=== PATIENT | female | born 1960 | race Caucasian/White ===

== ENCOUNTER → 2019-04-13 | Day surgery (SDC) | payer MEDICARE ==
[~2019-04-13] MED LIST: CLOPIDOGREL75 MG PO; EPHEDRINE SULFATE INJ 50 MG/10 ML SYR ONE; FENOFIBRATE145 MG PO; FENTANYL CITRATE/PF 100MCG/2 ML INJ ONE; GLIPIZIDE5 MG PO; GLUCAGON FOR INJ 1 MG VIAL ONE; LEVETIRACETAM500 MG PO; LEVOTHYROXINE50 MCG PO; LEXAPRO10 MG PO; MELOXICAM7.5 MG PO; METFORMIN HCL500 MG PO; MIDAZOLAM HCL 2 MG/2 ML VIAL ONE; NOVOLOG MI100 UNIT/1 SQ; PROPOFOL IV EMULSION 10 MG/ML 50 ML VIAL ONE; PROPRANOLOL HCL40 MG PO; ULTRAM50 MG PO; ZOLOFT50 MG PO
--- OUTSIDE RECORDS SUMMARY | 2019-04-13 06:48 | XMS REPORT | Clinical Summary ---
Author Author [facility] Address Unknown Phone Unavailable Care Team Providers Care Accreditation Manager Name Role Phone Louisa Restrepo DO PCP Allergies Comments Active Allergy Reactions Severity Noted Date Codeine Itching 06/08/2018 Penicillin G Hives 06/08/2018 Medications End Date Status Medication Sig Dispensed Refills Start Date Active traMADol (ULTRAM) 50 mg Take 50 mg by 0 tablet mouth every 6 (six) hours as needed for moderate pain. 06/13/2018 Discontinued celecoxib (CeleBREX) 100 Take 100 mg 0 MG capsule by mouth 2 (two) times a day. 06/13/2018 Discontinued losartan (COZAAR) 25 MG Take 25 mg by 0 tablet mouth every evening. 06/13/2018 Discontinued propranolol LA (INDERAL Take 60 mg by 0 LA) 60 MG 24 hr capsule mouth every evening. 06/13/2018 Discontinued clopidogrel (PLAVIX) 75 Take 75 mg by 0 mg tablet mouth every morning. 06/13/2018 Discontinued levothyroxine (SYNTHROID, Take 75 mcg 0 LEVOXYL) 75 mcg tablet by mouth every morning. 06/13/2018 Discontinued levETIRAcetam (KEPPRA) Take 750 mg 0 750 MG tablet by mouth 2 (two) times a day. 06/13/2018 Discontinued escitalopram (LEXAPRO) 20 Take 20 mg by 0 MG tablet mouth every morning. 07/13/2018 levETIRAcetam (KEPPRA) Take 1 tablet 60 tablet 0 750 MG tablet (750 mg 8 total) by mouth 2 (two) times a day for 30 days. 07/13/2018 atorvastatin (LIPITOR) 40 Take 1 tablet 30 tablet 0 MG tablet (40 mg total) 8 by mouth nightly for 30 days. 07/13/2018 losartan (COZAAR) 25 MG Take 1 tablet 30 tablet 0 tablet (25 mg total) 8 by mouth every evening for 30 days. 07/13/2018 propranolol LA (INDERAL Take 1 30 capsule 0 LA) 60 MG 24 hr capsule capsule (60 8 mg total) by mouth every evening for 30 days. 07/13/2018 insulin 70/30 NPH and Inject 40 10 mL 12 regular human (HumuLIN Units under 8 70/30) 100 unit/mL the skin 2 (70-30) injection (two) times a day before meals for 30 days. 07/13/2018 insulin NPH (HumuLIN-N) Inject 10 10 mL 12 100 unit/mL injection Units under 8 the skin 2 (two) times a day before meals for 30 days. 07/14/2018 fenofibrate (LOFIBRA) 160 Take 1 tablet 30 tablet 0 MG tablet (160 mg 8 total) by mouth daily for 30 days. 07/13/2018 celecoxib (CeleBREX) 100 Take 1 60 capsule 0 MG capsule capsule (100 8 mg total) by mouth 2 (two) times a day for 30 days. 07/14/2018 aspirin (ECOTRIN) 81 MG Take 1 tablet 30 tablet 0 enteric coated tablet (81 mg total) 8 by mouth daily for 30 days. 06/13/2018 Discontinued clopidogrel (PLAVIX) 75 Take 1 tablet 30 tablet 0 mg tablet (75 mg total) 8 by mouth every morning for 30 days. 07/13/2018 escitalopram (LEXAPRO) 20 Take 1 tablet 30 tablet 0 MG tablet (20 mg total) 8 by mouth every morning for 30 days. 07/13/2018 levothyroxine (SYNTHROID, Take 1 tablet 30 tablet 0 LEVOXYL) 75 mcg tablet (75 mcg 8 total) by mouth every morning for 30 days. Active Problems No known active problems Resolved Problems Problem Noted Date Resolved Date Chest pain 06/08/2018 06/13/2018 Encounters Care Team Description Date Type Specialty Geovani Berry MD Special screening for cancer; Personal history of tobacco use, presenting hazards to health 03/18/2019 Hospital Radiology Encounter Geovani Berry MD Special screening for cancer (Primary Dx); Personal history of tobacco use, presenting hazards to health 03/10/2019 Transcribe Access Orders Patrick Marie MD Abouelseoud, Tanseem Hamad Mohamed A, MD Morris, David, DO Chest pain, unspecified type (Primary Dx); Chest pain, rule out acute myocardial infarction; Hyperglycemia 06/08/2018 Hospital Intensive Care - Encounter 06/13/2018 after 04/12/2018 Social History Date Tobacco Use Types Packs/Day Years Used Quit: 09/2012 Former Smoker Smokeless Tobacco: Never Used Alcohol Use Drinks/Week oz/Week Comments Yes occasionally Sex Assigned at Date Recorded Not on file Industry Job Start Date Occupation Not on file Not on file Not on file Travel End Travel History Travel Start No recent travel history available. Last Filed Vital Signs Time Taken Vital Sign Reading 06/13/2018 3:00 PM CDT Blood Pressure 103/51 06/13/2018 4:45 PM CDT Pulse 65 06/13/2018 12:00 PM CDT Temperature 36.7 C (98.1 F) 06/13/2018 4:45 PM CDT Respiratory Rate 33 06/13/2018 4:45 PM CDT Oxygen Saturation 97% - Inhaled Oxygen - Concentration 06/10/2018 6:00 AM CDT Weight 90.4 kg (199 lb 4.7 oz) 06/09/2018 1:23 PM CDT Height 162.6 cm (5' 4") 06/09/2018 1:23 PM CDT Body Mass Index 34.21 Plan of Treatment Health Maintenance Due Date Last Done Comments DIABETIC RETINAL EYE EXAM 1959 DIABETIC FOOT EXAM 1969 URINE MICROALBUMIN 1969 BREAST CANCER SCREENING 2009 COLONOSCOPY SCREENING 2009 SHINGLES VACCINES (#1) 2009 INFLUENZA VACCINE 05/13/2019 07/27/2018, 07/15/2017 Implants Device Identifier Shelf Expiration Date Model / Serial / Lot Implanted Type Area Manufactur er Bone Plate Bone Plate Procedures Comments Procedure Name Priority Date/Time Associated Diagnosis CT CHEST LUNG CANCER Routine 03/18/2019 Special screening for SCREENING 9:48 AM CDT cancer Personal history of tobacco use, presenting hazards to health POC GLUCOSE Routine 06/13/2018 4:37 PM CDT POC GLUCOSE Routine 06/13/2018 11:22 AM CDT POC GLUCOSE Routine 06/13/2018 7:26 AM CDT ZZESTIMATED GFR Routine 06/13/2018 4:35 AM CDT TRIGLYCERIDES Routine 06/13/2018 4:35 AM CDT IONIZED CALCIUM Routine 06/13/2018 4:35 AM CDT PHOSPHORUS LEVEL Routine 06/13/2018 4:35 AM CDT MAGNESIUM LEVEL Routine 06/13/2018 4:35 AM CDT BASIC METABOLIC PANEL Routine 06/13/2018 4:35 AM CDT CBC WITH PLATELET AND Routine 06/13/2018 DIFFERENTIAL 4:35 AM CDT POC GLUCOSE Routine 06/13/2018 12:10 AM CDT POC GLUCOSE Routine 06/12/2018 10:21 PM CDT POC GLUCOSE Routine 06/12/2018 7:44 PM CDT POC GLUCOSE Routine 06/12/2018 6:08 PM CDT POC GLUCOSE Routine 06/12/2018 5:09 PM CDT ZZESTIMATED GFR Timed 06/12/2018 4:40 PM CDT IONIZED CALCIUM Timed 06/12/2018 4:40 PM CDT PHOSPHORUS LEVEL Timed 06/12/2018 4:40 PM CDT MAGNESIUM LEVEL Timed 06/12/2018 4:40 PM CDT BASIC METABOLIC PANEL Timed 06/12/2018 4:40 PM CDT POC GLUCOSE Routine 06/12/2018 4:12 PM CDT POC GLUCOSE Routine 06/12/2018 3:04 PM CDT POC GLUCOSE Routine 06/12/2018 2:03 PM CDT TROPONIN STAT 06/12/2018 12:51 PM CDT POC GLUCOSE Routine 06/12/2018 11:49 AM CDT ECG 12-LEAD STAT 06/12/2018 11:07 AM CDT ZZESTIMATED GFR Routine 06/12/2018 4:20 AM CDT TRIGLYCERIDES Routine 06/12/2018 4:20 AM CDT BASIC METABOLIC PANEL Routine 06/12/2018 4:20 AM CDT HC COMPLETE BLD COUNT Routine 06/12/2018 W/AUTO DIFF 4:20 AM CDT POC GLUCOSE Routine 06/12/2018 2:38 AM CDT POC GLUCOSE Routine 06/12/2018 12:10 AM CDT TRIGLYCERIDES Timed 06/11/2018 8:39 PM CDT POC GLUCOSE Routine 06/11/2018 7:37 PM CDT POC GLUCOSE Routine 06/11/2018 6:22 PM CDT POC GLUCOSE Routine 06/11/2018 5:06 PM CDT POC GLUCOSE Routine 06/11/2018 4:11 PM CDT TRIGLYCERIDES STAT 06/11/2018 3:12 PM CDT POC GLUCOSE Routine 06/11/2018 2:54 PM CDT POC GLUCOSE Routine 06/11/2018 1:54 PM CDT POC GLUCOSE Routine 06/11/2018 12:29 PM CDT POC GLUCOSE Routine 06/11/2018 11:56 AM CDT POC GLUCOSE Routine 06/11/2018 10:22 AM CDT POC GLUCOSE Routine 06/11/2018 9:18 AM CDT POC GLUCOSE Routine 06/11/2018 8:14 AM CDT PHOSPHORUS LEVEL STAT 06/11/2018 6:50 AM CDT MAGNESIUM LEVEL STAT 06/11/2018 6:50 AM CDT TRIGLYCERIDES Routine 06/11/2018 6:50 AM CDT ZZESTIMATED GFR Routine 06/11/2018 6:50 AM CDT BASIC METABOLIC PANEL Routine 06/11/2018 6:50 AM CDT HC COMPLETE BLD COUNT Routine 06/11/2018 W/AUTO DIFF 6:50 AM CDT POC GLUCOSE Routine 06/11/2018 6:26 AM CDT POC GLUCOSE Routine 06/11/2018 5:35 AM CDT POC GLUCOSE Routine 06/11/2018 4:33 AM CDT POC GLUCOSE Routine 06/11/2018 3:29 AM CDT POC GLUCOSE Routine 06/11/2018 2:31 AM CDT POC GLUCOSE Routine 06/11/2018 1:29 AM CDT POC GLUCOSE Routine 06/11/2018 12:41 AM CDT POC GLUCOSE Routine 06/10/2018 11:28 PM CDT POC GLUCOSE Routine 06/10/2018 10:30 PM CDT POC GLUCOSE Routine 06/10/2018 9:22 PM CDT POC GLUCOSE Routine 06/10/2018 8:13 PM CDT ZZESTIMATED GFR Timed 06/10/2018 8:11 PM CDT BASIC METABOLIC PANEL Timed 06/10/2018 8:11 PM CDT TRIGLYCERIDES Timed 06/10/2018 8:11 PM CDT POC GLUCOSE Routine 06/10/2018 7:26 PM CDT POC GLUCOSE Routine 06/10/2018 6:11 PM CDT POC GLUCOSE Routine 06/10/2018 5:25 PM CDT POC GLUCOSE Routine 06/10/2018 4:28 PM CDT POC GLUCOSE Routine 06/10/2018 3:04 PM CDT POC GLUCOSE Routine 06/10/2018 1:36 PM CDT POC GLUCOSE Routine 06/10/2018 12:32 PM CDT POC GLUCOSE Routine 06/10/2018 11:36 AM CDT POC GLUCOSE Routine 06/10/2018 10:23 AM CDT POC GLUCOSE Routine 06/10/2018 9:00 AM CDT POC GLUCOSE Routine 06/10/2018 8:24 AM CDT POC GLUCOSE Routine 06/10/2018 7:08 AM CDT XR CHEST 1 VW PORTABLE Routine 06/10/2018 6:38 AM CDT POC GLUCOSE Routine 06/10/2018 6:07 AM CDT POC GLUCOSE Routine 06/10/2018 5:07 AM CDT ZZESTIMATED GFR Routine 06/10/2018 4:05 AM CDT TRIGLYCERIDES Routine 06/10/2018 4:05 AM CDT PHOSPHORUS LEVEL Routine 06/10/2018 4:05 AM CDT MAGNESIUM LEVEL Routine 06/10/2018 4:05 AM CDT COMPREHENSIVE METABOLIC Routine 06/10/2018 PANEL 4:05 AM CDT CBC WITH PLATELET AND Routine 06/10/2018 DIFFERENTIAL 4:05 AM CDT POC GLUCOSE Routine 06/10/2018 4:01 AM CDT POC GLUCOSE Routine 06/10/2018 3:08 AM CDT POC GLUCOSE Routine 06/10/2018 2:03 AM CDT POC GLUCOSE Routine 06/10/2018 1:09 AM CDT ZZESTIMATED GFR Timed 06/10/2018 12:26 AM CDT TRIGLYCERIDES Timed 06/10/2018 12:26 AM CDT BASIC METABOLIC PANEL Timed 06/10/2018 12:26 AM CDT POC GLUCOSE Routine 06/10/2018 12:13 AM CDT POC GLUCOSE Routine 06/09/2018 11:01 PM CDT POC GLUCOSE Routine 06/09/2018 10:02 PM CDT POC GLUCOSE Routine 06/09/2018 9:04 PM CDT ZZESTIMATED GFR Timed 06/09/2018 8:45 PM CDT BASIC METABOLIC PANEL Timed 06/09/2018 8:45 PM CDT POC GLUCOSE Routine 06/09/2018 8:02 PM CDT POC GLUCOSE Routine 06/09/2018 7:03 PM CDT TRIGLYCERIDES Timed 06/09/2018 6:20 PM CDT POC GLUCOSE Routine 06/09/2018 6:07 PM CDT POC GLUCOSE Routine 06/09/2018 5:09 PM CDT POC GLUCOSE Routine 06/09/2018 4:06 PM CDT POC GLUCOSE Routine 06/09/2018 3:04 PM CDT POC GLUCOSE Routine 06/09/2018 2:03 PM CDT ECG 12-LEAD STAT 06/09/2018 1:38 PM CDT BETA HYDROXYBUTYRATE STAT 06/09/2018 11:59 AM CDT LACTIC ACID LEVEL STAT 06/09/2018 11:59 AM CDT KEPPRA (LEVETIRACETAM) Routine 06/09/2018 LEVEL 11:59 AM CDT MAGNESIUM LEVEL STAT 06/09/2018 10:48 AM CDT ZZESTIMATED GFR STAT 06/09/2018 10:48 AM CDT COMPREHENSIVE METABOLIC STAT 06/09/2018 PANEL 10:48 AM CDT LIPASE LEVEL STAT 06/09/2018 10:48 AM CDT TRIGLYCERIDES STAT 06/09/2018 10:48 AM CDT TROPONIN STAT 06/09/2018 10:48 AM CDT POC GLUCOSE Routine 06/09/2018 10:22 AM CDT ECHOCARDIOGRAM 2D Routine 06/09/2018 COMPLETE W MMODE SPECTRAL 9:26 AM CDT COLOR DOPPLER (41218) POC GLUCOSE Routine 06/09/2018 6:14 AM CDT TROPONIN Routine 06/09/2018 5:05 AM CDT THYROID STIMULATING Routine 06/09/2018 HORMONE 5:05 AM CDT LIPID PANEL Routine 06/09/2018 5:05 AM CDT ZZESTIMATED GFR Routine 06/09/2018 5:05 AM CDT BASIC METABOLIC PANEL Routine 06/09/2018 5:05 AM CDT HC COMPLETE BLD COUNT Routine 06/09/2018 W/AUTO DIFF 5:05 AM CDT URINALYSIS SCREEN AND Routine 06/09/2018 MICROSCOPY, WITH REFLEX 1:05 AM CDT TO CULTURE ECG 12-LEAD STAT 06/08/2018 9:20 PM CDT LIPID PANEL Timed 06/08/2018 8:42 PM CDT TROPONIN Timed 06/08/2018 8:42 PM CDT POC GLUCOSE Routine 06/08/2018 8:36 PM CDT POC GLUCOSE Routine 06/08/2018 7:[address] ABDOMEN PELVIS W STAT 06/08/2018 CONTRAST 6:34 PM CDT XR CHEST 2 VW STAT 06/08/2018 4:44 PM CDT ECG ED PRELIMINARY Routine 06/08/2018 INTERPRETATION 4:14 PM CDT KEPPRA (LEVETIRACETAM) Routine 06/08/2018 LEVEL 3:54 PM CDT HEMOGLOBIN A1C Routine 06/08/2018 3:54 PM CDT MANUAL DIFFERENTIAL STAT 06/08/2018 3:54 PM CDT LIPASE LEVEL STAT 06/08/2018 3:54 PM CDT ZZESTIMATED GFR STAT 06/08/2018 3:54 PM CDT B NATRIURETIC PEPTIDE STAT 06/08/2018 3:54 PM CDT TROPONIN STAT 06/08/2018 3:54 PM CDT COMPREHENSIVE METABOLIC STAT 06/08/2018 PANEL 3:54 PM CDT CBC WITH PLATELET AND STAT 06/08/2018 DIFFERENTIAL 3:54 PM CDT ECG 12-LEAD STAT 06/08/2018 3:17 PM CDT after 04/12/2018 Results * CT Chest Lung Cancer Screening (03/18/2019 9:48 AM CDT) Specimen Narrative Performed At EXAMINATION:CT CHEST LUNG CANCER SCREENING [facility] CLINICAL HISTORY:Z12.9 Encounter for screening for malignant neoplasmsite unspecified, Z87.891 Personal history of nicotine dependence, Z12.9SCREENING FOR CANCER COMPARISON:CTA chest October 05, 2013 TECHNIQUE:CT of the chest without intravenous contrast, using a low dose lung cancer screening protocol. Absence of contrast decreases sensitivity for detection of focal lesions and vascular pathology. CT imaging was performed with iterative reconstruction techniques and/or automated exposure control to reduce radiation dose. FINDINGS: LUNGS: There is no focal consolidation, pleural effusion, or pneumothorax. There are no suspicious pulmonary nodules or pulmonary mass. Increased lucency of the lungs suggest some degree of emphysema or other cause of chronic obstructive physiology. AIRWAYS: No central endobronchial or endotracheal lesions are seen. MEDIASTINUM: The thoracic aorta is without aneurysm. The pulmonary arteries are unremarkable. Heart is normal in size. No significant pericardial effusion is present. No enlarged mediastinal or hilar lymph nodes present. The esophagus is unremarkable. BONES AND OVERLYING SOFT TISSUES: The visualized bones are without destructive lesions. No enlarged axillary lymph nodes present. VISUALIZED LOWER NECK AND UPPER ABDOMEN:Unremarkable. IMPRESSION: No suspicious findings. Lung-Rads Category/Recommendation: 1:Negative:--- Continue annual LDCT in 12 months Explanation of the Lung-Rads categories can be found at: [email or web address] [id number] Procedure Note Hm Interface, Radiology Results Incoming - 03/18/2019 10:25 AM CDT EXAMINATION: CT CHEST LUNG CANCER SCREENING CLINICAL HISTORY: Z12.9 Encounter for screening for malignant neoplasm site unspecified, Z87.891 Personal history of nicotine dependence, Z12.9 SCREENING FOR CANCER COMPARISON: CTA chest October 05, 2013 TECHNIQUE: CT of the chest without intravenous contrast, using a low dose lung cancer screening protocol. Absence of contrast decreases sensitivity for detection of focal lesions and vascular pathology. CT imaging was performed with iterative reconstruction techniques and/or automated exposure control to reduce radiation dose. FINDINGS: LUNGS: There is no focal consolidation, pleural effusion, or pneumothorax. There are no suspicious pulmonary nodules or pulmonary mass. Increased lucency of the lungs suggest some degree of emphysema or other cause of chronic obstructive physiology. AIRWAYS: No central endobronchial or endotracheal lesions are seen. MEDIASTINUM: The thoracic aorta is without aneurysm. The pulmonary arteries are unremarkable. Heart is normal in size. No significant pericardial effusion is present. No enlarged mediastinal or hilar lymph nodes present. The esophagus is unremarkable. BONES AND OVERLYING SOFT TISSUES: The visualized bones are without destructive lesions. No enlarged axillary lymph nodes present. VISUALIZED LOWER NECK AND UPPER ABDOMEN:Unremarkable. IMPRESSION: No suspicious findings. Lung-Rads Category/Recommendation: 1: Negative: --- Continue annual LDCT in 12 months Explanation of the Lung-Rads categories can be found at: [id number] Performing Organization Address City/State/Zipcode Phone Number [facility] [address] [place] [address] * POC glucose (06/13/2018 4:37 PM CDT) Only the most recent of 69 results within the time period is included. [facility] POC glucose 124 (H) 65 - 100 mg/dL [facility] Comment: OF PATHOLOGY Meter ID: [id number] AND GENOMIC Assistant News Director: Tiff Jalloh [facility] Specimen Performing Organization Address City/State/Zipcode Phone Number [facility] [address] [place] [phone] PATHOLOGY AND GENOMIC MEDICINE * Estimated GFR (06/13/2018 4:35 AM CDT) Only the most recent of 11 results within the time period is included. Pathologist [facility] GFR Non Af Amer >90 mL/min/1.73 m2 [facility] OF PATHOLOGY AND GENOMIC MEDICINE GFR Af Amer >90 mL/min/1.73 m2 [facility] Comment: OF PATHOLOGY Chronic kidney disease: <60 AND GENOMIC mL/min/1.73m2 MEDICINE Kidney failure: <15 mL/min/1.73m2 The estimated GFR is calculated from the IDMS-traceable Modification of Diet in Renal Disease Equation. The accuracy of the calculation is poor when the creatinine is normal. Calculated values >90 mL/min/1.73m2 are not reported. This equation has not been validated in children (<18 years), women, the elderly (>70 years), or ethnic groups other than Caucasians and Americans. Specimen Plasma specimen Performing Organization Address City/State/Zipcode Phone Number [facility] [address] [place] [address] PATHOLOGY AND GENOMIC MEDICINE * CBC with platelet and differential (06/13/2018 4:35 AM CDT) Only the most recent of 6 results within the time period is included. WBC 3.9 (L) 4.2 - 11.0 k/uL [facility] OF PATHOLOGY AND GENOMIC MEDICINE RBC 3.82 (L) 4.04 - 5.86 m/uL [facility] PATHOLOGY AND GENOMIC MEDICINE HGB 11.6 11.5 - 15.3 g/dL [facility] PATHOLOGY AND GENOMIC MEDICINE HCT 36.1 34.0 - 45.0 % [facility] OF PATHOLOGY AND GENOMIC MEDICINE MCV 94.5 80.0 - 98.0 fL [facility] OF PATHOLOGY AND GENOMIC MEDICINE MCH 30.4 27.0 - 34.0 pg [facility] OF PATHOLOGY AND GENOMIC MEDICINE MCHC 32.1 31.5 - 36.5 g/dL [facility] OF PATHOLOGY AND GENOMIC MEDICINE RDW - SD 43.9 37.0 - 51.0 fL [facility] OF PATHOLOGY AND GENOMIC MEDICINE MPV 9.9 7.4 - 10.4 fL [facility] OF PATHOLOGY AND GENOMIC MEDICINE Platelet count 213 150 - 400 k/uL [facility] PATHOLOGY AND GENOMIC MEDICINE Nucleated RBC 0.00 /100 WBC [facility] OF PATHOLOGY AND GENOMIC MEDICINE Neutrophils 30.4 (L) 36.0 - 66.0 % [facility] OF PATHOLOGY AND GENOMIC MEDICINE Lymphocytes 50.5 (H) 24.0 - 44.0 % [facility] OF PATHOLOGY AND GENOMIC MEDICINE Monocytes 10.7 (H) 0.0 - 6.0 % [facility] DEPARTMENT OF PATHOLOGY AND GENOMIC MEDICINE Eosinophils 5.6 0.0 - 6.0 % [facility] OF PATHOLOGY AND GENOMIC MEDICINE Basophils 1.5 (H) 0.0 - 1.2 % [facility] OF PATHOLOGY AND GENOMIC MEDICINE Immature 1.3 (H) 0.0 - 1.0 % [facility] granulocytes OF PATHOLOGY AND GENOMIC MEDICINE Specimen Blood Performing Organization Address City/[facility] Cent[facility] [place] [address] PATHOLOGY AND GENOMIC MEDICINE * Triglycerides (06/13/2018 4:35 AM CDT) Only the most recent of 10 results within the time period is included. Triglycerides 461 (H) 0 - 149 mg/dL [facility] OF PATHOLOGY AND GENOMIC MEDICINE Specimen Plasma specimen Performing Organization Address [facility] Cent[facility]ode [place] [address] PATHOLOGY AND GENOMIC MEDICINE * Phosphorus level (06/13/2018 4:35 AM CDT) Only the most recent of 4 results within the time period is included. Phosphorus 3.8 2.4 - 4.5 mg/dL [facility] OF PATHOLOGY AND GENOMIC MEDICINE Specimen Plasma specimen Performing Organization Address City/[facility] Cent[facility]ode [place] [address] PATHOLOGY AND [facility] MEDICINE * Magnesium level (06/13/2018 4:35 AM CDT) Only the most recent of 5 results within the time period is included. Magnesium 1.60 1.60 - 2.60 mg/dL [facility] OF PATHOLOGY AND GENOMIC MEDICINE Specimen Plasma specimen Performing Organization Address City/[facility] Centercode [place] [address] PATHOLOGY AND [facility] MEDICINE * Ionized calcium (06/13/2018 4:35 AM CDT) Only the most recent of 2 results within the time period is included. pH 7.36 [facility] OF PATHOLOGY AND GENOMIC MEDICINE Ionized calcium 1.28 1.11 - 1.32 mmol/L [facility] OF PATHOLOGY AND GENOMIC MEDICINE Specimen Plasma specimen Performing Organization Address City/[facility] Centercode Phone Number [place] [phone] PATHOLOGY AND [facility] * Basic metabolic panel (06/13/2018 4:35 AM CDT) Only the most recent of 8 results within the time period is included. [facility] Sodium 137 135 - 150 mEq/L [facility] OF PATHOLOGY AND [facility]IC[facility] Potassium 4.2 3.5 - 5.0 mEq/L [facility] OF PATHOLOGY AND [facility]IC[facility] Chloride 98 98 - 112 mEq/L [facility] OF PATHOLOGY AND [facility] MEDICINE CO2 33 (H) 24 - 31 mmol/L [facility] PATHOLOGY AND [facility] MEDICINE Anion gap 6@ANIO (L) 7 - 15 mEq/L [facility] OF PATHOLOGY AND [facility] MEDICINE BUN 6 (L) 7 - 18 mg/dL [facility] OF PATHOLOGY AND [facility]IC[facility] Creatinine 0.50 0.50 - 0.90 mg/dL [facility] OF PATHOLOGY AND [facility] MEDICINE Glucose 211 (H) 65 - 100 mg/dL [facility] OF PATHOLOGY AND [facility]ICINE Calcium 9.7 8.3 - 10.2 mg/dL [facility] OF PATHOLOGY AND [facility]ICINE Specimen Plasma specimen Performing Organization Address City/[facility]/Zipcode Phone Number [facility] [address] [place] [address] PATHOLOGY AND [facility] * Troponin (06/12/2018 12:51 PM CDT) Only the most recent of 5 results within the time period is included. [facility] Troponin <0.30 0.00 - 0.30 ng/mL [facility] Comment: OF PATHOLOGY 0.11 - 1.49 AND GENOMIC [place] MEDICINE indicate increased risk of acute coronary syndrome. >=1.5 ng/ml Consistent with acute myocardial infarction. The diagnostic value of a single normal or non-diagnostic result is questionable.Serial samples at 2-6 hour intervals are required to rule out acute myocardial injury. Specimen Plasma specimen Performing Organization Address City/[facility]/Zipcode Phone Number [facility] OF [address] [place] [address] PATHOLOGY AND [facility] * ECG 12 lead (06/12/2018 11:07 AM CDT) Only the most recent of 4 results within the time period is included. [facility] Ventricular 65 [facility] rate Atrial rate 65 [facility] CA interval 164 [facility] QRSD interval 78 [facility] QT interval 420 [facility] QTC interval 436 [facility] P axis 1 65 [facility]USE QRS axis 1 40 [facility] T wave axis 64 [facility] EKG impression Normal sinus rhythm-Low [facility] voltage QRS-Borderline ECG-In automated comparison with ECG of 09-JUN-2018 13:38,-No significant change was found- Specimen Performing Organization Address [facility] Phone Number [facility] [address] [place] [address] * XR Chest 1 Vw Portable (06/10/2018 6:38 AM CDT) Specimen Narrative Performed At EXAMINATION:XR CHEST 1 VW PORTABLE [facility] CLINICAL HISTORY:ICU ptstable with no clinical status changes COMPARISON:June 08, 2018 chest IMPRESSION: The lungs are hypoexpanded but clear. The heart is not enlarged. Degenerative changes right acromioclavicular articulation as before Single view chest [id number] Procedure Note Hm Interface, Radiology Results Incoming - 06/10/2018 6:57 AM CDT EXAMINATION: XR CHEST 1 VW PORTABLE CLINICAL HISTORY: ICU pt stable with no clinical status changes COMPARISON: June 08, 2018 chest IMPRESSION: The lungs are hypoexpanded but clear. The heart is not enlarged. Degenerative changes right acromioclavicular articulation as before Single view chest [id number] Performing Organization Address [facility] Phone Number [facility] [address] [place] [address] * Comprehensive metabolic panel (06/10/2018 4:05 AM CDT) Only the most recent of 3 results within the time period is included. Sodium 135 135 - 150 mEq/L [facility] AND GENOMIC MEDICINE Potassium 3.5 3.5 - 5.0 mEq/L [facility]OLOGY AND GENOMIC MEDICINE Chloride 96 (L) 98 - 112 mEq/L [facility]OLOGY AND GENOMIC MEDICINE CO2 29 24 - 31 mmol/L [facility]OLOGY AND GENOMIC MEDICINE Anion gap 10@ANIO 7 - 15 mEq/L [facility]OLOGY AND GENOMIC MEDICINE BUN 8 7 - 18 mg/dL [facility]Y AND GENOMIC MEDICINE Creatinine 0.40 (L) 0.50 - 0.90 mg/dL [facility] AND [facility]OMIC MEDICINE Glucose 191 (H) 65 - 100 mg/dL [facility] AND [facility]OMIC MEDICINE Calcium 9.4 8.3 - 10.2 mg/dL [facility]Y AND GENOMIC MEDICINE Protein 5.7 (L) 6.3 - 8.3 g/dL [facility]OLOGY AND GENOMIC MEDICINE Albumin 2.8 (L) 3.5 - 5.0 g/dL [facility]OLOGY AND GENOMIC MEDICINE A/G ratio 1.0 0.7 - 3.8 [facility]OLOGY AND GENOMIC MEDICINE Alkaline 111 (H) 0 - 104 U/L [facility] phosphatase OF PATHOLOGY AND GENOMIC MEDICINE AST 69 (H) 10 - 35 U/L [facility]OLOGY AND GENOMIC MEDICINE ALT <2 (L) 5 - 50 U/L [facility]OLOGY AND GENOMIC MEDICINE Total bilirubin <0.3 0.2 - 1.2 mg/dL [facility]OLOGY AND GENOMIC MEDICINE Specimen Plasma specimen Performing Organization Address City/[facility] Cent[facility] [address] PATHOLOGY AND GENOMIC MEDICINE * Beta hydroxybutyrate (06/09/2018 11:59 AM CDT) Beta 0.96 (H) 0.02 - 0.27 mmol/L [facility] hydroxybutyrate OF PATHOLOGY AND [facility] Specimen Blood Performing Organization Address City/[facility] Centerc[place] [address] PATHOLOGY AND GENOMIC MEDICINE * Keppra (Levetiracetam) level (06/09/2018 11:59 AM CDT) Only the most recent of 2 results within the time period is included. Levetiracetam 23 12 - 46 ug/mL [facility] Comment: INTERPRETIVE INFORMATION: Keppra (Levetiracetam) Therapeutic Range:12-46 ug/mL Toxic: Not well Established Pharmacokinetics of levetiracetam are affected by renal function. Adverse effects may include somnolence, weakness, headache and vomiting. Performed by [facility], [address] [place] [id number] [email or web address] Jamal Westbrook MD - Lab. Director Specimen Serum Performing Organization Address City/[facility]/Zipcode Phone Number [facility] [address] [place] [address] * Lactic acid level (06/09/2018 11:59 AM CDT) Pathologist [facility] Lactic acid 1.1 0.5 - 2.2 mmol/L [facility] AND GENOMIC MEDICINE Specimen Blood Performing Organization Address City/[facility] Cent[facility]ode Phone Number [facility] [address] [facility] [place] [address] PATHOLOGY AND GENOMIC MEDICINE * Lipase level (06/09/2018 10:48 AM CDT) Only the most recent of 2 results within the time period is included. Pathologist [facility] Lipase 24 13 - 60 U/L [facility] OF [facility]OLOGY AND GENOMIC MEDICINE Specimen Plasma specimen Performing Organization Address [facility] Cent[facility] [place] [address] PATHOLOGY AND GENOMIC MEDICINE * Echocardiogram complete w contrast and 3D if needed (06/09/2018 9:26 AM CDT) Pathologist [facility] Velocity Ratio 0.63 m/s [facility] (V1/V2) IVS,d 0.95 cm [facility] EF 56.14 % [facility] Ascending aorta 3.20 cm [facility] LVPWD,d 0.88 cm [facility] AoV Mean PG 8.60 mmHg [facility] AV LVOT peak 6.88 mmHg [facility] gradient MV valve area p 2.93 cm2 [facility] 1/2 method PV Pk Grad 2.98 mmHg [facility] E/A ratio 0.81 [facility] E wave 259.17 msec [facility] decelartion time LVOT Diam,S 2.13 cm [facility] LVOT area 3.56 cm2 [facility] LVOT Vmax 1.32 m/s [facility] LVOT VTI 0.30 m [facility] AoV Peak PG 15.43 mmHg [facility] MV Peak E Tank 0.80 m/s [facility] MV stenosis 75.16 ms [facility] pressure 1/2 time MV Peak A Tank 0.99 m/s [facility] Ao Root 3.25 cm [facility] Diameter AoV Area, Vmax 2.38 cm2 [facility] AoV Area, VTI 2.56 cm2 [facility] AoV Vmax 2.09 m/s [facility] IVS/LVPW,2D 1.07 [facility] Left Atrium 3.31 cm [facility] Dimension Anterior LV,d 4.58 cm [facility] LV,s 3.24 cm [facility] PV VMAX 0.86 m/s [facility] RVSP (TR) 38.78 mmHg [facility] TR Vpeak 2.68 mm/s [facility] MV E A ratio 0.81 mmHg [facility] TR pk grad 28.78 mmHg [facility] RVSP 38.78 mmHg [facility] Ao Root 3.25 cm [facility] Diameter LV SYS VOL 42.23 ml [facility] LV CEASR VOL 96.29 ml [facility] LA area s A4C 19.47 cm2 [facility] LA Vol MOD A4C 54.73 ml [facility] LV SV Teich 2D 54.07 ml [facility] LV Vol s Teich 42.23 ml [facility] PSAX LVOT CO 18.57 l/min [facility] LVOT HR for 179.66 bpm [facility] LVOT CO AoV Vmn 1.40 [facility] IVS s 2D 1.30 [facility] LV FS Cube 2D 29.23 [facility] LV FS Teich 2D 29.23 [facility] AoV VTI 0.45 m [facility] LV EF,2D 64.56 % [facility] MV AE ratio 1.23 [facility] LVOT Vmn 0.89 [facility] Aov area Vmn 2.31 cm2 [facility] LVOT mean grad 3.63 mmHg [facility] MAX Pred HR 160.59 [facility] 85 of MPHR 136.50 [facility] Calc MPHR 160.59 bpm [facility] IVS pct thck 37.81 % [facility] PLAX LV SV Cube 2D 61.98 ml [facility] LV vol d cube 96.00 ml [facility] 2D LV vol s cube 34.03 ml [facility] 2D LVPW pct thck 49.97 % [facility] PLAX LVPW s PLAX 1.32 cm [facility] MV Decel slope 3.08 m/s2 [facility] Pred Exer Dur 7.97 [facility] R1 Pred METS R1 6.98 [facility] Specimen Narrative Performed At [facility] The left ventricle chamber size is normal. Left Ventricular ejection fraction is 55 - 60%. Spectral Doppler shows impaired relaxation pattern of left ventricular diastolic filling. Mildly elevated pulmonary artery systolic pressure Performing Organization Address City/State/Zipcode Phone Number [facility] [address] [place] [address] * Thyroid stimulating hormone (06/09/2018 5:05 AM CDT) TSH 4.64 (H) 0.27 - 4.20 uIU/mL [facility] OF [facility]OLOGY AND GENOMIC MEDICINE Specimen Plasma specimen Performing Organization Address City/[facility]/Zipcode Phone Number [address] [place] [address] PATHOLOGY AND GENOMIC MEDICINE * Lipid panel (06/09/2018 5:05 AM CDT) Only the most recent of 2 results within the time period is included. Cholesterol 528 (H) 0 - 199 mg/dL [facility] OF PATHOLOGY AND GENOMIC MEDICINE Triglycerides 3,465 (H) 0 - 149 mg/dL [facility] Comment: OF PATHOLOGY RESULT AFTER DILUTION, AND GENOMIC ORIGINALLY REPORTED ERROR MEDICINE Corrected result; previously reported as ERROR on 06/09/2018 at 06:52 by [facility] HDL cholesterol 9 (L) 40 - 9,999 mg/dL [facility] OF PATHOLOGY AND GENOMIC MEDICINE LDL cholesterol 64Comment: Result obtained by 0 - 99 mg/dL [facility] direct LDL measurement OF PATHOLOGY AND GENOMIC MEDICINE Lipid panel See below [facility] interpretation Comment: OF PATHOLOGY Total Cholesterol AND GENOMIC (mg/dL) MEDICINE LDL Cholesterol (mg/dL) <200 Desirable <100 Optimal 200-239Borderline -[id number] or above optimal >=240High 130-159Borderline- high 160-189High >=190Very high HDL Cholesterol (mg/dL) Triglycerides (mg/dL) <40Low <150 Normal >=60 High 150-199Borderline- high 200-499High >=500Very high Risk Catergories that modify LDL goals. Risk Catergories LDL goal (mg/dL) CHD and CHD risk equivalent <100 (10-year risk >20%) Multiple (2+) risk factors <130 (10-year risk=<20%) 0-1 risk factors <160 (<10-year risk) Defining levels of lipids in metabolic syndrome Triglycerides >=150 mg/dL HDL Cholesterol Men <40 mg/dL Women <50 mg/dL Non-HDL cholesterol is a second target for therapy in persons with high triglycerides (>=200 mg/dL) Specimen Plasma specimen Performing Organization Address City/[facility]/Zipcode Phone Number [place] [address] [place] [address] PATHOLOGY AND GENOMIC MEDICINE * Urinalysis screen and microscopy, with reflex to culture (06/09/2018 1:05 AM CDT) Specimen site Clean catch [facility] AND GENOMIC MEDICINE Color, UA Straw [facility] PATHOLOGY AND GENOMIC MEDICINE Appearance, UA Clear [facility] OF PATHOLOGY AND GENOMIC MEDICINE Specific 1.030 1.001 - 1.035 [facility] gravity, OF PATHOLOGY AND GENOMIC MEDICINE pH, UA 5.0 5.0 - 8.5 [facility] OF PATHOLOGY AND GENOMIC MEDICINE Protein, UA Negative Negative [facility] OF PATHOLOGY AND GENOMIC MEDICINE Glucose, UA 3+ (A) Negative [facility] OF PATHOLOGY AND GENOMIC MEDICINE Ketones, UA 1+ (A) Negative [facility] OF PATHOLOGY AND GENOMIC MEDICINE Bilirubin, UA Negative Negative [facility] OF PATHOLOGY AND GENOMIC MEDICINE Blood, UA Negative Negative [facility] OF PATHOLOGY AND GENOMIC MEDICINE Nitrite, UA Negative Negative [facility] OF PATHOLOGY AND GENOMIC MEDICINE Urobilinogen, Negative <2.0 [facility] UA OF PATHOLOGY AND GENOMIC MEDICINE Leukocyte Negative Negative [facility] esterase, UA OF PATHOLOGY AND GENOMIC MEDICINE Epithelial Few /HPF [facility] cells, UA OF PATHOLOGY AND GENOMIC MEDICINE WBC, UA 1 0 - 5 /HPF [facility] OF PATHOLOGY AND GENOMIC MEDICINE RBC, UA 1 0 - 5 /HPF [facility] OF PATHOLOGY AND GENOMIC MEDICINE Bacteria, UA Trace None seen [facility] OF PATHOLOGY AND GENOMIC MEDICINE Yeast, UA None seen [facility] OF PATHOLOGY AND GENOMIC MEDICINE Yeast with None seen [facility] pseudohyphae, OF PATHOLOGY UA AND GENOMIC MEDICINE Specimen Urine Performing Organization Address City/[facility]/Zipcode Phone Number [place] [address] [place] [address] PATHOLOGY AND GENOMIC MEDICINE * CT Abdomen Pelvis W Contrast (06/08/2018 6:34 PM CDT) Specimen Narrative Performed At EXAMINATION:CT ABDOMEN PELVIS W CONTRAST [facility] CLINICAL HISTORY:Abd painunspecified, Nauseavomiting TECHNIQUE: Multiple axial images of the abdomen and pelvis were obtained following intravenous administration of iodinated contrast. CT imaging was performed with iterative reconstruction technique and/or automated exposure control to reduce radiation dose. COMPARISON: CT of the abdomen and pelvis dated 01/05/2014 FINDINGS: ABDOMEN: No free air is seen in the abdomen. 1. Liver: Fatty infiltration of the liver. No discrete liver lesion is visualized. Hepatic veins patent. Portal vein, splenic vein, and superior mesenteric vein patent. 2. Gallbladder: Prior cholecystectomy. No abnormal dilatation of the biliary tree. 3. Spleen: The spleen is not enlarged. 4. Pancreas: No focal abnormality can be seen in the pancreas. No acute peripancreatic inflammatory change. 5. Adrenal Glands: There is a nodule in the lateral limb of the left adrenal gland which measures up to 1.8 cm, which is unchanged compared to previous examination. The right adrenal gland is unremarkable. 6. Kidneys: Nonspecific stranding surrounding the kidneys bilaterally may be secondary to scarring and underlying medical renal disease. Correlate with urinalysis to exclude infection. There is no solid mass seen within either kidney. No renal stone. No evidence of hydronephrosis, hydroureter, or discrete ureteral calculus. 7. Abdominal Aorta: Atherosclerosis abdominal aorta. 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 There is reconstitution of flow through the inferior vena cava reconstruction which reconstitutes flow and iliac vasculature. 8. Nodes: No significant adenopathy is noted in the upper abdomen, retroperitoneum, or mesenteric root. 9. Bowel: Colonic diverticulosis. Moderate amount of stool in the colon. No findings to suggest acute diverticulitis. There is a small portion of the transverse colon which herniates into a ventral abdominal hernia without evidence of thickening or inflammatory change. This contains fat and is above the level of the umbilicus. The cecum is unremarkable. The appendix is not definitively visualized. Delayed small bowel transit with evidence of a small bowel feces sign. Stomach appears grossly unremarkable. 10. Ascites: No ascites or fluid collections. PELVIS: 1.Pelvis: No free fluid in the pelvis. Inguinal, iliac chains demonstrate no significant adenopathy. Uterus is absent. Bladder unremarkable. 2. Bones: Degenerative changes of the osseous structures. No suspicious lesions. 3. Lung Bases: Unremarkable IMPRESSION: No definite acute findings in the abdomen or pelvis. Additional findings and details as above. [facility]-[id number] Procedure Note Interface, Radiology Results Incoming - 06/08/2018 6:56 PM CDT EXAMINATION: CT ABDOMEN PELVIS W CONTRAST CLINICAL HISTORY: Abd pain unspecified, Nausea vomiting TECHNIQUE: Multiple axial images of the abdomen and pelvis were obtained following intravenous administration of iodinated contrast. CT imaging was performed with iterative reconstruction technique and/or automated exposure control to reduce radiation dose. COMPARISON: CT of the abdomen and pelvis dated 01/05/2014 FINDINGS: ABDOMEN: No free air is seen in the abdomen. 1. Liver: Fatty infiltration of the liver. No discrete liver lesion is visualized. Hepatic veins patent. Portal vein, splenic vein, and superior mesenteric vein patent. 2. Gallbladder: Prior cholecystectomy. No abnormal dilatation of the biliary tree. 3. Spleen: The spleen is not enlarged. 4. Pancreas: No focal abnormality can be seen in the pancreas. No acute peripancreatic inflammatory change. 5. Adrenal Glands: There is a nodule in the lateral limb of the left adrenal gland which measures up to 1.8 cm, which is unchanged compared to previous examination. The right adrenal gland is unremarkable. 6. Kidneys: Nonspecific stranding surrounding the kidneys bilaterally may be secondary to scarring and underlying medical renal disease. Correlate with urinalysis to exclude infection. There is no solid mass seen within either kidney. No renal stone. No evidence of hydronephrosis, hydroureter, or discrete ureteral calculus. 7. Abdominal Aorta: Atherosclerosis abdominal aorta. 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 There is reconstitution of flow through the inferior vena cava reconstruction which reconstitutes flow and iliac vasculature. 8. Nodes: No significant adenopathy is noted in the upper abdomen, retroperitoneum, or mesenteric root. 9. Bowel: Colonic diverticulosis. Moderate amount of stool in the colon. No findings to suggest acute diverticulitis. There is a small portion of the transverse colon which herniates into a ventral abdominal hernia without evidence of thickening or inflammatory change. This contains fat and is above the level of the umbilicus. The cecum is unremarkable. The appendix is not definitively visualized. Delayed small bowel transit with evidence of a small bowel feces sign. Stomach appears grossly unremarkable. 10. Ascites: No ascites or fluid collections. PELVIS: 1. Pelvis: No free fluid in the pelvis. Inguinal, iliac chains demonstrate no significant adenopathy. Uterus is absent. Bladder unremarkable. 2. Bones: Degenerative changes of the osseous structures. No suspicious lesions. 3. Lung Bases: Unremarkable IMPRESSION: No definite acute findings in the abdomen or pelvis. Additional findings and details as above. [facility]-[id number] Performing Organization Address [facility] Phone Number [facility] [address] [place] [address] * XR Chest 2 Vw (06/08/2018 4:44 PM CDT) Specimen Narrative Performed At EXAMINATION:[facility] 2 [facility] CLIN[facility]:sob COMPARISON:02/10/2014 IMPRESSION: PA and lateral radiographs of the chest are reviewed. The heart size is normal. Lungs are clear. There is no pleural effusion or pneumothorax. There is no acute osseous abnormality. Resorption of the distal right clavicle is stable to previous examination and may be posttraumatic. There are surgical clips in the upper abdomen. [facility]-[id number] Procedure Note Hm Interface, Radiology Results Incoming - 06/08/2018 4:50 PM CDT EXAMINATION: XR CHEST 2 VW CLINICAL HISTORY: sob COMPARISON: 02/10/2014 IMPRESSION: PA and lateral radiographs of the chest are reviewed. The heart size is normal. Lungs are clear. There is no pleural effusion or pneumothorax. There is no acute osseous abnormality. Resorption of the distal right clavicle is stable to previous examination and may be posttraumatic. There are surgical clips in the upper abdomen. [facility]-[id number] Performing Organization Address [facility] Phone Number [facility] [address] [place] [address] * ECG ED Preliminary Interpretation - NOT AN ORDER (06/08/2018 4:14 PM CDT) Narrative Performed At Patrick Marie MD 06/08/20186:37 PM ECG ED Preliminary Interpretation - Not an Order Performed by: PATRICK MARIE Authorized by: PATRICK MARIE ECG reviewed by ED Physician in the absence of a bobbin dumper: yes Interpretation: Interpretation: abnormal Rate: ECG rate:79 ECG rate assessment: normal Rhythm: Rhythm: sinus rhythm Ectopy: Ectopy: none QRS: QRS axis:Normal Conduction: Conduction: normal ST segments: ST segments:Normal T waves: T waves: inverted Inverted:AVL * Manual differential (06/08/2018 3:54 PM CDT) Manual PERFORMED [facility] differential OF PATHOLOGY AND GENOMIC MEDICINE Neutrophils 57.0 36.0 - 66.0 % [facility] OF PATHOLOGY AND GENOMIC MEDICINE Lymphocytes 34.0 24.0 - 44.0 % [facility] OF PATHOLOGY AND GENOMIC MEDICINE Monocytes 5.0 0.0 - 6.0 % [facility] OF PATHOLOGY AND GENOMIC MEDICINE Eosinophils 3.0 0.0 - 6.0 % [facility] OF PATHOLOGY AND GENOMIC MEDICINE Basophils 1.0 0.0 - 1.2 % [facility] OF PATHOLOGY AND GENOMIC MEDICINE Metamyelocytes 0 0 - 1 % [facility] OF PATHOLOGY AND GENOMIC MEDICINE Promyelocytes 0 0 - 1 % [facility] PATHOLOGY AND GENOMIC MEDICINE Platelet slide Spencer adequate [facility] review OF PATHOLOGY AND GENOMIC MEDICINE Specimen Performing Organization Address City/State/Zipcode Phone Number [facility] [address] [place] [address]. [place] [address] PATHOLOGY AND GENOMIC MEDICINE * B natriuretic peptide (06/08/2018 3:54 PM CDT) Pathologist [facility] BNP 41 0 - 100 pg/mL [facility] OF PATHOLOGY AND GENOMIC MEDICINE Specimen Blood Performing Organization Address City/[facility] Centercode Phone Number [address] [place] [address] PATHOLOGY AND GENOMIC MEDICINE * Hemoglobin A1c (06/08/2018 3:54 PM CDT) Hemoglobin A1C 14.1 (H) 4.0 - 6.0 % [facility] Comment: OF PATHOLOGY AND GENOMIC MEDICINE Less than 6% - Goal of therapy for Type II Diabetes Less than 7%-Goal of therapy for Type I Diabetes Less than 8%-Accepta ble control for Type I or Type II Diabetes Greater than 8%-Unacceptabl e control; action indicated. ([id number]) Specimen Blood Performing Organization Address City/State/[facility] Centercode Phone Number [address] [place] [phone] PATHOLOGY AND GENOMIC MEDICINE after 04/12/2018 Insurance Type Payer Benefit Subscriber ID Effective Phone Address Plan / Dates Group Medicare MEDICARE MEDICARE xxxxxxxxxxx 2018- [place], PART A AND Present [place] Advance Directives Patient has advance care planning documents on file. For more information, farhat nash contact: Jason Small [address] [place] [address]
--- OUTSIDE RECORDS SUMMARY | 2019-04-13 06:51 | XMS REPORT | Continuity of Care Document ---
Author Author Chipolo Address Unknown Phone Unavailable Care Team Providers Care [facility] [employer] Member Name Role Phone [employer] Unavailable Unavailable Problems Problem Status Onset Date Classification Date Reported Comments Source Hypoglycemia Active 08/13/2018 Diagnosis 12/05/2018 [facility] Hypertension Active 07/27/2018 Diagnosis 12/05/2018 [facility] Flu vaccine Active 07/27/2018 Diagnosis 12/05/2018 [facility] Obesity Active 07/27/2018 Diagnosis 12/05/2018 [facility] BMI 34.0-34.9 Active 06/29/2018 Diagnosis 12/05/2018 [facility] Hypertriglyceridemia Active 06/26/2018 Diagnosis 12/05/2018 [facility] Hyperlipidemia Active 06/26/2018 Diagnosis 12/05/2018 [facility] Blurred vision Active 06/26/2018 Diagnosis 12/05/2018 [facility] Diabetes mellitus type II Active 06/13/2018 Diagnosis 12/05/2018 [facility] Seizure disorder Active 03/04/2018 Diagnosis 12/05/2018 [facility] Gait disturbance Active 03/04/2018 Diagnosis 12/05/2018 [facility] Abdominal wall hernia Active 07/15/2017 Diagnosis 12/05/2018 [facility] Chest pain Active 07/15/2017 Diagnosis 12/05/2018 [facility] Upper respiratory infection Inactive 07/15/2017 Problem 12/05/2018 [facility] Cough Inactive 07/15/2017 Problem 12/05/2018 [facility] Hypothyroidism Active 03/21/2017 Diagnosis 12/05/2018 [facility] Fibromyalgia Active 03/21/2017 Diagnosis 12/05/2018 [facility] Frequency, urinary Active 03/13/2017 Diagnosis 12/05/2018 [facility] CVA Active 11/04/2013 [facility] LAGUNAS, SZ, AMS, CVA Active 11/04/2013 [facility] LUMBAR STENOSIS Active 03/17/2012 [facility] CAD - Coronary artery disease Resolved Problem 01/31/2017 [facility] OPID [place] COPD Resolved Problem 01/31/2017 [facility] JACKIE Tan HTN - Hypertension Resolved Problem 01/31/2017 [facility] JACKIE Tan OA Active Problem 03/26/2019 [facility] Hypertension Active Problem 03/26/2019 [facility] Inflammatory arthritis Active Diagnosis 03/26/2019 [facility] Diabetes mellitus without mention of complication, type II or unspecified type, uncontrolled Active Problem 03/26/2019 [facility] Fibromyalgia Active Problem 03/26/2019 Kandy Najam Osteoarthritis of multiple joints Active Diagnosis 03/26/2019 Kandy Najam Medication monitoring encounter Active Diagnosis 03/26/2019 [facility] Left knee pain Active Diagnosis 03/26/2019 Kandy Najam Primary insomnia Active Problem 03/26/2019 Kandy Najam Left hand pain Active Diagnosis 03/26/2019 Kandy Najam Trigger finger, left middle finger Active Diagnosis 03/26/2019 Kandy Najam Asymptomatic postmenopausal status (natural) Active Diagnosis 06/13/2015 Kandy Najam Pain in joint, hand Active Diagnosis 06/13/2015 Kandy Najam Generalized osteoarthrosis, involving multiple sites Active Diagnosis 06/13/2015 Kandy Najam Counseling NOS Active Diagnosis 07/10/2016 Kandy Najam Pain in joint, lower leg Active Diagnosis 06/13/2015 Kandy Najam Pain in joint, multiple sites Active Diagnosis 06/13/2015 Kandy Najam Screening for osteoporosis Active Diagnosis 08/17/2015 Kandy Najam Pain, joint, hand, left Active Diagnosis 08/17/2015 Kandy Najam Pain, joint, hand, right Active Diagnosis 08/17/2015 Kandy Najam Pain in left foot Active Diagnosis 08/17/2015 Kandy Najam Osteoporosis Active Diagnosis 10/22/2015 Kandy Najam Pain in joint of right knee Active Diagnosis 10/22/2015 Kandy Najam Counseling NOS Active Diagnosis 10/22/2015 Kandy Najam Pain of left hand Active Diagnosis 07/10/2016 Kandy Najam Pain in right hand Active Diagnosis 07/10/2016 Kandy Najam OTHER GENERAL SYMPTOMS Active [facility] SPIN STEN,LUMBR WO ROYA Active [facility] Medications Medication Details Route Status Patient Instructions Ordering Provider Order Date Source Tizanidine HCl 1 tablet as needed Orally Active 4 MG Orally bedtime Najam 05/17/2019 [facility] Laverne Celecoxib 1 tab(s) with food as needed Orally Active 100 MG Orally Twice a day [facility] 05/17/2019 Kandy Dixon Celecoxib 1 tab(s) with food as needed Orally Active 100 MG Orally Twice a day [facility] 03/25/2019 Kandy Galloway Meloxicam 1 tab(s) with food as needed Orally Active 7.5 MG Orally Once a day [facility] 02/15/2019 Kandy Galloway Nalfon 1 capsule Orally Active 400 MG Orally Three times a day [facility] 11/18/2018 Kandy Galloway FENOFIBRATE TAKE 1 TABLET BY MOUTH ONCE DAILY Active TAKE 1 TABLET BY MOUTH ONCE DAILY 10/09/2018 [facility] ATORVASTATIN CALCIUM TAKE 1 TABLET BY MOUTH ONCE DAILY IN THE EVENING Active TAKE 1 TABLET BY MOUTH ONCE DAILY IN THE EVENING 10/09/2018 [facility] Celecoxib 1 tab(s) with food as needed Orally Active 100 MG Orally Twice a day [facility] 07/15/2018 Kandy Dixon Tizanidine HCl 1 tablet as needed Orally Active 4 MG Orally bedtime [facility] 07/15/2018 [facility] HUMULIN 70/30 (70-30) 100 UNIT/ML SUBCUTANEOUS SUSPENSION Inject 10 units under skin Every Day Active Inject 10 units under skin Every Day 06/26/2018 [facility] HUMULIN N 100 UNIT/ML SUBCUTANEOUS SUSPENSION Inject 10 units under skin Three Times a Day Active Inject 10 units under skin Three Times a Day 06/26/2018 [facility] ASPIRIN 1 by mouth every day Active 1 by mouth every day 06/26/2018 [facility] HUMULIN N 100 UNIT/ML SUBCUTANEOUS SUSPENSION Inject 10 units under skin Three Times a Day No Longer Active Inject 10 units under skin Three Times a Day 06/26/2018 [facility] LIPITOR 40 MG ORAL TABLET 1 by mouth every pm Active 1 by mouth every pm 06/26/2018 [facility] FENOFIBRATE Take one tablet By Mouth Every Day Active Take one tablet By Mouth Every Day 06/26/2018 [facility] CELEBREX 100 MG ORAL CAPSULE One capsule twice a day Active One capsule twice a day 02/09/2018 [facility] PROPRANOLOL HCL ER 60 MG ORAL CAPSULE EXTENDED RELEASE 24 HOUR take one cap By Mouth Every Day Active take one cap By Mouth Every Day 11/20/2017 [facility] Celecoxib 1 tab(s) with food as needed Orally Active 100 MG Orally Twice a day [facility] 11/18/2017 [facility] Meloxicam 1 tablet Orally Active 15 MG Orally Once a day prn with food [facility] 11/18/2017 [facility] Meloxicam 1 tablet Orally Active 15 MG Orally Once a day prn with food [facility] 09/16/2017 Kandy Dixon Tramadol HCl 2 tabs Orally Active 50 MG Orally tid prn [facility] 09/16/2017 Kandy Galloway Medrol as directed Orally Active 4 MG Orally daily [facility] 05/19/2017 Kandy [facility] CLOPIDOGREL BISULFATE 1 By Mouth once a day Active 1 By Mouth once a day 03/21/2017 [facility] MELOXICAM take one tab by mouth daily with food Active take one tab by mouth daily with food 03/21/2017 [facility] TRAMADOL HCL take two tabs by mouth three times a day for pain Active take two tabs by mouth three times a day for pain 03/21/2017 [facility] GABAPENTIN 1 by mouth three times a day Active 1 by mouth three times a day 03/21/2017 [facility] LEVETIRACETAM take one tab by mouth twice a day Active take one tab by mouth twice a day 03/21/2017 [facility] ESCITALOPRAM OXALATE take one tablet by mouth daily Active take one tablet by mouth daily 03/21/2017 [facility] LEVOTHYROXINE SODIUM One tab by mouth daily Active One tab by mouth daily 03/21/2017 [facility] LOSARTAN POTASSIUM 1 By Mouth once a day Active 1 By Mouth once a day 03/12/2017 [facility] LOSARTAN POTASSIUM One tablet once a day Active One tablet once a day 03/12/2017 [facility] Tramadol HCl 2 tabs Orally Active 50 MG Orally tid prn [facility] 03/07/2017 [facility] Plaquenil 2 tabs Orally Active 200 MG Orally Once a day [facility] 11/05/2016 [facility] Tramadol HCl 2 tabs Orally Active 50 MG Orally tid prn [facility] 11/05/2016 [facility] Meloxicam 1 tablet Orally Active 15 MG Orally Once a day prn with food [facility] 09/23/2016 Kandy [facility] Plaquenil 2 tabs Orally No Longer Active 200 MG Orally Once a day [facility] 09/23/2016 Kandy Najam Plaquenil 2 tabs Orally Active 200 MG Orally Once a day [facility] 08/16/2015 Kandy Najam Zorvolex 1 capsule Orally Active 35 MG Orally bid as needed [facility] 06/12/2015 Kandy Najam Zorvolex 1 capsule Orally Active 18 MG Orally bid as needed [facility] 06/12/2015 Kandy Destinym Zocor 20 mg, 1 tab, Route: PO, Drug form: TAB, Bedtime, Dosing Weight 83.636, kg, Start date: 11/06/13 21:00:00, Duration: 30 day, Stop date: 12/05/13 21:00:00(Same as: Zocor) Inactive [employer] 11/07/2013 [facility] multivitamin 1 tab, Route: PO, Drug Form: TAB, Dosing Weight 83.636, kg, Daily, Start date: 11/06/13 9:00:00, Duration: 30 day, Stop date: 12/05/13 9:00:00(Same as:Thera) Take with food. Inactive [facility] 11/06/2013 [facility] aspirin 81 mg, 1 tab, Route: PO, Drug form: ECTAB, Daily, Dosing Weight 83.636, kg, Start date: 11/06/13 9:00:00, Duration: 30 day, Stop date: 12/05/13 9:00:00Do not crush or chew. (Same As: Ecotrin) Inactive [facility] 11/06/2013 [facility] Coreg 3.125 mg, 1 tab, Route: PO, Drug form: TAB, Q12H, Dosing Weight 83.636, kg, Start date: 11/06/13 9:00:00, Duration: 30 day, Stop date: 12/05/13 21:00:00Give with food. (Same As: Coreg) Inactive [facility] 11/06/2013 [facility] lisinopril 20 mg, 1 tab, Route: PO, Drug form: TAB, Daily, Dosing Weight 83.636, kg, Start date: 11/06/13 9:00:00, Duration: 30 day, Stop date: 12/05/13 9:00:00(Same as: Prinivil, Zestril) Inactive [employer] 11/06/2013 [facility] tramadol 50 mg oral tablet 50 mg=1 tab, PO, Q6H, as needed for pain, # 40 tab, 0 Refill(s) Active Chip 11/06/2013 [facility] Tylenol 650 mg, 2 tab, Route: PO, Drug form: TAB, Q4H, Dosing Weight 83.636, kg, PRN Pain, Start date: 11/06/13 6:01:00, Duration: 30 day, Stop date: 12/06/13 6:00:00Do not exceed 4 gm/day. (Same as: Tylenol) Inactive Lina 11/06/2013 [facility] DuoNeb inhalation solution 3 ml, Route: INHALATION, Drug Form: SOLN, Dosing Weight 83.636, kg, PRN, PRN Dyspnea, Start date: 11/05/13 18:32:00, Duration: 30 day, Stop date: 12/05/13 18:31:00(Same as: Duoneb) No Longer Active Michi 11/06/2013 [facility] Combivent inhalation aerosol with adapter 0 Refill(s) No Longer Active 11/06/2013 [facility] Spiriva 0 Refill(s) No Longer Active 11/06/2013 [facility] Lyrica 0 Refill(s) No Longer Active 11/06/2013 [facility] diazepam 0 Refill(s) No Longer Active 11/06/2013 [facility] Zocor 20 mg oral tablet 20 mg=1 tab, PO, Bedtime, # 30 tab, 0 Refill(s) Active 11/06/2013 [facility] hydrochlorothiazide-lisinopril 12.5 mg-20 mg oral tablet 1 tab, PO, Daily, # 30 tab, 0 Refill(s) Active 11/06/2013 [facility] famotidine 20 mg, 1 tab, Route: PO, Drug form: TAB, BID, Dosing Weight 83.636, kg, Start date: 11/05/13 17:00:00, Duration: 30 day, Stop date: 12/05/13 9:00:00(Same as: Pepcid) Inactive Kimberly 11/05/2013 [facility] benzocaine-menthol topical 1 lozenge, Route: MUCOUS MEM, Drug Form: JL, Q2H, PRN Sore Throat, Start date: 11/05/13 16:00:00, Duration: 30 day, Stop date: 12/05/13 15:59:00Cepacol lozenges (Same As: Cepacol Lozenges) Inactive [facility] 11/05/2013 [facility] aspirin 325 mg, 1 tab, Route: PO, Drug form: TAB, Daily, Dosing Weight 83.636, kg, Start date: 11/05/13 16:00:00, Duration: 30 day, Stop date: 12/05/13 9:00:00 Inactive [facility] 11/05/2013 [facility] Cepacol Lozenge 1 lozenge, Route: MUCOUS MEM, Q2H, Drug form: JL, PRN Sore Throat, Start date: 11/05/13 15:36:00, Duration: 30 day, Stop date: 12/05/13 15:35:00 Inactive Elsa 11/05/2013 [facility] clarithromycin 250 mg, 1 tab, Route: PO, Drug form: TAB, Q12H, Dosing Weight 83.636, kg, Start date: 11/05/13 12:00:00, Duration: 30 day, Stop date: 12/05/13 9:00:00(Same As: Biaxin) Inactive [facility] 11/05/2013 [facility] predniSONE 20 mg, 1 tab, Route: PO, Drug form: TAB, Daily, Dosing Weight 83.636, kg, Start date: 11/05/13 10:38:00, Duration: 30 day, Stop date: 12/05/13 9:00:00Take with food. Inactive [facility] 11/05/2013 [facility] digoxin 125 mcg (0.125 mg) oral tablet 0.125 mg, 1 tab, Route: PO, Drug form: TAB, Daily, Dosing Weight 83.636, kg, Start date: 11/05/13 9:00:00, Duration: 30 day, Stop date: 12/04/13 9:00:00 Inactive Uma 11/05/2013 [facility] Procardia XL 30 mg, 1 tab, Route: PO, Drug form: ERTAB, Daily, Start date: 11/05/13 9:00:00, Duration: 30 day, Stop date: 12/04/13 9:00:00(Same as: Adalat CC, Procardia XL) Give on empty stomach. Take 1 hour before or 2 hours after meal; "Avoid grapefruit and grapefruit juice". Do not crush Inactive Kimberly 11/05/2013 [facility] Xopenex 0.31 mg, Route: NEB, Q8H, Dosing Weight 83.636, kg, Start date: 11/05/13 8:00:00, Duration: 30 day, Stop date: 12/05/13 0:00:00 Inactive [facility] 11/05/2013 [facility] heparin 5000 units/mL injectable solution 5,000 unit, 1 mL, Route: SUB-Q, Drug form: INJ, Q8H, Dosing Weight 83.636, kg, Start date: 11/05/13 0:00:00, Duration: 30 day, Stop date: 12/04/13 16:00:00porcine heparin No Longer Active [facility] 11/05/2013 [facility] heparin 5,000 unit, 1 mL, Route: SUB-Q, Drug form: INJ, Q8H, kg, Start date: 11/05/13 0:00:00, Duration: 30 day, Stop date: 12/04/13 16:00:00porcine heparin No Longer Active Robert 11/05/2013 [facility] NIFEdipine 10 mg, Route: PO, Drug form: CAP, Q8H, Dosing Weight 83.636, kg, Start date: 11/05/13 0:00:00, Duration: 30 day, Stop date: 12/04/13 16:00:00 No Longer Active Uma 11/05/2013 [facility] Saline Flush 0.9% 5 ml, Route: IVP, Drug Form: INJ, kg, Q12H, Start date: 11/04/13 21:00:00, Duration: 30 day, Stop date: 12/04/13 9:00:00(Same as: BD Posiflush) No Longer Active Robert 11/05/2013 [facility] nystatin topical 100,000 units/g powder 1 appl, Route: TOP, Q24H, Drug form: PWDR, Start date: 11/04/13 17:00:00, Duration: 30 day, Stop date: 12/03/13 17:00:00(Same as:Mycostatin, Nilstat) For external use only. No Longer Active [facility] 11/04/2013 [facility] potassium chloride 20 mEq, 1 tab, Route: PO, Drug form: ERTAB, PRN, Dosing Weight 83.636, kg, PRN Abnormal Lab Result, Start date: 11/04/13 16:42:00, Duration: 30 day, Stop date: 12/04/13 16:41:00, FOR ICU USE ONLYFOR ICU USE ONLY(Same as: K-Dur 20) "Do Not Crush" With food and full glass of water No Longer Active Harris 11/04/2013 [facility] sodium glycerophosphate + Sodium Chloride 0.9% IV 250 mL 15 mmol, 15 mL, Route: IVPB, PRN, Dosing Weight 83.636, kg, PRN Abnormal Lab Result, Start date: 11/04/13 16:42:00, Duration: 30 day, Stop date: 12/04/13 16:41:00, FOR ICU USE ONLYFOR ICU USE ONLY No Longer Active 11/04/2013 [facility] potassium phosphate + Sodium Chloride 0.9% IV 250 mL 45 mmol, 15 mL, Route: IVPB, PRN, Dosing Weight 83.636, kg, PRN Abnormal Lab Result, Start date: 11/04/13 16:42:00, Duration: 30 day, Stop date: 12/04/13 16:41:00, FOR ICU USE ONLYFOR ICU USE ONLY(Same as: K Phosphate.) 1 mMol phoshate has 1.47 mEq potassium Infuse over 4 hours No Longer Active Harris 11/04/2013 [facility] calcium gluconate + Sodium Chloride 0.9% IV 50 mL 1 gm, 10 mL, Route: IVPB, PRN, Dosing Weight 83.636, kg, PRN Abnormal Lab Result, Start date: 11/04/13 16:42:00, Duration: 30 day, Stop date: 12/04/13 16:41:00, FOR ICU USE ONLYFOR ICU USE ONLY No Longer Active 11/04/2013 [facility] magnesium sulfate 2 gm, 50 mL, Route: IVPB, Drug form: INJ, PRN, Dosing Weight 83.636, kg, PRN Abnormal Lab Result, Start date: 11/04/13 16:42:00, Duration: 30 day, Stop date: 12/04/13 16:41:00, FOR ICU USE ONLYFOR ICU USE ONLY No Longer Active [facility] 11/04/2013 [facility] Lasix 20 mg, 2 mL, Route: IV, Drug form: INJ, ONCE, kg, Start date: 11/04/13 16:17:00, Stop date: 11/04/13 16:17:00(Same as: Lasix) Inactive Aduba 11/04/2013 [facility] Saline Flush 0.9% 5 ml, Route: IVP, Drug Form: INJ, kg, PRN, PRN Line Flush, Start date: 11/04/13 16:12:00, Duration: 30 day, Stop date: 12/04/13 16:11:00(Same as: BD Posiflush) No Longer Active Robert 11/04/2013 [facility] nystatin topical 100,000 units/g powder 1 appl, Route: TOP, PRN, Drug form: PWDR, PRN For Fungal Prophylaxis, Start date: 11/04/13 16:12:00, Duration: 30 day, Stop date: 12/04/13 16:11:00(Same as:Mycostatin, Nilstat) For external use only. No Longer Active [facility] 11/04/2013 [facility] vancomycin + Sodium Chloride 0.9% IV 250 mL 1 gm, Route: IVPB, Drug form: INJ, ONCE, Start date: 11/04/13 14:30:00, Stop date: 11/04/13 14:30:00(Same As: Vancocin) Vancomycin FOR IV SET ONLY Inactive Ayla 11/04/2013 [facility] NS (Bolus) IV 1,000 mL 1,000 mL, Rate: 1,000 ml/hr, Infuse over: 1 hr, Route: IV, Total Volume: 1,000, Priority: STAT, Start date: 11/04/13 13:15:00, Duration: 1 doses or times, Stop date: 11/04/13 14:14:00, Bolus DoseBolus Dose Inactive Isaias 11/04/2013 [facility] cefepime + Sodium Chloride 0.9% IV 100 mL 2 gm, Route: IVPB, Drug form: INJ, ONCE, Start date: 11/04/13 12:30:00, Stop date: 11/04/13 12:30:00(Same As: Maxipime) Cefepime FOR IV SET ONLY Inactive Aguila 11/04/2013 [facility] fentanyl Route: IVP, ONCE, kg, Priority: STAT, Start date: 11/04/13 11:19:00, Stop date: 11/04/13 11:19:00 Inactive Galena 11/04/2013 [facility] Versed 4 mg, Route: IVP, ONCE, kg, Priority: STAT, Start date: 11/04/13 11:19:00, Stop date: 11/04/13 11:19:00 Inactive [place] 11/04/2013 [facility] vancomycin 1 gm, Route: IVPB, Drug form: INJ, ONCE, kg, Priority: STAT, Start date: 11/04/13 11:08:00, Stop date: 11/04/13 11:08:00(Same As: Vancocin) Inactive Jair 11/04/2013 [facility] cefepime 2 gm, Route: IVPB, Drug form: INJ, ONCE, kg, Priority: STAT, Start date: 11/04/13 11:08:00, Stop date: 11/04/13 11:08:00(Same as: Maxipime) Inactive [place] 11/04/2013 [facility] acyclovir + Sodium Chloride 0.9% IV 150 mL 910 mg, Route: IVPB, ONCE, Dosing Weight 75, kg, Priority: STAT, Start date: 11/04/13 11:07:00, Stop date: 11/04/13 11:07:00(Same as: Zovirax) Inactive Jair 11/04/2013 [facility] norepinephrine 8 mg + Sodium Chloride 0.9% (titrate) 242 mL 242 mL, Rate: Use as direced, Route: IV, Total Volume: 250 mL, Start Date: 11/04/13 11:06:00, Duration: 30 day, Stop date: 12/04/13 11:05:00, Replace Every: 24 hr No Longer Active Kimberly 11/04/2013 [facility] Visipaque 320mg/ml 125 mL, Route: IVP, Drug Form: SOLN, kg, ONCALL, STAT, Start date: 11/04/13 10:44:00, Duration: 1 doses or times, Dose=2.2ml/kg, Max [id number] -- "To be infused by Radiology Staff ONLY"Dose= 2.2ml/kg, Max [id number] -- "To be infused by Radiology Staff ONLY" Inactive Blake 11/04/2013 [facility] Versed 1 mg, Route: IVP, ONCE, kg, Priority: STAT, Start date: 11/04/13 10:10:00, Stop date: 11/04/13 10:10:00 Inactive Blake 11/04/2013 [facility] Versed 4 mg, Route: IVP, ONCE, kg, Priority: STAT, Start date: 11/04/13 9:48:00, Stop date: 11/04/13 9:48:00 Inactive Jair 11/04/2013 [facility] Saline Flush 0.9% 5 mL, Route: MISC, Drug Form: INJ, kg, PRN, PRN Line Flush, Start date: 11/04/13 9:08:00, Duration: 30 day, Stop date: 12/04/13 9:07:00(Same as: BD Posiflush) No Longer Active Hedin 11/04/2013 [facility] Prinivil 20 mg, 1 tab, Route: PO, Drug form: TAB, Daily, Start date: 04/04/12 9:00:00, Duration: 30 day, Stop date: 05/03/12 9:00:00 PO No Longer Active Mickie 04/04/2012 [facility] hydrochlorothiazide 12.5 mg, 1 cap, Route: PO, Drug form: CAP, Daily, Start date: 04/04/12 9:00:00, Duration: 30 day, Stop date: 05/03/12 9:00:00 PO No Longer Active Mickie 04/04/2012 [facility] Estrace 0.5 mg, 0.5 tab, Route: PO, Drug form: TAB, Daily, Start date: 04/04/12 9:00:00, Duration: 30 day, Stop date: 05/03/12 9:00:00 PO No Longer Active Mickie 04/04/2012 [facility] hydrochlorothiazide-lisinopril 12.5 mg-20 mg oral tablet 1 tab, Route: PO, Drug Form: TAB, Daily, Start date: 04/04/12 9:00:00, Duration: 30 day, Stop date: 05/03/12 9:00:00 PO No Longer Active Mickie 04/04/2012 [facility] dexamethasone 4 mg, 1 mL, Route: IV, Drug form: INJ, Q12H, Start date: 04/03/12 21:00:00, Duration: 1 day, Stop date: 04/04/12 9:00:00 IV No Longer Active Mickie 04/04/2012 [facility] simvastatin 20 mg, 1 tab, Route: PO, Drug form: TAB, Bedtime, Start date: 04/03/12 21:00:00, Duration: 30 day, Stop date: 05/02/12 21:00:00 PO No Longer Active Mickie 04/04/2012 [facility] Colace 100 mg oral capsule 100 mg, 1 cap, Route: PO, Drug form: CAP, BID, Start date: 04/03/12 17:00:00, Duration: 30 day, Stop date: 05/03/12 9:00:00 PO No Longer Active Mickie 04/03/2012 [facility] Lyrica 50 mg, 1 cap, Route: PO, Drug form: CAP, TID, Start date: 04/03/12 13:00:00, Duration: 30 day, Stop date: 05/03/12 9:00:00 PO No Longer Active Mickie 04/03/2012 [facility] Toradol 30 mg/mL injectable solution 30 mg, 1 mL, Route: IV, Drug form: INJ, Q6H, Start date: 04/03/12 12:00:00, Duration: 24 hr, Stop date: 04/04/12 6:00:00 IV No Longer Active Mickie 04/03/2012 [facility] labetalol 5 mg, 1 mL, Route: IVP, Drug form: INJ, Q5Min, PRN Elevated BP, Start date: 04/03/12 11:01:00, Duration: 5 doses or times, Stop date: 04/04/12 6:00:00 IVP No Longer Active [facility] 04/03/2012 [facility] ondansetron 4 mg, 2 mL, Route: IVP, Drug form: INJ, ONCE, PRN Nausea & Vomiting, Start date: 04/03/12 11:01:00 IVP No Longer Active [facility] 04/03/2012 [facility] hydromorphone 0.5 mg, 0.25 mL, Route: IVP, Drug form: INJ, Q5Min, PRN Pain Score 4-6, Start date: 04/03/12 11:01:00, Duration: 5 doses or times, Stop date: 04/04/12 6:00:00 IVP No Longer Active [facility] 04/03/2012 [facility] flumazenil 0.2 mg, 2 mL, Route: IVP, Drug form: INJ, PRN, PRN Benzodiazepine Reversal, Initial dose, Start date: 04/03/12 11:01:00, Stop date: 04/04/12 6:00:00 IVP No Longer Active [facility] 04/03/2012 [facility] meperidine 12.5 mg, 0.5 mL, Route: IVP, Drug form: INJ, Q30Min, PRN Other -See Comment, For shivering, Start date: 04/03/12 11:01:00, Duration: 2 doses or times, Stop date: 04/04/12 6:00:00 IVP No Longer Active [facility] 04/03/2012 [facility] naloxone 0.04 mg, 0.1 mL, Route: IVP, Drug form: INJ, Q2MIN, PRN Narcotic Reversal, Start date: 04/03/12 11:01:00, Duration: 8 doses or times, Stop date: 04/04/12 6:00:00 IVP No Longer Active [facility] 04/03/2012 [facility] Zofran 4 mg, 2 mL, Route: IV, Drug form: INJ, Q6H, PRN as needed for nausea/vomiting, Start date: 04/03/12 9:39:00, Duration: 30 day, Stop date: 05/03/12 9:38:00 IV No Longer Active [facility] 04/03/2012 [facility] Flexeril 5 mg, 0.5 tab, Route: PO, Drug form: TAB, TID, PRN Spasm, Start date: 04/03/12 9:38:00, Duration: 30 day, Stop date: 05/03/12 9:37:00 PO No Longer Active [facility] 04/03/2012 [facility] Ofirmev 1,000 mg, 100 mL, Route: IV, Drug form: INJ, Q6H, PRN Pain, for > or=50 kg, Start date: 04/03/12 9:37:00, Duration: 1 day, Stop date: 04/04/12 9:36:00 IV No Longer Active [facility] 04/03/2012 [facility] Ambien 5 mg, 1 tab, Route: PO, Drug form: TAB, Bedtime, PRN Insomnia, Start date: 04/03/12 9:37:00, Duration: 30 day, Stop date: 05/03/12 9:36:00 PO No Longer Active [facility] 04/03/2012 [facility] Cepacol Lozenge 1 lozenge, Route: MUCOUS MEM, Q2H, Drug form: JL PRN Sore Throat, Start date: 04/03/12 9:37:00, Duration: 30 day, Stop date: 05/03/12 9:36:00 MUCOUS MEM No Longer Active [facility] 04/03/2012 [facility] Spring 10/325 oral tablet 1 tab, Route: PO, Drug Form: TAB, Q4H, PRN Pain Score 1-5, Start date: 04/03/12 9:37:00, Duration: 30 day, Stop date: 05/03/12 9:36:00 PO No Longer Active [facility]ie 04/03/2012 [facility] morphine Sulfate 2 mg, 1 mL, Route: IVP, Drug form: INJ, Q4H, PRN Pain Score 4-6, Start date: 04/03/12 9:37:00, Duration: 30 day, Stop date: 05/03/12 9:36:00 IVP No Longer Active [facility] 04/03/2012 [facility] normal saline 0.9% IV 1,000 mL 1,000 mL, Rate: 75 ml/hr, Infuse over: 13.3 hr, Route: IV, Dosing Weight 84.545 kg, Total Volume: 1,000, Start date: 04/03/12 9:36:00, Duration: 30 day, Stop date: 05/03/12 9:35:00 IV No Longer Active [facility] 04/03/2012 [facility] vancomycin 1 gm, Route: IVPB, Drug form: INJ, PRE OP, Start date: 04/02/12 22:00:00, Duration: 1 day, Stop date: 04/03/12 21:59:00 IVPB No Longer Active [facility] 04/03/2012 [facility] simvastatin 20 mg, 1 tab, PO, Bedtime, 30 tab, Substitution Allowed PO On Hold [facility] 03/31/2012 [facility] meloxicam 15 mg oral tablet 15 mg, 1 tab, PO, Daily, 30 tab, Substitution Allowed, TAB PO Active 03/31/2012 [facility] orphenadrine 100 mg oral tablet, extended release Substitution Allowed Active 03/31/2012 [facility] Lyrica 50 mg oral capsule 50 mg, 1 cap, PO, TID, Substitution Allowed, CAP PO On Hold [facility] 03/31/2012 [facility] hydrochlorothiazide-lisinopril 12.5 mg-20 mg oral tablet 1 tab, PO, Daily, 30 tab, Substitution Allowed, Maintenance, TAB PO On Hold [facility] 03/31/2012 [facility] Estrace 0.5 mg oral tablet 0.5 mg, 1 tab, PO, Daily, 30 tab, Substitution Allowed, TAB PO On Hold [facility] 03/31/2012 [facility] Meloxicam 1 tablet Once a day prn with food Orally 30 day(s) NA Active 15 MG Najam Kandy Najam Levetiracetam 2 tablets on the tongue and allow to dissolve Orally Active 750 MG Orally twice a day Najam Kandy Najam Levothyroxine Sodium 1 tablet Orally Active 75 MCG Orally Once a day Najam Kandy Najam Calcium 600+D Plus Minerals 1 tablet with food Orally Active 600-400 MG-UNIT Orally Once a day at noon Najam Kandy Najam Escitalopram Oxalate 1 tablet Orally Active 20 MG Orally Once a day Najam Kandy Najam Tramadol HCl 2 tabs Orally Active 50 MG Orally tid prn Najam Kandy Najam Vitamin D (Ergocalciferol) 1 capsule Orally Active 81935 UNIT Orally Once weekly Najam Kandy Najam Clopidogrel Bisulfate 1 tablet Orally Active 75 MG Orally Once a day Najam Kandy Najam 1 tab(s) Orally Active 27-1 MG Orally Once a day Najam Kandy Najam Multivitamin 1 Tablet Orally Active Over the Counter Orally Once Daily Najam Kandy Najam Vitamin E 1 capsule Orally Active 1000 UNIT Orally Once a day Najam Kandy Najam Flaxseed Oil not defined Orally Active 1000 MG Orally Najam Kandy Najam Aspirin not defined Orally Active 81 MG Orally Once a day Najam Kandy Najam Accu-Chek Active Care Kit not defined NA Active Najam Kandy Najam Vitamin B-1 1 tablet Orally Active 100 MG Orally Once a day Najam Kandy Najam Vitamin B12 1 tab(s) Orally Active 1200 Orally Once a day Najam Kandy Najam Gabapentin 1 capsule Orally Active 600 MG Orally Three times a day Najam Kandy Najam Gabapentin 1 capsule Orally Active 300 MG Orally Three times a day Najam Kandy Najam Fish Oil 1 capsule Orally Active 1000 MG Orally Once a day Najam Kandy Najam Escitalopram Oxalate 1 tablet Orally Active 20 MG Orally Once a day Najam Kandy Najam Levothyroxine Sodium 1 tablet Orally Active 75 MCG Orally Once a day Najam Kandy Najam Aspirin not defined Orally Active 81 MG Orally Once a day Najam Kandy Najam Vitamin D (Ergocalciferol) 1 capsule Orally Active 53423 UNIT Orally Once weekly Najam Kandy Najam Metoprolol Tartrate 1 tablet Orally Active 25 MG Orally every 12 hrs Najam Kandy Najam Losartan Potassium 1 tablet Orally Active 50 MG Orally Once a day Najam Kandy Najam Vitamin E 1 capsule Orally Active 1000 UNIT Orally Once a day Najam Kandy Najam Meloxicam 1 tablet Orally Active 15 MG Orally Once a day prn with food Najam Kandy Najam Vitamin B-1 1 tablet Orally Active 100 MG Orally Once a day Najam Kandy Najam Diazepam 1 tablet as needed Orally Active 5 mg Orally Twice a day Najam Kandy Najam Benzonatate 1 capsule as needed Orally Active 100 MG Orally Three times a day Najam Kandy Najam Simvastatin not defined Orally Active 40 MG Orally Once a day Najam Kandy Najam Estradiol 1 tablet Orally Active 1 MG Orally Once a day Najam Kandy Najam Gabapentin 1 capsule Orally Active 300 MG Orally Three times a day Najam Kandy Najam Levetiracetam 2 tablets on the tongue and allow to dissolve Orally Active 750 MG Orally twice a day Najam Kandy Najam Pantoprazole Sodium 1 packet Orally Active 40 MG Orally Once a day Najam Kandy Najam Clopidogrel Bisulfate 1 tablet Orally Active 75 MG Orally Once a day Najam Kandy Najam 1 tab(s) Orally Active 27-1 MG Orally Once a day Najam Kandy Najam Vitamin B12 1 tab(s) Orally Active 1200 Orally Once a day Najam Kandy Najam Calcium 600+D Plus Minerals 1 tablet with food Orally Active 600-400 MG-UNIT Orally Once a day at noon Najam Kandy Najam Fish Oil 1 capsule Orally Active 1000 MG Orally Once a day Najam Kandy Najam Flaxseed Oil not defined Orally Active 1000 MG Orally Najam Kandy Najam Tramadol HCl 2 tabs Orally Active 50 MG Orally tid prn Najam Kandy Najam Gabapentin 1 capsule Orally Active 600 MG Orally Three times a day Najam Kandy Najam Meloxicam 1 tablet Orally Active 15 MG Orally Once a day prn with food Najam Kandy Najam Meloxicam 1 tablet Once a day prn with food Orally 30 day(s) NA Active 15 MG Najam Kandy Najam Tramadol HCl TAKE 2 TABLETS BY MOUTH THREE TIMES DAILY NEEDED FOR PAIN NA Active 50 MG Najam Kandy Najam Aspirin Adult Low Dose 1 tablet Orally Active 81 MG Orally Once a day Najam Kandy Najam Lipitor 1 tablet Orally Active 40 MG Orally Once a day Najam Kandy Najam Humulin 70/30 not defined Subcutaneous Active (70-30) 100 UNIT/ML Subcutaneous Najam Kandy Najam Propranolol HCl CR 1 capsule Orally Active 60 MG Orally Once a day Laverne Galloway Fenofibrate 1 tablet with food Orally Active 160 MG Orally Once a day Laverne Galloway Losartan Potassium 1 tablet Orally Active 25 MG Orally Once a day Laverne Galloway Celecoxib 1 tab(s) with food as needed Orally Active 100 MG Orally Twice a day Laverne Galloway Tizanidine HCl 1 tablet as needed Orally Active 4 MG Orally bedtime Laverne Galloway Metformin HCl 1 tablet with a meal Orally Active 500 MG Orally Once a day Laverne Galloway GlipiZIDE as directed Orally Active 5 MG Orally Laverne Galloway Levetiracetam 1 tablet Orally Active 750 MG Orally twice a day Laverne Galloway Estradiol 1 tablet Orally Active 0.5 MG Orally Once a day Laverne Galloway Levothyroxine Sodium 1 tablet Orally Active 50 MCG Orally Once a day Laverne Galloway Simvastatin Unknown Orally Active 20 MG Orally Once a day Laverne Galloway Accu-Chek Active Care Kit Unknown NA Active Laverne Galloway Losartan Potassium-HCTZ 0.5 tablet Orally Active 100-25 MG Orally Once a day Laverne Galloway Multivitamin 1 Tablet Orally Active Over the Counter Orally Once Daily Laverne Galloway Allergies, Adverse Reactions, Alerts Substance Category Reaction Severity Reaction type Status Date Reported Comments Source Penicillin Adverse Reaction Info Not Available Adverse Reaction Active 03/25/2019 [facility] codiene Adverse Reaction Info Not Available Adverse Reaction Active 03/25/2019 [facility] codeine<sup>1</sup> Assertion Drug allergy Active tolerated dilaudid on this admit [facility] penicillins Assertion Drug allergy Active [facility] Immunizations Immunization Date Given Site Status Last Updated Comments Source influenza immunization (Flu Vax) has been administered 07/27/2018 completed [facility] pneumococcal immunization administered 07/13/2018 completed [facility] influenza immunization (Flu Vax) has been administered 07/15/2017 completed [facility] Results Order Name Results Value Reference Range Date Interpretation Comments Source blood glucose, random 139 08/13/2018 [facility] blood glucose, fasting 127 07/27/2018 [facility] sodium, serum 142 134 - 144 07/13/2018 [facility] thyroid stimulating hormone, serum 1.390 0.450 - 4.500 07/13/2018 [facility] very low density lipoproteins 16 5 - 40 07/13/2018 [facility] carbon dioxide, venous blood 25 20 - 29 07/13/2018 [facility] chloride, serum 101 96 - 106 07/13/2018 [facility] triglyceride, serum, fasting 81 0 - 149 07/13/2018 [facility] calcium, serum 10.0 8.7 - 10.2 07/13/2018 [facility] urea nitrogen, blood 12 6 - 24 07/13/2018 [facility] alanine aminotransferase (SGPT), serum 12 0 - 32 07/13/2018 [facility] protein, total, serum 6.7 6.0 - 8.5 07/13/2018 [facility] alkaline phosphatase, serum 67 39 - 117 07/13/2018 [facility] LDL cholesterol, serum 54 0 - 99 07/13/2018 [facility] urea nitrogen/creatinine ratio, serum 17 9 - 23 07/13/2018 [facility] hemoglobin A1C, blood, as % of total hemoglobin 9.9 4.8 - 5.6 07/13/2018 [facility] HDL cholesterol, serum 48 >39 07/13/2018 [facility] eGFR if 110 >59 07/13/2018 [facility] thyroxine, serum, free 1.21 0.82 - 1.77 07/13/2018 [facility] globulin, serum 2.1 1.5 - 4.5 07/13/2018 [facility] albumin/globulin ratio, serum 2.2 1.2 - 2.2 07/13/2018 [facility] Estimated Glomerular Filtration Rate (calc) 96 >59 07/13/2018 [facility] creatinine, serum 0.69 0.57 - 1.00 07/13/2018 [facility] cholesterol, serum 118 100 - 199 07/13/2018 [facility] bilirubin, serum, total 0.4 0.0 - 1.2 07/13/2018 [facility] aspartate aminotransferase (SGOT), serum 25 0 - 40 07/13/2018 [facility] potassium, serum 4.5 3.5 - 5.2 07/13/2018 [facility] albumin, serum 4.6 3.5 - 5.5 07/13/2018 [facility] protein, urine, semiquantitative (dipstick) 3+ 03/04/2018 [facility] leukocyte esterase, urine, by dipstick negative 03/04/2018 [facility] specific gravity, urine 1.025 03/04/2018 [facility] nitrite, urine, semiquantitative negative 03/04/2018 [facility] urine color yellow 03/04/2018 [facility] bilirubin, urine negative 03/04/2018 [facility] glucose, urine, semiquantitative negative 03/04/2018 [facility] appearance, urine clear 03/04/2018 [facility] blood in urine (hemoglobin) by dipstick negative 03/04/2018 [facility] urobilinogen, urine, semiquantitative (dipstick) negative 03/04/2018 [facility] pH, urine, semiquantitative 6.0 03/04/2018 [facility] ketones, urine, by test strip trace (5) 03/04/2018 [facility] BEDSIDE GLUCOSE TESTING Gluc POC Comment 1 Notified WERNER 11/05/2013 [facility] BEDSIDE GLUCOSE TESTING Glucose POC 129 70 - 99 11/05/2013 [facility] <sup>2</sup>Interpretive Data: Upper Reportable Limit: 200 mg/dL. [facility] BEDSIDE GLUCOSE TESTING Gluc POC Comment 1 Notified WERNER 11/05/2013 [facility] BEDSIDE GLUCOSE TESTING Glucose POC 93 70 - 99 11/05/2013 Normal <sup>3</sup>Interpretive Data: Upper Reportable Limit: 200 mg/dL. [facility] CHEMISTRY Magnesium Lvl 2.6 1.8 - 2.4 11/05/2013 [facility] BEDSIDE GLUCOSE TESTING Glucose POC 121 70 - 99 11/05/2013 HI <sup>4</sup>Interpretive Data: Upper Reportable Limit: 200 mg/dL. [facility] BEDSIDE GLUCOSE TESTING Gluc POC Comment 1 Notified WERNER 11/05/2013 [facility] CHEMISTRY eGFR 104 11/05/2013 <sup>6</sup>Result Comment: The eGFR is calculated using the CKD-EPI formula. In most young, healthy individuals the eGFR will be >90 mL/min/1.73m2. The eGFR declines with age. An eGFR of 60-89 may be normal in some populations, particularly the elderly, for whom the CKD-EPI formula has not been extensively validated. Use of the eGFR is not recommended in the following populations:& lt;br/>
Individuals with unstable creatinine concentrations, including patients and those with serious co-morbid conditions.

Patients with extremes in muscle mass or diet.

The data above are obtained from the National Kidney Disease Education Program (NKDEP) which additionally recommends that when the eGFR is used in patients with extremes of body mass index for purposes of drug dosing, the eGFR should be multiplied by the estimated BMI. [facility] CHEMISTRY Albumin Lvl 2.9 3.5 - 5.0 11/05/2013 LOW [facility] CHEMISTRY ALANINE AMINOTRANSFERASE 33 0 - 65 11/05/2013 Normal [facility] CHEMISTRY Creatinine Lvl 0.6 0.5 - 1.4 11/05/2013 Normal [facility] CHEMISTRY Potassium Lvl 3.5 3.5 - 5.1 11/05/2013 Normal [facility] CHEMISTRY Sodium Lvl 141 135 - 145 11/05/2013 Normal [facility] CHEMISTRY Alk Phos 79 39 - 136 11/05/2013 Normal [facility] CHEMISTRY BUN 6 7 - 22 11/05/2013 LOW [facility] CHEMISTRY Glucose Lvl 104 70 - 99 11/05/2013 [facility] <sup>9</sup>Interpretive Data: Adult reference range values reflect the clinical guidelines
of the [place] [employer]. [facility] CHEMISTRY Calcium Lvl 8.4 8.5 - 10.5 11/05/2013 LOW [facility] CHEMISTRY Total Protein 5.8 6.4 - 8.4 11/05/2013 LOW [facility] CHEMISTRY ASPARTATE TRANSAMINASE 45 0 - 37 11/05/2013 [facility] CHEMISTRY Bili Total 0.7 0.2 - 1.3 11/05/2013 Normal [facility] CHEMISTRY Chloride Lvl 104 95 - 109 11/05/2013 Normal [facility] CHEMISTRY CO2 26 24 - 32 11/05/2013 Normal [facility] CHEMISTRY AGAP 14.5 10.0 - 20.0 11/05/2013 Normal [facility] CHEMISTRY B/C Ratio 10 6 - 25 11/05/2013 Normal [facility] CHEMISTRY Globulin 2.9 2.0 - 4.0 11/05/2013 Normal [facility] CHEMISTRY A/G Ratio 1.0 0.7 - 1.6 11/05/2013 Normal [facility] CHEMISTRY Magnesium Lvl 1.1 1.8 - 2.4 11/05/2013 LOW [facility] CHEMISTRY Phosphorus 4.8 2.5 - 4.5 11/05/2013 [facility] CHEMISTRY Troponin-I 0.03 0.00 - 0.40 11/05/2013 Normal [facility] CHEMISTRY Troponin-T <0.010 0.000 - 0.100 11/05/2013 Normal [facility] CHEMISTRY Total CK 32 12 - 191 11/05/2013 Normal [facility] HEMATOLOGY INR 1.05 0.85 - 1.17 11/05/2013 Normal <sup>18</sup>Interpretive Data: RECOMMENDED RANGES FOR PROTIME INR:
2.0-3.0 for most medical and surgical thromboembolic states.
2.5-3.5 for artificial heart valves and recurrent embolism.

INR SHOULD BE USED ONLY FOR PATIENTS ON STABLE ANTICOAGULANT THERAPY. [facility] HEMATOLOGY aPTT 35.2 22.9 - 35.8 11/05/2013 Normal <sup>21</sup>Interpretive Data: Heparin Therapeutic Range: 57 - 92 Seconds [facility] HEMATOLOGY PROTIME 13.6 12.0 - 14.7 11/05/2013 Normal [facility] IMMUNOLOGY HIV 1/2 Ab Negative *NA* (11/05/2013 04:06:33) Negative 11/05/2013 [facility] IMMUNOLOGY Hep B Core IgM Negative *NA* (11/05/2013 04:06:33) Negative 11/05/2013 [facility] IMMUNOLOGY Hep C Ab Negative *NA* (11/05/2013 04:06:33) Negative 11/05/2013 [facility] IMMUNOLOGY Hep A IgM Negative *NA* (11/05/2013 04:06:33) Negative 11/05/2013 [facility] IMMUNOLOGY Hep Bs Ag Negative *NA* (11/05/2013 04:06:33) Negative 11/05/2013 [facility] IMMUNOLOGY C4 Complement 37 16 - 47 11/05/2013 Normal [facility] IMMUNOLOGY C3 Complement 147 88 - 201 11/05/2013 Normal [facility] IMMUNOLOGY RF Qnt <10 0 - 20 11/05/2013 Normal [facility] CHEMISTRY Ca Norm WB 1.08 1.05 - 1.25 11/05/2013 Normal [facility] CHEMISTRY Ca Ion WB 1.05 1.05 - 1.25 11/05/2013 Normal [facility] CHEMISTRY Aldolase 7.5 1.2 - 7.6 11/05/2013 [facility] HEMATOLOGY Segs 72.8 45.0 - 75.0 11/05/2013 [facility] HEMATOLOGY Monocytes # 0.7 0.0 - 0.8 11/05/2013 [facility] HEMATOLOGY Eosinophils # 0.2 0.0 - 0.5 11/05/2013 [facility] HEMATOLOGY Basophils 0.6 0.0 - 1.0 11/05/2013 [facility] HEMATOLOGY Segs-Bands # 5.3 1.5 - 8.1 11/05/2013 [facility] HEMATOLOGY Lymphocytes # 1.1 1.0 - 5.5 11/05/2013 [facility] HEMATOLOGY Lymphocytes 14.8 20.0 - 40.0 11/05/2013 [facility] HEMATOLOGY Monocytes 9.2 2.0 - 12.0 11/05/2013 [facility] HEMATOLOGY Eosinophils 2.6 0.0 - 4.0 11/05/2013 [facility] HEMATOLOGY MCH 33.0 27.0 - 31.0 11/05/2013 [facility] HEMATOLOGY MCHC 34.9 32.0 - 36.0 11/05/2013 [facility] HEMATOLOGY RDW 13.3 11.5 - 14.5 11/05/2013 [facility] HEMATOLOGY Platelet 298 133 - 450 11/05/2013 [facility] HEMATOLOGY MPV 7.5 7.4 - 10.4 11/05/2013 [facility] HEMATOLOGY WBC X 10x3 7.3 3.7 - 10.4 11/05/2013 [facility] HEMATOLOGY RBC X 10x6 3.55 4.20 - 5.40 11/05/2013 [facility] HEMATOLOGY Hct 33.5 36.0 - 48.0 11/05/2013 [facility] HEMATOLOGY MCV 94.4 81.0 - 99.0 11/05/2013 [facility] HEMATOLOGY Hgb 11.7 12.0 - 16.0 11/05/2013 [facility] IMMUNOLOGY C - ANCA Negative (11/05/2013 04:06:00) Negative 11/05/2013 [facility] IMMUNOLOGY P-ANCA Negative (11/05/2013 04:06:00) Negative 11/05/2013 [facility] IMMUNOLOGY Centromere B Ab Negative (11/05/2013 04:06:00) Negative 11/05/2013 Normal [facility] IMMUNOLOGY DNA Ab (DS) Negative (11/05/2013 04:06:00) Negative 11/05/2013 Normal [facility] IMMUNOLOGY KIRK Negative (11/05/2013 04:06:00) Negative 11/05/2013 Normal [facility] CHEMISTRY POC A Mode 3L NC 11/05/2013 [facility] CHEMISTRY POC A O2 Sat 94.0 95.0 - 100.0 11/05/2013 LOW [facility] CHEMISTRY POC A BE 5 -2-2 - 2 11/05/2013 HI [facility] CHEMISTRY POC A HCO3 29 22 - 26 11/05/2013 HI [facility] CHEMISTRY POC A PCO2 41 35 - 45 11/05/2013 Normal [facility] CHEMISTRY POC A PO2 65 80 - 100 11/05/2013 LOW [facility] CHEMISTRY POC A pH 7.46 7.35 - 7.45 11/05/2013 HI [facility] CHEMISTRY POC A Source ART 11/05/2013 [facility] CHEMISTRY POC A Temp 37.0 11/05/2013 [facility] CHEMISTRY Troponin-T 0.010 0.000 - 0.100 11/05/2013 Normal [facility] CHEMISTRY Troponin-I 0.05 0.00 - 0.40 11/05/2013 Normal [facility] CHEMISTRY Total CK 66 12 - 191 11/05/2013 Normal [facility] BACTERIAL - SEROLOGY U S pneumo Ag Negative (11/04/2013 17:00:00) Negative 11/04/2013 Normal [facility] MICRO MISC - SEROLOGY U Legion Ag Negative 1 (11/04/2013 17:00:00) Negative 11/04/2013 Normal <sup>1</sup>Interpretive Data: This kit tests for Legionella pneumophila Serogroup 1 Antigen. [facility] CHEMISTRY Magnesium Lvl 1.5 1.8 - 2.4 11/04/2013 LOW [facility] CHEMISTRY Phosphorus 4.0 2.5 - 4.5 11/04/2013 Normal [facility] CHEMISTRY U Benzodia Scr Positive *ABN* (11/04/2013 16:17:00) Negative 11/04/2013 ABN [facility] CHEMISTRY U Cannab Scr Negative *NA* (11/04/2013 16:17:00) Negative 11/04/2013 [facility] CHEMISTRY U Cocaine Scr Negative *NA* (11/04/2013 16:17:00) Negative 11/04/2013 [facility] CHEMISTRY U Opiate Scr Positive *ABN* (11/04/2013 16:17:00) Negative 11/04/2013 ABN [facility] CHEMISTRY U Amph Scr Negative *NA* (11/04/2013 16:17:00) Negative 11/04/2013 [facility] CHEMISTRY U Tamie Scr Negative *NA* (11/04/2013 16:17:00) Negative 11/04/2013 [facility] CHEMISTRY UDS Note See Note 14 (11/04/2013 16:17:00) 11/04/2013 Normal <sup>14</sup>Interpretive Data: Drugs reported as positive have not been confirmed by a second
method and should be used for medical purposes only. To order
confirmation, contact laboratory.

note: Below are cut-off concentrations for all urine drugs of
abuse performed in the laboratory. Some drugs listed in the table
may not be included in this panel.

Description Cut-off concentration

Amphetamine 1000 ng/mL
Barbiturates 200 ng/mL
Benzodiazepines 300 ng/mL
Cocaine metabolites 300 ng/mL
Opiates 300 ng/mL
Phencyclidine 25 ng/mL
Propoxyphene 300 ng/mL
Marijuana metabolites 50 ng/mL
Methadone 300 ng/ mL
Urine alcohol 20 mg/dL [facility] CHEMISTRY U Phencyc Scr Negative *NA* (11/04/2013 16:17:00) Negative 11/04/2013 [facility] CHEMISTRY Ammonia 35.0 <=45.0 11/04/2013 Normal [facility] CHEMISTRY Amylase Lvl 45 25 - 115 11/04/2013 Normal [facility] CHEMISTRY Ca Norm WB 1.04 1.05 - 1.25 11/04/2013 LOW [facility] CHEMISTRY Ca Ion WB 1.05 1.05 - 1.25 11/04/2013 Normal [facility] CHEMISTRY BNP 375 <=100 11/04/2013 [facility] <sup>13</sup>Interpretive Data: Elevated results are in line with increasing severity of
congestive heart failure. Minor elevations between 100 and 300
may be seen with Myocardial Ischemia, Sodium retaining drugs,
and compensated/treated heart failure. [facility] CHEMISTRY LDL (Calculated) 120 <=99 11/04/2013 [facility] CHEMISTRY HDL 55 >=61 11/04/2013 LOW [facility] CHEMISTRY Trig 267 <=149 11/04/2013 [facility] CHEMISTRY Chol 228 <=199 11/04/2013 [facility] CHEMISTRY CHD Risk 4.15 3.90 - 5.80 11/04/2013 Normal [facility] CHEMISTRY Hgb A1C 5.8 <=5.6 11/04/2013 [facility] CHEMISTRY eGFR 110 11/04/2013 <sup>7</sup>Result Comment: The eGFR is calculated using the CKD-EPI formula. In most young, healthy individuals the eGFR will be >90 mL/min/1.73m2. The eGFR declines with age. An eGFR of 60-89 may be normal in some populations, particularly the elderly, for whom the CKD-EPI formula has not been extensively validated. Use of the eGFR is not recommended in the following populations:& lt;br/>
Individuals with unstable creatinine concentrations, including patients and those with serious co-morbid conditions.

Patients with extremes in muscle mass or diet.

The data above are obtained from the National Kidney Disease Education Program (NKDEP) which additionally recommends that when the eGFR is used in patients with extremes of body mass index for purposes of drug dosing, the eGFR should be multiplied by the estimated BMI. [facility] CHEMISTRY Alk Phos 89 39 - 136 11/04/2013 Normal [facility] CHEMISTRY Albumin Lvl 3.0 3.5 - 5.0 11/04/2013 LOW [facility] CHEMISTRY ALANINE AMINOTRANSFERASE 49 0 - 65 11/04/2013 Normal [facility] CHEMISTRY Glucose Lvl 88 70 - 99 11/04/2013 Normal <sup>10</sup>Interpretive Data: Adult reference range values reflect the clinical guidelines
of the [place] [employer]. [facility] CHEMISTRY BUN 8 7 - 22 11/04/2013 Normal [facility] CHEMISTRY Potassium Lvl 3.5 3.5 - 5.1 11/04/2013 Normal [facility] CHEMISTRY Sodium Lvl 141 135 - 145 11/04/2013 Normal [facility] CHEMISTRY Creatinine Lvl 0.5 0.5 - 1.4 11/04/2013 Normal [facility] CHEMISTRY Chloride Lvl 106 95 - 109 11/04/2013 Normal [facility] CHEMISTRY Total Protein 5.9 6.4 - 8.4 11/04/2013 LOW [facility] CHEMISTRY CO2 24 24 - 32 11/04/2013 Normal [facility] CHEMISTRY Bili Total 0.6 0.2 - 1.3 11/04/2013 Normal [facility] CHEMISTRY Calcium Lvl 8.0 8.5 - 10.5 11/04/2013 LOW [facility] CHEMISTRY AGAP 14.5 10.0 - 20.0 11/04/2013 Normal [facility] CHEMISTRY ASPARTATE TRANSAMINASE 136 0 - 37 11/04/2013 HI [facility] CHEMISTRY A/G Ratio 1.0 0.7 - 1.6 11/04/2013 Normal [facility] CHEMISTRY Globulin 2.9 2.0 - 4.0 11/04/2013 Normal [facility] CHEMISTRY B/C Ratio 16 6 - 25 11/04/2013 Normal [facility] CHEMISTRY Lactic Acid Lvl 1.4 0.5 - 2.2 11/04/2013 Normal [facility] CHEMISTRY Lipase Lvl 77 73 - 393 11/04/2013 Normal [facility] CHEMISTRY Troponin-T 0.014 0.000 - 0.100 11/04/2013 Normal [facility] CHEMISTRY Troponin-I 0.09 0.00 - 0.40 11/04/2013 Normal [facility] CHEMISTRY Total CK 39 12 - 191 11/04/2013 Normal [facility] CHEMISTRY Salicylate Lvl <1.7 0.0 - 30.0 11/04/2013 Normal [facility] CHEMISTRY Ethanol Lvl <3 11/04/2013 <sup>16</sup>Interpretive Data: Negative Range: <3 mg/dL
Toxic Range: >250 mg/dL [facility] CHEMISTRY Etoh (%) <0.003 11/04/2013 <sup>15</sup>Interpretive Data: Negative Range: <0.003%
Toxic Range: >0.25% [facility] CHEMISTRY Acetaminoph Lvl 2 10 - 20 11/04/2013 LOW [facility] HEMATOLOGY Eosinophils 1.2 0.0 - 4.0 11/04/2013 Normal [facility] HEMATOLOGY Basophils 0.6 0.0 - 1.0 11/04/2013 Normal [facility] HEMATOLOGY Segs-Bands # 4.0 1.5 - 8.1 11/04/2013 [facility] HEMATOLOGY Lymphocytes # 2.3 1.0 - 5.5 11/04/2013 Normal [facility] HEMATOLOGY Monocytes # 0.7 0.0 - 0.8 11/04/2013 Normal [facility] HEMATOLOGY Eosinophils # 0.1 0.0 - 0.5 11/04/2013 Normal [facility] HEMATOLOGY Segs 56.4 45.0 - 75.0 11/04/2013 Normal [facility] HEMATOLOGY Lymphocytes 31.8 20.0 - 40.0 11/04/2013 Normal [facility] HEMATOLOGY Monocytes 10.0 2.0 - 12.0 11/04/2013 Normal [facility] HEMATOLOGY MCV 94.8 81.0 - 99.0 11/04/2013 Normal [facility] HEMATOLOGY Hct 36.1 36.0 - 48.0 11/04/2013 Normal [facility] HEMATOLOGY Hgb 12.1 12.0 - 16.0 11/04/2013 Normal [facility] HEMATOLOGY MCHC 33.4 32.0 - 36.0 11/04/2013 Normal [facility] HEMATOLOGY Platelet 325 133 - 450 11/04/2013 Normal [facility] HEMATOLOGY RDW 13.2 11.5 - 14.5 11/04/2013 Normal [facility] HEMATOLOGY MCH 31.7 27.0 - 31.0 11/04/2013 HI [facility] HEMATOLOGY MPV 7.6 7.4 - 10.4 11/04/2013 Normal [facility] HEMATOLOGY RBC X 10x6 3.81 4.20 - 5.40 11/04/2013 LOW [facility] HEMATOLOGY WBC X 10x3 7.1 3.7 - 10.4 11/04/2013 Normal [facility] HEMATOLOGY PROTIME 13.1 12.0 - 14.7 11/04/2013 Normal [facility] HEMATOLOGY aPTT 31.4 22.9 - 35.8 11/04/2013 Normal <sup>22</sup>Interpretive Data: Heparin Therapeutic Range: 57 - 92 Seconds [facility] HEMATOLOGY INR 1.00 0.85 - 1.17 11/04/2013 Normal <sup>19</sup>Interpretive Data: RECOMMENDED RANGES FOR PROTIME INR:
2.0-3.0 for most medical and surgical thromboembolic states.
2.5-3.5 for artificial heart valves and recurrent embolism.

INR SHOULD BE USED ONLY FOR PATIENTS ON STABLE ANTICOAGULANT THERAPY. [facility] IMMUNOLOGY HIV 1/2 Ab Negative *NA* (11/04/2013 16:17:00) Negative 11/04/2013 [facility] URINALYSIS UA Sq Epi Occasional /LPF Few 11/04/2013 Normal [facility] URINALYSIS UA Bacteria Occasional /HPF None Seen 11/04/2013 [facility] URINALYSIS UA Mucus Few /LPF None Seen 11/04/2013 [facility] URINALYSIS UA WBC 1 0 - 5 11/04/2013 Normal [facility] URINALYSIS UA Nitrite Negative (11/04/2013 16:17:00) Negative 11/04/2013 Normal [facility] URINALYSIS UA Urobilinogen 0.2 0.1 - 1.0 11/04/2013 Normal [facility] URINALYSIS UA Leuk Est Negative (11/04/2013 16:17:00) Negative 11/04/2013 Normal [facility] URINALYSIS UA Spec Grav 1.010 <=1.030 11/04/2013 Normal [facility] URINALYSIS UA Glucose Negative (11/04/2013 16:17:00) Negative 11/04/2013 Normal [facility] URINALYSIS UA pH 6.0 5.0 - 8.0 11/04/2013 Normal [facility] URINALYSIS UA Blood Negative (11/04/2013 16:17:00) Negative 11/04/2013 Normal [facility] URINALYSIS UA Ketones Negative *NA* (11/04/2013 16:17:00) Negative 11/04/2013 [facility] URINALYSIS UA Protein Negative (11/04/2013 16:17:00) Negative 11/04/2013 Normal [facility] URINALYSIS UA Bili Negative *NA* (11/04/2013 16:17:00) Negative 11/04/2013 [facility] URINALYSIS UA Color Yellow *NA* (11/04/2013 16:17:00) Yellow 11/04/2013 [facility] URINALYSIS UA Turbidity Clear (11/04/2013 16:17:00) Clear 11/04/2013 Normal [facility] CHEMISTRY POC A Hct 35.0 36.0 - 48.0 11/04/2013 LOW [facility] CHEMISTRY POC A K 3.1 3.5 - 5.1 11/04/2013 LOW [facility] CHEMISTRY POC A Na 137 135 - 145 11/04/2013 Normal [facility] CHEMISTRY POC A Source ART 11/04/2013 [facility] CHEMISTRY POC A Temp 37.0 11/04/2013 [facility] CHEMISTRY POC A LA 1.2 0.5 - 2.2 11/04/2013 Normal [facility] CHEMISTRY POC A Ca Ion 1.09 1.05 - 1.25 11/04/2013 Normal [facility] CHEMISTRY POC A PCO2 41 35 - 45 11/04/2013 Normal [facility] CHEMISTRY POC A pH 7.42 7.35 - 7.45 11/04/2013 Normal [facility] CHEMISTRY POC A PO2 76 80 - 100 11/04/2013 LOW [facility] CHEMISTRY POC A O2 Sat 95.0 95.0 - 100.0 11/04/2013 Normal [facility] CHEMISTRY POC A BE 2 -2-2 - 2 11/04/2013 Normal [facility] CHEMISTRY POC A HCO3 27 22 - 26 11/04/2013 HI [facility] CHEMISTRY POC A Glu 92 70 - 99 11/04/2013 Normal [facility] CHEMISTRY POC A Mode SBT 11/04/2013 [facility] CHEMISTRY Lactic Acid Lvl 0.9 0.5 - 2.2 11/04/2013 Normal [facility] STOOL TESTS Occult Bld Stl Negative (11/04/2013 12:26:00) Negative 11/04/2013 Normal [facility] URINALYSIS UA Ketones Negative *NA* (11/04/2013 11:30:30) Negative 11/04/2013 [facility] URINALYSIS UA Bili Negative *NA* (11/04/2013 11:30:30) Negative 11/04/2013 [facility] URINALYSIS UA Leuk Est Negative (11/04/2013 11:30:30) Negative 11/04/2013 Normal [facility] URINALYSIS UA pH 6.0 5.0 - 8.0 11/04/2013 Normal [facility] URINALYSIS UA Protein >=300 mg/dL Negative 11/04/2013 ABN [facility] URINALYSIS UA Glucose Negative (11/04/2013 11:30:30) Negative 11/04/2013 Normal [facility] URINALYSIS UA Urobilinogen 0.2 0.1 - 1.0 11/04/2013 Normal [facility] URINALYSIS UA Blood Trace *ABN* (11/04/2013 11:30:30) Negative 11/04/2013 ABN [facility] URINALYSIS UA Nitrite Negative (11/04/2013 11:30:30) Negative 11/04/2013 Normal [facility] URINALYSIS UA Turbidity Clear (11/04/2013 11:30:30) Clear 11/04/2013 Normal [facility] URINALYSIS UA Color Yellow *NA* (11/04/2013 11:30:30) Yellow 11/04/2013 [facility] URINALYSIS UA Spec Grav 1.020 <=1.030 11/04/2013 Normal [facility] URINALYSIS UA WBC 0-2 /HPF None Seen 11/04/2013 Normal [facility] URINALYSIS UA Bacteria Occasional /HPF None Seen 11/04/2013 Normal [facility] URINALYSIS UA RBC 0-2 /HPF 0 - 2 11/04/2013 Normal [facility] URINALYSIS UA Mucus Few /LPF None Seen 11/04/2013 Normal [facility] URINALYSIS UA Hyal Cast 0-2 (11/04/2013 11:30:30) 0 - 2 11/04/2013 Normal [facility] URINALYSIS Micro? Performed (11/04/2013 11:30:30) 11/04/2013 Normal [facility] URINALYSIS UA Sq Epi Rare /LPF Few 11/04/2013 Normal [facility] CHEMISTRY O2 Sat Art 97.6 95.0 - 100.0 11/04/2013 Normal [facility] CHEMISTRY Temp Art 37.0 11/04/2013 [facility] CHEMISTRY pCO2 Art 50 35 - 45 11/04/2013 [facility] CHEMISTRY pO2 Art 105 80 - 100 11/04/2013 [facility] CHEMISTRY BE Art 0 -2-2 - 2 11/04/2013 Normal [facility] CHEMISTRY HCO3 Art 26 22 - 26 11/04/2013 Normal [facility] CHEMISTRY pH Art 7.33 7.35 - 7.45 11/04/2013 LOW [facility] CHEMISTRY Temp Lazaro 37.0 11/04/2013 [facility] CHEMISTRY BE Lazaro -1 -2-2 - 2 11/04/2013 Normal [facility] CHEMISTRY O2 Sat Lazaro 60.0 40.0 - 70.0 11/04/2013 Normal [facility] CHEMISTRY HCO3 Lazaro 30 22 - 26 11/04/2013 [facility] CHEMISTRY pO2 Lazaro 40 20 - 49 11/04/2013 Normal [facility] CHEMISTRY pH Lazaro 7.18 7.28 - 7.42 11/04/2013 CRIT <sup>17</sup>Result Comment: Critical Result(s) called to Elisa Skaggs at 11/04/2013 10:42 by. Read back OK. [facility] CHEMISTRY pCO2 Lazaro 79 38 - 52 11/04/2013 [facility] IMMUNOLOGY CDC HIV 4th GEN Negative (11/04/2013 09:49:00) Negative 11/04/2013 Normal [facility] CHEMISTRY POC Creatinine 0.7 0.5 - 1.4 11/04/2013 Normal [facility] CHEMISTRY eGFR 99 11/04/2013 <sup>8</sup>Result Comment: The eGFR is calculated using the CKD-EPI formula. In most young, healthy individuals the eGFR will be >90 mL/min/1.73m2. The eGFR declines with age. An eGFR of 60-89 may be normal in some populations, particularly the elderly, for whom the CKD-EPI formula has not been extensively validated. Use of the eGFR is not recommended in the following populations:& lt;br/>
Individuals with unstable creatinine concentrations, including patients and those with serious co-morbid conditions.

Patients with extremes in muscle mass or diet.

The data above are obtained from the National Kidney Disease Education Program (NKDEP) which additionally recommends that when the eGFR is used in patients with extremes of body mass index for purposes of drug dosing, the eGFR should be multiplied by the estimated BMI. [facility] CHEMISTRY CK-MB INDEX 2.2 0.0 - 2.5 11/04/2013 Normal [facility] CHEMISTRY CK MB 0.9 0.5 - 3.6 11/04/2013 Normal [facility] CHEMISTRY Calcium Lvl 8.6 8.5 - 10.5 11/04/2013 Normal [facility] CHEMISTRY AGAP 14.6 10.0 - 20.0 11/04/2013 Normal [facility] CHEMISTRY CO2 27 24 - 32 11/04/2013 Normal [facility] CHEMISTRY Chloride Lvl 101 95 - 109 11/04/2013 Normal [facility] CHEMISTRY Sodium Lvl 139 135 - 145 11/04/2013 Normal [facility] CHEMISTRY Creatinine Lvl 0.9 0.5 - 1.4 11/04/2013 Normal [facility] CHEMISTRY Glucose Lvl 148 70 - 99 11/04/2013 HI <sup>11</sup>Interpretive Data: Adult reference range values reflect the clinical guidelines
of the [place] [employer]. [facility] CHEMISTRY BUN 13 7 - 22 11/04/2013 Normal [facility] HEMATOLOGY Monocytes 8.3 2.0 - 12.0 11/04/2013 Normal [facility] HEMATOLOGY Segs 61.9 45.0 - 75.0 11/04/2013 Normal [facility] HEMATOLOGY Lymphocytes 26.6 20.0 - 40.0 11/04/2013 Normal [facility] HEMATOLOGY Eosinophils # 0.2 0.0 - 0.5 11/04/2013 Normal [facility] HEMATOLOGY Basophils # 0.1 0.0 - 0.2 11/04/2013 Normal [facility] HEMATOLOGY Segs-Bands # 4.9 1.5 - 8.1 11/04/2013 Normal [facility] HEMATOLOGY Monocytes # 0.7 0.0 - 0.8 11/04/2013 Normal [facility] HEMATOLOGY Lymphocytes # 2.2 1.0 - 5.5 11/04/2013 Normal [facility] HEMATOLOGY Eosinophils 2.5 0.0 - 4.0 11/04/2013 Normal [facility] HEMATOLOGY Basophils 0.7 0.0 - 1.0 11/04/2013 Normal [facility] HEMATOLOGY aPTT 31.6 22.9 - 35.8 11/04/2013 Normal <sup>23</sup>Interpretive Data: Heparin Therapeutic Range: 57 - 92 Seconds [facility] HEMATOLOGY INR 0.92 0.85 - 1.17 11/04/2013 Normal <sup>20</sup>Interpretive Data: RECOMMENDED RANGES FOR PROTIME INR:
2.0-3.0 for most medical and surgical thromboembolic states.
2.5-3.5 for artificial heart valves and recurrent embolism.

INR SHOULD BE USED ONLY FOR PATIENTS ON STABLE ANTICOAGULANT THERAPY. [facility] HEMATOLOGY PROTIME 12.3 12.0 - 14.7 11/04/2013 Normal [facility] HEMATOLOGY MPV 7.3 7.4 - 10.4 11/04/2013 LOW [facility] HEMATOLOGY Platelet 375 133 - 450 11/04/2013 Normal [facility] HEMATOLOGY RDW 12.7 11.5 - 14.5 11/04/2013 Normal [facility] HEMATOLOGY MCH 30.8 27.0 - 31.0 11/04/2013 Normal [facility] HEMATOLOGY MCHC 32.6 32.0 - 36.0 11/04/2013 Normal [facility] HEMATOLOGY MCV 94.3 81.0 - 99.0 11/04/2013 Normal [facility] HEMATOLOGY Hgb 13.0 12.0 - 16.0 11/04/2013 Normal [facility] HEMATOLOGY Hct 39.7 36.0 - 48.0 11/04/2013 Normal [facility] HEMATOLOGY WBC X 10x3 8.1 3.7 - 10.4 11/04/2013 Normal [facility] HEMATOLOGY RBC X 10x6 4.21 4.20 - 5.40 11/04/2013 Normal [facility] CHEMISTRY Lactic Acid Lvl 4.8 0.5 - 2.2 11/04/2013 HI <sup>12</sup>Result Comment: Specimen Moderately Hemolyzed. [facility] CHEMISTRY Potassium Lvl 3.6 3.5 - 5.1 11/04/2013 Normal <sup>5</sup>Result Comment: Specimen Slightly Hemolyzed. [facility] BLOOD BANK RESULTS ABO/Rh O POS 04/03/2012 Unknown [facility] BLOOD BANK RESULTS Antibody Scrn Negative (04/03/2012 06:25:00) 04/03/2012 Normal [facility] CHEMISTRY AGAP 13.7 10.0 - 20.0 03/31/2012 Normal [facility] CHEMISTRY Glucose Lvl 111 70 - 99 03/31/2012 HI <sup>1</sup>Interpretive Data: Adult reference range values reflect the clinical guidelines of the [place] [employer]. [facility] CHEMISTRY Sodium Lvl 138 135 - 145 03/31/2012 Normal [facility] CHEMISTRY BUN 9 7 - 22 03/31/2012 Normal [facility] CHEMISTRY Potassium Lvl 3.7 3.5 - 5.1 03/31/2012 Normal [facility] CHEMISTRY Creatinine Lvl 0.8 0.5 - 1.4 03/31/2012 Normal [facility] CHEMISTRY Calcium Lvl 8.9 8.5 - 10.5 03/31/2012 Normal [facility] CHEMISTRY CO2 29 24 - 32 03/31/2012 Normal [facility] CHEMISTRY Chloride Lvl 99 95 - 109 03/31/2012 Normal [facility] HEMATOLOGY Basophils 0.7 0.0 - 1.0 03/31/2012 Normal [facility] HEMATOLOGY Lymphocytes # 2.1 1.0 - 5.5 03/31/2012 Normal [facility] HEMATOLOGY Basophils # 0.0 0.0 - 0.2 03/31/2012 Normal [facility] HEMATOLOGY Eosinophils # 0.1 0.0 - 0.5 03/31/2012 Normal [facility] HEMATOLOGY Monocytes # 0.5 0.0 - 0.8 03/31/2012 Normal [facility] HEMATOLOGY Segs-Bands # 3.4 1.5 - 8.1 03/31/2012 Normal [facility] HEMATOLOGY Eosinophils 0.9 0.0 - 4.0 03/31/2012 Normal [facility] HEMATOLOGY Segs 55.4 45.0 - 75.0 03/31/2012 Normal [facility] HEMATOLOGY Lymphocytes 34.9 20.0 - 40.0 03/31/2012 Normal [facility] HEMATOLOGY Monocytes 8.1 2.0 - 12.0 03/31/2012 Normal [facility] HEMATOLOGY RDW 13.1 11.5 - 14.5 03/31/2012 Normal [facility] HEMATOLOGY MCV 98.5 81.0 - 99.0 03/31/2012 Normal [facility] HEMATOLOGY MCH 33.8 27.0 - 31.0 03/31/2012 HI [facility] HEMATOLOGY MCHC 34.3 32.0 - 36.0 03/31/2012 Normal [facility] HEMATOLOGY Hct 43.5 36.0 - 48.0 03/31/2012 Normal [facility] HEMATOLOGY Platelet 255 133 - 450 03/31/2012 Normal [facility] HEMATOLOGY MPV 8.4 7.4 - 10.4 03/31/2012 Normal [facility] HEMATOLOGY Hgb 14.9 12.0 - 16.0 03/31/2012 Normal [facility] HEMATOLOGY RBC 4.42 4.20 - 5.40 03/31/2012 Normal [facility] HEMATOLOGY WBC 6.1 3.7 - 10.4 03/31/2012 Normal [facility] HEMATOLOGY PTT 35.6 22.9 - 35.8 03/31/2012 Normal <sup>3</sup>Interpretive Data: Heparin Therapeutic Range: 57 - 92 Seconds [facility] HEMATOLOGY PT 12.7 12.0 - 14.7 03/31/2012 Normal [facility] HEMATOLOGY INR 0.95 0.85 - 1.17 03/31/2012 Normal <sup>2</sup>Interpretive Data: RECOMMENDED RANGES FOR PROTIME INR: 2.0-3.0 for most medical and surgical thromboembolic states. 2.5-3.5 for artificial heart valves and recurrent embolism. INR SHOULD BE USED ONLY FOR PATIENTS ON STABLE ANTICOAGULANT THERAPY. [facility] Pathology Reports No Data Provided for This Section Diagnostic Reports Report Value Date Source Abdomen/Pelvis w/wo IV contrast CT EXAM: CT ABDOMEN AND PELVIS WITH AND WITHOUT CONTRAST DATE: 12/16/2018 8:47 [employer] INDICATION: - R10.84 Generalized abdominal pain. Bilateral abdominal pain. ADDITIONAL INFORMATION: History of aortobifemoral bypass graft. COMPARISON: None. TECHNIQUE: Volumetric CT acquisition of the abdomen and pelvis before and after intravenous contrast. Axial, coronal and sagittal reconstructions. Postcontrast phases: Venous and delayed. IV contrast: 100 cc Omnipaque 300 Oral contrast: Oral Omnipaque 300 and water mixture. DLP: 3542 mGy-cm FINDINGS: Lines, devices, and tubes: Aortic bifemoral bypass graft is in place. Lower thorax: Mild dependent subsegmental atelectasis is seen in the lung bases. No pleural or pericardial effusions are seen. Atherosclerotic calcifications are seen in the left anterior descending, left main, and right main coronary arteries. Liver: Liver displays diffuse decreased density with geographic areas of normal liver density along the right hepatic lobe margin anteriorly, for example on image 55 series 2, findings compatible with diffuse steatosis and areas of focal fatty sparing. No other liver pathology is seen. Biliary tree: No intra- or extrahepatic biliary ductal dilation. Gallbladder: The gallbladder is absent surgically. Pancreas: Normal. Spleen: Normal. Adrenals: Within the lateral limb of the left adrenal gland, there is a 1.5 x 1.3 x 1.8 cm enhancing adrenal nodule measuring 22 Hounsfield units in density on precontrast imaging, 79 Hounsfield units in density on portal venous phase imaging, and measuring 41 Hounsfield units in density on delayed phase imaging (absolute washout: 67%). No right adrenal abnormalities are seen. Kidneys and ureters: The kidneys enhance symmetrically and normally with prompt excretion of contrast material. No hydronephrosis, masses, or calculi are seen. The ureters are of normal course and caliber with no constricting or obstructing lesions. Bladder: Normal. Reproductive organs: The uterus is absent, presumed surgically. No abnormalities of bilateral ovaries are seen. Gastrointestinal tract: The stomach is normal in appearance. Colonic diverticulosis is present with no CT evidence of acute diverticulitis. The small intestine and colon are of normal course and caliber with no constricting or obstructing lesions, masses, or surrounding inflammatory changes. No rectal or anal abnormalities are seen. Appendix: Not visualized and possibly surgically absent Peritoneum and retroperitoneum: No lymphadenopathy, ascites or free air. Lymph nodes: No abdominal or pelvic lymphadenopathy is seen. Vasculature: Atherosclerotic calcifications are seen in the aortoiliac system with occlusion of the distal abdominal aorta and of the common iliac arteries. An aortobifemoral bypass graft is present which is patent. Atherosclerotic calcifications are also seen in the left main renal artery, left renal arterial branches, within the celiac axis, and at the origin of the superior mesenteric artery. The inferior mesenteric artery is not opacified and may be occluded. No abnormalities of the inferior vena cava portal venous system, or other major visualized branches are detected. Bones: Multilevel spondylosis is seen in the thoracic and lumbar spine. No osseous destructive lesions are seen. Facet joint osteoarthritic changes are present at L4-L5 and at L5-S1. Soft tissues/abdominal wall: Two separate adjacent fat-containing supraumbilical hernias are present. The superiormost hernia located 4.3 cm superior to the umbilicus measures 4.8 x 2.2 x 2.8 cm with the mouth of the hernia sac measuring 1.9 x 0.9 cm in transverse and CC dimensions. Some mild surrounding inflammatory changes present. A second hernia is located 1.8 cm superior to the umbilicus with the hernia sac measuring 4.3 x 2.0 x 2.1 cm and with the mouth of the hernia sac measuring 1.5 x 0.8 cm in transverse and CC dimensions. No surrounding or internal inflammatory changes are seen. Another fat-containing midline ventral hernia is present measuring 1.9 x 0.7 x 1.0 cm located 13 cm superior to the umbilicus. No surrounding or internal inflammatory changes are seen. The mouth of the hernia sac measures 1.3 x 1.0 cm in transverse and CC dimensions. Another fat-containing right paramedian ventral abdominal wall hernia is seen measuring 4.1 x 1.6 x 2.3 cm located 16 cm superior to the umbilicus. No surrounding or internal inflammatory changes are seen. The mouth of the hernia sac measures 1.2 x 1.6 cm in transverse and CC dimensions. Another fat-containing midline ventral abdominal wall hernia is seen in the epigastric region measuring 2.9 x 1.2 x 1.6 cm. The mouth of the hernia sac measures 1.1 x 2.2 cm in transverse and CC dimensions. No surrounding or internal inflammatory changes are seen. Another tiny epigastric region left paramedian ventral abdominal wall hernia seen measuring 1.1 x 0.3 x 0.8 cm. No surrounding or internal inflammatory changes are seen (image 44 series 4) Another epigastric region midline ventral abdominal wall hernia is seen with the hernia sac measuring 1.7 x 0.5 x 1.6 cm with the mouth of the hernia sac measuring 1.1 x 1.6 cm in transverse and CC dimensions. No surrounding or internal inflammatory changes are seen. IMPRESSION: 1. Seven separate ventral midline and paramedian ventral abdominal wall hernias are present as described above. There is some minimal stranding surrounding second supraumbilical hernia described above. These hernias contain fat with no bowel contents demonstrated. 2. Colonic diverticulosis with no CT evidence of acute diverticulitis. 3. Severe atherosclerotic vascular disease. The distal abdominal aorta and iliac vessels are occluded with a patent aortobifemoral bypass graft present. Coronary artery atherosclerotic vascular disease is also present as described above. 4. Status post hysterectomy and of cholecystectomy. 5. Diffuse hepatic steatosis with areas of focal fatty infiltration. Hepatomegaly is present. 6. Enhancing left adrenal 1.8 cm nodule having enhancement characteristics compatible with a benign adrenal adenoma (absolute washout greater than 60%). 12/16/2018 [facility] Liver Protocol w/wo IV contrast CT EXAM: [facility] Liver Protocol w/wo IV contrast CT HISTORY: R74.8 Abnormal levels of other serum enzymes COMPARISON: None CT imaging of the abdomen was obtained before and after 100 cc intravenous contrast with arterial and delayed imaging as well. Sagittal and coronal reformats were reviewed. DLP 2637 mGy cm. AEC, mA/kV adjustment by patient size, and/or iterative reconstruction technique were used, per departmental dose optimization program. FINDINGS: The lung bases are clear. The liver appears normal without focal lesion. There is no biliary ductal dilation. The gallbladder is unremarkable. The spleen, pancreas, and right adrenal gland are unremarkable. There is a 1.5 cm left adrenal nodule which appears to represent an adenoma. The kidneys enhance symmetrically. Small calcifications in the left renal hilum appear to be vascular. No focal parenchymal abnormalities identified. No hydronephrosis is present. The visualized bowel is nondilated without evidence of inflammation. There is no evidence of appendicitis. There is no free air or free fluid. No significant abdominal lymphadenopathy is noted. Aortobiiliac graft is noted. Multifocal small abdominal wall defects above the umbilicus contain fat measuring up to 2 cm. There is moderate facet arthropathy at the lower lumbar spine. The pelvis was not imaged. IMPRESSION: No focal liver lesion. Ventral abdominal wall fat-containing hernias. There is a 1.5 cm left adrenal nodule which appears to represent an adenoma. 01/28/2017 [facility] Chest 1view CHEST ONE VIEW, NOVEMBER 06, 2013 AT 9:17 A.M. HISTORY: 53-year-old female with respiratory failure. FINDINGS: Comparison is made to November 04. The cardiomediastinal silhouette is stable. The lungs are clear. The costophrenic sulci are sharp, without effusions. IMPRESSION: The lungs are clear. 11/06/2013 [facility] Brain Pituitary w/wo contrast MRI EXAM: MRI BRAIN WITHOUT CONTRAST DATE: 11/06/2013 CLINICAL INDICATION: Syncope TECHNIQUE: Multisequence multiplanar brain postGadolinium MRI of the brain performed, including acquisition of fine slices along the sella. DISCUSSION: There is no diffusion restriction. The overall size of the pituitary gland is normal. There is a 2.8 mm x 2.3 mm (AP x craniocaudal) T1 hypointense hypoenhancing lesion within the posterior half of the adenohypophysis. FLAIR imaging demonstrates focal areas of nonspecific gliosis in the bilateral parietal white matter, more conspicuously on the left. No hemorrhage, focal mass lesion, or extra-axial collection is shown. The ventricles and basal cisterns are within normal limits. 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 11/06/2013 [facility] Carotid artery bilateral Duplex US INDICATION: Syncope and collapse PROCEDURE: The extracranial carotid arteries were evaluated in the neck using real time imaging, color Doppler imaging and spectral Doppler. FINDINGS: The right carotid system had mild atherosclerotic change is with plaque, some of which was calcified. There was no hemodynamically significant stenosis. Flow in the external carotid artery and the right vertebral artery was antegrade. The ICA to CCA ratio was 0.93. The left carotid system had slightly more plaque, especially in the distal bulb and proximal left internal carotid artery. Flow in the external carotid artery and the left vertebral artery was antegrade The ICA to CCA ratio was 0.90. PEAK SYSTOLIC VELOCITY: RIGHT LEFT CCA 112 CM/SEC 119 CM/SEC CAROTID BULB 97 CM/SEC 173 CM/SEC ICA 104 CM/SEC 117 CM/SEC IMPRESSION: There is atherosclerotic change in the carotid system bilaterally, left greater than right. The degree of stenosis in the proximal left internal carotid artery is between 50 and 69%. Plaque elsewhere forms less than 50% stenosis. 11/05/2013 [facility] Chest 1view EXAM: Portable AP Chest 1view DATE: Nov 04, 2013 05:52 PM INDICATION: Shortness of Breath COMPARISON: Portable AP Chest of 11/04/2013 at 0922 hours FINDINGS: A single portable AP semierect view of the chest is presented. The endotracheal tube and gastric suction tube are in similar positions as before. There has been slight improvement in aeration of the lungs with improvement bibasilar subsegmental atelectasis. There is no confluent consolidation. There is no pleural effusion or pneumothorax identified on this portable AP examination. The heart size and pulmonary vasculature are normal. The regional skeleton is unchanged. IMPRESSION: 1. Improvement in bibasilar subsegmental atelectasis. 11/04/2013 [facility] Brain/Neck Stroke perfusion CTA EXAM: CT BRAIN WITHOUT CONTRAST EXAM: CT PERFUSION EXAM: CTA OF THE NECK EXAM: CTA OF THE BRAIN DATE: Nov 04, 2013 09:40:00 AM INDICATION: Altered consciousness TECHNIQUE: Precontrast CT images of the brain were obtained from the skullbase to the vertex. After administration of contrast as part of the patient's CTA, the patient had an additional CT examination of the brain. Prior to performance of the CT arteriogram, a CT perfusion examination of the brain was obtained. Rapid sequence imaging was performed at 3 levels centered at the basal ganglia during the bolus injection of contrast. Flow , blood volume, and time to peak perfusion maps are obtained from the raw data. Contiguous thin section images of the neck and brain were obtained utilizing a multidetector scanner after uneventful administration of nonionic iodinated contrast medium. Computer reformatted maximal intensity projection (MIP) sagittal and coronal images are provided. FINDINGS: PRECONTRAST AND POSTCONTRAST BRAIN CT: There is no evidence of intraparenchymal or extra-axial hemorrhage, mass, mass- effect, hydrocephalus, or acute cortical infarction. Incidental imaging of the orbits, paranasal sinuses, skull, and skull base is unremarkable. Artifact overlying the mid brain and duran precludes adequate evaluation of these structures. However, no large area of attenuation abnormality is identified. NECK CTA: Aortic arch: The great vessels originate from the aortic arch in the standard configuration. No origin stenosis is identified. The vertebral artery origins are patent bilaterally. Carotid arteries: The cervical common carotid arteries and cervical internal carotid arteries have a normal course, caliber, and contour. Calcifications of the bilateral common carotids and bifurcations are present. No hemodynamically significant stenosis of the carotid bifurcations or internal carotid arteries is present by NASCET criteria. There is no evidence of vascular injury. Vertebral arteries: The left vertebral artery is dominant. They have a normal course, caliber and contour. BRAIN CTA: Narrowing of the pericallosal portion of the right anterior cerebral artery is present. There is also narrowing of the posterior cerebral artery at the P2 segment with a small focal defect noted within the P3 segment. A questionable defect is noted in the pericallosal region of the left anterior cerebral artery which is more proximal than seen on the right but cannot be confirmed in multiple projections. No evidence of branch occlusion, vascular injury, or aneurysm is identified. Alignment of the cervical spine is normal. The appearance of the craniocervical junction and cervicothoracic junction is unremarkable. No definite fracture or subluxation is evident. ADDITIONAL STRUCTURES: Bilateral pleural effusions are present, right greater than left. Airspace opacities noted in the anterior, medial and posterior aspects of the left upper lobe, which may represent multifocal edema with or without underlying infection. BRAIN PERFUSION: Flow and cerebral blood volume are symmetric as is time to peak. IMPRESSION: 1. Narrowing of the right anterior cerebral artery and the P2 segment of the right posterior cerebral artery with an associated small defect of the P3 segment of the FISHER OYSTER. These findings are most consistent with vasospasm, and less typical for vasculitis although the latter remains possible. 2. Atherosclerosis of the common carotids and their bifurcations without hemodynamically significant stenosis. 3. Bilateral pleural effusions right greater than left. 4. Airspace opacities of the anterior, medial and posterior aspects of the left upper lobe. This could represent multifocal edema with or without underlying infection. Followup with a dedicated chest CT can be performed if clinically indicated depending on the patient's underlying process. These findings discussed with Dr. Mckeon at 1110 on 11/04/2013. (All qualitative and quantitative assessments of carotid bifurcation and proximal internal carotid artery stenosis are made referencing the distal internal carotid artery.) 11/04/2013 [facility] Chest 1view EXAM: XR CHEST 1 VIEW DATE: 11/04/2013, 0922 hours. INDICATION: Altered mental status. COMPARISON: None available. TECHNIQUE: Single AP view of the chest DISCUSSION: The endotracheal tube tip is at the level the clavicles approximately 6.2 cm above the david. There is bilateral central vascular congestion noted. There is a linear opacities seen within the right lower lung. The heart is normal in size. Chronic left rib deformities noted. IMPRESSION: 1. Endotracheal tube at the level of the clavicle proximal 6.2 cm above the david. 2. Bilateral central vascular congestion. 3. Right lower lung linear opacity which may represent subsegmental atelectasis versus early infectious process. 11/04/2013 [facility] Consultation Notes No Data Provided for This Section Discharge Summaries No Data Provided for This Section History and Physicals No Data Provided for This Section Vital Signs Vital Sign Value Date Comments Source Height 66 03/25/2019 [facility] Diastolic (mm Hg) 62 03/25/2019 [facility] Systolic (mm Hg) 105 03/25/2019 [facility] Weight 233.0 03/25/2019 [facility] Height 66 11/18/2018 [facility] Diastolic (mm Hg) 56 11/18/2018 [facility] Systolic (mm Hg) 102 11/18/2018 [facility] Weight 235.0 11/18/2018 [facility] Diastolic (mm Hg) 82 09/15/2018 [facility] Systolic (mm Hg) 128 09/15/2018 [facility] Height 64 09/15/2018 [facility] Heart Rate 67 09/15/2018 [facility] Respitory Rate 20 09/15/2018 [facility] Temperature Oral (F) 98.1 F 09/15/2018 [facility] Weight 218 09/15/2018 [facility] Diastolic (mm Hg) 63 08/13/2018 [facility] Systolic (mm Hg) 108 08/13/2018 [facility] Height 64 08/13/2018 [facility] Heart Rate 64 08/13/2018 [facility] Respitory Rate 17 08/13/2018 [facility] Temperature Oral (F) 98.4 F 08/13/2018 [facility] Weight 213.60 08/13/2018 [facility] Diastolic (mm Hg) 78 07/27/2018 [facility] Systolic (mm Hg) 137 07/27/2018 [facility] Height 64 07/27/2018 [facility] Heart Rate 59 07/27/2018 [facility] Respitory Rate 18 07/27/2018 [facility] Temperature Oral (F) 98.5 F 07/27/2018 [facility] Weight 209.80 07/27/2018 [facility] Height 66 07/15/2018 [facility] Diastolic (mm Hg) 117 07/15/2018 [facility] Systolic (mm Hg) 147 07/15/2018 [facility] Weight 208.2 07/15/2018 [facility] Diastolic (mm Hg) 79 07/13/2018 [facility] Systolic (mm Hg) 138 07/13/2018 [facility] Height 64 07/13/2018 [facility] Heart Rate 62 07/13/2018 [facility] Respitory Rate 17 07/13/2018 [facility] Temperature Oral (F) 98.4 F 07/13/2018 [facility] Weight 211.60 07/13/2018 [facility] Diastolic (mm Hg) 66 06/26/2018 [facility] Systolic (mm Hg) 101 06/26/2018 [facility] Height 64 06/26/2018 [facility] Heart Rate 58 06/26/2018 [facility] Respitory Rate 17 06/26/2018 [facility] Temperature Oral (F) 98.1 F 06/26/2018 [facility] Weight 202.80 06/26/2018 [facility] Diastolic (mm Hg) 78 06/08/2018 [facility] Systolic (mm Hg) 136 06/08/2018 [facility] Height 64 06/08/2018 [facility] Heart Rate 16 06/08/2018 [facility] Respitory Rate 83 06/08/2018 [facility] Temperature Oral (F) 98.7 F 06/08/2018 [facility] Weight 196 06/08/2018 [facility] Height 66 03/17/2018 [facility] Najam Diastolic (mm Hg) 54 03/17/2018 [facility] N[facility] Systolic (mm Hg) 111 03/17/2018 [facility] Weight 202.6 03/17/2018 [facility] N[facility]am Diastolic (mm Hg) 75 03/04/2018 [facility] Systolic (mm Hg) 111 03/04/2018 [facility] Height 64 03/04/2018 [facility] Heart Rate 82 03/04/2018 [facility] Temperature Oral (F) 98.4 F 03/04/2018 [facility] Weight 210.38 03/04/2018 [facility] Height 66 11/18/2017 [facility] N[facility] Diastolic (mm Hg) 83 11/18/2017 [facility] N[facility]am Systolic (mm Hg) 139 11/18/2017 [facility] Weight 244 11/18/2017 [facility] N[facility]am Height 66 08/19/2017 [facility] Diastolic (mm Hg) 81 08/19/2017 [facility] N[facility] Systolic (mm Hg) 147 08/19/2017 [facility] Weight 244.6 08/19/2017 [facility] Najam Height 66 06/17/2017 [facility] Najam Diastolic (mm Hg) 73 06/17/2017 [facility] Najam Systolic (mm Hg) 131 06/17/2017 [facility] N[facility] Weight 238 06/17/2017 [facility] N[facility]am Height 66 05/19/2017 [facility] Najam Diastolic (mm Hg) 70 05/19/2017 [facility] N[facility]am Systolic (mm Hg) 126 05/19/2017 [facility] Weight 235 05/19/2017 [facility] N[facility] Height 66 01/14/2017 [facility] Najam Diastolic (mm Hg) 74 01/14/2017 [facility] Najam Systolic (mm Hg) 140 01/14/2017 [facility] Weight 236.4 01/14/2017 [facility] N[facility]am Height 66 09/23/2016 [facility] Najam Diastolic (mm Hg) 78 09/23/2016 [facility] Najam Systolic (mm Hg) 140 09/23/2016 [facility] N[facility] Weight 228.2 09/23/2016 [facility] N[facility]am Height 66 07/08/2016 [facility] Najam Diastolic (mm Hg) 84 07/08/2016 [facility] Najam Systolic (mm Hg) 128 07/08/2016 [facility] N[facility] Weight 227 07/08/2016 [facility] Najam Height 66 10/19/2015 K[facility] Najam Diastolic (mm Hg) 69 10/19/2015 [facility] Najam Systolic (mm Hg) 128 10/19/2015 [facility] N[facility] Weight 224.8 10/19/2015 [facility] Najam Height 66 08/16/2015 [facility] Najam Diastolic (mm Hg) 67 08/16/2015 [facility] N[facility] Systolic (mm Hg) 117 08/16/2015 [facility] Weight 214.2 08/16/2015 K[facility] Najam Height 66 06/12/2015 [facility] Najam Diastolic (mm Hg) 75 06/12/2015 K[facility] Najam Systolic (mm Hg) 131 06/12/2015 [facility] Najam Weight 207 06/12/2015 Kandy Najam Heart Rate 77 11/06/2013 [facility] Respitory Rate 20 11/06/2013 [facility] Systolic (mm Hg) 147 11/06/2013 [facility] Temperature Oral (F) 98.2 F 11/06/2013 [facility] Diastolic (mm Hg) 81 11/06/2013 [facility] Temperature Oral (F) 98.1 F 11/06/2013 [facility] Respitory Rate 20 11/06/2013 [facility] Heart Rate 80 11/06/2013 [facility] Diastolic (mm Hg) 86 11/06/2013 [facility] Systolic (mm Hg) 156 11/06/2013 [facility] Diastolic (mm Hg) 92 11/06/2013 [facility] Temperature Oral (F) 98.3 F 11/06/2013 [facility] Systolic (mm Hg) 168 11/06/2013 [facility] Heart Rate 90 11/06/2013 [facility] Respitory Rate 20 11/06/2013 [facility] Height 162.56 cm 11/04/2013 [facility] Weight 83.636 11/04/2013 [facility] Temperature Oral (F) 98.5 F 04/04/2012 [facility] Systolic (mm Hg) 154 04/04/2012 [facility] Respitory Rate 20 04/04/2012 [facility] Heart Rate 77 04/04/2012 [facility] Diastolic (mm Hg) 95 04/04/2012 [facility] Temperature Oral (F) 98.8 F 04/04/2012 [facility] Respitory Rate 20 04/04/2012 [facility] Heart Rate 75 04/04/2012 [facility] Systolic (mm Hg) 137 04/04/2012 [facility] Diastolic (mm Hg) 82 04/04/2012 [facility] Heart Rate 76 04/04/2012 [facility] Systolic (mm Hg) 132 04/04/2012 [facility] Respitory Rate 16 04/04/2012 [facility] Diastolic (mm Hg) 90 04/04/2012 [facility] Height 162.56 cm 04/03/2012 [facility] Weight 84.500 04/03/2012 [facility] Temperature Oral (F) 97.6 F 04/03/2012 [facility] Weight 84.545 03/31/2012 [facility] Height 162.56 cm 03/31/2012 [facility] Encounters Location Location Details Encounter Type Encounter Number Reason For Visit Attending Provider ADM Date DC Date Status Source [facility] Inpatient [id number] ALOK TRINIDAD 04/03/2012 04/04/2012 Discharged [facility] Inpatient [id number] L[place]S, SZ, AMS, CVA CHASE CARMONA 11/04/2013 11/06/2013 Active [facility] Rheumatology [facility] knee pain [id number] 06/12/2015 06/12/2015 [facility] knee pain [id number] 06/12/2015 06/12/2015 [facility] knee pain [id number] 06/12/2015 06/12/2015 [facility] knee pain [id number] 06/12/2015 06/12/2015 [facility] knee pain [id number] 06/12/2015 06/12/2015 [facility] knee pain [id number] 06/12/2015 06/12/2015 [facility] knee pain [id number] 06/12/2015 06/12/2015 [facility] knee pain [id number] 06/12/2015 06/12/2015 [facility] knee pain [id number] 06/12/2015 06/12/2015 [facility] knee pain [id number] 06/12/2015 06/12/2015 [facility] knee pain [id number] 06/12/2015 06/12/2015 [facility] knee pain [id number] 06/12/2015 06/12/2015 [facility] MRI orders [id number] 06/21/2015 06/21/2015 [facility] MRI orders [id number] 06/21/2015 06/21/2015 [facility] MRI orders [id number] 06/21/2015 06/21/2015 [facility] MRI orders [id number] 06/21/2015 06/21/2015 [facility] [employer]or[employer] samples [id number] 06/21/2015 06/21/2015 [facility] [employer] samples [id number] 06/21/2015 06/21/2015 [facility] [employer] samples [id number] 06/21/2015 06/21/2015 [facility] [employer] samples [id number] 06/21/2015 06/21/2015 [facility] MRI orders [id number] 06/21/2015 06/21/2015 [facility] MRI orders [id number] 06/21/2015 06/21/2015 [facility] MRI orders [id number] 06/21/2015 06/21/2015 [facility] MRI orders [id number] 06/21/2015 06/21/2015 [facility] MRI orders [id number] 06/21/2015 06/21/2015 [facility] MRI orders [id number] 06/21/2015 06/21/2015 [facility] MRI orders [id number] 06/21/2015 06/21/2015 [facility] [employer] samples [id number] 06/21/2015 06/21/2015 [facility] [employer]orv[employer] samples [id number] 06/21/2015 06/21/2015 [facility] [employer] samples [id number] 06/21/2015 06/21/2015 [facility] [employer] samples [id number] 06/21/2015 06/21/2015 [facility] [employer]orv[employer] samples [id number] 06/21/2015 06/21/2015 [facility] Zorvolex samples [id number] 06/21/2015 06/21/2015 [facility] Zorvolex samples [id number] 06/21/2015 06/21/2015 [facility] Needs X-ray orders [id number] 08/01/2015 08/01/2015 [facility] Needs X-ray orders [id number] 08/01/2015 08/01/2015 [facility] Needs X-ray orders [id number] 08/01/2015 08/01/2015 [facility] Needs X-ray orders [id number] 08/01/2015 08/01/2015 [facility] Needs X-ray orders [id number] 08/01/2015 08/01/2015 [facility] Needs X-ray orders [id number] 08/01/2015 08/01/2015 [facility] Needs X-ray orders [id number] 08/01/2015 08/01/2015 [facility] Needs X-ray orders [id number] 08/01/2015 08/01/2015 [facility] Needs X-ray orders [id number] 08/01/2015 08/01/2015 [facility] mri resilts [id number] 08/16/2015 08/16/2015 [facility] mri resilts [id number] 08/16/2015 08/16/2015 [facility] mri resilts [id number] 08/16/2015 08/16/2015 [facility] mri resilts [id number] 08/16/2015 08/16/2015 [facility] mri resilts [id number] 08/16/2015 08/16/2015 [facility] mri resilts [id number] 08/16/2015 08/16/2015 [facility] mri resilts [id number] 08/16/2015 08/16/2015 [facility] mri resilts [id number] 08/16/2015 08/16/2015 [facility] mri resilts [id number] 08/16/2015 08/16/2015 [facility] Social [facility] [id number] 10/02/2015 10/02/2015 [facility] Social [facility] [id number] 10/02/2015 10/02/2015 [facility] Social [facility] [id number] 10/02/2015 10/02/2015 [facility] Social security [id number] 10/02/2015 10/02/2015 [facility] Social security [id number] 10/02/2015 10/02/2015 [facility] [id number] 10/02/2015 10/02/2015 [facility] [id number] 10/02/2015 10/02/2015 [facility] med f/u [id number] 10/19/2015 10/19/2015 [facility] med f/u [id number] 10/19/2015 10/19/2015 [facility] med f/u [id number] 10/19/2015 10/19/2015 [facility] med f/u [id number] 10/19/2015 10/19/2015 [facility] med f/u [id number] 10/19/2015 10/19/2015 [facility] med f/u [id number] 10/19/2015 10/19/2015 [facility] med f/u [id number] 10/19/2015 10/19/2015 [facility] med f/u [id number] 10/19/2015 10/19/2015 [facility] MRI results [id number] 10/21/2015 10/21/2015 [facility] MRI results [id number] 10/21/2015 10/21/2015 [facility] MRI results [id number] 10/22/2015 10/22/2015 [facility] MRI results [id number] 10/22/2015 10/22/2015 [facility] MRI results [id number] 10/22/2015 10/22/2015 [facility] MRI results [id number] 10/22/2015 10/22/2015 [facility] MRI results [id number] 10/22/2015 10/22/2015 [facility] Disability paperwork/eval - FYI [id number] 03/27/2016 03/27/2016 [facility] Disability paperwork/eval - FYI [id number] 03/27/2016 03/27/2016 [facility] Disability paperwork/eval - FYI [id number] 03/27/2016 03/27/2016 [facility] Disability paperwork/eval - FYI [id number] 03/27/2016 03/27/2016 [facility] Disability paperwork/eval - FYI [id number] 03/27/2016 03/27/2016 [facility] L Knee pain [id number] 07/08/2016 07/08/2016 [facility] L Knee pain [id number] 07/08/2016 07/08/2016 [facility] L Knee pain [id number] 07/08/2016 07/08/2016 [facility] L Knee pain [id number] 07/08/2016 07/08/2016 [facility] Knee Pain [id number] 09/23/2016 09/23/2016 [facility] Knee Pain [id number] 09/23/2016 09/23/2016 [facility] Knee Pain [id number] 09/23/2016 09/23/2016 [facility] tramadol rx [id number] 11/06/2016 11/06/2016 [facility] plaquard [id number] 11/06/2016 11/06/2016 [facility] plaquard [id number] 11/06/2016 [facility]/06/[facility] [id number] Anny Daccak 01/28/2017 01/29/2017 [facility] New Patient Detailed - 65577 [id number] Davey Day MD 03/13/2017 [facility] Est Patient Exp Problem - 87631 [id number] Davey Day MD 03/21/2017 [facility] Est Patient Exp Problem - 52054 [id number] Davey Day MD 07/15/2017 [facility] Est Patient Exp Problem - 74031 [id number] Davey Day MD 03/04/2018 [facility] Est Patient Exp Problem - 58746 [id number] Louisa Mcdonald.O. 06/08/2018 [facility] Est Patient Exp Problem - 03119 [id number] Yvonne Fuller MD 06/29/2018 [facility] Est Patient Exp Problem - 75286 [id number] Geovani Berry MD 07/13/2018 [facility] Est Patient Exp Problem - 42590 [id number] Geovani Berry MD 07/27/2018 [facility] Est Patient Exp Problem - 60443 [id number] Geovani Berry MD 08/13/2018 [facility] Est Patient Exp Problem - 61315 [id number] Louisa Mcdonald.O. 09/16/2018 [facility] Procedure Code Date Perfomer Comments Source INFLUENZA VACCINE QUADRIVALENT 3 YRS PLUS IM [id number] 07/27/2018 [facility] Pneumovax Vaccine PPSV23 [id number] 07/13/2018 [facility] INFLUENZA VACCINE QUADRIVALENT 3 YRS PLUS IM 28242 07/15/2017 Shay [facility] Admin of Vaccine - Injection - 1 77332 07/15/2017 Shay [facility] Urinalysis - Dip only - In House 50938 03/13/2017 Shya [facility] Appendectomy [id number] [facility] Fracture - traction [phone] [facility] Fracture care [id number] [facility] Hysterectomy [id number] [facility] Tonsillectomy [id number] [facility] Appendectomy [id number] [facility] Fracture - traction [id number] [facility] Fracture care [id number] [facility] Hysterectomy [id number] [facility] Tonsillectomy [id number] [facility] Assessment and Plan No Data Provided for This Section Plan of Care No Data Provided for This Section Social History Social History Date Source Social History ElementQualifiersDate Reported Smoking status: . Are you a: Former Smoker 40+ Years Ago, Are you a: Former Smoker 40+ Years Ago Sep 23, 2016 alcohol yes, yes. occasional drinker, occasional drinker Sep 23, 2016 09/23/2016 Kandy Galloway Social History TypeResponse Alcohol Current, Type Liquor. Frequency: Daily. 11/06/2013 LEONIDAS Tan Family History No Data Provided for This Section Advance Directives No Data Provided for This Section Functional Status No Data Provided for This Section
--- OUTSIDE RECORDS SUMMARY | 2019-04-13 06:52 | XMS REPORT | CCD ---
Author Author Auto Generated Organization [facility] Address Unknown Phone Unavailable Care Team Providers [facility] Name Role Phone LesliHanh banksesh CP Gopi Mayorga Fco CP Allergies, Adverse Reactions, Alerts Substance Reaction Status [id number] Active penicillins Active 1tolerated dilaudid on this admit Problem List Condition Effective Dates Status CAD - Coronary artery disease Resolved COPD Resolved HTN - Hypertension Resolved Medications Medication Instructions Start Date End Date Status Versed 1 mg, Route: IVP, ONCE, kg, 11/04/2013 11/04/2013 Completed Priority: STAT, Start date: 11/04/13 10:10:00, Stop date: 11/04/13 10:10:00 potassium chloride 20 mEq, 1 tab, Route: PO, Drug 11/04/2013 11/05/2013 Discontinued form: ERTAB, PRN, Dosing Weight 83.636, kg, PRN Abnormal Lab Result, Start date: 11/04/13 16:42:00, Duration: 30 day, Stop date: 12/04/13 16:41:00, FOR ICU USE ONLY FOR ICU USE ONLY(Same as: K-Dur 20)"Do Not Crush" With food and full glass of water potassium chloride 10 mEq, 50 mL, Route: IVPB, Drug 11/04/2013 11/05/2013 Discontinued form: INJ, PRN, Dosing Weight 83.636, kg, PRN Abnormal Lab Result, Via peripheral line, Start date: 11/04/13 16:42:00, Duration: 30 day, Stop date: 12/04/13 16:41:00, FOR ICU USE ONLY FOR ICU USE ONLY(Same as: KCL) Infuse over 2 hours. sodium 15 mmol, 15 mL, Route: IVPB, PRN, 11/04/2013 11/05/2013 Discontinued glycerophosphate + Dosing Weight 83.636, kg, PRN Sodium Chloride 0.9% Abnormal Lab Result, Start date: IV 250 mL 11/04/13 16:42:00, Duration: 30 day, Stop date: 12/04/13 16:41:00, FOR ICU USE ONLY FOR ICU USE ONLY sodium 30 mmol, 30 mL, Route: IVPB, PRN, 11/04/2013 11/05/2013 Discontinued glycerophosphate + Dosing Weight 83.636, kg, PRN Sodium Chloride 0.9% Abnormal Lab Result, Start date: IV 250 mL 11/04/13 16:42:00, Duration: 30 day, Stop date: 12/04/13 16:41:00, FOR ICU USE ONLY FOR ICU USE ONLY potassium chloride 20 mEq, 15 mL, Route: NJ, Drug 11/04/2013 11/05/2013 Discontinued form: LIQ, PRN, Dosing Weight 83.636, kg, PRN Abnormal Lab Result, Start date: 11/04/13 16:42:00, Duration: 30 day, Stop date: 12/04/13 16:41:00, FOR ICU USE ONLY FOR ICU USE ONLY(Same as: Potassium Chloride) potassium chloride 20 mEq, 100 mL, Route: IVPB, PRN, 11/04/2013 11/05/2013 Discontinued Dosing Weight 83.636, kg, PRN Abnormal Lab Result, Via central line, Start date: 11/04/13 16:42:00, Duration: 30 day, Stop date: 12/04/13 16:41:00, FOR ICU USE ONLY FOR ICU USE ONLY(Same as: KCL) Infuse no faster than 10 mEq/hr if given peripherally. potassium phosphate 45 mmol, 15 mL, Route: IVPB, PRN, 11/04/2013 11/05/2013 Discontinued + Sodium Chloride Dosing Weight 83.636, kg, PRN 0.9% IV 250 mL Abnormal Lab Result, Start date: 11/04/13 16:42:00, Duration: 30 day, Stop date: 12/04/13 16:41:00, FOR ICU USE ONLY FOR ICU USE ONLY(Same as: K Phosphate.) 1 mMol phoshate has 1.47 mEq potassium Infuse over 4 hours potassium phosphate 15 mmol, 5 mL, Route: IVPB, PRN, 11/04/2013 11/05/2013 Discontinued + Sodium Chloride Dosing Weight 83.636, kg, PRN 0.9% IV 250 mL Abnormal Lab Result, Start date: 11/04/13 16:42:00, Duration: 30 day, Stop date: 12/04/13 16:41:00, FOR ICU USE ONLY FOR ICU USE ONLY(Same as: K Phosphate.) 1 mMol phoshate has 1.47 mEq potassium Infuse over 4 hours sodium 45 mmol, 45 mL, Route: IVPB, PRN, 11/04/2013 11/06/2013 Discontinued glycerophosphate + Dosing Weight 83.636, kg, PRN Sodium Chloride 0.9% Abnormal Lab Result, Start date: IV 250 mL 11/04/13 16:42:00, Duration: 30 day, Stop date: 12/04/13 16:41:00, FOR ICU USE ONLY FOR ICU USE ONLY potassium phosphate 30 mmol, 10 mL, Route: IVPB, PRN, 11/04/2013 11/05/2013 Discontinued + Sodium Chloride Dosing Weight 83.636, kg, PRN 0.9% IV 250 mL Abnormal Lab Result, Start date: 11/04/13 16:42:00, Duration: 30 day, Stop date: 12/04/13 16:41:00, FOR ICU USE ONLY FOR ICU USE ONLY(Same as: K Phosphate.) 1 mMol phoshate has 1.47 mEq potassium Infuse over 4 hours calcium gluconate + 1 gm, 10 mL, Route: IVPB, PRN, 11/04/2013 11/05/2013 Discontinued Sodium Chloride 0.9% Dosing Weight 83.636, kg, PRN IV 50 mL Abnormal Lab Result, Start date: 11/04/13 16:42:00, Duration: 30 day, Stop date: 12/04/13 16:41:00, FOR ICU USE ONLY FOR ICU USE ONLY magnesium sulfate 2 gm, 50 mL, Route: IVPB, Drug 11/04/2013 11/05/2013 Discontinued form: INJ, PRN, Dosing Weight 83.636, kg, PRN Abnormal Lab Result, Start date: 11/04/13 16:42:00, Duration: 30 day, Stop date: 12/04/13 16:41:00, FOR ICU USE ONLY FOR ICU USE ONLY Cepacol Lozenge 1 lozenge, Route: MUCOUS MEM, Q2H, 11/05/2013 11/05/2013 Discontinued Drug form: JL, PRN Sore Throat, Start date: 11/05/13 15:36:00, Duration: 30 day, Stop date: 12/05/13 15:35:00 multivitamin 1 tab, Route: PO, Drug Form: TAB, 11/06/2013 11/06/2013 Discontinued Dosing Weight 83.636, kg, Daily, Start date: 11/06/13 9:00:00, Duration: 30 day, Stop date: 12/05/13 9:00:00(Same as:Thera) Take with food. benzocaine-menthol 1 lozenge, Route: MUCOUS MEM, Drug 11/05/2013 11/05/2013 Discontinued topical Form: JL, Q2H, PRN Sore Throat, Start date: 11/05/13 16:00:00, Duration: 30 day, Stop date: 12/05/13 15:59:00Cepacol lozenges (Same As: Cepacol Lozenges) aspirin 81 mg, 1 tab, Route: PO, Drug form: 11/06/2013 11/06/2013 Discontinued ECTAB, Daily, Dosing Weight 83.636, kg, Start date: 11/06/13 9:00:00, Duration: 30 day, Stop date: 12/05/13 9:00:00Do not crush or chew.(Same As: Ecotrin) vancomycin + Sodium 1 gm, Route: IVPB, Drug form: INJ, 11/04/2013 11/04/2013 Completed Chloride 0.9% IV 250 ONCE, Start date: 11/04/13 mL 14:30:00, Stop date: 11/04/13 14:30:00(Same As: Vancocin) Vancomycin FOR IV SET ONLY aspirin 325 mg, 1 tab, Route: PO, Drug 11/05/2013 11/05/2013 Discontinued form: TAB, Daily, Dosing Weight 83.636, kg, Start date: 11/05/13 16:00:00, Duration: 30 day, Stop date: 12/05/13 9:00:00 acyclovir + Sodium 910 mg, Route: IVPB, ONCE, Dosing 11/04/2013 11/04/2013 Completed Chloride 0.9% IV 150 Weight 75, kg, Priority: STAT, mL Start date: 11/04/13 11:07:00, Stop date: 11/04/13 11:07:00(Same as: Zovirax) Combivent inhalation 0 Refill(s) 11/05/2013 11/06/2013 Discontinued aerosol with adapter Spiriva 0 Refill(s) 11/05/2013 11/06/2013 Discontinued Lyrica 0 Refill(s) 11/05/2013 11/06/2013 Discontinued diazepam 0 Refill(s) 11/05/2013 11/06/2013 Discontinued norepinephrine 8 mg 242 mL, Rate: Use as direced, 11/04/2013 11/05/2013 Discontinued + Sodium Chloride Route: IV, Total Volume: 250 mL, 0.9% (titrate) 242 Start Date: 11/04/13 11:06:00, mL Duration: 30 day, Stop date: 12/04/13 11:05:00, Replace Every: 24 hr Zocor 20 mg oral 20 mg=1 tab, PO, Bedtime, # 30 tab, 11/05/2013 12/05/2013 Ordered tablet 0 Refill(s) predniSONE 20 mg, 1 tab, Route: PO, Drug form: 11/05/2013 11/05/2013 Discontinued TAB, Daily, Dosing Weight 83.636, kg, Start date: 11/05/13 10:38:00, Duration: 30 day, Stop date: 12/05/13 9:00:00Take with food. Saline Flush 0.9% 5 ml, Route: IVP, Drug Form: INJ, 11/04/2013 11/06/2013 Discontinued kg, PRN, PRN Line Flush, Start date: 11/04/13 16:12:00, Duration: 30 day, Stop date: 12/04/13 16:11:00(Same as: BD Posiflush) Saline Flush 0.9% 5 ml, Route: IVP, Drug Form: INJ, 11/04/2013 11/06/2013 Discontinued kg, Q12H, Start date: 11/04/13 21:00:00, Duration: 30 day, Stop date: 12/04/13 9:00:00(Same as: BD Posiflush) nystatin topical 1 appl, Route: TOP, PRN, Drug form: 11/04/2013 11/05/2013 Discontinued 100,000 units/g PWDR, PRN For Fungal Prophylaxis, powder Start date: 11/04/13 16:12:00, Duration: 30 day, Stop date: 12/04/13 16:11:00(Same as:Mycostatin, Nilstat) For external use only. nystatin topical 1 appl, Route: TOP, Q24H, Drug 11/04/2013 11/05/2013 Discontinued 100,000 units/g form: PWDR, Start date: 11/04/13 powder 17:00:00, Duration: 30 day, Stop date: 12/03/13 17:00:00(Same as:Mycostatin, Nilstat) For external use only. hydrochlorothiazide- 1 tab, PO, Daily, # 30 tab, 0 11/05/2013 Ordered lisinopril 12.5 Refill(s) mg-20 mg oral tablet Coreg 3.125 mg, 1 tab, Route: PO, Drug 11/06/2013 11/06/2013 Canceled form: TAB, Q12H, Dosing Weight 83.636, kg, Start date: 11/06/13 9:00:00, Duration: 30 day, Stop date: 12/05/13 21:00:00Give with food. (Same As: Coreg) Xopenex 0.31 mg, Route: NEB, Q8H, Dosing 11/05/2013 11/05/2013 Canceled Weight 83.636, kg, Start date: 11/05/13 8:00:00, Duration: 30 day, Stop date: 12/05/13 0:00:00 digoxin 125 mcg 0.125 mg, 1 tab, Route: PO, Drug 11/05/2013 11/05/2013 Canceled (0.125 mg) oral form: TAB, Daily, Dosing Weight tablet 83.636, kg, Start date: 11/05/13 9:00:00, Duration: 30 day, Stop date: 12/04/13 9:00:00 Lasix 20 mg, 2 mL, Route: IV, Drug form: 11/04/2013 11/04/2013 Completed INJ, ONCE, kg, Start date: 11/04/13 16:17:00, Stop date: 11/04/13 16:17:00(Same as: Lasix) Zocor 20 mg, 1 tab, Route: PO, Drug form: 11/06/2013 11/06/2013 Canceled TAB, Bedtime, Dosing Weight 83.636, kg, Start date: 11/06/13 21:00:00, Duration: 30 day, Stop date: 12/05/13 21:00:00(Same as: Zocor) lisinopril 20 mg, 1 tab, Route: PO, Drug form: 11/06/2013 11/06/2013 Discontinued TAB, Daily, Dosing Weight 83.636, kg, Start date: 11/06/13 9:00:00, Duration: 30 day, Stop date: 12/05/13 9:00:00(Same as: Prinivil, Zestril) fentanyl Route: IVP, ONCE, kg, Priority: 11/04/2013 11/04/2013 Completed STAT, Start date: 11/04/13 11:19:00, Stop date: 11/04/13 11:19:00 heparin 5000 5,000 unit, 1 mL, Route: SUB-Q, 11/05/2013 11/06/2013 Discontinued units/mL injectable Drug form: INJ, Q8H, Dosing Weight solution 83.636, kg, Start date: 11/05/13 0:00:00, Duration: 30 day, Stop date: 12/04/13 16:00:00porcine heparin Versed 4 mg, Route: IVP, ONCE, kg, 11/04/2013 11/04/2013 Completed Priority: STAT, Start date: 11/04/13 11:19:00, Stop date: 11/04/13 11:19:00 famotidine 20 mg, 1 tab, Route: PO, Drug form: 11/05/2013 11/05/2013 Discontinued TAB, BID, Dosing Weight 83.636, kg, Start date: 11/05/13 17:00:00, Duration: 30 day, Stop date: 12/05/13 9:00:00(Same as: Pepcid) tramadol 50 mg oral 50 mg=1 tab, PO, Q6H, as needed for 11/06/2013 11/16/2013 Ordered tablet pain, # 40 tab, 0 Refill(s) NS (Bolus) IV 1,000 1,000 mL, Rate: 1,000 ml/hr, Infuse 11/04/2013 11/04/2013 Completed mL over: 1 hr, Route: IV, Total Volume: 1,000, Priority: STAT, Start date: 11/04/13 13:15:00, Duration: 1 doses or times, Stop date: 11/04/13 14:14:00, Bolus Dose Bolus Dose DuoNeb inhalation 3 ml, Route: INHALATION, Drug Form: 11/05/2013 11/06/2013 Discontinued solution SOLN, Dosing Weight 83.636, kg, PRN, PRN Dyspnea, Start date: 11/05/13 18:32:00, Duration: 30 day, Stop date: 12/05/13 18:31:00(Same as: Duoneb) Procardia XL 30 mg, 1 tab, Route: PO, Drug form: 11/05/2013 11/05/2013 Discontinued ERTAB, Daily, Start date: 11/05/13 9:00:00, Duration: 30 day, Stop date: 12/04/13 9:00:00(Same as: Adalat CC, Procardia XL) Give on empty stomach. Take 1 hour before or 2 hours after meal; "Avoid grapefruit and grapefruit juice". Do not crush Tylenol 650 mg, 2 tab, Route: PO, Drug 11/06/2013 11/06/2013 Discontinued form: TAB, Q4H, Dosing Weight 83.636, kg, PRN Pain, Start date: 11/06/13 6:01:00, Duration: 30 day, Stop date: 12/06/13 6:00:00Do not exceed 4 gm/day. (Same as: Tylenol) heparin 5,000 unit, 1 mL, Route: SUB-Q, 11/05/2013 11/04/2013 Discontinued Drug form: INJ, Q8H, kg, Start date: 11/05/13 0:00:00, Duration: 30 day, Stop date: 12/04/13 16:00:00porcine heparin clarithromycin 250 mg, 1 tab, Route: PO, Drug 11/05/2013 11/05/2013 Discontinued form: TAB, Q12H, Dosing Weight 83.636, kg, Start date: 11/05/13 12:00:00, Duration: 30 day, Stop date: 12/05/13 9:00:00(Same As: Biaxin) vancomycin 1 gm, Route: IVPB, Drug form: INJ, 11/04/2013 11/04/2013 Deleted ONCE, kg, Priority: STAT, Start date: 11/04/13 11:08:00, Stop date: 11/04/13 11:08:00(Same As: Vancocin) cefepime 2 gm, Route: IVPB, Drug form: INJ, 11/04/2013 11/04/2013 Deleted ONCE, kg, Priority: STAT, Start date: 11/04/13 11:08:00, Stop date: 11/04/13 11:08:00(Same as: Maxipime) Saline Flush 0.9% 5 mL, Route: MISC, Drug Form: INJ, 11/04/2013 11/05/2013 Discontinued kg, PRN, PRN Line Flush, Start date: 11/04/13 9:08:00, Duration: 30 day, Stop date: 12/04/13 9:07:00(Same as: BD Posiflush) cefepime + Sodium 2 gm, Route: IVPB, Drug form: INJ, 11/04/2013 11/04/2013 Completed Chloride 0.9% IV 100 ONCE, Start date: 11/04/13 mL 12:30:00, Stop date: 11/04/13 12:30:00(Same As: Maxipime) Cefepime FOR IV SET ONLY NIFEdipine 10 mg, Route: PO, Drug form: CAP, 11/05/2013 11/04/2013 Canceled Q8H, Dosing Weight 83.636, kg, Start date: 11/05/13 0:00:00, Duration: 30 day, Stop date: 12/04/13 16:00:00 Coreg 6.25 mg, 1 tab, Route: PO, Drug 11/06/2013 11/06/2013 Discontinued form: TAB, Q12H, Dosing Weight 83.636, kg, Start date: 11/06/13 9:00:00, Duration: 30 day, Stop date: 12/05/13 21:00:00Give with food. (Same As: Coreg) Versed 4 mg, Route: IVP, ONCE, kg, 11/04/2013 11/04/2013 Completed Priority: STAT, Start date: 11/04/13 9:48:00, Stop date: 11/04/13 9:48:00 Visipaque 320mg/ml 125 mL, Route: IVP, Drug Form: 11/04/2013 11/04/2013 Completed SOLN, kg, ONCALL, STAT, Start date: 11/04/13 10:44:00, Duration: 1 doses or times, Dose=2.2ml/kg, Max [id number] -- "To be infused by Radiology Staff ONLY" Dose=2.2ml/kg, Max [id number] -- "To be infused by Radiology Staff ONLY" Vital Signs Most recent to oldest [Reference Range]: 1 2 3 Height 162.56 cm (11/04/2013 16:29:00) Current Weight 85 kg (11/05/2013 06:10:00) Temperature Oral [96.4-99.1 DegF] 98.2 DegF (11/06/2013 11:00:00) 98.1 DegF (11/06/2013 08:00:00) 98.3 DegF (11/06/2013 05:10:00) Systolic Blood Pressure [90-140 mmHg] 147 mmHg *HI* (11/06/2013 11:00:00) 156 mmHg *HI* (11/06/2013 08:00:00) 168 mmHg *HI* (11/06/2013 05:10:00) Diastolic Blood Pressure [60-90 mmHg] 81 mmHg (11/06/2013 11:00:00) 86 mmHg (11/06/2013 08:00:00) 92 mmHg *HI* (11/06/2013 05:10:00) Respiratory Rate [14-20 BRMIN] 20 BRMIN (11/06/2013 11:00:00) 20 BRMIN (11/06/2013 08:00:00) 20 BRMIN (11/06/2013 05:10:00) Peripheral Pulse Rate [60-100 bpm] 77 bpm (11/06/2013 11:00:00) 80 bpm (11/06/2013 08:00:00) 90 bpm (11/06/2013 05:10:00) Weight 83.636 kg (11/04/2013 16:29:00) Results BACTERIAL - SEROLOGY Most recent to oldest [Reference Range]: 1 2 3 U S pneumo Ag [Negative] Negative (11/04/2013 17:00:00) MICRO MISC - SEROLOGY Most recent to oldest [Reference Range]: 1 2 3 U Legion Ag [Negative] Negative 1 (11/04/2013 17:00:00) 1Interpretive Data: This kit tests for Legionella pneumophila Serogroup 1 Antigen. BEDSIDE GLUCOSE TESTING Most recent to oldest [Reference Range]: 1 2 3 Glucose POC [70-99 mg/dL] 129 mg/dL 2 *HI* (11/05/2013 16:44:00) 93 mg/dL 3 (11/05/2013 12:16:00) 121 mg/dL 4 *HI* (11/05/2013 09:09:00) Gluc POC Comment 1 Notified RN/MD *NA* (11/05/2013 16:44:00) Notified RN/MD *NA* (11/05/2013 12:16:00) Notified RN/MD *NA* (11/05/2013 09:09:00) 2Interpretive Data: Upper Reportable Limit: 200 mg/dL. 3Interpretive Data: Upper Reportable Limit: 200 mg/dL. 4Interpretive Data: Upper Reportable Limit: 200 mg/dL. URINALYSIS Most recent to oldest [Reference Range]: 1 2 3 UA Turbidity [Clear] Clear (11/04/2013 16:17:00) Clear (11/04/2013 11:30:30) UA Color [Yellow] Yellow *NA* (11/04/2013 16:17:00) Yellow *NA* (11/04/2013 11:30:30) UA pH [5.0-8.0] 6.0 (11/04/2013 16:17:00) 6.0 (11/04/2013 11:30:30) UA Spec Grav [<=1.030] 1.010 (11/04/2013 16:17:00) 1.020 (11/04/2013 11:30:30) UA Glucose [Negative] Negative (11/04/2013 16:17:00) Negative (11/04/2013 11:30:30) UA Blood [Negative] Negative (11/04/2013 16:17:00) Trace *ABN* (11/04/2013 11:30:30) UA Ketones [Negative] Negative *NA* (11/04/2013 16:17:00) Negative *NA* (11/04/2013 11:30:30) UA Protein [Negative] Negative (11/04/2013 16:17:00) UA Protein [Negative mg/dL] >=300 mg/dL *ABN* (11/04/2013 11:30:30) UA Urobilinogen [0.1-1.0 EU/dL] 0.2 EU/dL (11/04/2013 16:17:00) 0.2 EU/dL (11/04/2013 11:30:30) UA Bili [Negative] Negative *NA* (11/04/2013 16:17:00) Negative *NA* (11/04/2013 11:30:30) UA Leuk Est [Negative] Negative (11/04/2013 16:17:00) Negative (11/04/2013 11:30:30) UA Nitrite [Negative] Negative (11/04/2013 16:17:00) Negative (11/04/2013 11:30:30) UA WBC [0-5 /HPF] 1 /HPF (11/04/2013 16:17:00) UA WBC [None Seen /HPF] 0-2 /HPF (11/04/2013 11:30:30) UA RBC [0-2 /HPF] 0-2 /HPF (11/04/2013 11:30:30) UA Bacteria [None Seen /HPF] Occasional /HPF *NA* (11/04/2013 16:17:00) Occasional /HPF (11/04/2013 11:30:30) UA Sq Epi [Few /LPF] Occasional /LPF (11/04/2013 16:17:00) Rare /LPF (11/04/2013 11:30:30) UA Hyal Cast [0-2] 0-2 (11/04/2013 11:30:30) UA Mucus [None Seen /LPF] Few /LPF *NA* (11/04/2013 16:17:00) Few /LPF (11/04/2013 11:30:30) Micro? Performed (11/04/2013 11:30:30) STOOL TESTS Most recent to oldest [Reference Range]: 1 2 3 Occult Bld Stl [Negative] Negative (11/04/2013 12:26:00) CHEMISTRY Most recent to oldest [Reference Range]: 1 2 3 Sodium Lvl [135-145 mEq/L] 141 mEq/L (11/05/2013 04:06:33) 141 mEq/L (11/04/2013 16:17:00) 139 mEq/L (11/04/2013 09:13:56) Potassium Lvl [3.5-5.1 mEq/L] 3.5 mEq/L (11/05/2013 04:06:33) 3.5 mEq/L (11/04/2013 16:17:00) 3.6 mEq/L 5 (11/04/2013 09:13:09) Chloride Lvl [95-109 mEq/L] 104 mEq/L (11/05/2013 04:06:33) 106 mEq/L (11/04/2013 16:17:00) 101 mEq/L (11/04/2013 09:13:56) CO2 [24-32 mEq/L] 26 mEq/L (11/05/2013 04:06:33) 24 mEq/L (11/04/2013 16:17:00) 27 mEq/L (11/04/2013 09:13:56) AGAP [10.0-20.0 mEq/L] 14.5 mEq/L (11/05/2013 04:06:33) 14.5 mEq/L (11/04/2013 16:17:00) 14.6 mEq/L (11/04/2013 09:13:56) Creatinine Lvl [0.5-1.4 mg/dL] 0.6 mg/dL (11/05/2013 04:06:33) 0.5 mg/dL (11/04/2013 16:17:00) 0.9 mg/dL (11/04/2013 09:13:56) eGFR 104 mL/min/1.73m2 6 *NA* (11/05/2013 04:06:33) 110 mL/min/1.73m2 7 *NA* (11/04/2013 16:17:00) 99 mL/min/1.73m2 8 *NA* (11/04/2013 09:25:00) BUN [7-22 mg/dL] 6 mg/dL *LOW* (11/05/2013 04:06:33) 8 mg/dL (11/04/2013 16:17:00) 13 mg/dL (11/04/2013 09:13:56) B/C Ratio [6-25] 10 (11/05/2013 04:06:33) 16 (11/04/2013 16:17:00) Glucose Lvl [70-99 mg/dL] 104 mg/dL 9 *HI* (11/05/2013 04:06:33) 88 mg/dL 10 (11/04/2013 16:17:00) 148 mg/dL 11 *HI* (11/04/2013 09:13:56) POC Creatinine [0.5-1.4 mg/dL] 0.7 mg/dL (11/04/2013 09:25:00) Total Protein [6.4-8.4 g/dL] 5.8 g/dL *LOW* (11/05/2013 04:06:33) 5.9 g/dL *LOW* (11/04/2013 16:17:00) Albumin Lvl [3.5-5.0 g/dL] 2.9 g/dL *LOW* (11/05/2013 04:06:33) 3.0 g/dL *LOW* (11/04/2013 16:17:00) Globulin [2.0-4.0 g/dL] 2.9 g/dL (11/05/2013 04:06:33) 2.9 g/dL (11/04/2013 16:17:00) A/G Ratio [0.7-1.6] 1.0 (11/05/2013 04:06:33) 1.0 (11/04/2013 16:17:00) Calcium Lvl [8.5-10.5 mg/dL] 8.4 mg/dL *LOW* (11/05/2013 04:06:33) 8.0 mg/dL *LOW* (11/04/2013 16:17:00) 8.6 mg/dL (11/04/2013 09:13:56) Phosphorus [2.5-4.5 mg/dL] 4.8 mg/dL *HI* (11/05/2013 04:06:33) 4.0 mg/dL (11/04/2013 16:17:00) Magnesium Lvl [1.8-2.4 mg/dL] 2.6 mg/dL *HI* (11/05/2013 11:28:10) 1.1 mg/dL *LOW* (11/05/2013 04:06:33) 1.5 mg/dL *LOW* (11/04/2013 16:17:00) ALT [0-65 unit/L] 33 unit/L (11/05/2013 04:06:33) 49 unit/L (11/04/2013 16:17:00) AST [0-37 unit/L] 45 unit/L *HI* (11/05/2013 04:06:33) 136 unit/L *HI* (11/04/2013 16:17:00) Alk Phos [39-136 unit/L] 79 unit/L (11/05/2013 04:06:33) 89 unit/L (11/04/2013 16:17:00) Bili Total [0.2-1.3 mg/dL] 0.7 mg/dL (11/05/2013 04:06:33) 0.6 mg/dL (11/04/2013 16:17:00) Amylase Lvl [25-115 unit/L] 45 unit/L (11/04/2013 16:17:00) Lipase Lvl [73-393 unit/L] 77 unit/L (11/04/2013 16:17:00) Ammonia [<=45.0 uMol/L] 35.0 uMol/L (11/04/2013 16:17:00) Lactic Acid Lvl [0.5-2.2 mMol/L] 1.4 mMol/L (11/04/2013 16:17:00) 0.9 mMol/L (11/04/2013 14:15:20) 4.8 mMol/L 12 *HI* (11/04/2013 09:13:12) Aldolase [1.2-7.6 unit/L] 7.5 unit/L (11/05/2013 04:06:00) Total CK [12-191 unit/L] 32 unit/L (11/05/2013 04:06:33) 66 unit/L (11/04/2013 22:16:00) 39 unit/L (11/04/2013 16:17:00) CK MB [0.5-3.6 ng/mL] 0.9 ng/mL (11/04/2013 09:13:56) CK MB Index [0.0-2.5] 2.2 (11/04/2013 09:13:56) Troponin-T [0.000-0.100 ng/mL] <0.010 ng/mL (11/05/2013 04:06:33) 0.010 ng/mL (11/04/2013 22:16:00) 0.014 ng/mL (11/04/2013 16:17:00) Troponin-I [0.00-0.40 ng/mL] 0.03 ng/mL (11/05/2013 04:06:33) 0.05 ng/mL (11/04/2013 22:16:00) 0.09 ng/mL (11/04/2013 16:17:00) BNP [<=100 pg/mL] 375 pg/mL 13 *HI* (11/04/2013 16:17:00) CHD Risk [3.90-5.80] 4.15 (11/04/2013 16:17:00) Chol [<=199 mg/dL] 228 mg/dL *HI* (11/04/2013 16:17:00) Trig [<=149 mg/dL] 267 mg/dL *HI* (11/04/2013 16:17:00) HDL [>=61 mg/dL] 55 mg/dL *LOW* (11/04/2013 16:17:00) LDL (Calculated) [<=99 mg/dL] 120 mg/dL *HI* (11/04/2013 16:17:00) Hgb A1C [<=5.6 %] 5.8 % *HI* (11/04/2013 16:17:00) Ca Ion WB [1.05-1.25 mMol/L] 1.05 mMol/L (11/05/2013 04:06:00) 1.05 mMol/L (11/04/2013 16:17:00) Ca Norm WB [1.05-1.25 mMol/L] 1.08 mMol/L (11/05/2013 04:06:00) 1.04 mMol/L *LOW* (11/04/2013 16:17:00) U Amph Scr [Negative] Negative *NA* (11/04/2013 16:17:00) U Tamie Scr [Negative] Negative *NA* (11/04/2013 16:17:00) U Benzodia Scr [Negative] Positive *ABN* (11/04/2013 16:17:00) U Cocaine Scr [Negative] Negative *NA* (11/04/2013 16:17:00) U Opiate Scr [Negative] Positive *ABN* (11/04/2013 16:17:00) U Phencyc Scr [Negative] Negative *NA* (11/04/2013 16:17:00) U Cannab Scr [Negative] Negative *NA* (11/04/2013 16:17:00) UDS Note See Note 14 (11/04/2013 16:17:00) Acetaminoph Lvl [10-20 ug/ml] 2 ug/ml *LOW* (11/04/2013 16:17:00) Salicylate Lvl [0.0-30.0 mg/dL] <1.7 mg/dL (11/04/2013 16:17:00) Etoh (%) <.003 % 15 *NA* (11/04/2013 16:17:00) Ethanol Lvl <3 mg/dL 16 *NA* (11/04/2013 16:17:00) Temp Art 37.0 DegC *NA* (11/04/2013 11:20:40) pH Art [7.35-7.45] 7.33 *LOW* (11/04/2013 11:20:40) pCO2 Art [35-45 mmHg] 50 mmHg *HI* (11/04/2013 11:20:40) pO2 Art [80-100 mmHg] 105 mmHg *HI* (11/04/2013 11:20:40) HCO3 Art [22-26 mMol/L] 26 mMol/L (11/04/2013 11:20:40) BE Art [-2-2 mMol/L] 0 mMol/L (11/04/2013 11:20:40) O2 Sat Art [95.0-100.0 %] 97.6 % (11/04/2013 11:20:40) Temp Lazaro 37.0 DegC *NA* (11/04/2013 10:30:45) pH Lazaro [7.28-7.42] 7.18 17 *CRIT* (11/04/2013 10:30:45) pCO2 Lazaro [38-52 mmHg] 79 mmHg *HI* (11/04/2013 10:30:45) pO2 Lazaro [20-49 mmHg] 40 mmHg (11/04/2013 10:30:45) HCO3 Lazaro [22-26 mMol/L] 30 mMol/L *HI* (11/04/2013 10:30:45) BE Lazaro [-2-2 mMol/L] -1 mMol/L (11/04/2013 10:30:45) O2 Sat Lazaro [40.0-70.0 %] 60.0 % (11/04/2013 10:30:45) POC A Hct [36.0-48.0 %] 35.0 % *LOW* (11/04/2013 16:05:00) POC A Ca Ion [1.05-1.25 mMol/L] 1.09 mMol/L (11/04/2013 16:05:00) POC A K [3.5-5.1 mEq/L] 3.1 mEq/L *LOW* (11/04/2013 16:05:00) POC A Source ART *NA* (11/05/2013 03:48:00) ART *NA* (11/04/2013 16:05:00) POC A Temp 37.0 DegC *NA* (11/05/2013 03:48:00) 37.0 DegC *NA* (11/04/2013 16:05:00) POC A pH [7.35-7.45] 7.46 *HI* (11/05/2013 03:48:00) 7.42 (11/04/2013 16:05:00) POC A PCO2 [35-45 mmHg] 41 mmHg (11/05/2013 03:48:00) 41 mmHg (11/04/2013 16:05:00) POC A PO2 [80-100 mmHg] 65 mmHg *LOW* (11/05/2013 03:48:00) 76 mmHg *LOW* (11/04/2013 16:05:00) POC A HCO3 [22-26 mMol/L] 29 mMol/L *HI* (11/05/2013 03:48:00) 27 mMol/L *HI* (11/04/2013 16:05:00) POC A BE [-2-2 mMol/L] 5 mMol/L *HI* (11/05/2013 03:48:00) 2 mMol/L (11/04/2013 16:05:00) POC A O2 Sat [95.0-100.0 %] 94.0 % *LOW* (11/05/2013 03:48:00) 95.0 % (11/04/2013:05:00) POC A Glu [70-99 mg/dL] 92 mg/dL (11/04/2013:05:00) POC A LA [0.5-2.2 mMol/L] 1.2 mMol/L (11/04/2013:05:00) POC A Na [135-145 mEq/L] 137 mEq/L (11/04/2013 16:05:00) POC A Mode 3L NC *NA* (11/05/2013 03:48:00) SBT *NA* (11/04/2013 16:05:00) 5Result Comment: Specimen Slightly Hemolyzed. 6Result Comment: The eGFR is calculated using the CKD-EPI formula. In most young, healthy individuals the eGFR will be >90 mL/min/1.73m2. The eGFR declines with age. An eGFR of 60-89 may be normal in some populations, particularly the elderly, for whom the CKD-EPI formula has not been extensively validated. Use of the eGFR is not recommended in the following populations: Individuals with unstable creatinine concentrations, including patients and those with serious co-morbid conditions. Patients with extremes in muscle mass or diet. The data above are obtained from the [employer] ( NK[employer]) which additionally recommends that when the eGFR is used in patients with extremes of body mass index for purposes of drug dosing, the eGFR should be mul tiplied by the estimated BMI. 7Result Comment: The eGFR is calculated using the CKD-EPI formula. In most young, healthy individuals the eGFR will be >90 mL/min/1.73m2. The eGFR declines with age. An eGFR of 60-89 may be normal in some populations, particularly the elderly, for whom the CKD-EPI formula has not been extensively validated. Use of the eGFR is not recommended in the following populations: Individuals with unstable creatinine concentrations, including patients and those with serious co-morbid conditions. Patients with extremes in muscle mass or diet. The data above are obtained from the National Kid[employer] Disease Education Program ( [employer]) which additionally recommends that when the eGFR is used in patients with extremes of body mass index for purposes of drug dosing, the eGFR should be mul tiplied by the estimated BMI. 8Result Comment: The eGFR is calculated using the CKD-EPI formula. In most young, healthy individuals the eGFR will be >90 mL/min/1.73m2. The eGFR declines with age. An eGFR of 60-89 may be normal in some populations, particularly the elderly, for whom the CKD-EPI formula has not been extensively validated. Use of the eGFR is not recommended in the following populations: Individuals with unstable creatinine concentrations, including patients and those with serious co-morbid conditions. Patients with extremes in muscle mass or diet. The data above are obtained from the National Kid[employer] Disease Education Program ( NKDEP) which additionally recommends that when the eGFR is used in patients with extremes of body mass index for purposes of drug dosing, the eGFR should be mul tiplied by the estimated BMI. 9Interpretive Data: Adult reference range values reflect the clinical guidelines of the [place] [employer]. 10Interpretive Data: Adult reference range values reflect the clinical guidelines of the [place] [employer]. 11Interpretive Data: Adult reference range values reflect the clinical guidelines of the [place] [employer]. 12Result Comment: Specimen Moderately Hemolyzed. 13Interpretive Data: Elevated results are in line with increasing severity of congestive heart failure. Minor elevations between 100 and 300 may be seen with Myocardial Ischemia, Sodium retaining drugs, and compensated/treated heart failure. 14Interpretive Data: Drugs reported as positive have not [...] ng/mL Marijuana metabolites 50 ng/mL Methadone 300 ng/mL Urine alcohol 20 mg/dL 15Interpretive Data: Negative Range: <0.003% Toxic Range: >0.25% 16Interpretive Data: Negative Range: <3 mg/dL Toxic Range: >250 mg/dL 17Result Comment: Critical Result(s) called to Elisa Skaggs at 11/04/2013 10:42 by. Read back OK. HEMATOLOGY Most recent to oldest [Reference Range]: 1 2 3 WBC [3.7-10.4 K/CMM] 7.3 K/CMM (11/05/2013 04:06:00) 7.1 K/CMM (11/04/2013 16:17:00) 8.1 K/CMM (11/04/2013 09:13:56) RBC [4.20-5.40 M/CMM] 3.55 M/CMM *LOW* (11/05/2013 04:06:00) 3.81 M/CMM *LOW* (11/04/2013 16:17:00) 4.21 M/CMM (11/04/2013 09:13:56) Hgb [12.0-16.0 g/dL] 11.7 g/dL *LOW* (11/05/2013 04:06:00) 12.1 g/dL (11/04/2013 16:17:00) 13.0 g/dL (11/04/2013 09:13:56) Hct [36.0-48.0 %] 33.5 % *LOW* (11/05/2013 04:06:00) 36.1 % (11/04/2013 16:17:00) 39.7 % (11/04/2013 09:13:56) MCV [81.0-99.0 fL] 94.4 fL (11/05/2013 04:06:00) 94.8 fL (11/04/2013 16:17:00) 94.3 fL (11/04/2013 09:13:56) MCH [27.0-31.0 pg] 33.0 pg *HI* (11/05/2013 04:06:00) 31.7 pg *HI* (11/04/2013 16:17:00) 30.8 pg (11/04/2013 09:13:56) MCHC [32.0-36.0 g/dL] 34.9 g/dL (11/05/2013 04:06:00) 33.4 g/dL (11/04/2013 16:17:00) 32.6 g/dL (11/04/2013 09:13:56) RDW [11.5-14.5 %] 13.3 % (11/05/2013 04:06:00) 13.2 % (11/04/2013 16:17:00) 12.7 % (11/04/2013 09:13:56) Platelet [133-450 K/CMM] 298 K/CMM (11/05/2013 04:06:00) 325 K/CMM (11/04/2013 16:17:00) 375 K/CMM (11/04/2013 09:13:56) MPV [7.4-10.4 fL] 7.5 fL (11/05/2013 04:06:00) 7.6 fL (11/04/2013 16:17:00) 7.3 fL *LOW* (11/04/2013 09:13:56) Segs [45.0-75.0 %] 72.8 % (11/05/2013 04:06:00) 56.4 % (11/04/2013 16:17:00) 61.9 % (11/04/2013 09:13:56) Lymphocytes [20.0-40.0 %] 14.8 % *LOW* (11/05/2013 04:06:00) 31.8 % (11/04/2013 16:17:00) 26.6 % (11/04/2013 09:13:56) Monocytes [2.0-12.0 %] 9.2 % (11/05/2013 04:06:00) 10.0 % (11/04/2013 16:17:00) 8.3 % (11/04/2013 09:13:56) Eosinophils [0.0-4.0 %] 2.6 % (11/05/2013 04:06:00) 1.2 % (11/04/2013 16:17:00) 2.5 % (11/04/2013 09:13:56) Basophils [0.0-1.0 %] 0.6 % (11/05/2013 04:06:00) 0.6 % (11/04/2013 16:17:00) 0.7 % (11/04/2013 09:13:56) Segs-Bands # [1.5-8.1 K/CMM] 5.3 K/CMM (11/05/2013 04:06:00) 4.0 K/CMM (11/04/2013 16:17:00) 4.9 K/CMM (11/04/2013 09:13:56) Lymphocytes # [1.0-5.5 K/CMM] 1.1 K/CMM (11/05/2013 04:06:00) 2.3 K/CMM (11/04/2013 16:17:00) 2.2 K/CMM (11/04/2013 09:13:56) Monocytes # [0.0-0.8 K/CMM] 0.7 K/CMM (11/05/2013 04:06:00) 0.7 K/CMM (11/04/2013 16:17:00) 0.7 K/CMM (11/04/2013 09:13:56) Eosinophils # [0.0-0.5 K/CMM] 0.2 K/CMM (11/05/2013 04:06:00) 0.1 K/CMM (11/04/2013 16:17:00) 0.2 K/CMM (11/04/2013 09:13:56) Basophils # [0.0-0.2 K/CMM] 0.1 K/CMM (11/04/2013 09:13:56) PT [12.0-14.7 seconds] 13.6 seconds (11/05/2013 04:06:33) 13.1 seconds (11/04/2013 16:17:00) 12.3 seconds (11/04/2013 09:13:56) INR [0.85-1.17] 1.05 18 (11/05/2013 04:06:33) 1.00 19 (11/04/2013 16:17:00) 0.92 20 (11/04/2013 09:13:56) PTT [22.9-35.8 seconds] 35.2 seconds 21 (11/05/2013 04:06:33) 31.4 seconds 22 (11/04/2013 16:17:00) 31.6 seconds 23 (11/04/2013 09:13:56) 18Interpretive Data: RECOMMENDED RANGES FOR PROTIME INR: 2.0-3.0 for most medical and surgical thromboembolic states. 2.5-3.5 for artificial heart valves and recurrent embolism. INR SHOULD BE USED ONLY FOR PATIENTS ON STABLE ANTICOAGULANT THERAPY. 19Interpretive Data: RECOMMENDED RANGES FOR PROTIME INR: 2.0-3.0 for most medical and surgical thromboembolic states. 2.5-3.5 for artificial heart valves and recurrent embolism. INR SHOULD BE USED ONLY FOR PATIENTS ON STABLE ANTICOAGULANT THERAPY. 20Interpretive Data: RECOMMENDED RANGES FOR PROTIME INR: 2.0-3.0 for most medical and surgical thromboembolic states. 2.5-3.5 for artificial heart valves and recurrent embolism. INR SHOULD BE USED ONLY FOR PATIENTS ON STABLE ANTICOAGULANT THERAPY. 21Interpretive Data: Heparin Therapeutic Range: 57 - 92 Seconds 22Interpretive Data: Heparin Therapeutic Range: 57 - 92 Seconds 23Interpretive Data: Heparin Therapeutic Range: 57 - 92 Seconds IMMUNOLOGY Most recent to oldest [Reference Range]: 1 2 3 KIRK [Negative] Negative (11/05/2013 04:06:00) C3 Complement [88-201 mg/dL] 147 mg/dL (11/05/2013 04:06:33) C4 Complement [16-47 mg/dL] 37 mg/dL (11/05/2013 04:06:33) RF Qnt [0-20 IU/mL] <10 IU/mL (11/05/2013 04:06:33) DNA Ab (DS) [Negative] Negative (11/05/2013 04:06:00) C-ANCA [Negative] Negative (11/05/2013 04:06:00) P-ANCA [Negative] Negative (11/05/2013 04:06:00) CDC HIV 4th GEN [Negative] Negative (11/04/2013 09:49:00) HIV 1/2 Ab [Negative] Negative *NA* (11/05/2013 04:06:33) Negative *NA* (11/04/2013 16:17:00) Centromere B Ab [Negative] Negative (11/05/2013 04:06:00) Hep Bs Ag [Negative] Negative *NA* (11/05/2013 04:06:33) Hep B Core IgM [Negative] Negative *NA* (11/05/2013 04:06:33) Hep A IgM [Negative] Negative *NA* (11/05/2013 04:06:33) Hep C Ab [Negative] Negative *NA* (11/05/2013 04:06:33) Microbiology Reports PROCEDURE:Culture: Resistant Acinetobacter Screen STATUS: Auth (Verified) BODY SITE: COLLECTED DATE/TIME: 11/04/2013 21:10:57 SOURCE: Nasal Swab FREE TEXT SOURCE: FINAL REPORTS Final Report No Acinetobacter Isolated PRELIMINARY REPORTS Preliminary Report Culture In Progress Preliminary Report Culture In Progress PROCEDURE:Gram Stain STATUS: Auth (Verified) BODY SITE: COLLECTED DATE/TIME: 11/04/2013 21:00:00 SOURCE: Sputum FREE TEXT SOURCE: cup STAIN REPORTS Stain Report Few Wbc'S; Greater Than 25 Squamous Epithelial Cells/Lpf Poor Quality Specimen. The Number Of Squamous Epithelial Cells Suggest That The Specimen Is Primarily Mouth Yue And Not Lower Respiratory Secretions. Please Recollect (Consider Using Induced Sputum Collection) Or Consult Microbiology If Clinical Considerations Warrant Further Processing Of This Specimen. Phone Report Made To: Denis Yee R.N. (ext. [id number]) 11/05/2013 01:02:08 Read Back Ok PROCEDURE:Culture: Urine STATUS: Auth (Verified) BODY SITE: COLLECTED DATE/TIME: 11/04/2013 17:00:00 SOURCE: Urine, Clean Catch FREE TEXT SOURCE: FINAL REPORTS Final Report No Growth PRELIMINARY REPORTS Preliminary Report No Growth; Holding PROCEDURE:Culture: Blood STATUS: Order in Progress BODY SITE: Left Hand COLLECTED DATE/TIME: 11/04/2013 12:15:55 SOURCE: Blood FREE TEXT SOURCE: set PRELIMINARY REPORTS Preliminary Report No Growth At 3 Days Preliminary Report No Growth At 2 Days Preliminary Report No Growth At 1 Day Preliminary Report No Growth At 4 Days PROCEDURE:Culture: Blood STATUS: Order in Progress BODY SITE: Right Hand COLLECTED DATE/TIME: 11/04/2013 12:00:34 SOURCE: Blood FREE TEXT SOURCE: set PRELIMINARY REPORTS Preliminary Report No Growth At 2 Days Preliminary Report No Growth At 1 Day Preliminary Report No Growth At 4 Days Preliminary Report No Growth At 3 Days PROCEDURE:Culture: Urine STATUS: Auth (Verified) BODY SITE: COLLECTED DATE/TIME: 11/04/2013 11:19:00 SOURCE: Urine, [place] FREE TEXT SOURCE: FINAL REPORTS Final Report No Growth PRELIMINARY REPORTS Preliminary Report No Growth; Holding Procedures Procedures Date Related Diagnosis Appendectomy Fracture - traction Fracture care Hysterectomy Tonsillectomy
--- OUTSIDE RECORDS SUMMARY | 2019-04-13 06:53 | XMS REPORT ---
Author Author Kandy Galloway [facility] eClinicalWorks Address Unknown Phone Unavailable Care Team Providers Care Venetian Blind Mechanic Name Role Phone DestinygabrielKandy CP Unavailable Allergies, Adverse Reactions, Alerts Substance Reaction Event Type Penicillin Info Not Available Drug Allergy codiene Info Not Available Non Drug Allergy Problems Problem Type Condition Code Onset Dates Condition Status Assessment Fibromyalgia M79.7 Active Assessment Osteoarthritis of multiple joints M15.9 Active Assessment Medication monitoring encounter Z51.81 Active Problem OA (osteoarthritis) M19.90 Active Problem Inflammatory arthritis M19.90 Active Problem Fibromyalgia M79.7 Active Assessment Left knee pain M25.562 Active Assessment Inflammatory arthritis M19.90 Active Problem Diabetes mellitus without mention of complication, type II or unspecified type, uncontrolled 250.02 Active Problem Hypertension 997.91 Active Medications Medication Code System Code Instructions Start Date End Date Status Dosage Meloxicam ND 13216418547 15 MG Orally Once a day prn with food Active 1 tablet Levetiracetam ND 99864599029 750 MG Orally twice a day Active 2 tablets on the tongue and allow to dissolve Levothyroxine Sodium ND 93397480836 75 MCG Orally Once a day Active 1 tablet Calcium 600+D Plus Minerals ND 36301062496 600-400 MG-UNIT Orally Once a day at noon Active 1 tablet with food Escitalopram Oxalate ND 23435406953 20 MG Orally Once a day Active 1 tablet Tramadol HCl ND 10652080121 50 MG Orally tid prn Active 2 tabs Vitamin D (Ergocalciferol) ND 22397446159 03803 UNIT Orally Once weekly Active 1 capsule Clopidogrel Bisulfate ND 66015757596 75 MG Orally Once a day Active 1 tablet ND 42324573692 27-1 MG Orally Once a day Active 1 tab(s) Multivitamin NDC 0 Over the Counter Orally Once Daily Active 1 Tablet Vitamin E ND 03382431927 1000 UNIT Orally Once a day Active 1 capsule Flaxseed Oil ND 90268138441 1000 MG Orally Active not defined Aspirin [facility] 11017808758 81 MG Orally Once a day Active not defined Accu-Chek Active Care Kit ND 0 Active not defined Vitamin B-1 [facility] 43881293255 100 MG Orally Once a day Active 1 tablet Vitamin B12 [facility] 96668702525 1200 Orally Once a day Active 1 tab(s) Gabapentin [facility] 64531643800 600 MG Orally Three times a day Active 1 capsule Gabapentin [facility] 93524146323 300 MG Orally Three times a day Active 1 capsule Fish Oil [facility] 50089742428 1000 MG Orally Once a day Active 1 capsule Vital Signs Date/Time: Aug 19, 2017 Height 66 in Blood Pressure Diastolic 81 mm Hg Blood Pressure Systolic 147 mm Hg Weight 244.6 lbs Results No Known Results Summary Purpose eClinicalWorks Submission
--- OUTSIDE RECORDS SUMMARY | 2019-04-13 06:53 | XMS REPORT ---
Author Author Kandy Galloway [facility] eClinicalWorks Address Unknown Phone Unavailable Care Team Providers Care Director Of Distance Learning Name Role Phone DestinygabrielKandy CP Unavailable Allergies, Adverse Reactions, Alerts Substance Reaction Event Type Penicillin Info Not Available Drug Allergy codiene Info Not Available Non Drug Allergy Problems Problem Type Condition Code Onset Dates Condition Status Assessment Medication monitoring encounter Z51.81 Active Problem OA (osteoarthritis) M19.90 Active Problem Hypertension 997.91 Active Problem Inflammatory arthritis M19.90 Active Assessment Inflammatory arthritis M19.90 Active Assessment Osteoarthritis of multiple joints M15.9 Active Problem Diabetes mellitus without mention of complication, type II or unspecified type, uncontrolled 250.02 Active Assessment Left knee pain M25.562 Active Medications Medication Code System Code Instructions Start Date End Date Status Dosage Escitalopram Oxalate [facility] [address]-26 20 MG Orally Once a day Active 1 tablet Levothyroxine Sodium [facility] [address]-31 75 MCG Orally Once a day Active 1 tablet Accu-Chek Active Care Kit ND 0 Active not defined Aspirin [facility] [address]-27 81 MG Orally Once a day Active not defined Vitamin D (Ergocalciferol) [facility] [address]-35 50133 UNIT Orally Once weekly Active 1 capsule Metoprolol Tartrate [facility] [address]-75 25 MG Orally every 12 hrs Active 1 tablet Losartan Potassium [facility] [address]-57 50 MG Orally Once a day Active 1 tablet Vitamin E [facility] [address]-83 1000 UNIT Orally Once a day Active 1 capsule Meloxicam [facility] 61317865659 15 MG Orally Once a day prn with food Active 1 tablet Vitamin B-1 [facility] [address]-72 100 MG Orally Once a day Active 1 tablet Diazepam [facility] [address]-35 5 mg Orally Twice a day Active 1 tablet as needed Benzonatate [facility] [address]-92 100 MG Orally Three times a day Active 1 capsule as needed Simvastatin [facility] [address]-29 40 MG Orally Once a day Active not defined Estradiol [facility] [address]-12 1 MG Orally Once a day Active 1 tablet Gabapentin [facility] [address]-70 300 MG Orally Three times a day Active 1 capsule Levetiracetam [facility] [address]-64 750 MG Orally twice a day Active 2 tablets on the tongue and allow to dissolve Meloxicam [facility] [address]-33 15 MG Orally Once a day prn with food Sep 16, 2017 Active 1 tablet Pantoprazole Sodium [facility] [address]-25 40 MG Orally Once a day Active 1 packet Clopidogrel Bisulfate [facility] [address]-70 75 MG Orally Once a day Active 1 tablet Medrol [facility] [address]-06 4 MG Orally daily May 19, 2017 May 25, 2017 Active as directed [facility] [address]-09 27-1 MG Orally Once a day Active 1 tab(s) Vitamin B12 [facility] [address] 1200 Orally Once a day Active 1 tab(s) Tramadol HCl [facility] [address]-44 50 MG Orally tid prn Sep 16, 2017 Active 2 tabs Calcium 600+D Plus Minerals [facility] [address]13 600-400 MG-UNIT Orally Once a day at noon Active 1 tablet with food Fish Oil [facility] [address]-56 1000 MG Orally Once a day Active 1 capsule Flaxseed Oil [facility] [address]-85 1000 MG Orally Active not defined Multivitamin NDC 0 Over the Counter Orally Once Daily Active 1 Tablet Vital Signs Date/Time: May 19, 2017 Height 66 in Blood Pressure Diastolic 70 mm Hg Blood Pressure Systolic 126 mm Hg Weight 235 lbs Results No Known Results Summary Purpose eClinicalWorks Submission
--- OUTSIDE RECORDS SUMMARY | 2019-04-13 06:53 | XMS REPORT | CCD ---
Author Author Auto Generated Organization [facility] Address Unknown Phone Unavailable Care Team Providers Care Cad Engineer Name Role Phone Jass Corado RP Allergies, Adverse Reactions, Alerts Substance Reaction Status [email or web address] Active penicillins Active 1tolerated dilaudid on this admit Medications Medication Instructions Start Date End Date Status Ofirmev 1,000 mg, 100 mL, Route: IV, Drug 04/03/2012 04/04/2012 Completed form: INJ, Q6H, PRN Pain, for > or=50 kg, Start date: 04/03/12 9:37:00, Duration: 1 day, Stop date: 04/04/12 9:36:00 Ambien 5 mg, 1 tab, Route: PO, Drug form: 04/03/2012 04/04/2012 Discontinued TAB, Bedtime, PRN Insomnia, Start date: 04/03/12 9:37:00, Duration: 30 day, Stop date: 05/03/12 9:36:00 dexamethasone 4 mg, 1 mL, Route: IV, Drug form: 04/03/2012 04/04/2012 Completed INJ, Q12H, Start date: 04/03/12 21:00:00, Duration: 1 day, Stop date: 04/04/12 9:00:00 Colace 100 mg oral 100 mg, 1 cap, Route: PO, Drug 04/03/2012 04/04/2012 Discontinued capsule form: CAP, BID, Start date: 04/03/12 17:00:00, Duration: 30 day, Stop date: 05/03/12 9:00:00 Cepacol Lozenge 1 lozenge, Route: MUCOUS MEM, Q2H, 04/03/2012 04/04/2012 Discontinued Drug form: JL PRN Sore Throat, Start date: 04/03/12 9:37:00, Duration: 30 day, Stop date: 05/03/12 9:36:00 Flexeril 5 mg, 0.5 tab, Route: PO, Drug 04/03/2012 04/04/2012 Discontinued form: TAB, TID, PRN Spasm, Start date: 04/03/12 9:38:00, Duration: 30 day, Stop date: 05/03/12 9:37:00 [place] 10/325 oral 1 tab, Route: PO, Drug Form: TAB, 04/03/2012 04/04/2012 Discontinued tablet Q4H, PRN Pain Score 1-5, Start date: 04/03/12 9:37:00, Duration: 30 day, Stop date: 05/03/12 9:36:00 morphine Sulfate 2 mg, 1 mL, Route: IVP, Drug form: 04/03/2012 04/04/2012 Discontinued INJ, Q4H, PRN Pain Score 4-6, Start date: 04/03/12 9:37:00, Duration: 30 day, Stop date: 05/03/12 9:36:00 morphine Sulfate 4 mg, 1 mL, Route: IVP, Drug form: 04/03/2012 04/04/2012 Discontinued INJ, Q4H, PRN Pain Score 7-10, Start date: 04/03/12 9:37:00, Duration: 30 day, Stop date: 05/03/12 9:36:00 Toradol 30 mg/mL 30 mg, 1 mL, Route: IV, Drug form: 04/03/2012 04/04/2012 Completed injectable solution INJ, Q6H, Start date: 04/03/12 12:00:00, Duration: 24 hr, Stop date: 04/04/12 6:00:00 Zofran 4 mg, 2 mL, Route: IV, Drug form: 04/03/2012 04/04/2012 Discontinued INJ, Q6H, PRN as needed for nausea/vomiting, Start date: 04/03/12 9:39:00, Duration: 30 day, Stop date: 05/03/12 9:38:00 simvastatin 20 mg, 1 tab, PO, Bedtime, 30 tab, 03/31/2012 04/29/2012 Suspended Substitution Allowed meloxicam 15 mg oral 15 mg, 1 tab, PO, Daily, 30 tab, 03/31/2012 Ordered tablet Substitution Allowed, TAB orphenadrine 100 mg Substitution Allowed 03/31/2012 Ordered oral tablet, extended release Lyrica 50 mg oral 50 mg, 1 cap, PO, TID, Substitution 03/31/2012 Suspended capsule Allowed, CAP labetalol 5 mg, 1 mL, Route: IVP, Drug form: 04/03/2012 04/04/2012 Completed INJ, Q5Min, PRN Elevated BP, Start date: 04/03/12 11:01:00, Duration: 5 doses or times, Stop date: 04/04/12 6:00:00 ondansetron 4 mg, 2 mL, Route: IVP, Drug form: 04/03/2012 04/04/2012 Discontinued INJ, ONCE, PRN Nausea & Vomiting, Start date: 04/03/12 11:01:00 hydromorphone 0.5 mg, 0.25 mL, Route: IVP, Drug 04/03/2012 04/04/2012 Completed form: INJ, Q5Min, PRN Pain Score 4-6, Start date: 04/03/12 11:01:00, Duration: 5 doses or times, Stop date: 04/04/12 6:00:00 flumazenil 0.2 mg, 2 mL, Route: IVP, Drug 04/03/2012 04/04/2012 Completed form: INJ, PRN, PRN Benzodiazepine Reversal, Initial dose, Start date: 04/03/12 11:01:00, Stop date: 04/04/12 6:00:00 meperidine 12.5 mg, 0.5 mL, Route: IVP, Drug 04/03/2012 04/04/2012 Completed form: INJ, Q30Min, PRN Other -See Comment, For shivering, Start date: 04/03/12 11:01:00, Duration: 2 doses or times, Stop date: 04/04/12 6:00:00 naloxone 0.04 mg, 0.1 mL, Route: IVP, Drug 04/03/2012 04/04/2012 Completed form: INJ, Q2MIN, PRN Narcotic Reversal, Start date: 04/03/12 11:01:00, Duration: 8 doses or times, Stop date: 04/04/12 6:00:00 Prinivil 20 mg, 1 tab, Route: PO, Drug form: 04/04/2012 04/04/2012 Discontinued TAB, Daily, Start date: 04/04/12 9:00:00, Duration: 30 day, Stop date: 05/03/12 9:00:00 hydrochlorothiazide- 1 tab, PO, Daily, 30 tab, 03/31/2012 Suspended lisinopril 12.5 Substitution Allowed, Maintenance, mg-20 mg oral tablet TAB normal saline 0.9% 1,000 mL, Rate: 75 ml/hr, Infuse 04/03/2012 04/04/2012 Discontinued IV 1,000 mL over: 13.3 hr, Route: IV, Dosing Weight 84.545 kg, Total Volume: 1,000, Start date: 04/03/12 9:36:00, Duration: 30 day, Stop date: 05/03/12 9:35:00 Estrace 0.5 mg oral 0.5 mg, 1 tab, PO, Daily, 30 tab, 03/31/2012 Suspended tablet Substitution Allowed, TAB hydrochlorothiazide 12.5 mg, 1 cap, Route: PO, Drug 04/04/2012 04/04/2012 Discontinued form: CAP, Daily, Start date: 04/04/12 9:00:00, Duration: 30 day, Stop date: 05/03/12 9:00:00 Estrace 0.5 mg, 0.5 tab, Route: PO, Drug 04/04/2012 04/04/2012 Discontinued form: TAB, Daily, Start date: 04/04/12 9:00:00, Duration: 30 day, Stop date: 05/03/12 9:00:00 hydrochlorothiazide- 1 tab, Route: PO, Drug Form: TAB, 04/04/2012 04/03/2012 Deleted lisinopril 12.5 Daily, Start date: 04/04/12 mg-20 mg oral tablet 9:00:00, Duration: 30 day, Stop date: 05/03/12 9:00:00 Lyrica 50 mg, 1 cap, Route: PO, Drug form: 04/03/2012 04/04/2012 Discontinued CAP, TID, Start date: 04/03/12 13:00:00, Duration: 30 day, Stop date: 05/03/12 9:00:00 vancomycin 1 gm, Route: IVPB, Drug form: INJ, 04/02/2012 04/03/2012 Completed PRE OP, Start date: 04/02/12 22:00:00, Duration: 1 day, Stop date: 04/03/12 21:59:00 simvastatin 20 mg, 1 tab, Route: PO, Drug form: 04/03/2012 04/04/2012 Discontinued TAB, Bedtime, Start date: 04/03/12 21:00:00, Duration: 30 day, Stop date: 05/02/12 21:00:00 Vital Signs Most recent to oldest [Reference Range]: 1 2 3 Height 162.56 cm (04/03/2012 16:50:00) 162.56 cm (03/31/2012 14:51:00) Temperature Oral [96.4-99.1 DegF] 98.5 DegF (04/04/2012 12:43:00) 98.8 DegF (04/04/2012 09:10:00) 97.6 DegF (04/03/2012 15:45:00) Systolic Blood Pressure [90-140 mmHg] 154 mmHg *HI* (04/04/2012 12:43:00) 137 mmHg (04/04/2012 09:10:00) 132 mmHg (04/04/2012 04:04:00) Diastolic Blood Pressure [60-90 mmHg] 95 mmHg *HI* (04/04/2012 12:43:00) 82 mmHg (04/04/2012 09:10:00) 90 mmHg (04/04/2012 04:04:00) Respiratory Rate [14-20 BRMIN] 20 BRMIN (04/04/2012 12:43:00) 20 BRMIN (04/04/2012 09:10:00) 16 BRMIN (04/04/2012 04:04:00) Peripheral Pulse Rate [60-100 bpm] 77 bpm (04/04/2012 12:43:00) 75 bpm (04/04/2012 09:10:00) 76 bpm (04/04/2012 04:04:00) Weight 84.500 kg (04/03/2012 16:50:00) 84.545 kg (03/31/2012 14:51:00) Results BLOOD BANK RESULTS Most recent to oldest [Reference Range]: 1 ABO/Rh O POS *Unknown* (04/03/2012 06:25:00) Antibody Scrn Negative (04/03/2012 06:25:00) CHEMISTRY Most recent to oldest [Reference Range]: 1 Sodium Lvl [135-145 mEq/L] 138 mEq/L (03/31/2012 14:30:00) Potassium Lvl [3.5-5.1 mEq/L] 3.7 mEq/L (03/31/2012 14:30:00) Chloride Lvl [95-109 mEq/L] 99 mEq/L (03/31/2012 14:30:00) CO2 [24-32 mEq/L] 29 mEq/L (03/31/2012 14:30:00) AGAP [10.0-20.0 mEq/L] 13.7 mEq/L (03/31/2012:30:00) Creatinine Lvl [0.5-1.4 mg/dL] 0.8 mg/dL (03/31/2012 14:30:00) BUN [7-22 mg/dL] 9 mg/dL (03/31/2012 14:30:00) Glucose Lvl [70-99 mg/dL] 111 mg/dL 1 *HI* (03/31/2012 14:30:00) Calcium Lvl [8.5-10.5 mg/dL] 8.9 mg/dL (03/31/2012 14:30:00) 1Interpretive Data: Adult reference range values reflect the clinical guidelinesof the [place] [employer]. HEMATOLOGY Most recent to oldest [Reference Range]: 1 WBC [3.7-10.4 K/CMM] 6.1 K/CMM (03/31/2012 14:30:00) RBC [4.20-5.40 M/CMM] 4.42 M/CMM (03/31/2012 14:30:00) Hgb [12.0-16.0 g/dL] 14.9 g/dL (03/31/2012:30:00) Hct [36.0-48.0 %] 43.5 % (03/31/2012 14:30:00) MCV [81.0-99.0 fL] 98.5 fL (03/31/2012 14:30:00) MCH [27.0-31.0 pg] 33.8 pg *HI* (03/31/2012 14:30:00) MCHC [32.0-36.0 g/dL] 34.3 g/dL (03/31/2012 14:30:00) RDW [11.5-14.5 %] 13.1 % (03/31/2012 14:30:00) Platelet [133-450 K/CMM] 255 K/CMM (03/31/2012 14:30:00) MPV [7.4-10.4 fL] 8.4 fL (03/31/2012 14:30:00) Segs [45.0-75.0 %] 55.4 % (03/31/2012 14:30:00) Lymphocytes [20.0-40.0 %] 34.9 % (03/31/2012 14:30:00) Monocytes [2.0-12.0 %] 8.1 % (03/31/2012 14:30:00) Eosinophils [0.0-4.0 %] 0.9 % (03/31/2012 14:30:00) Basophils [0.0-1.0 %] 0.7 % (03/31/2012 14:30:00) Segs-Bands # [1.5-8.1 K/CMM] 3.4 K/CMM (03/31/2012 14:30:00) Lymphocytes # [1.0-5.5 K/CMM] 2.1 K/CMM (03/31/2012 14:30:00) Monocytes # [0.0-0.8 K/CMM] 0.5 K/CMM (03/31/2012 14:30:00) Eosinophils # [0.0-0.5 K/CMM] 0.1 K/CMM (03/31/2012 14:30:00) Basophils # [0.0-0.2 K/CMM] 0.0 K/CMM (03/31/2012 14:30:00) PT [12.0-14.7 seconds] 12.7 seconds (03/31/2012 14:30:00) INR [0.85-1.17] 0.95 2 (03/31/2012 14:30:00) PTT [22.9-35.8 seconds] 35.6 seconds 3 (03/31/2012 14:30:00) 2Interpretive Data: RECOMMENDED RANGES FOR PROTIME INR: 2.0-3.0 for most medical and surgical thromboembolic states. 2.5-3.5 for artificial heart valves and recurrent embolism.INR SHOULD BE USED ONLY FOR PATIENTS ON STABLE ANTICOAGULANT THERAPY. 3Interpretive Data: Heparin Therapeutic Range: 57 - 92 Seconds
--- OUTSIDE RECORDS SUMMARY | 2019-04-13 06:53 | XMS REPORT ---
Author Author Kandy Galloway Organization [employer] Address Unknown Phone Unavailable Care Team Providers Care Varnish Dipper Name Role Phone Kandy Galloway CP Unavailable Allergies No Known Allergies Problems Problem Type Condition Code Onset Dates Condition Status Problem OA (osteoarthritis) M19.90 Active Problem Hypertension 997.91 Active Problem Inflammatory arthritis M19.90 Active Problem Diabetes mellitus without mention of complication, type II or unspecified type, uncontrolled 250.02 Active Medications No Known Medications Results No Known Results Summary Purpose [employer] Submission
--- OUTSIDE RECORDS SUMMARY | 2019-04-13 06:53 | XMS REPORT ---
Author Author Kandy Galloway [facility] [employer] Address Unknown Phone Unavailable Care Team Providers Care Fish Agent Name Role Phone Destinygabriel Kandy CP Unavailable Allergies, Adverse Reactions, Alerts Substance Reaction Event Type Penicillin Info Not Available Drug Allergy codiene Info Not Available Non Drug Allergy Problems Problem Type Condition Code Onset Dates Condition Status Assessment Fibromyalgia M79.7 Active Assessment Osteoarthritis of multiple joints M15.9 Active Assessment Medication monitoring encounter Z51.81 Active Problem Inflammatory arthritis M19.90 Active Problem OA (osteoarthritis) M19.90 Active Problem Fibromyalgia M79.7 Active Assessment Left knee pain M25.562 Active Assessment Inflammatory arthritis M19.90 Active Problem Hypertension 997.91 Active Problem Diabetes mellitus without mention of complication, type II or unspecified type, uncontrolled 250.02 Active Medications Medication Code System Code Instructions Start Date End Date Status Dosage Flaxseed Oil [facility] [address]-79 1000 MG Orally Active not defined Vitamin E [facility] [address]-65 1000 UNIT Orally Once a day Active 1 capsule Fish Oil [facility] [address]-77 1000 MG Orally Once a day Active 1 capsule Vitamin B12 [facility] [address] 1200 Orally Once a day Active 1 tab(s) Meloxicam [facility] 29806418157 15 MG Orally Once a day prn with food Active 1 tablet Tramadol HCl [facility] [address]-02 50 MG Orally tid prn Active 2 tabs Levetiracetam [facility] [address]-20 750 MG Orally twice a day Active 2 tablets on the tongue and allow to dissolve Accu-Chek Active Care Kit ND 0 Active not defined Vitamin B-1 [facility] [address]-58 100 MG Orally Once a day Active 1 tablet Aspirin [facility] [address]-83 81 MG Orally Once a day Active not defined Clopidogrel Bisulfate [facility] [address]-65 75 MG Orally Once a day Active 1 tablet Gabapentin [facility] [address]-78 600 MG Orally Three times a day Active 1 capsule Meloxicam [facility] [address]-98 15 MG Orally Once a day prn with food Active 1 tablet Escitalopram Oxalate [facility] [address]-81 20 MG Orally Once a day Active 1 tablet Levothyroxine Sodium [facility] [address]-00 75 MCG Orally Once a day Active 1 tablet Calcium 600+D Plus Minerals [facility] [address]95-48799 600-400 MG-UNIT Orally Once a day at noon Active 1 tablet with food Gabapentin [facility] [address]-02 300 MG Orally Three times a day Active 1 capsule Vitamin D (Ergocalciferol) [facility] [address]-64 10697 UNIT Orally Once weekly Active 1 capsule [facility] [address]-53 27-1 MG Orally Once a day Active 1 tab(s) Multivitamin ND 0 Over the Counter Orally Once Daily Active 1 Tablet Vital Signs Date/Time: Jun 17, 2017 Height 66 in Blood Pressure Diastolic 73 mm Hg Blood Pressure Systolic 131 mm Hg Weight 238 lbs Results No Known Results Summary Purpose [employer] Submission
--- OUTSIDE RECORDS SUMMARY | 2019-04-13 06:53 | XMS REPORT ---
Author Author Kandy Galloway Organization [employer] Address Unknown Phone Unavailable Care Team Providers Care Corporate Tutor Name Role Phone Kandy Galloway CP Unavailable [...]
--- OUTSIDE RECORDS SUMMARY | 2019-04-13 06:53 | XMS REPORT | Summary of Care ---
Author Author [facility] Organization [facility] Address Unknown Phone Unavailable Encounter HQ Werner_moe(FIN) [id number] Date(s): 01/28/17 - 01/28/17 [facility] [address] [place] [address] [phone] Discharge Disposition: Home or Self Care Attending Physician: Anny Olsen MD Vital Signs No data available for this section Problem List Condition Effective Dates Status Health Status Informant CAD - Coronary Resolved artery disease(Confirmed) COPD(Confirmed) Resolved HTN - Resolved Hypertension(Confirm ed) Allergies, Adverse Reactions, Alerts Substance Reaction Severity Status codeine1 Active penicillins Active 1tolerated dilaudid on this admit Medications No data available for this section Results No data available for this section Immunizations No data available for this section Procedures Procedure Date Related Diagnosis Body Site Appendectomy Fracture - traction Fracture care Hysterectomy Tonsillectomy Social History Social History Type Response Alcohol Current, Type Liquor. Frequency: Daily. Assessment and Plan No data available for this section
--- OUTSIDE RECORDS SUMMARY | 2019-04-13 06:53 | XMS REPORT ---
Author Author Kandy Galloway [facility] [employer] Address Unknown Phone Unavailable Care Team Providers Care Retort Operator Name Role Phone Kandy Galloway CP Unavailable Allergies, Adverse Reactions, Alerts Substance [...] Instructions Start Date End Date Status Dosage Fish Oil [facility] 96253671866 1000 MG Orally Once a day Active 1 capsule Vitamin B-1 ND 07129307281 100 MG Orally Once a day Active 1 tablet Vitamin B12 [facility] 09496608282 1200 Orally Once a day Active 1 tab(s) Calcium 600+D Plus Minerals [facility] 27217416553 600-400 MG-UNIT Orally Once a day at noon Active 1 tablet with food Gabapentin ND 29665340043 600 MG Active 1 capsule Three times a day Orally 30 days Levothyroxine Sodium [facility] 59204849981 75 MCG Orally Once a day Active 1 tablet Celecoxib ND 54334659370 100 MG Orally Twice a day Nov 18, 2017 Active 1 tab(s) with food as needed Flaxseed Oil [facility] 18546132358 1000 MG Orally Active not defined Multivitamin NDC 0 Over the Counter Orally Once Daily Active 1 Tablet Escitalopram Oxalate ND 56265240136 20 MG Orally Once a day Active 1 tablet Tramadol HCl [facility] 45548374460 50 MG Active TAKE 2 TABLETS BY MOUTH THREE TIMES DAILY NEEDED FOR PAIN Levetiracetam ND 40111522615 750 MG Orally twice a day Active 2 tablets on the tongue and allow to dissolve Vitamin E [facility] 84192428827 1000 UNIT Orally Once a day Active 1 capsule Aspirin [facility] 20956167287 81 MG Orally Once a day Active not defined Meloxicam [facility] 76203986233 15 MG Orally Once a day prn with food Nov 18, 2017 Inactive 1 tablet [facility] 79845434425 27-1 MG Orally Once a day Active 1 tab(s) Vitamin D (Ergocalciferol) [facility] 14494734412 06545 UNIT Orally Once weekly Active 1 capsule Accu-Chek Active Care Kit ND 0 Active not defined Clopidogrel Bisulfate [facility] 25217807532 75 MG Orally Once a day Active 1 tablet Tramadol HCl [facility] 89587910224 50 MG Orally tid prn Active 2 tabs Meloxicam [facility] 22748199286 15 MG Active 1 tablet Once a day prn with food Orally 30 day(s) Gabapentin ND 36455871530 600 MG Orally Three times a day Active 1 capsule Vital Signs Date/Time: Nov 18, 2017 Height 66 in Blood Pressure Diastolic 83 mm Hg Blood Pressure Systolic 139 mm Hg Weight 244 lbs Results No Known Results Summary Purpose [employer] Submission
--- OUTSIDE RECORDS SUMMARY | 2019-04-13 06:54 | XMS REPORT ---
Author Author Kandy Galloway Organization [employer] Address Unknown Phone Unavailable Care Team Providers Care Sales Marketing Name Role Phone Kandy Galloway CP Unavailable Allergies No Known Allergies Problems Problem Type Condition Code Onset Dates Condition Status Problem Fibromyalgia M79.7 Active Problem OA (osteoarthritis) M19.90 Active Problem Primary insomnia F51.01 Active Problem Hypertension 997.91 Active Problem Inflammatory arthritis M19.90 Active Problem Diabetes mellitus without mention of complication, type II or unspecified type, uncontrolled 250.02 Active Medications Medication Code System Code Instructions Start Date End Date Status Dosage Meloxicam [facility] 29862833049 7.5 MG Orally Once a day February 15, 2019 Jun 15, 2019 Active 1 tab(s) with food as needed Results No Known Results Summary Purpose [employer] Submission
--- OUTSIDE RECORDS SUMMARY | 2019-04-13 06:54 | XMS REPORT ---
Author Author Kandy Galloway [facility] [employer] Address Unknown Phone Unavailable Care Team Providers Care Patient Observer Name Role Phone DestinygabrielKandy CP Unavailable Allergies, [...] Instructions Start Date End Date Status Dosage Clopidogrel Bisulfate [facility] 69551509030 75 MG Orally Once a day Active 1 tablet Levothyroxine Sodium ND 64943376323 75 MCG Orally Once a day Active 1 tablet Flaxseed Oil ND 00401469294 1000 MG Orally Active not defined Calcium 600+D Plus Minerals [facility] 72524166146 600-400 MG-UNIT Orally Once a day at noon Active 1 tablet with food Vitamin B-1 ND 67654739739 100 MG Orally Once a day Active 1 tablet Levetiracetam ND 02850543832 750 MG Orally twice a day Active 2 tablets on the tongue and allow to dissolve Meloxicam [facility] 84191704958 15 MG Inactive 1 tablet Once a day prn with food Orally 30 day(s) Fish Oil ND 33325200619 1000 MG Orally Once a day Active 1 capsule Celecoxib ND 00230198007 100 MG Orally Twice a day Jul 15, 2018 Active 1 tab(s) with food as needed Tramadol HCl ND 89588464828 50 MG Orally tid prn Active 2 tabs Multivitamin ND 0 Over the Counter Orally Once Daily Active 1 Tablet Vitamin D (Ergocalciferol) [facility] 10379133372 04301 UNIT Orally Once weekly Active 1 capsule Accu-Chek Active Care Kit [facility] 0 Active not defined Aspirin [facility] 50526469215 81 MG Orally Once a day Active not defined Vitamin B12 [facility] 92740889372 1200 Orally Once a day Active 1 tab(s) Gabapentin [facility] 50324015673 600 MG Orally Three times a day Inactive 1 capsule Escitalopram Oxalate [facility] 08622507805 20 MG Orally Once a day Active 1 tablet Vitamin E [facility] 44239486173 1000 UNIT Orally Once a day Active 1 capsule [facility] 47782837919 27-1 MG Orally Once a day Active 1 tab(s) Vital Signs Date/Time: March 17, 2018 Height 66 in Blood Pressure Diastolic 54 mm Hg Blood Pressure Systolic 111 mm Hg Weight 202.6 lbs Results No Known Results Summary Purpose [employer] Submission
--- OUTSIDE RECORDS SUMMARY | 2019-04-13 06:54 | XMS REPORT ---
Author Author Kandy Galloway Organization [employer] Address Unknown Phone Unavailable Care Team Providers Care Employment Legal Assistant Name Role Phone Kandy Galloway CP Unavailable Allergies, Adverse Reactions, Alerts Substance Reaction Event Type Penicillin Info Not Available Drug Allergy codiene Info Not Available Non Drug Allergy Encounters Encounter Location Date Needs X-ray orders [facility] Aug [facility], 2015 mri resilts [facility] Aug 16, 2015 knee pain [facility] Jun 12, 2015 MRI orders [facility] Jun 21, 2015 Zorvolex samples [facility] Jun 21, 2015 Problems Problem Type Condition ICD-9 Code Onset Dates Condition Status Assessment Screening for osteoporosis Z13.820 Active Assessment Pain, joint, hand, left M79.642 Active Assessment Pain, joint, hand, right M79.641 Active Problem OA (osteoarthritis) M19.90 Active Problem Hypertension 997.91 Active Problem Inflammatory arthritis M19.90 Active Assessment Pain in left foot M79.672 Active Assessment OA (osteoarthritis) M19.90 Active Problem Diabetes mellitus without mention of complication, type II or unspecified type, uncontrolled 250.02 Active Assessment Inflammatory arthritis M19.90 Active Medications Medication Code System Code Instructions Start Date End Date Status Dosage Clopidogrel Bisulfate [facility] [address]-37 75 MG Orally Once a day Active 1 tablet Gabapentin [facility] [address]-16 300 MG Orally Three times a day Active 1 capsule Levetiracetam [facility] [address]-46 750 MG Orally twice a day Active 1 tablet Pantoprazole Sodium [facility] [address]-68 40 MG Orally Once a day Active 1 packet Levothyroxine Sodium [facility] [address]-01 50 MCG Orally Once a day Active 1 tablet Benzonatate [facility] [address]-47 100 MG Orally Three times a day Active 1 capsule as needed Zorvolex [facility] [address]-27 35 MG Orally bid as needed Jun 12, 2015 Nov 14, 2015 Active 1 capsule Plaquenil [facility] [address]-11 200 MG Orally Once a day Aug 16, 2015 December 14, 2015 Active 2 tabs Metoprolol Tartrate [facility] [address]-55 25 MG Orally every 12 hrs Active 1 tablet Losartan Potassium-HCTZ [facility] [address]-62 100-25 MG Orally Once a day Active 1 tablet Aspirin [facility] [address]-54 81 MG Orally Once a day Active Unknown Accu-Chek Active Care Kit Unknown 0 Active Unknown Tramadol HCl [facility] [address]-77 50 MG Orally every 6 hrs Active 1 tablet as needed Escitalopram Oxalate [facility] [address]-60 20 MG Orally Once a day Active 1 tablet Diazepam [facility] [address]-35 5 MG Orally Once a day Active 1 tablet as needed Estradiol [facility] [address]-40 0.5 MG Orally Once a day Active 1 tablet Simvastatin [facility] [address]-45 20 MG Orally Once a day Active Unknown Social History Social History Element Qualifiers Date Reported Smoking status: . Are you a: Former Smoker 40+ Years Ago Aug 16, 2015 alcohol yes. occasional drinker Aug 16, 2015 Vital Signs Date/Time: Aug 16, 2015 Height 66 in Blood Pressure Diastolic 67 mm Hg Blood Pressure Systolic 117 mm Hg Weight 214.2 lbs Summary Purpose [employer] Submission
--- OUTSIDE RECORDS SUMMARY | 2019-04-13 06:54 | XMS REPORT ---
Author Author Kandy Galloway Organization [employer] Address Unknown Phone Unavailable Care Team Providers Care Protective Officer Name Role Phone Kandy Galloway CP Unavailable Encounters Encounter Location Date knee pain [facility] Jun 12, 2015 MRI orders [facility] Jun 21, 2015 Zorvolex samples [facility] Jun 21, 2015 Problems Problem Type Condition ICD-9 Code Onset Dates Condition Status Problem Diabetes mellitus without mention of complication, type II or unspecified type, uncontrolled 250.02 Active Problem Hypertension 997.91 Active Social History Social History Element Qualifiers Date Reported Smoking status: . Are you a: Never Smoker Jun 12, 2015 alcohol yes. occasional drinker Jun 12, 2015 Summary Purpose [employer] Submission
--- OUTSIDE RECORDS SUMMARY | 2019-04-13 06:54 | XMS REPORT ---
Author Author Kandy Galloway Organization [employer] Address Unknown Phone Unavailable Care Team Providers Care Cable Cutter And Swager Name Role Phone Kandy Galloway CP Unavailable Allergies, Adverse Reactions, Alerts Substance Reaction Event Type Penicillin Info Not Available Drug Allergy codiene Info Not Available Non Drug Allergy Encounters Encounter Location Date knee pain [facility] Jun 12, 2015 Problems Problem Type Condition ICD-9 Code Onset Dates Condition Status Assessment Asymptomatic postmenopausal status (age-related) (natural) V49.81 Active Problem Diabetes mellitus without mention of complication, type II or unspecified type, uncontrolled 250.02 Active Assessment Pain in joint, hand 719.44 Active Problem Hypertension 997.91 Active Assessment Generalized osteoarthrosis, involving multiple sites 715.09 Active Assessment Counseling NOS V65.40 Active Assessment Pain in joint, lower leg 719.46 Active Assessment Pain in joint, multiple sites 719.49 Active Medications Medication Code System Code Instructions Start Date End Date Status Dosage Benzonatate [facility] [address]-76 100 MG Orally Three times a day Active 1 capsule as needed Meloxicam [facility] [address]-04 15 MG Orally Once a day Inactive 1 tablet Tramadol HCl [facility] [address]-62 50 MG Orally every 6 hrs Active 1 tablet as needed Pantoprazole Sodium [facility] [address]-98 40 MG Orally Once a day Active 1 packet Levetiracetam [facility] [address]-73 750 MG Orally twice a day Active 1 tablet Estradiol [facility] [address]-32 0.5 MG Orally Once a day Active 1 tablet Escitalopram Oxalate [facility] [address]-92 20 MG Orally Once a day Active 1 tablet Levothyroxine Sodium [facility] [address]-01 50 MCG Orally Once a day Active 1 tablet Simvastatin [facility] [address]-98 20 MG Orally Once a day Active Unknown Metoprolol Tartrate [facility] [address]-53 25 MG Orally every 12 hrs Active 1 tablet Aspirin [facility] [address]-92 81 MG Orally Once a day Active Unknown Accu-Chek Active Care Kit Unknown 0 Active Unknown Losartan Potassium-HCTZ [facility] [address]-37 100-25 MG Orally Once a day Active 1 tablet Zorvolex [facility] [address]-52 35 MG Orally bid as needed Jun 12, 2015 Active 1 capsule Clopidogrel Bisulfate [facility] [address]-71 75 MG Orally Once a day Active 1 tablet Diazepam [facility] [address]-50 5 MG Orally Once a day Active 1 tablet as needed Gabapentin [facility] [address]-04 300 MG Orally Three times a day Active 1 capsule Social History Social History Element Qualifiers Date Reported Smoking status: . Are you a: Never Smoker Jun 12, 2015 alcohol yes. occasional drinker Jun 12, 2015 Vital Signs Date/Time: Jun 12, 2015 Height 66 in Blood Pressure Diastolic 75 mm Hg Blood Pressure Systolic 131 mm Hg Weight 207 lbs Results CBC w/DIFF, PLATELET CT. MONOS(-0.0-13.0 %) 9.0 LYMPHS(-12.0-48.0 %) 46.7 HGB(-11.5-15.6 gm/dL) 11.4 HCT(-34.5-46.5 %) 33.6 MCV(-80.0-100.0 fL) 91.3 MPV(-8.2-11.9 fL) 8.9 MCH(-25.0-34.1 pg) 31.0 PLATELET COUNT(-144-400 x10(3)/uL) 222 MCHC(-29.0-35.0 gm/dL) 33.9 IMMATURE GRANULOCYTES(-0.0-1.6 %) 0.2 RDW(-10.9-16.9 %) 13.6 WBC(-3.40-11.80 x10(3)/uL) 5.33 POLYS(-36.0-78.0 %) 40.5 BASOS(-0.0-2.0 %) 0.6 RBC(-3.60-5.50 x10(6)/uL) 3.68 EOS(-0.0-8.0 %) 3.0 COMPREHENSIVE METABOLIC Bilirubin, Total(-<1.2 mg/dL) 0.2 Sodium(-133-145 mmol/L) 136 A/G Ratio(-1.1-2.9 ) 2.1 Calcium(-8.6-10.4 mg/dL) 8.6 Chloride(-96-108 mmol/L) 99 e-GFR, (->60 mL/min) 102 Potassium(-3.3-5.3 mmol/L) 4.3 e-GFR(->60 mL/min) 84 Glucose(-70-99 mg/dL) 86 Total Protein(-5.9-8.4 g/dL) 6.5 ALT(-<33 U/L) 14 AST(-<32 U/L) 22 Globulin(-1.7-3.7 g/dL) 2.1 Alk Phos(-40-156 U/L) 75 Albumin(-3.5-5.2 g/dL) 4.4 Creatinine(-0.60-1.10 mg/dL) 0.72 CO2(-22-29 mmol/L) 31 BUN(-6-20 mg/dL) 13 RF (RHEUMATOID ARTHRITIS) TITER RHEUMATOID (RF) TITER(-<14 IU/mL) <10 SJOGREN'S Abs (SS-A, SS-B) ANTI-SSB(-Neg=<1.0 AI) Negative ANTI-SSA(-Neg=<1.0 AI) Negative ESR (SED-RATE) ESR (SED-RATE)(-<26 mm/hr) 13 Summary Purpose [employer]Works Submission
--- OUTSIDE RECORDS SUMMARY | 2019-04-13 06:54 | XMS REPORT ---
Author Author Kandy Galloway Organization [employer] Address Unknown Phone Unavailable Care Team Providers Care Atomizer Assembler Name Role Phone Destinygabriel Kandy CP Unavailable Allergies, Adverse Reactions, Alerts Substance Reaction Event Type Penicillin Info Not Available Drug Allergy codiene Info Not Available Non Drug Allergy Problems Problem Type Condition Code Onset Dates Condition Status Assessment Osteoarthritis of multiple joints M15.9 Active Assessment Left knee pain M25.562 Active Assessment Inflammatory arthritis M19.90 Active Problem Fibromyalgia M79.7 Active Problem OA (osteoarthritis) M19.90 Active Problem Primary insomnia F51.01 Active Problem Hypertension 997.91 Active Problem Inflammatory arthritis M19.90 Active Problem Diabetes mellitus without mention of complication, type II or unspecified type, uncontrolled 250.02 Active Assessment Left hand pain M79.642 Active Assessment Primary insomnia F51.01 Active Assessment Fibromyalgia M79.7 Active Assessment Trigger finger, left middle finger M65.332 Active Assessment Medication monitoring encounter Z51.81 Active Medications Medication Code System Code Instructions Start Date End Date Status Dosage Fenofibrate ND 99303329138 160 MG Orally Once a day Active 1 tablet with food Lipitor ND 36054312498 40 MG Orally Once a day Active 1 tablet Humulin 70/30 [facility] 01935792498 (70-30) 100 UNIT/ML Subcutaneous Active not defined Multivitamin NDC 0 Over the Counter Orally Once Daily Active 1 Tablet Levetiracetam ND 74398041687 750 MG Orally twice a day Active 2 tablets on the tongue and allow to dissolve Levothyroxine Sodium ND 80813201313 75 MCG Orally Once a day Active 1 tablet Escitalopram Oxalate ND 73835564174 20 MG Orally Once a day Active 1 tablet Aspirin Adult Low Dose ND 92898104243 81 MG Orally Once a day Active 1 tablet Calcium 600+D Plus Minerals [facility] 35663677312 600-400 MG-UNIT Orally Once a day at noon Active 1 tablet with food Tizanidine HCl [facility] 07976946345 4 MG Orally bedtime May 17, 2019 Active 1 tablet as needed Aspirin [facility] 86945643229 81 MG Orally Once a day Active not defined Accu-Chek Active Care Kit ND 0 Active not defined Flaxseed Oil [facility] 58197529006 1000 MG Orally Active not defined Vitamin E ND 82614352829 1000 UNIT Orally Once a day Active 1 capsule Propranolol HCl CR ND 08365949680 60 MG Orally Once a day Active 1 capsule Losartan Potassium [facility] 28121510686 25 MG Orally Once a day Active 1 tablet Vitamin B12 [facility] 92436490156 1200 Orally Once a day Active 1 tab(s) Fish Oil [facility] 70626595717 1000 MG Orally Once a day Active 1 capsule Vitamin D (Ergocalciferol) [facility] 08233825269 03016 UNIT Orally Once weekly Active 1 capsule [facility] 91454156398 27-1 MG Orally Once a day Active 1 tab(s) Celecoxib ND 35131994660 100 MG Orally Twice a day Active 1 tab(s) with food as needed Nalfon [facility] 68501583159 400 MG Orally Three times a day Nov 18, 2018 December 18, 2018 Active 1 capsule Vitamin B-1 ND 87912442336 100 MG Orally Once a day Active 1 tablet Celecoxib ND 28463462158 100 MG Orally Twice a day May 17, 2019 Active 1 tab(s) with food as needed Tizanidine HCl [facility] 58548047389 4 MG Orally bedtime Active 1 tablet as needed Clopidogrel Bisulfate ND 79671048368 75 MG Orally Once a day Active 1 tablet Tramadol HCl [facility] 24511475649 50 MG Orally tid prn Active 2 tabs Vital Signs Date/Time: Nov 18, 2018 Height 66 in Blood Pressure Diastolic 56 mm Hg Blood Pressure Systolic 102 mm Hg Weight 235.0 lbs Results No Known Results Summary Purpose [employer] Submission
--- OUTSIDE RECORDS SUMMARY | 2019-04-13 06:54 | XMS REPORT ---
Author Author Kandy Galloway Organization [employer] Address Unknown Phone Unavailable Care Team Providers Care Truer Pinion And Wheel Name Role Phone Destinygabriel Kandy CP Unavailable Allergies, Adverse Reactions, Alerts Substance Reaction Event Type Penicillin Info Not Available Drug Allergy codiene Info Not Available Non Drug Allergy Encounters Encounter Location Date Needs X-ray orders [facility] Aug 01, 2015 mri resilts [facility] Aug 16, 2015 med f/u [facility] Oct 19, 2015 knee pain [facility] Jun 12, 2015 MRI orders [facility] Jun 21, 2015 Zorvolex samples [facility] Jun 21, 2015 Problems Problem Type Condition ICD-9 Code Onset Dates Condition Status Assessment Osteoporosis M81.0 Active Assessment Pain in joint of right knee M25.561 Active Problem OA (osteoarthritis) M19.90 Active Problem Hypertension 997.91 Active Problem Inflammatory arthritis M19.90 Active Assessment OA (osteoarthritis) M19.90 Active Assessment Counseling NOS Z71.9 Active Problem Diabetes mellitus without mention of complication, type II or unspecified type, uncontrolled 250.02 Active Assessment Inflammatory arthritis M19.90 Active Medications Medication Code System Code Instructions Start Date End Date Status Dosage Estradiol [facility] [address]-23 0.5 MG Orally Once a day Active 1 tablet Clopidogrel Bisulfate [facility] [address]-79 75 MG Orally Once a day Active 1 tablet Plaquenil [facility] [address]-33 200 MG Orally Once a day Aug 16, 2015 December 14, 2015 Active 2 tabs Simvastatin [facility] [address]-35 20 MG Orally Once a day Active Unknown Zorvolex [facility] [address]-64 18 MG Orally bid as needed Jun 12, 2015 December 18, 2015 Active 1 capsule Benzonatate [facility] [address]-71 100 MG Orally Three times a day Active 1 capsule as needed Levothyroxine Sodium [facility] [address]-33 50 MCG Orally Once a day Active 1 tablet Escitalopram Oxalate [facility] [address]-71 20 MG Orally Once a day Active 1 tablet Metoprolol Tartrate [facility] [address]-62 25 MG Orally every 12 hrs Active 1 tablet Pantoprazole Sodium [facility] [address]-07 40 MG Orally Once a day Active 1 packet Aspirin [facility] [address]-97 81 MG Orally Once a day Active Unknown Accu-Chek Active Care Kit Unknown 0 Active Unknown Losartan Potassium-HCTZ [facility] [address]-12 100-25 MG Orally Once a day Active 1 tablet Levetiracetam [facility] [address]-91 750 MG Orally twice a day Active 1 tablet Diazepam [facility] [address]-14 5 MG Orally Once a day Active 1 tablet as needed Gabapentin [facility] [address]-83 300 MG Orally Three times a day Active 1 capsule Tramadol HCl [facility] [address]-74 50 MG Orally every 6 hrs Active 1 tablet as needed Social History Social History Element Qualifiers Date Reported Smoking status: . Are you a: Former Smoker 40+ Years Ago Oct 19, 2015 alcohol yes. occasional drinker Oct 19, 2015 Vital Signs Date/Time: Oct 19, 2015 Height 66 in Blood Pressure Diastolic 69 mm Hg Blood Pressure Systolic 128 mm Hg Weight 224.8 lbs Summary Purpose eClinicalWorks Submission
--- OUTSIDE RECORDS SUMMARY | 2019-04-13 06:54 | XMS REPORT ---
Author Author Kandy Galloway Organization [employer] Address Unknown Phone Unavailable Care Team Providers Care Certified Public Accountant Name Role Phone Kandy Galloway CP Unavailable [...]
--- OUTSIDE RECORDS SUMMARY | 2019-04-13 06:54 | XMS REPORT ---
Author Author Kandy Galloway Organization [employer] Address Unknown Phone Unavailable Care Team Providers Care Regulatory Lead Name Role Phone Carmelmadi Kandy CP Unavailable Allergies, Adverse Reactions, Alerts [...] Date End Date Status Dosage Escitalopram Oxalate ND 57222843077 20 MG Orally Once a day Active 1 tablet Levothyroxine Sodium ND 78863172748 75 MCG Orally Once a day Active 1 tablet Aspirin ND 50610527914 81 MG Orally Once a day Active not defined Celecoxib ND 00608571388 100 MG Orally Twice a day March 25, 2019 Inactive 1 tab(s) with food as needed Lipitor ND 33613181808 40 MG Orally Once a day Active 1 tablet Losartan Potassium ND 55295430988 25 MG Orally Once a day Active 1 tablet Tizanidine HCl ND 81525164425 4 MG Orally bedtime Active 1 tablet as needed Vitamin E ND 00780995307 1000 UNIT Orally Once a day Active 1 capsule Accu-Chek Active Care Kit NDC 0 Active not defined Multivitamin NDC 0 Over the Counter Orally Once Daily Active 1 Tablet Calcium 600+D Plus Minerals [facility] 02824904604 600-400 MG-UNIT Orally Once a day at noon Active 1 tablet with food Humulin 70/30 [facility] 80314883007 (70-30) 100 UNIT/ML Subcutaneous Active not defined Propranolol HCl CR ND 80913477625 60 MG Orally Once a day Active 1 capsule Tizanidine HCl ND 48931864061 4 MG Orally bedtime Active 1 tablet as needed Flaxseed Oil ND 25649260719 1000 MG Orally Active not defined Fish Oil ND 21990739691 1000 MG Orally Once a day Active 1 capsule Metformin HCl ND 24903401112 500 MG Orally Once a day Active 1 tablet with a meal Celecoxib [facility] 61060382802 100 MG Orally Twice a day Active 1 tab(s) with food as needed Meloxicam ND 71172279775 7.5 MG Orally Once a day February 15, 2019 Sep 21, 2019 Active 1 tab(s) with food as needed Levetiracetam [facility] 62924036192 750 MG Orally twice a day Active 2 tablets on the tongue and allow to dissolve GlipiZIDE ND 04525048467 5 MG Orally Active as directed Vitamin B-1 ND 34726446012 100 MG Orally Once a day Active 1 tablet Vitamin D (Ergocalciferol) [facility] 31240612785 70715 UNIT Orally Once weekly Active 1 capsule Tramadol HCl [facility] 09568516924 50 MG Orally tid prn Active 2 tabs Aspirin Adult Low Dose [facility] 07631567775 81 MG Orally Once a day Active 1 tablet Vitamin B12 [facility] 72989131470 1200 Orally Once a day Active 1 tab(s) [facility] 06150826733 27-1 MG Orally Once a day Active 1 tab(s) Fenofibrate [facility] 50655172233 160 MG Orally Once a day Active 1 tablet with food Vital Signs Date/Time: March 25, 2019 Height 66 in Blood Pressure Diastolic 62 mm Hg Blood Pressure Systolic 105 mm Hg Weight 233.0 lbs Results No Known Results Summary Purpose eClinicalWorks Submission
--- OUTSIDE RECORDS SUMMARY | 2019-04-13 06:54 | XMS REPORT ---
Author Author Kandy Galloway Organization [employer] Address Unknown Phone Unavailable Care Team Providers Care Matcher Operator Name Role Phone DestinygabrielKandy CP Unavailable Allergies, Adverse Reactions, Alerts Substance Reaction Event Type Penicillin Info Not Available Drug Allergy codiene Info Not Available Non Drug Allergy Problems Problem Type Condition Code Onset Dates Condition Status Assessment Medication monitoring encounter Z51.81 Active Assessment Inflammatory arthritis M19.90 Active Assessment Osteoarthritis of multiple joints M15.9 Active Assessment Primary insomnia F51.01 Active Assessment Fibromyalgia M79.7 Active Problem Fibromyalgia M79.7 Active Problem OA (osteoarthritis) M19.90 Active Problem Primary insomnia F51.01 Active Problem Hypertension 997.91 Active Assessment Left knee pain M25.562 Active Problem Inflammatory arthritis M19.90 Active Problem Diabetes mellitus without mention of complication, type II or unspecified type, uncontrolled 250.02 Active Medications Medication Code System Code Instructions Start Date End Date Status Dosage Aspirin Adult Low Dose [facility] 10085971801 81 MG Orally Once a day Active 1 tablet Lipitor [facility] 61690791126 40 MG Orally Once a day Active 1 tablet Calcium 600+D Plus Minerals [facility] 95430570227 600-400 MG-UNIT Orally Once a day at noon Active 1 tablet with food Humulin 70/30 [facility] 13533255253 (70-30) 100 UNIT/ML Subcutaneous Active not defined Levothyroxine Sodium ND 41622279121 75 MCG Orally Once a day Active 1 tablet Fish Oil ND 24388797329 1000 MG Orally Once a day Active 1 capsule Flaxseed Oil ND 69115655868 1000 MG Orally Active not defined Propranolol HCl CR [facility] 90960537698 60 MG Orally Once a day Active 1 capsule Multivitamin ND 0 Over the Counter Orally Once Daily Active 1 Tablet Tramadol HCl ND 56820913728 50 MG Orally tid prn Active 2 tabs Meloxicam [facility] 74108521132 15 MG Inactive 1 tablet Once a day prn with food Orally 30 day(s) Accu-Chek Active Care Kit ND 0 Active not defined Escitalopram Oxalate ND 03201965816 20 MG Orally Once a day Active 1 tablet Vitamin E ND 35016805546 1000 UNIT Orally Once a day Active 1 capsule Fenofibrate ND 10152057519 160 MG Orally Once a day Active 1 tablet with food Losartan Potassium ND 63678420426 25 MG Orally Once a day Active 1 tablet ND 23371542534 27-1 MG Orally Once a day Active 1 tab(s) Vitamin B-1 ND 15420399908 100 MG Orally Once a day Active 1 tablet Vitamin D (Ergocalciferol) ND 02712608265 29150 UNIT Orally Once weekly Active 1 capsule Celecoxib ND 20010224503 100 MG Orally Twice a day Active 1 tab(s) with food as needed Tizanidine HCl [facility] 76909874659 4 MG Orally bedtime Jul 15, 2018 Active 1 tablet as needed Gabapentin ND 63926890816 600 MG Orally Three times a day Inactive 1 capsule Vitamin B12 [facility] 79234582086 1200 Orally Once a day Active 1 tab(s) Aspirin [facility] 03185090947 81 MG Orally Once a day Active not defined Clopidogrel Bisulfate ND 11922033986 75 MG Orally Once a day Active 1 tablet Celecoxib ND 27319141396 100 MG Orally Twice a day Active 1 tab(s) with food as needed Levetiracetam ND 03513775223 750 MG Orally twice a day Active 2 tablets on the tongue and allow to dissolve Vital Signs Date/Time: Jul 15, 2018 Height 66 in Blood Pressure Diastolic 117 mm Hg Blood Pressure Systolic 147 mm Hg Weight 208.2 lbs Results No Known Results Summary Purpose eClinicalWorks Submission
--- OUTSIDE RECORDS SUMMARY | 2019-04-13 06:54 | XMS REPORT ---
Author Author Kandy Galloway Organization [employer] Address Unknown Phone Unavailable Care Team Providers Care Autocad Operator Name Role Phone Kandy Galloway CP Unavailable Encounters Encounter Location Date Needs X-ray orders [facility] Aug [facility], 2015 mri resilts [facility] Aug 16, 2015 med f/u [facility] Oct 19, 2015 Social security [facility] Oct 02, 2015 knee pain [facility] Jun 12, 2015 MRI orders [facility] Jun 21, 2015 Zorvolex samples [facility] Jun 21, 2015 MRI results [facility] Oct 21, 2015 Problems Problem Type Condition ICD-9 Code Onset Dates Condition Status Problem OA (osteoarthritis) M19.90 Active Problem Hypertension 997.91 Active Problem Inflammatory arthritis M19.90 Active Problem Diabetes mellitus without mention of complication, type II or unspecified type, uncontrolled 250.02 Active Social History Social History Element Qualifiers Date Reported Smoking status: . Are you a: Former Smoker 40+ Years Ago Nov 08, 2015 alcohol yes. occasional drinker Nov 08, 2015 Summary Purpose eClinicalWorks Submission
--- OUTSIDE RECORDS SUMMARY | 2019-04-13 06:55 | XMS REPORT ---
Author Author Admin, [place] Organization [facility] Address [address] [address] Phone Allergies, Adverse Reactions, Alerts Allergy Name Reaction Description Start Date Severity Status Provider No Known Allergies Magaly Sahu BIOINFORMATICS ASSOCIATE Conditions or Problems Problem Name Problem Code Onset Date Status Entry Date Provider Comment Standard Description Annotate Hypoglycemia 251.2 Active Geovani Berry MD Hypoglycemia, unspecified Flu vaccine V04.81 Active Geovani Berry MD Need for prophylactic vaccination and inoculation against influenza Hypertension 401.9 Active Geovani Berry MD Unspecified essential hypertension Obesity Active Geovani Berry MD Obesity, unspecified BMI 34.0-34.9 Active Yvonne Fuller MD Body Mass Index 34.0-34.9, adult Blurred vision 368.8 Active Yvonne Fuller MD Other specified visual disturbances Hyperlipidemia 272.4 Active Yvonne Fuller MD Other and unspecified hyperlipidemia Hypertriglyceridemia 272.1 Active Yvonne Fuller MD Pure hyperglyceridemia Diabetes mellitus type II 250.00 Active Yvonne Fuller MD Diabetes mellitus without mention of complication, type II or unspecified type, not stated as uncontrolled Gait disturbance 781.2 Active Davey Day MD Abnormality of gait Seizure disorder 780.39 Active Davey Day MD Other convulsions Abdominal wall hernia 553.20 Active Davey Day MD Unspecified ventral hernia without mention of obstruction or gangrene Chest pain 786.50 Active Davey Day MD Unspecified chest pain Fibromyalgia 729.1 Active Davey Day MD Myalgia and myositis, unspecified Hypothyroidism 244.9 Active Davey Day MD Unspecified hypothyroidism Frequency, urinary 788.41 Active Davey Day MD Urinary frequency Cough ICD-786.2 Inactive Jasper Caruso MD (res) Upper respiratory infection ICD-465.9 Inactive Jasper Caruso MD (res) Cough 786.2 Resolved Geovani Berry MD Cough Upper respiratory infection 465.9 Resolved Geovani Berry MD Acute upper respiratory infections of unspecified site Medication List Medication Instructions Start Date Stop Date Generic Name NDC Status Provider Patient Instruction ATORVASTATIN CALCIUM 40 MG TABLET TAKE 1 TABLET BY MOUTH ONCE DAILY IN THE EVENING ATORVASTATIN CALCIUM 39820985565 Active [employer] Nation[employer] DISPENSING AUDIOLOGIST Active FENOFIBRATE 160 MG TABLET TAKE 1 TABLET BY MOUTH ONCE DAILY FENOFIBRATE 19574816681 Active SignalAdherence DISPENSING AUDIOLOGIST Active ASPIRIN 81 MG ORAL TABLET DELAYED RELEASE 1 by mouth every day ASPIRIN 30956824240 Active Jasper Caruso MD (res) Active HUMULIN 70/30 (70-30) 100 UNIT/ML SUBCUTANEOUS SUSPENSION Inject 10 units under skin Every Day INSULIN NPH ISOPHANE & REGULAR 23435848523 Active Jasper Caruso MD (res) Active CELEBREX 100 MG ORAL CAPSULE One capsule twice a day CELECOXIB 75228312703 Active Davey Day MD Active PROPRANOLOL HCL ER 60 MG ORAL CAPSULE EXTENDED RELEASE 24 HOUR take one cap By Mouth Every Day PROPRANOLOL HCL 64609854398 Active Davey Day MD Active CLOPIDOGREL BISULFATE 75 MG ORAL TABLET 1 By Mouth once a day CLOPIDOGREL BISULFATE 69723148963 Active Davey Day MD Active ESCITALOPRAM OXALATE 20 MG ORAL TABLET take one tablet by mouth daily ESCITALOPRAM OXALATE 83498917186 Active Davey Day MD Active GABAPENTIN 300 MG ORAL CAPSULE 1 by mouth three times a day GABAPENTIN 67319390824 Active Davey Day MD Active LEVETIRACETAM 750 MG ORAL TABLET take one tab by mouth twice a day LEVETIRACETAM 27460629815 Active Davey Day MD Active LEVOTHYROXINE SODIUM 75 MCG ORAL TABLET One tab by mouth daily LEVOTHYROXINE SODIUM 65089179145 Active Davey Day MD Active MELOXICAM 15 MG ORAL TABLET take one tab by mouth daily with food MELOXICAM 04569837868 Active Davey Day MD Active TRAMADOL HCL 50 MG ORAL TABLET take two tabs by mouth three times a day for pain TRAMADOL HCL 28716709866 Active Davey Day MD Active LOSARTAN POTASSIUM 50 MG ORAL TABLET 1 By Mouth once a day LOSARTAN POTASSIUM 48198909288 Active Jasper Caruso MD (res) Active HUMULIN N 100 UNIT/ML SUBCUTANEOUS SUSPENSION Inject 10 units under skin Three Times a Day HUMULIN N 100 UNIT/ML SUBCUTANEOUS SUSPENSION INSULIN NPH HUMAN (ISOPHANE) Inactive HUMULIN N 100 UNIT/ML SUBCUTANEOUS SUSPENSION Inject 10 units under skin Three Times a Day INSULIN NPH HUMAN (ISOPHANE) 31258087478 No Longer Active Geovani Berry MD Active Immunizations Vaccine Administration Date Value Standard Description influenza immunization (Flu Vax) has been administered given influenza virus vaccine, unspecified formulation pneumococcal immunization administered given pneumococcal polysaccharide vaccine, 23 valent influenza immunization (Flu Vax) has been administered given influenza virus vaccine, unspecified formulation Vital Signs Date Name Value Unit Range Description blood pressure, diastolic 82 mm[Hg] BP howell blood pressure, systolic 128 mm[Hg] BP sys height E&M 64 [in_us] Bdy height pulse rate E&M 67 /min Heart rate respiratory rate E&M 20 /min Resp rate temperature E&M 98.1 [degF] Body temperature weight E&M 218 [lb_av] Weight Measured blood pressure, diastolic 63 mm[Hg] BP howell blood pressure, systolic 108 mm[Hg] BP sys height E&M 64 [in_us] Bdy height pulse rate E&M 64 /min Heart rate respiratory rate E&M 17 /min Resp rate temperature E&M 98.4 [degF] Body temperature weight E&M 213.60 [lb_av] Weight Measured blood pressure, diastolic, second observation 78 mm[Hg] BP howell blood pressure, diastolic 78 mm[Hg] BP howell blood pressure, systolic, second observation 137 mm[Hg] BP sys blood pressure, systolic 137 mm[Hg] BP sys height E&M 64 [in_us] Bdy height pulse rate E&M 59 /min Heart rate respiratory rate E&M 18 /min Resp rate temperature E&M 98.5 [degF] Body temperature weight E&M 209.80 [lb_av] Weight Measured blood pressure, diastolic 79 mm[Hg] BP howell blood pressure, systolic 138 mm[Hg] BP sys height E&M 64 [in_us] Bdy height pulse rate E&M 62 /min Heart rate respiratory rate E&M 17 /min Resp rate temperature E&M 98.4 [degF] Body temperature weight E&M 211.60 [lb_av] Weight Measured blood pressure, diastolic 66 mm[Hg] BP howell blood pressure, systolic 101 mm[Hg] BP sys height E&M 64 [in_us] Bdy height pulse rate E&M 58 /min Heart rate respiratory rate E&M 17 /min Resp rate temperature E&M 98.1 [degF] Body temperature weight E&M 202.80 [lb_av] Weight Measured blood pressure, diastolic 78 mm[Hg] BP howell blood pressure, systolic 136 mm[Hg] BP sys height E&M 64 [in_us] Bdy height pulse rate E&M 16 /min Heart rate respiratory rate E&M 83 /min Resp rate temperature E&M 98.7 [degF] Body temperature weight E&M 196 [lb_av] Weight Measured blood pressure, diastolic 75 mm[Hg] BP howell blood pressure, systolic 111 mm[Hg] BP sys height E&M 64 [in_us] Bdy height pulse rate E&M 82 /min Heart rate temperature E&M 98.4 [degF] Body temperature weight E&M 210.38 [lb_av] Weight Measured Diagnostic Results Date Name Value Unit Range Description Lab Report: TSH+Free T4, Comp. Metabolic Panel (14), Lipid Panel, Hemogl ... - Chemistry sodium, serum 142 mmol/L 674-137 3315/10/01 thyroid stimulating hormone, serum 1.390 u[iU]/mL 0.450-4.500 Office Visit: Acute Visit- 5 - Urinalysis protein, urine, semiquantitative (dipstick) 3+ Lab Report: TSH+Free T4, Comp. Metabolic Panel (14), Lipid Panel, Hemogl ... - Chemistry very low density lipoproteins 16 mg/dL 5-40 carbon dioxide, venous blood 25 mmol/L 20-29 chloride, serum 101 mmol/L 96-106 triglyceride, serum, fasting 81 mg/dL 0-149 calcium, serum 10.0 mg/dL 8.7-10.2 urea nitrogen, blood 12 mg/dL 6-24 alanine aminotransferase (SGPT), serum 12 U/L 0-32 [facility] blood glucose, fasting 127 mg/dL Office Visit: Acute Visit- 5 - Urinalysis leukocyte esterase, urine, by dipstick negative specific gravity, urine 1.025 Lab Report: TSH+Free T4, Comp. Metabolic Panel (14), Lipid Panel, Hemogl ... - Chemistry protein, total, serum 6.7 g/dL 6.0-8.5 alkaline phosphatase, serum 67 U/L 39-117 Office Visit: Acute Visit- 5 - Urinalysis nitrite, urine, semiquantitative negative urine color yellow bilirubin, urine negative Lab Report: TSH+Free T4, Comp. Metabolic Panel (14), Lipid Panel, Hemogl ... - Chemistry LDL cholesterol, serum 54 mg/dL 0-99 urea nitrogen/creatinine ratio, serum 17 9-23 hemoglobin A1C, blood, as % of total hemoglobin 9.9 % 4.8-5.6 Office Visit: Acute Visit- 5 - Urinalysis glucose, urine, semiquantitative negative Lab Report: TSH+Free T4, Comp. Metabolic Panel (14), Lipid Panel, Hemogl ... - Chemistry HDL cholesterol, serum 48 mg/dL >39 Lab Report: TSH+Free T4, Comp. Metabolic Panel (14), Lipid Panel, Hemogl ... - Genetics/fertility eGFR if 110 mL/min/1.73m2 >59 Lab Report: TSH+Free T4, Comp. Metabolic Panel (14), Lipid Panel, Hemogl ... - Chemistry thyroxine, serum, free 1.21 ng/dL 0.82-1.77 globulin, serum 2.1 1.5-4.5 albumin/globulin ratio, serum 2.2 1.2-2.2 Estimated Glomerular Filtration Rate (calc) 96 mL/min/1.73m2 >59 creatinine, serum 0.69 mg/dL 0.57-1.00 cholesterol, serum 118 mg/dL 194-858 8047/10/01 bilirubin, serum, total 0.4 mg/dL 0.0-1.2 Office Visit: Adult Followup_Dr. Caruso 5 - Chemistry blood glucose, random 139 mg/dL Office Visit: Acute Visit- 5 - Urinalysis appearance, urine clear blood in urine (hemoglobin) by dipstick negative Lab Report: TSH+Free T4, Comp. Metabolic Panel (14), Lipid Panel, Hemogl ... - Chemistry aspartate aminotransferase (SGOT), serum 25 U/L 0-40 Office Visit: Acute Visit- 5 - Urinalysis urobilinogen, urine, semiquantitative (dipstick) negative pH, urine, semiquantitative 6.0 Lab Report: TSH+Free T4, Comp. Metabolic Panel (14), Lipid Panel, Hemogl ... 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 CPT-65420 [facility] 14:55:32 CDT Est Patient Exp Problem - 53346 Geovani Berry MD CPT-94204 [facility] 11:55:10 CDT Est Patient Exp Problem - 94693 Geovani Berry MD CPT-37177 [facility] 10:03:03 CDT Est Patient Exp Problem - 26963 Geovani Berry MD CPT-73559 [facility] 09:37:54 CDT Est Patient Exp Problem - 73202 Yvonne Fuller MD CPT-17805 [facility] 15:06:53 CDT Est Patient Exp Problem - 82814 Louisa Restrepo D.O. CPT-83999 [facility] 13:42:22 CDT Est Patient Exp Problem - 83008 Davey Day MD CPT-[address] [facility] 12:21:57 CDT Est Patient Exp Problem - 00797 Davey Day MD CPT-[address] [facility] 12:00:35 CDT Est Patient Exp Problem - 43952 Davey Day MD CPT-34[address] [facility] 16:51:20 CDT New Patient Detailed - 77087 Davey Day MD CPT-315[address] [facility] Procedures Code Procedure Name Date Entry Date Standard Description CPT-12789 INFLUENZA VACCINE QUADRIVALENT 3 YRS PLUS IM 10:00:13 CDT CPT-86967 Pneumovax Vaccine PPSV23 09:32:50 CDT CPT-34197 INFLUENZA VACCINE QUADRIVALENT 3 YRS PLUS IM 12:23:51 CDT CPT-95485 Admin of Vaccine - Injection - 1 12:23:51 CDT CPT-06547 Urinalysis - Dip only - In House 16:51:21 CDT
--- OUTSIDE RECORDS SUMMARY | 2019-04-13 06:55 | XMS REPORT ---
Author Author Kandy Galloway Organization [employer] Address Unknown Phone Unavailable Care Team Providers Care Rail Car Repairer Name Role Phone Kandy Galloway CP Unavailable Encounters Encounter Location Date Needs X-ray orders [facility] Aug [facility], 2015 mri resilts [facility] Aug 16, 2015 med f/u [facility] Oct 19, 2015 Social security [facility] Oct 02, 2015 knee pain [facility] Jun 12, 2015 Knee Pain [facility] Sep 23, 2016 MRI orders [facility] Jun 21, 2015 [place] [facility] Nov 06, 2016 Zorvolex samples [facility] Jun 21, 2015 L Knee pain [facility] Jul 08, 2016 MRI results [facility] Oct 21, 2015 Disability paperwork/eval - FYI [facility] March 27, 2016 Problems Problem Type Condition ICD-9 Code Onset [...] occasional drinker, occasional drinker Sep 23, 2016 Summary Purpose eClinicalWorks Submission
--- OUTSIDE RECORDS SUMMARY | 2019-04-13 06:55 | XMS REPORT ---
Author Author Kandy Galloway Organization [employer] Address Unknown Phone Unavailable Care Team Providers Care Glueline Worker Name Role Phone Kandy Galloway CP Unavailable [...] you a: Former Smoker 40+ Years Ago January 15, 2016 alcohol yes. occasional drinker January 15, 2016 Summary Purpose eClinicalWorks Submission
--- OUTSIDE RECORDS SUMMARY | 2019-04-13 06:55 | XMS REPORT ---
Author Author Kandy Galloway Organization [employer] Address Unknown Phone Unavailable Care Team Providers Care Campus Monitor Name Role Phone Kandy Galloway CP Unavailable [...] - FYI [facility] March 27, 2016 tramadol rx [facility] Nov 06, 2016 Knee Pain [facility] Sep 23, 2016 [place] [facility] Nov 06, 2016 Problems Problem Type Condition ICD-9 Code Onset Dates Condition Status Problem OA (osteoarthritis) M19.90 Active Problem Hypertension 997.91 Active Problem Inflammatory arthritis M19.90 Active Problem Diabetes mellitus without mention of complication, type II or unspecified type, uncontrolled 250.02 Active Assessment Inflammatory arthritis M19.90 Active Medications Medication Code System Code Instructions Start Date End Date Status Dosage [facility] [address]-67 50 MG Orally tid prn March 07, 2017 Active 2 tabs Social History Social History Element Qualifiers Date Reported Smoking status: . Are you a: Former Smoker 40+ Years Ago, Are you a: Former Smoker 40+ Years Ago Sep 23, 2016 alcohol yes, yes. occasional drinker, occasional drinker Sep 23, 2016 Summary Purpose eClinicalWorks Submission
--- OUTSIDE RECORDS SUMMARY | 2019-04-13 06:55 | XMS REPORT ---
Author Author Kandy Galloway Organization [employer] Address Unknown Phone Unavailable Care Team Providers Care Ditch Digger Name Role Phone Laverne Kandy CP Unavailable Allergies, Adverse Reactions, Alerts [...] ICD-9 Code Onset Dates Condition Status Assessment Pain of left hand M79.642 Active Assessment Osteoarthritis of multiple joints M15.9 Active Assessment Pain in right hand M79.641 Active Problem OA (osteoarthritis) M19.90 Active Problem Hypertension 997.91 Active Problem Inflammatory arthritis M19.90 Active Assessment Inflammatory arthritis M19.90 Active Assessment Counseling NOS V65.40 Active Problem Diabetes mellitus without mention of complication, type II or unspecified type, uncontrolled 250.02 Active Assessment Left knee pain M25.562 Active Medications Medication Code System Code Instructions Start Date End Date Status Dosage Vitamin B-1 [facility] [address]-36 100 MG Orally Once a day Active 1 tablet Vitamin E [facility] [address]-61 1000 UNIT Orally Once a day Active 1 capsule Escitalopram Oxalate [facility] [address]-11 20 MG Orally Once a day Active 1 tablet Simvastatin [facility] [address]-73 40 MG Orally Once a day Active Unknown Accu-Chek Active Care Kit Unknown 0 Active [facility] [address]-78 200 MG Orally Once a day Nov 05, 2016 Active 2 tabs Losartan Potassium-HCTZ [facility] [address]-45 100-25 MG Orally Once a day Active 0.5 tablet Vitamin B12 [facility] 33594-[address] 1200 Orally Once a day Active 1 tab(s) Levothyroxine Sodium [facility] [address]-46 75 MCG Orally Once a day Active 1 tablet Metoprolol Tartrate [facility] [address]-64 25 MG Orally every 12 hrs Active 1 tablet Benzonatate [facility] [address]-32 100 MG Orally Three times a day Active 1 capsule as needed Clopidogrel Bisulfate [facility] [address]-16 75 MG Orally Once a day Active 1 tablet Diazepam [facility] [address]-03 5 mg Orally Twice a day Active 1 tablet as needed Estradiol [facility] [address]-09 1 MG Orally Once a day Active 1 tablet Flaxseed Oil [facility] [address]-76 1000 MG Orally Active Unknown Fish Oil [facility] [address]-28 1000 MG Orally Once a day Active 1 capsule Gabapentin [facility] [address]-89 300 MG Orally Three times a day Active 1 capsule Levetiracetam [facility] [address]-62 750 MG Orally twice a day Active 2 tablets on the tongue and allow to dissolve Pantoprazole Sodium [facility] [address]-22 40 MG Orally Once a day Active 1 packet Multivitamin Unknown 0 Over the Counter Orally Once Daily Active 1 Tablet Vitamin D (Ergocalciferol) [facility] [address]-23 34522 UNIT Orally Once weekly Active 1 capsule Aspirin [facility] [address]-71 81 MG Orally Once a day Active Unknown Calcium 600+D Plus Minerals [facility] 70449-28148 600-400 MG-UNIT Orally Once a day at noon Active 1 tablet with food [facility] [address]-44 27-1 MG Orally Once a day Active 1 tab(s) Tramadol HCl [facility] [address]-81 50 MG Orally tid prn Nov 05, 2016 Active 2 tabs Social History Social History Element Qualifiers Date Reported Smoking status: . Are you a: Former Smoker 40+ Years Ago Jul 08, 2016 alcohol yes. occasional drinker Jul 08, 2016 Vital Signs Date/Time: Jul 08, 2016 Height 66 in Blood Pressure Diastolic 84 mm Hg Blood Pressure Systolic 128 mm Hg Weight 227 lbs Summary Purpose eClinicalWorks Submission
--- OUTSIDE RECORDS SUMMARY | 2019-04-13 06:55 | XMS REPORT ---
Author Author Kandy Galloway [facility] eClinicalWorks Address Unknown Phone Unavailable Care Team Providers Care Wind Turbine Sheet Metal Worker Name Role Phone Kandy Galloway CP [...] ICD-9 Code Onset Dates Condition Status Assessment Medication [...] Date End Date Status Dosage Tramadol HCl [facility] [address]-65 50 MG Orally tid prn Active 2 tabs Simvastatin [facility] [address]-59 40 MG Orally Once a day Active Unknown Estradiol [facility] [address]-60 1 MG Orally Once a day Active 1 tablet Pantoprazole Sodium [facility] [address]-02 40 MG Orally Once a day Active 1 packet Vitamin B-[address] [facility] [address]-03 100 MG Orally Once a day Active 1 tablet Losartan Potassium [facility] [address]-29 50 MG Orally Once a day Active 1 tablet Metoprolol Tartrate [facility] [address]-27 25 MG Orally every 12 hrs Active 1 tablet Levetiracetam [facility] [address]-63 750 MG Orally twice a day Active 2 tablets on the tongue and allow to dissolve Gabapentin [facility] [address]-05 300 MG Orally Three times a day Active 1 capsule Fish Oil [facility] [address]-53 1000 MG Orally Once a day Active 1 capsule Multivitamin Unknown 0 Over the Counter Orally Once Daily Active 1 Tablet Vitamin B12 [facility] 76134-03544 1200 Orally Once a day Active 1 tab(s) Calcium 600+D Plus Minerals [facility] 60537-28877 600-400 MG-UNIT Orally Once a day at noon Active 1 tablet with food Accu-Chek Active Care Kit Unknown 0 Active Unknown Levothyroxine Sodium [facility] [address]-37 75 MCG Orally Once a day Active 1 tablet Escitalopram Oxalate [facility] [address]-20 20 MG Orally Once a day Active 1 tablet Benzonatate [facility] [address]-55 100 MG Orally Three times a day Active 1 capsule as needed Aspirin [facility] [address]-01 81 MG Orally Once a day Active Unknown Losartan Potassium-HCTZ [facility] [address]-25 100-25 MG Orally Once a day Active 0.5 tablet Diazepam [facility] [address]-15 5 mg Orally Twice a day Active 1 tablet as needed Vitamin E [facility] [address]-54 1000 UNIT Orally Once a day Active 1 capsule Meloxicam [facility] [address]-47 15 MG Orally Once a day prn with food Sep 23, 2016 January 21, 2017 Active 1 tablet Clopidogrel Bisulfate [facility] [address]-12 75 MG Orally Once a day Active 1 tablet Vitamin D (Ergocalciferol) [facility] [address]-55 68511 UNIT Orally Once weekly Active 1 capsule Flaxseed Oil [facility] [address]-54 1000 MG Orally Active Unknown Plaquenil [facility] [address]-31 200 MG Orally Once a day Sep 23, 2016 Inactive [address] [facility] [address]-29 27-1 MG Orally Once a day Active 1 tab(s) Social History Social History Element Qualifiers Date Reported Smoking status: . Are you a: Former Smoker 40+ Years Ago, Are you a: Former Smoker 40+ Years Ago Sep 23, 2016 alcohol yes, yes. occasional drinker, occasional drinker Sep 23, 2016 Vital Signs Date/Time: Sep 23, 2016 Height 66 in Blood Pressure Diastolic 78 mm Hg Blood Pressure Systolic 140 mm Hg Weight 228.2 lbs Summary Purpose eClinicalWorks Submission
--- OUTSIDE RECORDS SUMMARY | 2019-04-13 06:55 | XMS REPORT ---
Author Author Kandy Galloway Organization [employer] Address Unknown Phone Unavailable Care Team Providers Care Power Builder Developer Name Role Phone Kandy Galloway CP Unavailable [...]
--- OUTSIDE RECORDS SUMMARY | 2019-04-13 06:55 | XMS REPORT ---
Author Author Kandy Galloway Organization [employer] Address Unknown Phone Unavailable Care Team Providers Care Transfer And Pumphouse Operator Name Role Phone DestinygabrielKandy CP Unavailable [...] Instructions Start Date End Date Status Dosage Pantoprazole Sodium [facility] [address]-84 40 MG Orally Once a day Active 1 packet Simvastatin [facility] [address]-97 40 MG Orally Once a day Active not defined Clopidogrel Bisulfate [facility] [address]-73 75 MG Orally Once a day Active 1 tablet Accu-Chek Active Care Kit ND 0 Active not defined Vitamin B12 [facility] [address] 1200 Orally Once a day Active 1 tab(s) Meloxicam [facility] [address]-77 15 MG Orally Once a day prn with food Active 1 tablet Tramadol HCl [facility] [address]-39 50 MG Orally tid prn Active 2 tabs Gabapentin [facility] [address]-94 300 MG Orally Three times a day Active 1 capsule Benzonatate [facility] [address]-19 100 MG Orally Three times a day Active 1 capsule as needed Flaxseed Oil [facility] [address]-63 1000 MG Orally Active not defined Vitamin B-1 [facility] [address]-93 100 MG Orally Once a day Active 1 tablet [facility] [address]-04 27-1 MG Orally Once a day Active 1 tab(s) Losartan Potassium [facility] [address]-65 50 MG Orally Once a day Active 1 tablet Calcium 600+D Plus Minerals [facility] [address]097-43196 600-400 MG-UNIT Orally Once a day at noon Active 1 tablet with food Estradiol [facility] [address]-32 1 MG Orally Once a day Active 1 tablet Levetiracetam [facility] [address]-57 750 MG Orally twice a day Active 2 tablets on the tongue and allow to dissolve Metoprolol Tartrate [facility] [address]-88 25 MG Orally every 12 hrs Active 1 tablet Aspirin [facility] [address]-29 81 MG Orally Once a day Active not defined Diazepam [facility] [address]-74 5 mg Orally Twice a day Active 1 tablet as needed Fish Oil [facility] [address]-91 1000 MG Orally Once a day Active 1 capsule Vitamin E [facility] [address]-15 1000 UNIT Orally Once a day Active 1 capsule Multivitamin ND 0 Over the Counter Orally Once Daily Active 1 Tablet Levothyroxine Sodium [facility] [address]-15 75 MCG Orally Once a day Active 1 tablet Escitalopram Oxalate [facility] [address]-10 20 MG Orally Once a day Active 1 tablet Vitamin D (Ergocalciferol) [facility] [address]-49 72727 UNIT Orally Once weekly Active 1 capsule Vital Signs Date/Time: January 14, 2017 Height 66 in Blood Pressure Diastolic 74 mm Hg Blood Pressure Systolic 140 mm Hg Weight 236.4 lbs Results No Known Results Summary Purpose [employer] Submission
--- OUTSIDE RECORDS SUMMARY | 2019-04-13 06:56 | XMS REPORT ---
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 Problem Name Problem Code [...] Generic Name NDC Status Provider Patient Instruction ASPIRIN 81 MG ORAL TABLET DELAYED RELEASE 1 by mouth every day ASPIRIN 29082556358 Active Jasper Caruso MD (res) Active FENOFIBRATE 160 MG ORAL TABLET Take one tablet By Mouth Every Day FENOFIBRATE 08553137961 Active Jasper Caruso MD (res) Active HUMULIN 70/30 (70-30) 100 UNIT/ML SUBCUTANEOUS SUSPENSION Inject 10 units under skin Every Day INSULIN NPH ISOPHANE & REGULAR 30139193601 Active Jasper Caruso MD (res) Active LIPITOR 40 MG ORAL TABLET 1 by mouth every pm ATORVASTATIN CALCIUM 40571709551 Active Jasper Caruso MD (res) Active CELEBREX 100 MG ORAL CAPSULE One capsule twice a day CELECOXIB 79948734534 Active Davey Day MD Active PROPRANOLOL HCL ER 60 MG ORAL CAPSULE EXTENDED RELEASE 24 HOUR take one cap By Mouth Every Day PROPRANOLOL HCL 47529157848 Active Davey Day MD Active CLOPIDOGREL BISULFATE 75 MG ORAL TABLET 1 By Mouth once a day CLOPIDOGREL BISULFATE 73038350624 Active Davey Day MD Active ESCITALOPRAM OXALATE 20 MG ORAL TABLET take one tablet by mouth daily ESCITALOPRAM OXALATE 99507318304 Active Davey Day MD Active GABAPENTIN 300 MG ORAL CAPSULE 1 by mouth three times a day GABAPENTIN 55024403022 Active Davey Day MD Active LEVETIRACETAM 750 MG ORAL TABLET take one tab by mouth twice a day LEVETIRACETAM 88346102169 Active Davey Day MD Active LEVOTHYROXINE SODIUM 75 MCG ORAL TABLET One tab by mouth daily LEVOTHYROXINE SODIUM 44511987411 Active Davey Day MD Active MELOXICAM 15 MG ORAL TABLET take one tab by mouth daily with food MELOXICAM 73168823419 Active Davey Day MD Active TRAMADOL HCL 50 MG ORAL TABLET take two tabs by mouth three times a day for pain TRAMADOL HCL 96400382440 Active Davey Day MD Active LOSARTAN POTASSIUM 50 MG ORAL TABLET 1 By Mouth once a day LOSARTAN POTASSIUM 88303733131 Active Jasper Caruso MD (res) Active HUMULIN N 100 UNIT/ML SUBCUTANEOUS SUSPENSION Inject 10 units under skin Three Times a Day HUMULIN N 100 UNIT/ML SUBCUTANEOUS SUSPENSION INSULIN NPH HUMAN (ISOPHANE) Inactive HUMULIN N 100 UNIT/ML SUBCUTANEOUS SUSPENSION Inject 10 units under skin Three Times a Day INSULIN NPH HUMAN (ISOPHANE) 08311700706 No Longer Active Geovani Berry MD Active [...] ... - Chemistry sodium, serum 142 mmol/L 931-754 9474/10/01 thyroid stimulating hormone, serum 1.390 u[iU]/mL 0.450-4.500 [...] 0-32 Office Visit: Adult Followup 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 CPT-47606 [facility] 14:55:32 CDT Est Patient Exp Problem - 23199 Geovani Berry MD CPT-71158 [facility] 11:55:10 CDT Est Patient Exp Problem - 26757 Geovani Berry MD CPT-52321 [facility] 10:03:03 CDT Est Patient Exp Problem - 98751 Geovani Berry MD CPT-34512 [facility] 09:37:54 CDT Est Patient Exp Problem - 54947 Yvonne Fuller MD CPT-59334 [facility] 15:06:53 CDT Est Patient Exp Problem - 35926 Louisa Restrepo D.O. CPT-46672 [facility] 13:42:22 CDT Est Patient Exp Problem - 68337 Davey Day MD CPT-58462 [facility] 12:21:57 CDT Est Patient Exp Problem - 70930 Davey Day MD CPT-85683 [facility] 12:00:35 CDT Est Patient Exp Problem - 62445 Davey Day MD CPT-62451 [facility] 16:51:20 CDT New Patient Detailed - 46532 Davey Day MD CPT-95373 [facility] Procedures Code Procedure Name Date Entry Date Standard Description CPT-43968 INFLUENZA VACCINE QUADRIVALENT 3 YRS PLUS IM 10:00:13 CDT CPT-11697 Pneumovax Vaccine PPSV23 09:32:50 CDT CPT-58471 INFLUENZA VACCINE QUADRIVALENT 3 YRS PLUS IM 12:23:51 CDT CPT-33931 Admin of Vaccine - Injection - 1 12:23:51 CDT CPT-60524 Urinalysis - Dip only - In House 16:51:21 CDT
--- OUTSIDE RECORDS SUMMARY | 2019-04-13 06:56 | XMS REPORT ---
Author Author Admin, Sparkman Organization [facility] Address [address] [facility] [address] [place] [phone] Phone Allergies, Adverse Reactions, Alerts Allergy Name Reaction Description Start Date Severity Status Provider No Known Allergies Magaly Sahu CMA Conditions or Problems Problem Name Problem Code Onset Date Status Entry Date Provider Comment Standard Description Annotate Anxiety 300.00 Active Geovani Berry MD Anxiety state, unspecified Depressed mood 311 Active Geovani Berry MD Depressive disorder, not elsewhere classified Hx of smoking more than 15 pack years V15.82 Active Geovani Berry MD Personal history of tobacco use Irritability 799.22 Active Geovani Berry MD Irritability Lung cancer, family hx V16.1 Active Geovani Berry MD Family history of malignant neoplasm of trachea, bronchus, and lung multiple family members Screening for cancer V76.9 Active Geovani Berry MD Screening for unspecified malignant neoplasms Stress 308.9 Active Geovani Berry MD Unspecified acute reaction to stress Hypoglycemia 251.2 Active Geovani Berry MD Hypoglycemia, [...] Generic Name NDC Status Provider Patient Instruction GLIPIZIDE ER 5 MG ORAL TABLET EXTENDED RELEASE 24 HOUR Take one tablet By Mouth Every Day GLIPIZIDE 14309700503 Active Jasper Caruso MD (res) Active METFORMIN HCL ER 500 MG ORAL TABLET EXTENDED RELEASE 24 HOUR 2 tabs by mouth Twice a Day METFORMIN HCL 50191108138 Active Jasper Caruso MD (res) Active ZOLOFT 50 MG ORAL TABLET 1 by mouth nightly at bedtime SERTRALINE HCL 68758692994 Active Jasper Caruso MD (res) Active LOSARTAN 50MG TAB TAKE 1 TABLET BY MOUTH ONCE DAILY LOSARTAN POTASSIUM 16379328540 Active Jasper Caruso MD (res) Active ATORVASTATIN CALCIUM 40 MG TABLET TAKE 1 TABLET BY MOUTH ONCE DAILY IN THE EVENING ATORVASTATIN CALCIUM 58274805500 Active Jasper Caruso MD (res) Active FENOFIBRATE 160 MG TABLET TAKE 1 TABLET BY MOUTH ONCE DAILY FENOFIBRATE 70931727328 Active Jasper Caruso MD (res) Active ASPIRIN 81 MG ORAL TABLET DELAYED RELEASE 1 by mouth every day ASPIRIN 14415660078 Active Jasper Caruso MD (res) Active HUMULIN 70/30 (70-30) 100 UNIT/ML SUBCUTANEOUS SUSPENSION Inject 50 units under skin Every Day INSULIN NPH ISOPHANE & REGULAR 24621708792 Active Jasper Caruso MD (res) Active PROPRANOLOL HCL ER 60 MG ORAL CAPSULE EXTENDED RELEASE 24 HOUR take one cap By Mouth Every Day PROPRANOLOL HCL 68113899010 Active Davey Day MD Active CLOPIDOGREL BISULFATE 75 MG ORAL TABLET 1 By Mouth once a day CLOPIDOGREL BISULFATE 89499664705 Active Davey Day MD Active GABAPENTIN 300 MG ORAL CAPSULE 1 by mouth three times a day GABAPENTIN 83589994063 Active Davey Day MD Active LEVETIRACETAM 750 MG ORAL TABLET take one tab by mouth twice a day LEVETIRACETAM 57189426360 Active Davey Day MD Active LEVOTHYROXINE SODIUM 75 MCG ORAL TABLET One tab by mouth daily LEVOTHYROXINE SODIUM 84157180245 Active Davey Day MD Active MELOXICAM 15 MG ORAL TABLET take one tab by mouth daily with food MELOXICAM 43635435400 Active Davey Day MD Active HUMULIN N 100 UNIT/ML SUBCUTANEOUS SUSPENSION Inject 10 units under skin Three Times a Day HUMULIN N 100 UNIT/ML SUBCUTANEOUS SUSPENSION INSULIN NPH HUMAN (ISOPHANE) Inactive CELEBREX 100 MG ORAL CAPSULE One capsule twice a day CELEBREX 100 MG ORAL CAPSULE 053029 CELECOXIB Inactive ESCITALOPRAM OXALATE 20 MG ORAL TABLET take one tablet by mouth daily ESCITALOPRAM OXALATE 20 MG ORAL TABLET 125618 ESCITALOPRAM OXALATE Inactive TRAMADOL HCL 50 MG ORAL TABLET take two tabs by mouth three times a day for pain TRAMADOL HCL 50 MG ORAL TABLET 709621 TRAMADOL HCL Inactive HUMULIN N 100 UNIT/ML SUBCUTANEOUS SUSPENSION Inject 10 units under skin Three Times a Day INSULIN NPH HUMAN (ISOPHANE) 28997547392 No Longer Active Geovani Berry MD Active CELEBREX 100 MG ORAL CAPSULE One capsule twice a day CELECOXIB 26091216721 No Longer Active Geovani Berry MD Active ESCITALOPRAM OXALATE 20 MG ORAL TABLET take one tablet by mouth daily ESCITALOPRAM OXALATE 46827922380 No Longer Active Geovani Berry MD Active TRAMADOL HCL 50 MG ORAL TABLET take two tabs by mouth three times a day for pain TRAMADOL HCL 71344426237 No Longer Active Geovani Berry MD Active Immunizations Vaccine Administration Date Value Standard Description influenza immunization (Flu Vax) has been administered given influenza virus vaccine, unspecified formulation pneumococcal immunization administered given pneumococcal polysaccharide vaccine, 23 valent influenza immunization (Flu Vax) has been administered given influenza virus vaccine, unspecified formulation Vital Signs Date Name Value Unit Range Description blood pressure, diastolic 77 mm[Hg] BP howell blood pressure, systolic 120 mm[Hg] BP sys height E&M 64 [in_us] Bdy height pulse rate E&M 74 /min Heart rate respiratory rate E&M 18 /min Resp rate temperature E&M 98.6 [degF] Body temperature weight E&M 230.40 [lb_av] Weight Measured blood pressure, diastolic 82 mm[Hg] BP howell [...] temperature weight E&M 196 [lb_av] Weight Measured Diagnostic Results Date Name Value Unit Range Description Lab Report: Comp. Metabolic Panel (14), Lipid Panel, Hemoglobin A1c, TSH - Chemistry sodium, serum 138 mmol/L 816-280 5775/05/21 thyroid stimulating hormone, serum 2.250 u[iU]/mL 0.450-4.500 Office Visit: Acute Visit- 5 - Urinalysis protein, urine, semiquantitative (dipstick) 3+ Lab Report: Comp. Metabolic Panel (14), Lipid Panel, Hemoglobin A1c, TSH - Chemistry very low density lipoproteins 50 mg/dL 5-40 carbon dioxide, venous blood 25 mmol/L 20-29 chloride, serum 97 mmol/L 96-106 triglyceride, serum, fasting 252 mg/dL 0-149 calcium, serum 11.0 mg/dL 8.7-10.3 urea nitrogen, blood 19 mg/dL 8-27 alanine aminotransferase (SGPT), serum 14 U/L 0-32 Office Visit: Adult Followup 4 [facility] - Chemistry blood glucose, fasting 127 mg/dL Office Visit: Acute Visit- 5 - Urinalysis leukocyte esterase, urine, by dipstick negative specific gravity, urine 1.025 Lab Report: Comp. Metabolic Panel (14), Lipid Panel, Hemoglobin A1c, TSH - Chemistry protein, total, serum 6.9 g/dL 6.0-8.5 alkaline phosphatase, serum 115 U/L 39-117 Office Visit: Acute Visit- 5 - Urinalysis nitrite, urine, semiquantitative negative urine color yellow bilirubin, urine negative Lab Report: Comp. Metabolic Panel (14), Lipid Panel, Hemoglobin A1c, TSH - Chemistry LDL cholesterol, serum 68 mg/dL 0-99 urea nitrogen/creatinine ratio, serum 19 12-28 hemoglobin A1C, blood, as % of total hemoglobin 12.1 % 4.8-5.6 Office Visit: Acute Visit- 5 - Urinalysis glucose, urine, semiquantitative negative Lab Report: Comp. Metabolic Panel (14), Lipid Panel, Hemoglobin A1c, TSH - Chemistry HDL cholesterol, serum 31 mg/dL >39 Lab Report: Comp. Metabolic Panel (14), Lipid Panel, Hemoglobin A1c, TSH - Genetics/fertility eGFR if 73 mL/min/1.73m2 >59 Lab Report: TSH+Free T4, Comp. Metabolic Panel (14), Lipid Panel, Hemogl ... - Chemistry thyroxine, serum, free 1.21 ng/dL 0.82-1.77 Lab Report: Comp. Metabolic Panel (14), Lipid Panel, Hemoglobin A1c, TSH - Chemistry globulin, serum 2.4 1.5-4.5 albumin/globulin ratio, serum 1.9 1.2-2.2 Estimated Glomerular Filtration Rate (calc) 63 mL/min/1.73m2 >59 creatinine, serum 0.98 mg/dL 0.57-1.00 cholesterol, serum 149 mg/dL 045-592 9729/05/21 bilirubin, serum, total 0.4 mg/dL 0.0-1.2 blood glucose, random 359 mg/dL 65-99 Office Visit: Acute Visit- 5 - Urinalysis blood in urine (hemoglobin) by dipstick negative appearance, urine clear Lab Report: Comp. Metabolic Panel (14), Lipid Panel, Hemoglobin A1c, TSH - Chemistry aspartate aminotransferase (SGOT), serum 33 U/L 0-40 Office Visit: Acute Visit- 5 - Urinalysis urobilinogen, urine, semiquantitative (dipstick) negative pH, urine, semiquantitative 6.0 Lab Report: Comp. 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 CPT-63034 [facility] 14:55:32 CDT Est Patient Exp Problem - 28812 Geovani Berry MD CPT-65964 [facility] 11:55:10 CDT Est Patient Exp Problem - 20047 Geovani Berry MD CPT-74554 [facility] 10:03:03 CDT Est Patient Exp Problem - 28735 Geovani Berry MD CPT-81756 [facility] 09:37:54 CDT Est Patient Exp Problem - 44293 Yvonne Fullre MD CPT-30128 [facility] 15:06:53 CDT Est Patient Exp Problem - 06364 Louisa Restrepo D.O. CPT-46410 [facility] 13:42:22 CDT Est Patient Exp Problem - 98578 Davey Day MD CPT-19221 [facility] 12:21:57 CDT Est Patient Exp Problem - 52737 Davey Day MD CPT-11481 [facility] 12:00:35 CDT Est Patient Exp Problem - 36734 Davey Day MD CPT-03588 [facility] 16:51:20 CDT New Patient Detailed - 72523 Davey Day MD CPT-04464 [facility] Procedures Code Procedure Name Date Entry Date Standard Description CPT-21213 Diagnostic evaluation (no medical) - 46643 15:42:14 CDT CPT-22260 INFLUENZA VACCINE QUADRIVALENT 3 YRS PLUS IM 10:00:13 CDT CPT-36637 Pneumovax Vaccine PPSV23 09:32:50 CDT CPT-80105 INFLUENZA VACCINE QUADRIVALENT 3 YRS PLUS IM 12:23:51 CDT CPT-98385 Admin of Vaccine - Injection - 1 12:23:51 CDT CPT-30372 Urinalysis - Dip only - In House 16:51:21 CDT
--- OUTSIDE RECORDS SUMMARY | 2019-04-13 06:56 | XMS REPORT ---
Author Author Admin, [facility] Address [address] [place] [address] Phone Allergies, Adverse Reactions, Alerts Allergy Name Reaction Description Start Date Severity Status Provider No Known Allergies Alfreda Caballero MA Conditions or Problems Problem Name Problem Code [...] RELEASE 1 by mouth every day ASPIRIN 03635006220 Active Jasper Caruso MD (res) Active FENOFIBRATE 160 MG ORAL TABLET Take one tablet By Mouth Every Day FENOFIBRATE 74597476012 Active Jasper Caruso MD (res) Active HUMULIN 70/30 (70-30) 100 UNIT/ML SUBCUTANEOUS SUSPENSION Inject 10 units under skin Every Day INSULIN NPH ISOPHANE & REGULAR 17731735524 Active Jasper Caruso MD (res) Active LIPITOR 40 MG ORAL TABLET 1 by mouth every pm ATORVASTATIN CALCIUM 99946230768 Active Jasper Caruso MD (res) Active CELEBREX 100 MG ORAL CAPSULE One capsule twice a day CELECOXIB 93822704997 Active Davey Day MD Active PROPRANOLOL HCL ER 60 MG ORAL CAPSULE EXTENDED RELEASE 24 HOUR take one cap By Mouth Every Day PROPRANOLOL HCL 12149735352 Active Davey Day MD Active CLOPIDOGREL BISULFATE 75 MG ORAL TABLET 1 By Mouth once a day CLOPIDOGREL BISULFATE 76869884764 Active Davey Day MD Active ESCITALOPRAM OXALATE 20 MG ORAL TABLET take one tablet by mouth daily ESCITALOPRAM OXALATE 41345359724 Active Davey Day MD Active GABAPENTIN 300 MG ORAL CAPSULE 1 by mouth three times a day GABAPENTIN 49649977923 Active Davey Day MD Active LEVETIRACETAM 750 MG ORAL TABLET take one tab by mouth twice a day LEVETIRACETAM 10426367828 Active Davey Day MD Active LEVOTHYROXINE SODIUM 75 MCG ORAL TABLET One tab by mouth daily LEVOTHYROXINE SODIUM 45076500403 Active Davey Day MD Active MELOXICAM 15 MG ORAL TABLET take one tab by mouth daily with food MELOXICAM 00714422857 Active Davey Day MD Active TRAMADOL HCL 50 MG ORAL TABLET take two tabs by mouth three times a day for pain TRAMADOL HCL 61893209442 Active Davey Day MD Active LOSARTAN POTASSIUM 25 MG ORAL TABLET One tablet once a day LOSARTAN POTASSIUM 66812954959 Active Davey Day MD Active HUMULIN N 100 UNIT/ML SUBCUTANEOUS SUSPENSION Inject 10 units under skin Three Times a Day HUMULIN N 100 UNIT/ML SUBCUTANEOUS SUSPENSION INSULIN NPH HUMAN (ISOPHANE) Inactive HUMULIN N 100 UNIT/ML SUBCUTANEOUS SUSPENSION Inject 10 units under skin Three Times a Day INSULIN NPH HUMAN (ISOPHANE) 63223875069 No Longer Active Geovani Berry MD Active Immunizations Vaccine Administration Date Value Standard Description influenza immunization (Flu Vax) has been administered given influenza virus vaccine, unspecified formulation pneumococcal immunization administered given pneumococcal polysaccharide vaccine, 23 valent influenza immunization (Flu Vax) has been administered given influenza virus vaccine, unspecified formulation Vital Signs Date Name Value Unit Range Description blood pressure, diastolic 63 mm[Hg] BP howell [...] ... - Chemistry sodium, serum 142 mmol/L 325-217 7964/10/01 thyroid stimulating hormone, serum 1.390 u[iU]/mL 0.450-4.500 [...] 12 U/L 0-32 Office Visit: Adult Followup 4 [facility] - Chemistry blood glucose, fasting 127 [...] 96 mL/min/1.73m2 >59 cholesterol, serum 118 mg/dL 384-246 0724/10/01 bilirubin, serum, total 0.4 mg/dL 0.0-1.2 Office [...] (5) Encounters Date Encounter Provider Code Facility 14:55:32 CDT Est Patient Exp Problem - 98651 Geovani Berry MD CPT-88750 [facility] 11:55:10 CDT Est Patient Exp Problem - 50943 Geovani Berry MD CPT-22297 [facility] 10:03:03 CDT Est Patient Exp Problem - 83375 Geovani Berry MD CPT-19635 [facility] 09:37:54 CDT Est Patient Exp Problem - 61017 Yvonne Fuller MD CPT-80938 [facility] 15:06:53 CDT Est Patient Exp Problem - 83016 Louisa Restrepo D.O. CPT-33621 [facility] 13:42:22 CDT Est Patient Exp Problem - 80757 Davey Day MD CPT-28182 [facility] 12:21:57 CDT Est Patient Exp Problem - 46726 Davey Day MD CPT-75814 [facility] 12:00:35 CDT Est Patient Exp Problem - 76059 Davey Day MD CPT-94172 [facility] 16:51:20 CDT New Patient Detailed - 79168 Davey Day MD CPT-13709 [facility] Procedures Code Procedure Name Date Entry Date Standard Description CPT-25894 INFLUENZA VACCINE QUADRIVALENT 3 YRS PLUS IM 10:00:13 CDT CPT-67733 Pneumovax Vaccine PPSV23 09:32:50 CDT CPT-11061 INFLUENZA VACCINE QUADRIVALENT 3 YRS PLUS IM 12:23:51 CDT CPT-18020 Admin of Vaccine - Injection - 1 12:23:51 CDT CPT-75022 Urinalysis - Dip only - In House 16:51:21 CDT
[2019-04-13 08:07] LABS: BASOPHILS # (AUTO) 0.1 (0.0-0.1); EOSINOPHILS # (AUTO) 0.2 (0.0-0.4); EOSINOPHILS % 1.5 % (0.0-6.0); HEMATOCRIT 48.7 % (34.2-44.1); HEMOGLOBIN 15.8 g/dL (12.0-16.0); LYMPHOCYTES # (AUTO) 3.7 (1.0-3.2); LYMPHOCYTES % 34.6 % (18.0-39.1); MEAN CORPUSCULAR HGB CONC 32.4 g/dL (31-35); MEAN CORPUSCULAR VOLUME 86.3 fL (81-99); MONOCYTES % 9.1 % (4.4-11.3); NEUTROPHILS # (AUTO) 5.6 (2.1-6.9); NEUTROPHILS % 52.9 % (38.7-80.0); PLATELET COUNT 403 x10e3/uL (140-360); RED BLOOD COUNT 5.64 x10e6/uL (3.6-5.1)
[2019-04-13 10:30] VITALS: BP 121/66
== END | disposition home or self-care (01) ==
LOC: OR 06:45
PROVIDERS: ATTEND Internal Medicine Gastroenterology
DX: R13.10 Dysphagia, unspecified (principal); D12.0 Benign neoplasm of cecum; D12.2 Benign neoplasm of ascending colon; D12.4 Benign neoplasm of descending colon; D12.8 Benign neoplasm of rectum; K29.60 Other gastritis without bleeding; K29.50 Unspecified chronic gastritis without bleeding; K29.80 Duodenitis without bleeding; K62.89 Other specified diseases of anus and rectum; K57.30 Diverticulosis of large intestine without perforation or abscess without bleeding; K21.9 Gastro-esophageal reflux disease without esophagitis; K64.8 Other hemorrhoids; E11.9 Type 2 diabetes mellitus without complications; I25.810 Atherosclerosis of coronary artery bypass graft(s) without angina pectoris; I10 Essential (primary) hypertension; I25.2 Old myocardial infarction; J44.9 Chronic obstructive pulmonary disease, unspecified; G47.33 Obstructive sleep apnea (adult) (pediatric); E03.9 Hypothyroidism, unspecified; G40.909 Epilepsy, unspecified, not intractable, without status epilepticus; F41.9 Anxiety disorder, unspecified; F32.9 Major depressive disorder, single episode, unspecified; Z88.6 Allergy status to analgesic agent; Z88.0 Allergy status to penicillin; Z79.84 Long term (current) use of oral hypoglycemic drugs; Z79.82 Long term (current) use of aspirin; Z79.4 Long term (current) use of insulin; Z95.1 Presence of aortocoronary bypass graft; Z87.891 Personal history of nicotine dependence
CPT/HCPCS: 36415; 43239; 45380; 45381; 45384; 45385; 82948; 85025; 88305; 88312; 93005; J1610; J2250; J2704; 45378; J3010

== ENCOUNTER → 2019-09-28 | Day surgery (SDC) | payer MEDICARE ==
[~2019-09-28] MED LIST changes: -EPHEDRINE SULFATE INJ 50 MG/10 ML SYR ONE; -FENTANYL CITRATE/PF 100MCG/2 ML INJ ONE; -GLUCAGON FOR INJ 1 MG VIAL ONE; +LIDOCAINE HCL 2% LOCAL INJ 5 ML SDV VIAL INJ ONE; +SIMETHICONE 40 MG/0.6 ML BTL ONE
[2019-09-28 07:46] LABS: BASOPHILS # (AUTO) 0.1 (0.0-0.1); BASOPHILS % 1.1 % (0.0-1.0); EOSINOPHILS # (AUTO) 0.2 (0.0-0.4); EOSINOPHILS % 2.6 % (0.0-6.0); HEMATOCRIT 46.6 % (34.2-44.1); LYMPHOCYTES # (AUTO) 2.6 (1.0-3.2); LYMPHOCYTES % 31.5 % (18.0-39.1); MEAN CORPUSCULAR HEMOGLOBIN 28.1 pg (28-32); MEAN CORPUSCULAR HGB CONC 32.2 g/dL (31-35); MEAN CORPUSCULAR VOLUME 87.4 fL (81-99); MONOCYTES # (AUTO) 0.8 (0.2-0.8); NEUTROPHILS # (AUTO) 4.4 (2.1-6.9); NEUTROPHILS % 54.3 % (38.7-80.0); PLATELET COUNT 369 x10e3/uL (140-360); RED BLOOD COUNT 5.33 x10e6/uL (3.6-5.1); RED CELL DISTRIBUTION WIDTH 12.8 % (11.7-14.4)
[2019-09-28 09:45] VITALS: BP 120/71
--- OUTSIDE RECORDS SUMMARY | 2019-10-01 13:07 | XMS REPORT ---
Author Author Admin, [place] Organization Unknown Address Unknown Phone Unavailable PROBLEMS Condition Status Date Provider Notes Mammographic screening for breast cancer active Jasper Mahfouz Muscle spasm, back active Jasper Mahfouz Back pain active Jasper Mahfouz Screening for breast cancer active Jasper Mahfouz Irritability active Jasper Mahfouz Anxiety active Jasper Mahfouz Stress active Jasper Mahfouz Depressed mood active Jasper Mahfouz Screening for cancer active Jasperyves Peacefoolga Lung cancer, family hx active Jasperyves Peacefouz multiple family members Hx of smoking more than 15 pack years active Jasper Mahfouz Hypoglycemia active Jasper Mahfouz Obesity active Geovani Berry Flu vaccine active Jasper Mahfouz Hypertension active Jasperyves Peacefouz BMI 34.0-34.9 active Madhumita Jonny Blurred vision active Jasper Mahfouz Hyperlipidemia active Jasper Kobifouz Hypertriglyceridemia active Jasper Mahfouz Diabetes mellitus type II active Jasper Mahfouz Gait disturbance active Davey Day Seizure disorder active Davey Day Chest pain active Davey Day Abdominal wall hernia active Davey Day Cough completed - Jasper Caruso Upper respiratory infection completed - Jasper Caruso Fibromyalgia active Davey Day Hypothyroidism active Davey Day Frequency, urinary active Davey Day ENCOUNTERS Date Type Provider Location Encounter Diagnosis - Ambulatory En[facility]uly [facility] - [facility] Encounter [facility]uly [facility] Hattie Dubon E Jerald Garcia [facility] UNK - Ambulatory Encounter Jasper Zuly [facility] - Ambulatory Encounter Lina Bautista [facility] - Ambulatory Encounter Laura Bell [facility] UNK - Ambulatory Encounter [facility]asper[facility]ves [facility] Leticia Dubon E Jerald Garcia [facility] Mammographic screening for breast cancer - Ambulatory Encounter [facility] - [facility] Encounter F[facility] - Ambulatory Encounter [facility] - [facility] - Ambulatory Encounter [facility] - [facility]ulatory Encounter [facility] - Ambulatory Encounter Jasper Zuly [facility] - Ambulatory Encounter Geovani Stafford [facility] Rodriguez [facility] Back painMuscle spasm, back - Ambulatory Encounter Rosana Jack [facility] UNK - Ambulatory Encounter Jasper Zuly Caruso Fela Leonard MedAdherence Rosana Justyn [facility] UNK - Ambulatory Encounter Geovani Leonard [facility]herence [facility] UNK - Ambulatory Encounter Dave[facility] Day [facility] UNK - Ambulatory Encounter Jasper Kobifoolga Hutchinson Mahfouz LinkLogic [facility] UNK - Ambulatory Encounter Jasper Zuly Hutchinson Mahfouz LinkLogic [facility] UNK - Ambulatory Encounter Jasper Kobifoolga Hutchinson Mahfouz LinkLogic [facility] UNK - Ambulatory Encounter Jasper Kobifoolga Hutchinson Mahfouz LinkLogic [facility] UNK - Ambulatory Encounter Jasper Kobifoolga Jasper Mahfouz LinkLogic [facility] UNK - Ambulatory Encounter Jasper Kobifoolga Jasper Mahfouz LinkLogic [facility] UNK - Ambulatory Encounter Jasper Kobifoolga Jasper Mahfouz [facility] UNK - Ambulatory Encounter Jasper Kobifoolga [facility] UNK - Ambulatory Encounter Jasper Kobifoolga Jasper Mahfouz [facility] UNK - Ambulatory Encounter Geovani Bell [facility] Jack [facility] Screening for breast cancer - Ambulatory Encounter Naila Rey [facility] UNK - Ambulatory Encounter Jasper Zuly Rivera Chip [facility] UNK - Ambulatory Encounter Laura Bell [facility] UNK - Ambulatory Encounter Jasper Zuly [facility] - Ambulatory Encounter Geovani Berry LinkLog[facility] UNK - Ambulatory Encounter Jasper Zuly [facility] Laura Bell [facility] UNK - Ambulatory Encounter Jasper Zuly [facility] Arline Brandt [facility] UNK - Ambulatory Encounter Alice Sandoval LinkLogjacob [facility] UNK - Ambulatory Encounter Laura Bell [facility] UNK - Ambulatory Encounter Jasper Zuly [facility] UNK - Ambulatory Encounter Jasper Zuly [place] LinkLogic Laura Bell [facility] UNK - Ambulatory Encounter Fax Status LinkLogic [facility] UNK - Ambulatory Encounter Fax Status LinkLogic [facility] UNK - Ambulatory Encounter Fax Status LinkLogic [facility] UNK - Ambulatory Encounter Patito Ashton [facility] UNK - Ambulatory Encounter Jasper Zuly Hutchinson [facility] UNK - Ambulatory Encounter Jasper Zuly [facility] UNK - Ambulatory Encounter [facility] UNK - Ambulatory Encounter Geovani [facility] Sahu [facility] Hx of smoking more than 15 pack yearsLung cancer, family hxScreening for cancerDepressed moodStressAnxietyIrritability - Ambulatory Encounter Louisa Leonard [facility] UNK - Ambulatory Encounter Jasper Kobivandanaolga Hutchinson Zuly Leonard MedAdherence [facility] UNK - Ambulatory Encounter Jasper Kobivandanaolga [facility] UNK - Ambulatory Encounter Yvonne Leonard Med[facility]herence [facility] UNK - Ambulatory Encounter [facility] - [facility]ulatory Encounter [facility] UNK - Ambulatory Encounter [facility] UNK - Ambulatory Encounter [facility] UNK - Ambulatory Encounter [facility] UNK - Ambulatory Encounter Louisa Sahu [facility] UNK - Ambulatory Encounter [facility] LinkLog[facility] UNK - Ambulatory Encounter Jasper [facility] Jasper Mahfouz LinkLogic [facility] UNK - Ambulatory Encounter Fax Status LinkLogic [facility] UNK - Ambulatory Encounter Jasper Kobifoolga [facility]asper [facility] UNK - Ambulatory Encounter Jasper [facility] Jasper Mahfouz [facility] UNK - Ambulatory Encounter Jasper Kobifoolga [facility] UNK - Ambulatory Encounter Jasper Kobifoolga Jasper Mahfouz [facility] UNK - Ambulatory Encounter Geovani Caballero [facility] Hypoglycemia - Ambulatory Encounter Jasper [facility] Jasper Mahfouz LinkLogic [facility] UNK - Ambulatory Encounter Jasper Kobifoolga Jasper Mahfouz LinkLogic [facility] UNK - Ambulatory Encounter Jasper Kobifoolga [facility]asper [facility] UNK - Ambulatory Encounter Jasper [facility] UNK - Ambulatory Encounter Jasper Kobifoolga [facility]asper [facility] UNK - Ambulatory Encounter Geovani Oden [facility] HypertensionFlu vaccineObesity - Ambulatory Encounter Jasper Mahfoolga [facility] Villarreal [facility] UNK - Ambulatory Encounter Jasper Mahfoolga Hutchinson Mahfouz LinkLogic [facility] UNK - Ambulatory Encounter Jasper Zuly Hutchinson Mahfouz LinkLogic [facility] UNK - Ambulatory Encounter Jasper Zuly Peacefouz LinkLogic [facility] UNK - Ambulatory Encounter Fax Status [facility] - Ambulatory Encounter Fax Status [facility] - Ambulatory Encounter Fax Status [facility] - Ambulatory Encounter Jasper Zuly Hutchinson Mahfouz LinkLogic [facility] UNK - Ambulatory Encounter Geovani Villarreal [facility] UNK - Ambulatory Encounter Jasper Zuly Hutchinson Mahfouz [facility] UNK - Ambulatory Encounter Jasper [facility] Jasper Mahfouz [facility] UNK - Ambulatory Encounter Jasper Kobifoolga Jasper Mahfouz [facility] UNK - Ambulatory Encounter Geovani [facility] Naila Le [facility] Upper respiratory infectionCough - Ambulatory Encounter Jasper Zuly Hutchinson Mahfouz LinkLogic [facility] UNK - Ambulatory Encounter Jasper Kobifoolga Jasper Mahfouz LinkLogic [facility] UNK - Ambulatory Encounter Nayeli Barriga [facility] UNK - Ambulatory Encounter Davey Day LinkLogic [facility] UNK - Ambulatory Encounter Glen Oneal [facility] UNK - Ambulatory Encounter Fax Status [facility] - Ambulatory Encounter Fax Status [facility] - Ambulatory Encounter Fax Status [facility] UNK - Ambulatory Encounter Glen Oneal LinkLogic [facility] UNK - Ambulatory Encounter Jasper [facility] UNK - Ambulatory Encounter Jasper [facility] UNK - Ambulatory Encounter Jasper [facility] UNK - Ambulatory Encounter Jasper [facility] UNK - Ambulatory Encounter Hankmitemilia Gant Caballero [facility] Diabetes mellitus type IIHypertriglyceridemiaHyperlipidemiaBlurred visionBMI 34.0-34.9 - Ambulatory Encounter Cem Denson [facility] UNK - Ambulatory Encounter Louisa SawantLogjacob [facility] UNK - Ambulatory Encounter Louisa Alejandra [facility] UNK - Ambulatory Encounter Davey Day [facility] - Ambulatory Encounter Davey Day [facility] UNK - Ambulatory Encounter Davey Day [facility] UNK - Ambulatory Encounter Davey Day [facility] UNK - Ambulatory Encounter Davey Day LinkLogjacob [facility] UNK - Ambulatory Encounter Davey Day LinkLogic [facility] UNK - Ambulatory Encounter Fax Status Link[facility] UNK - Ambulatory Encounter Fax Status LinkLogic [facility] UNK - Ambulatory Encounter Fax Status LinkLogic [facility] UNK - Ambulatory Encounter Fax Status LinkLogic [facility] UNK - Ambulatory Encounter Fax Status LinkLogic [facility] UNK - Ambulatory Encounter Fax Status LinkLogic [facility] UNK - Ambulatory Encounter Davey Josephel Destiny [facility]K - Ambulatory Encounter Davey Day [facility] UNK - Ambulatory Encounter Davey Sandra [facility] Seizure disorderGait disturbance - Ambulatory Encounter Davey Day [facility] UNK - Ambulatory Encounter Davey Day [facility] UNK - Ambulatory Encounter Davey Day [facility]Logjacob [facility] UNK - Ambulatory Encounter Davey Day [facility] UNK - Ambulatory Encounter Davey SawantLogjacob [facility] UNK - Ambulatory Encounter Davey Day LinkLogic [facility] UNK - Ambulatory Encounter Davey Day LinkLogic [facility] UNK - Ambulatory Encounter Davey Day [facility] UNK - Ambulatory Encounter Davey Day LinkLogic [facility] UNK - Ambulatory Encounter Davey Day LinkLogic [facility] UNK - Ambulatory Encounter Davey Day [facility] UNK - Ambulatory Encounter Davey Day LinkLogic [facility] UNK - Ambulatory Encounter Nya Rodriguez [facility] UNK - Ambulatory Encounter Fax Status LinkLog[facility] UNK - Ambulatory Encounter Fax Status LinkLog[facility] UNK - Ambulatory Encounter Fax Status Link[facility] UNK - Ambulatory Encounter Fax Status Link[facility] UNK - Ambulatory Encounter Fax Status Link[facility] UNK - Ambulatory Encounter Fax Status LinkLog[facility] UNK - Ambulatory Encounter Fax Status LinkLogic [facility] UNK - Ambulatory Encounter Davey Day [facility] UNK - Ambulatory Encounter [facility] Upper respiratory infectionCoughAbdominal wall herniaChest pain - Ambulatory Encounter LDC Care Coordination [place] Shayy Day [facility] K - Ambulatory Encounter Davey Bess [facility] Davey Day LinkLogjacob [facility] Encounter Davey Day [facility] Encounter Davey Rodriguez [facility] HypothyroidismFibromyalgia - Ambulatory Encounter Davey SawantLogjacob [facility] Encounter Davey SawantLogjacob [facility] - Ambulatory Encounter Davey SawantLogjacob Maria Alejandra Freed [facility] - Ambulatory Encounter Davey SawantLogjacob [facility] - Ambulatory Encounter Davey Day [facility] - Ambulatory Encounter Davey Bess Freed [facility] Frequency, urinary VITAL SIGNS No Information Available ALLERGIES Allergy Name Onset Date Reaction Criticality Status CODEINE severe itchiness High Criticality active PCN rash High Criticality active REASON FOR REFERRAL Start Date - End Date Service - Other Referral - External - Mammogram - Screening RESULTS Date Observation Value Provider Reference Range Interpretation Location thyroid stimulating hormone, serum 2.250 u[iU]/mL LinkLogic 0.450-4.500 " hemoglobin A1C, blood, as % of total hemoglobin 12.1 % [facility] 4.8-5.6 High " LDL cholesterol, serum 68 mg/dL [facility] 0-99 " very low density lipoproteins 50 mg/dL [facility] 5-40 High " HDL cholesterol, serum 31 mg/dL [facility] >39 Low " triglyceride, serum, fasting 252 mg/dL [facility] 0-149 High " cholesterol, serum 149 mg/dL [facility] 100-199 " alanine aminotransferase (SGPT), serum 14 1/L [facility] 0-32 " aspartate aminotransferase (SGOT), serum 33 1/L [facility] 0-40 " alkaline phosphatase, serum 115 1/L [facility] 39-117 " bilirubin, serum, total 0.4 mg/dL [facility] 0.0-1.2 " albumin/globulin ratio, serum 1.9 [facility] 1.2-2.2 " globulin, serum 2.4 [facility] 1.5-4.5 " albumin, serum 4.5 g/dL [facility] 3.6-4.8 " protein, total, serum 6.9 g/dL [facility] 6.0-8.5 " calcium, serum 11.0 mg/dL [facility] 8.7-10.3 High " carbon dioxide, venous blood 25 mmol/L [facility] 20-29 " chloride, serum 97 mmol/L [facility] 96-106 " potassium, serum 4.7 mmol/L [facility] 3.5-5.2 " sodium, serum 138 mmol/L [facility] 134-144 " urea nitrogen/creatinine ratio, serum 19 [facility] 12-28 " eGFR if 73 mL/min/((173/100).m2) [facility] >59 " Estimated Glomerular Filtration Rate (calc) 63 mL/min/((173/100).m2) [facility] >59 " creatinine, serum 0.98 mg/dL [facility] 0.57-1.00 " urea nitrogen, blood 19 mg/dL [facility] 8-27 " blood glucose, random 359 mg/dL [facility] 65-99 High hemoglobin A1C, blood, as % of total hemoglobin 12.9 % Rosana Alejandra " blood glucose, random 281 mg/dL Magaly Sahu blood glucose, random 139 mg/dL Alfreda Caballero blood glucose, fasting 127 mg/dL Pamela Oden hemoglobin A1C, blood, as % of total hemoglobin 9.9 % [facility] 4.8-5.6 High " LDL cholesterol, serum 54 mg/dL [facility] 0-99 " very low density lipoproteins 16 mg/dL [facility] 5-40 " HDL cholesterol, serum 48 mg/dL [facility] >39 " triglyceride, serum, fasting 81 mg/dL [facility] 0-149 " cholesterol, serum 118 mg/dL [facility] 100-199 " alanine aminotransferase (SGPT), serum 12 1/L [facility] 0-32 " aspartate aminotransferase (SGOT), serum 25 1/L [facility] 0-40 " alkaline phosphatase, serum 67 1/L [facility] 39-117 " bilirubin, serum, total 0.4 mg/dL [facility] 0.0-1.2 " albumin/globulin ratio, serum 2.2 [facility] 1.2-2.2 " globulin, serum 2.1 [facility] 1.5-4.5 " albumin, serum 4.6 g/dL [facility] 3.5-5.5 " protein, total, serum 6.7 g/dL [facility] 6.0-8.5 " calcium, serum 10.0 mg/dL [facility] 8.7-10.2 " carbon dioxide, venous blood 25 mmol/L [facility] 20-29 " chloride, serum 101 mmol/L [facility] 96-106 " potassium, serum 4.5 mmol/L [facility] 3.5-5.2 " sodium, serum 142 mmol/L [facility] 134-144 " urea nitrogen/creatinine ratio, serum 17 [facility] 9-23 " eGFR if 110 mL/min/((173/100).m2) [facility] >59 " Estimated Glomerular Filtration Rate (calc) 96 mL/min/((173/100).m2) [facility] >59 " creatinine, serum 0.69 mg/dL [facility] 0.57-1.00 " urea nitrogen, blood 12 mg/dL [facility] 6-24 " blood glucose, random 54 mg/dL [facility] 65-99 Low " thyroxine, serum, free 1.21 ng/dL [facility] 0.82-1.77 " thyroid stimulating hormone, serum 1.390 u[iU]/mL LinkLog[facility] 0.450-4.500 blood glucose, random 94 mg/dL Pamela Oden specific gravity, urine 1.025 Edison Destiny " pH, urine, semiquantitative 6.0 Cici Destiny " glucose, urine, semiquantitative negative Edison Destiny " bilirubin, urine negative Cici Destiny " ketones, urine, by test strip trace (5) Edison Destiny " blood in urine (hemoglobin) by dipstick negative Edison Destiny " protein, urine, semiquantitative (dipstick) 3+ Edison Destiny " urobilinogen, urine, semiquantitative (dipstick) negative Edison Destiny " nitrite, urine, semiquantitative negative Cici Destiny " leukocyte esterase, urine, by dipstick negative Cici Destiny " appearance, urine clear Cici Destiny " urine color yellow Cici Destiny HISTORY OF IMMUNIZATIONS No Information Available HISTORY OF MEDICATION USE Medication Instructions Dates Provider Comments BACLOFEN 10 MG ORAL TABLET one tablet by mouth three times a day as needed for muscle spasm Jasper Caruso ZOLOFT 50 MG ORAL TABLET 1 by mouth nightly at bedtime Jasper Caruso GLIPIZIDE ER 5 MG ORAL TABLET EXTENDED RELEASE 24 HOUR Take one tablet By Mouth Every Day Jasper Caruso METFORMIN HCL ER 500 MG ORAL TABLET EXTENDED RELEASE 24 HOUR 2 tabs by mouth Twice a Day Jasper Caruso HUMULIN N 100 UNIT/ML SUBCUTANEOUS SUSPENSION Inject 10 units under skin Three Times a Day - Jasper Caruso HUMULIN 70/30 (70-30) 100 UNIT/ML SUBCUTANEOUS SUSPENSION Inject 25 units under skin Twice a Day Jasper Caruso ATORVASTATIN CALCIUM 40 MG TABLET TAKE 1 TABLET BY MOUTH ONCE DAILY IN THE EVENING VestiageAdherence ASPIRIN 81 MG ORAL TABLET DELAYED RELEASE 1 by mouth every day Jasper Caruso FENOFIBRATE 160 MG TABLET TAKE 1 TABLET BY MOUTH ONCE DAILY Fela Leonard MedAdherence CELEBREX 100 MG ORAL CAPSULE One capsule twice a day - Jasper Peacevandanaolga LOSARTAN 50MG TAB TAKE 1 TABLET BY MOUTH ONCE DAILY Fela Horacio MedAdherence PROPRANOLOL HCL ER 60 MG CAP SA 24H TAKE 1 CAPSULE BY MOUTH ONCE DAILY Jasper oKbivandanaolga CLOPIDOGREL BISULFATE 75 MG ORAL TABLET 1 By Mouth once a day Davey Day MELOXICAM 15 MG ORAL TABLET take one tab by mouth daily with food Davey Day TRAMADOL HCL 50 MG ORAL TABLET take two tabs by mouth three times a day for pain - Jasper Kobivandanaolga GABAPENTIN 300 MG ORAL CAPSULE 1 by mouth three times a day - Jasper Caruso LEVETIRACETAM 750 MG ORAL TABLET take one tab by mouth twice a day Davey Day ESCITALOPRAM OXALATE 20 MG ORAL TABLET take one tablet by mouth daily - Jasper Peacevandanaloga LEVOTHYROXINE SODIUM 75 MCG TABLET TAKE 1 TABLET BY MOUTH ONCE DAILY Jasper Peacevandanaolga SOCIAL HISTORY Date Observation Value Provider time of call 08/03/2019 12:27 PM Jagdish Garcia drug use, illicit Never Rosana Alejandra " alcohol use Never Rosana Alejandra " social history E&M . 22 year old daughter Not homeless. Lives with Not employed. Gender identity: Female. Rosana Alejandra " social history reviewed E&M reviewed today Rosana Alejandra " is there any chance that you could be ? No Rosana Alejandra " passive cigarette smoke exposure No Rosana Alejandra " smoking status former smoker Rosana Alejandra " Exercise Program Referral T Rosana Alejandra " Weight Management Counseling Provided T Rosana Alejandra " Nutrition intervention T Rosana Alejandra Exercise Program Referral T Laura Bell " Weight Management Counseling Provided T Laura Bell " Nutrition intervention T Laura Bell " social history E&M . 22 year old daughter Not homeless. Lives with Not employed. Gender identity: Female. Laura Bell " social history reviewed E&M reviewed today Larua Bell " assessment of health literacy ([place]QA PCMH 2014 Standards, 3C10) Adequate Laura Bell " passive cigarette smoke exposure No Laura Bell " smoking status former smoker Laura Bell family support 22 year old daughter Patito Ashton " home/family situation, assessment Lives with Patito Ashton " social history reviewed E&M reviewed today Patito Ashton " social history E&M . 22 year old daughter Not homeless. Lives with Not employed. Gender identity: Female. Patito Ashton drug use, illicit Never Magaly Sahu " alcohol use Never Magaly Luis Alberto " social history E&M Not homeless. Not employed. Magaly Sahu " social history reviewed E&M reviewed today Magaly Sahu " assessment of health literacy ([facility] 2014 Standards, 3C10) Adequate Maagly Sahu " passive cigarette smoke exposure No Magaly Sahu " smoking status never smoker Magaly Sahu " Exercise Program Referral T Magaly Sahu " Weight Management Counseling Provided T Magaly Sahu " Nutrition intervention Ebony Sahu Exercise Program Referral T Magaly Sahu " Weight Management Counseling Provided T Magaly Sahu " Nutrition intervention T Magaly Sahu " drug use, illicit Never Magaly Sahu " alcohol use Never Magaly Luis Alberto " social history E&M Not homeless. Not employed. Magaly Sahu " social history reviewed E&M reviewed today Magaly Sahu " assessment of health literacy ([facility] 2014 Standards, 3C10) Adequate Magaly Sahu " passive cigarette smoke exposure No Magaly Sahu " smoking status never smoker Magaly Sahu Exercise Program Referral Ebony Berry " Weight Management Counseling Provided Ebony Berry " Nutrition intervention T Geovani Berry " social history E&M Not homeless. Not employed. Alfreda Caballero " social history reviewed E&M reviewed today Alfreda Caballero " drug use, illicit Never Alfreda Caballero " alcohol use Never Alfreda Caballero " assessment of health literacy ([facility] 2014 Standards, 3C10) Adequate Alfreda Caballero " passive cigarette smoke exposure No Alfreda Caballero " smoking status former smoker Alfreda Caballero Exercise Program Referral Ebony Berry " Weight Management Counseling Provided Ebony Berry " Nutrition intervention T Geovaninisha Sandovalberg " drug use, illicit Never Pamela Oden " alcohol use Never Pamela Oden " social history E&M Not homeless. Not employed. Pamela Oden " social history reviewed E&M reviewed today Pamela Oden " assessment of health literacy ([facility] 2014 Standards, 3C10) Adequate Pamela Oden " passive cigarette smoke exposure No Pamela Oden " smoking status former smoker Pamela Oden Exercise Program Referral T Geovani Berry " Weight Management Counseling Provided T Geovani Berry " Nutrition intervention T Geovani Berry " goal regarding exercise goal Exercise Rate Jasper Caruso " social history E&M Not homeless. Not employed. Pamela Oden " social history reviewed E&M reviewed today Pameal Oden " assessment of health literacy ([facility] 2014 Standards, 3C10) Adequate Pamela Oden " passive cigarette smoke exposure No Pamela Oden " smoking status former smoker Pamela Oden time of call 06/30/2018 9:47 AM Nayeli Barriga Exercise Program Referral T Madhumita Jonny " Weight Management Counseling Provided T Madhumita Jonny " Nutrition intervention T Madhumita Jonny " alcohol use Never Alfreda Caballero " drug use, illicit Never Alfreda Caballero " assessment of health literacy ([facility] 2014 Standards, 3C10) Adequate Alfreda Caballero " passive cigarette smoke exposure No Alfreda Caballero " smoking status former smoker Alfreda Caballero " drug use, illicit Never Rosana Justyn " alcohol use Never Rosana Justyn " social history E&M Not homeless. Not employed. Rosana Justyn " social history reviewed E&M reviewed today Rosana Justyn " assessment of health literacy ([facility] 2014 Standards, 3C10) Adequate Rosana Justyn " passive cigarette smoke exposure No Rosana Justyn " smoking status former smoker Rosana Justyn " Exercise Program Referral T Rosana Justyn " Weight Management Counseling Provided T Rosana Justyn " Nutrition intervention T Rosana Justyn drug use, illicit Never Cici Destiny " alcohol use Never Cici Destiny " social history E&M Not homeless. Not employed. Cici Destiny " social history reviewed E&M reviewed today Edison Destiny " is there any chance that you could be ? No Cici Dixon " assessment of health literacy ([facility] 2014 Standards, 3C10) Adequate Cici Dixon " passive cigarette smoke exposure No Cici Dixon " smoking status former smoker Cici Dixon " Exercise Program Referral T Cici Dixon " Weight Management Counseling Provided T Cici Dixon " Nutrition intervention T Cici Dixon assessment of health literacy ([facility] 2014 Standards, 3C10) Adequate Nya Rodriguez " social history E&M Not homeless. Not employed. Nya Rodriguez " social history reviewed E&M reviewed today Nya Rodriguez " is there any chance that you could be ? No Nya Rodriguez " passive cigarette smoke exposure No Nya Rodriguez " smoking status former smoker Nya Rodriguez social history E&M Not homeless. Not employed. Nya Rodriguez " social history reviewed E&M reviewed today Nya Rodriguez " passive cigarette smoke exposure No Nya Rodriguez " smoking status former smoker Nya Rodriguez drug use, illicit Never Nya Rodriguez " smoking, year quit 10/04/2012 Nya Rodriguez " alcohol use Never Nya Rodriguez " smoking status former smoker Nay Rodriguez " social history reviewed E&M reviewed today Nya Rodriguez " social history E&M Not homeless. Not employed. Nya Rodriguez " patient considered to be homeless No Nya Rodriguez " assessment of health literacy ([facility] 2014 Standards, 3C10) Adequate Nya Rodriguez FUNCTIONAL STATUS No Information Available MENTAL STATUS Date Observation Value Provider assessment of judgment and insight E&M intact [facility] " mental status examination: orientation E&M oriented to time, place, and person [facility] " assessment of mood and affect E&M no depression, anxiety, or agitation [facility] assessment of judgment and insight E&M intact [facility] " mental status examination: orientation E&M oriented to time, place, and person [facility] " assessment of mood and affect E&M no depression, anxiety, or agitation [facility] " Generalized Anxiety Disorder Questionnaire - Question 2 0 Laura Bell " Generalized Anxiety Disorder Questionnaire - Question 1 0 Laura Bell mood (mental status exam) depressed, frustrated Patito Ashton " delusion No Patito Ashton " mental status assessment, judgment good Patito Ashton " insight (mental status exam) good Patito Ashton " Mental Status Exam: intelligence adequate fund of information, intact memory processes, oriented to person, oriented to place, oriented to time, oriented to situation, oriented to reality Patito Ashton " hallucinations No Patito Ashton " thought content (mental status exam) (E&M) lucid Patito Ashton " mental status assessment, process able to abstract, goal-directed, logical Patito Ashton " mental status assessment, sensorium alert, attentive, clear Patito Ashton " affect (mental status exam) congruent, normal intensity, normal range, anxious, irritable Patito Ashton " mental status assessment, speech activity normal flow, normal pace, normal pressure, normal rate, normal tone, normal volume, spontaneous Patito Ashton " mental status assessment, motor activity normal gait, normal posture Patito Ashton " behavior (mental status exam) appropriate, candid, cooperative, good eye contact, polite, responsive Patito Ashton " mental appearance (mental status exam) adequate hygiene, appropriate dress, looks like stated age, neat Patito Ashton assessment of judgment and insight E&M Questionable pt states stop her meds by herself for a few weeks because she felt ok and then restarted herself Jasper Caruso " mental status examination: orientation E&M oriented to time, place, and person Jasper Caruso " assessment of mood and affect E&M appears anxious, stressed, irritable, aggressive, and depressed Jasper Caruso " If any problems checked, how difficult have these problems made it for you to do your work, take care of things at home, or get along with other people (GAD7, question 8) 1 Rosana Alejandra " Generalized Anxiety Disorder Questionnaire - Question 7 3 Rosana Alejandra " Generalized Anxiety Disorder Questionnaire - Question 6 3 Rosana Alejandra " Generalized Anxiety Disorder Questionnaire - Question 5 2 Rosana Alejandra " Generalized Anxiety Disorder Questionnaire - Question 4 3 Rosana Alejandra " Generalized Anxiety Disorder Questionnaire - Question 3 3 Rosana Alejandra " Generalized Anxiety Disorder Questionnaire - Question 2 3 Rosana Alejandra " Generalized Anxiety Disorder Questionnaire - Question 1 3 Rosana Alejandra assessment of judgment and insight E&M intact [facility] " mental status examination: orientation E&M oriented to time, place, and person [facility] " assessment of mood and affect E&M no depression, anxiety, or agitation [facility] " Generalized Anxiety Disorder Questionnaire - Question 2 0 Magaly Sahu " Generalized Anxiety Disorder Questionnaire - Question 1 0 Magaly Sauh assessment of judgment and insight E[facility] " mental status examination: orientation E&M oriented to time, place, and person [facility] " assessment of mood and affect E&M no depression, anxiety, or agitation [facility] " Generalized Anxiety Disorder Questionnaire - Question 2 0 Alfreda Caballero " Generalized Anxiety Disorder Questionnaire - Question 1 0 Alfreda Caballero assessment of judgment and insight E&M intact [facility] " mental status examination: orientation E&M oriented to time, place, and person [facility] " assessment of mood and affect E&M no depression, anxiety, or agitation [facility] " Generalized Anxiety Disorder Questionnaire - Question 2 0 Pamela Oden " Generalized Anxiety Disorder Questionnaire - Question 1 0 Pamela Harrisona assessment of judgment and insight E&M intact [facility] " mental status examination: orientation E&M oriented to time, place, and person [facility] " assessment of mood and affect E&M no depression, anxiety, or agitation [facility] assessment of judgment and insight E&M intact [facility] " mental status examination: orientation E&M oriented to time, place, and person [facility] " assessment of mood and affect E&M no depression, anxiety, or agitation [facility] " Generalized Anxiety Disorder Questionnaire - Question 2 0 Alfreda Caballero " Generalized Anxiety Disorder Questionnaire - Question 1 0 Alfreda Caballero mental status examination: orientation E&M oriented to time, place, and person Louisa M Ehdaie " assessment of mood and affect E&M no depression, anxiety, or agitation Louisa M Ehdaie " Generalized Anxiety Disorder Questionnaire - Question 2 0 Rosana Alejandra " Generalized Anxiety Disorder Questionnaire - Question 1 0 Rosana Alejandra assessment of judgment and insight E&M intact Davey Day " mental status examination: orientation E&M oriented to time, place, and person Davey Day " assessment of mood and affect E&M no depression, anxiety, or agitation Davey Day " Generalized Anxiety Disorder Questionnaire - Question 2 0 Cici Dixon " Generalized Anxiety Disorder Questionnaire - Question 1 0 Cici Dixon assessment of judgment and insight E&M intact Davey Day " mental status examination: orientation E&M oriented to time, place, and person [facility] Day " assessment of mood and affect E&M no depression, anxiety, or agitation Davey Day " Generalized Anxiety Disorder Questionnaire - Question 2 0 Nya Rodriguez " Generalized Anxiety Disorder Questionnaire - Question 1 0 Nya Rodriguez assessment of judgment and insight E&M intact [facility] Day " mental status examination: orientation E&M oriented to time, place, and person [facility] Day " assessment of mood and affect E&M no depression, anxiety, or agitation Davey Day " Generalized Anxiety Disorder Questionnaire - Question 2 0 Nya Rodriguez " Generalized Anxiety Disorder Questionnaire - Question 1 0 Nya Rodriguez assessment of judgment and insight E&M intact Davey Day " mental status examination: orientation E&M oriented to time, place, and person [facility]y Day " assessment of mood and affect E&M no depression, anxiety, or agitation Davey Day MEDICAL EQUIPMENT No Information Available FAMILY HISTORY No Information Available INSURANCE PROVIDERS No Information Available ADVANCE DIRECTIVES No Information Available TREATMENT PLAN Date Name TSH Hemoglobin A1c Lipid Panel Comp. Metabolic Panel (14) TSH+Free T4 Hemoglobin A1c Lipid Panel Comp. Metabolic Panel (14) Urine Culture, Routine - - - - - - - Est Patient Exp Problem - 15017 Est Patient Exp Problem - 05732 Integrated Behavioral Health Assessment (IB) [facility] Assessment - Body Team Member Diagnostic evaluation (no medical) - 79301 Est Patient Detailed - 16062 Behavioral Health - Therapy Behavioral Health - Psychiatry Est Patient Exp Problem - 76901 Est Patient Exp Problem - 02608 Endocrinology - Adult - [facility] Est Patient Exp Problem - 50277 INFLUENZA VACCINE QUADRIVALENT 3 YRS PLUS IM Est Patient Exp Problem - 76764 Pneumovax Vaccine [id number] Dental - Internal Est Patient Exp Problem - 86232 Retinal Screening Est Patient Exp Problem - 01860 Est Patient Exp Problem - 11576 INFLUENZA VACCINE QUADRIVALENT 3 YRS PLUS IM Admin of Vaccine - Injection - 1 Est Patient Exp Problem - 05947 Est Patient Exp Problem - 44190 Urinalysis - Dip only - In House New Patient Detailed - 81167 HISTORY OF PROCEDURES Procedure Date Procedure Name Provider Procedure Notes Status [facility] Assessment - Body Team Member Patito Ashton completed Diagnostic evaluation (no medical) - 42472 Patito Ashton completed Urinalysis - Dip only - In House Davey Day completed GOALS No Information Available HEALTH CONCERNS No Information Available
--- OUTSIDE RECORDS SUMMARY | 2019-10-01 13:07 | XMS REPORT ---
Author Author Admin, Heaters Organization Unknown Address Unknown Phone Unavailable PROBLEMS Condition Status Date Provider Notes Flank pain, right active Jasperyves Peacefoolga Increased frequency of urination active Jasper Mahfouz Urine odor active Jasperyves Peacefouz Straining on urination active Jasperyves Peacefouz Obstructive sleep apnea active Jasperyves Caruso Many years Mammographic screening for breast cancer active Jasperyves Menonuz Muscle spasm, back active Jasper Mahfouz Back pain active Jasper Mahfouz Screening for breast cancer active Jasper Mahfouz Irritability active Jasper Mahfouz Anxiety active Jasper Mahfouz Stress active Jasper Mahfouz Depressed mood active Jasperyves Peacefouz Screening for cancer active Jasper Caruso Lung cancer, family hx active Jasperyves Menonuz multiple family members Hx of smoking more than 15 pack years active Jasper Peacefouz Hypoglycemia active Jasper Peacefouz Obesity active Geovani Berry Flu vaccine active Jasper Mahfouz Hypertension active Jasper Mahfouz BMI 34.0-34.9 active Yvonne Jonny Blurred vision active Jasper Mahfouz Hyperlipidemia active Jasper Mahfouz Hypertriglyceridemia active Jasperyves Peacefouz Diabetes mellitus type II active Jasper Caruso Gait disturbance active Davey Day Seizure disorder active Davey Day Chest pain active Davey Day Abdominal wall hernia active Davey Day Cough completed - Jasper Caruso Upper respiratory infection completed - Jasper Caruso Fibromyalgia active Davey Day Hypothyroidism active Davey Day Frequency, urinary active Davey Day ENCOUNTERS Date Type Provider Location Encounter Diagnosis - Ambulatory Encounter LSJ Lab Support Desktop [facility] UNK - Ambulatory En[facility] UNK - Ambulatory Encounter Jasper Channing Homear [facility] UNK - Ambulatory Encounter [facility] Jasper [facility] UNK - Ambulatory En[facility] Obstructive sleep apneaStraining on urinationUrine odorIncreased frequency of urinationFlank pain, right - Ambulatory Encounter Jasper Channing Home[facility] UNK - Ambulatory Encounter [facility] UNK - Ambulatory Encounter Jasper [facility] Jasper [facility] Hattie Dubon E Jerald Garcia [facility] UNK - Ambulatory Encounter Jasper [facility] Jasper [facility] UNK - Ambulatory Encounter Lina Bautista [facility] UNK - Ambulatory Encounter Laura Bell [facility] UNK - Ambulatory Encounter Jasper Channing Homear [facility] Leticia Dubon E Jerald Garcia [facility] Mammographic screening for breast cancer - Ambulatory Encounter [facility] - [facility]ulatory Encounter [facility] UNK - Ambulatory Encounter Fax Status [facility] UNK - Ambulatory Encounter [facility]ves [facility] - Ambulatory Encounter Jasperyves Hutchinson [facility] UNK - Ambulatory Encounter Jasperyves Hutchinson [facility] UNK - Ambulatory Encounter Jasperyves Hutchinson [facility] UNK - Ambulatory Encounter Geovani Hutchinson Kob[place] Ngyves Peacefoolga Rodriguez [facility] Back painMuscle spasm, back - Ambulatory Encounter Rosana Alejandra [facility] UNK - Ambulatory Encounter Jasperyves Hutchinson Zuly Leonard Med[facility]herence Rosana Alejandra [facility] UNK - Ambulatory Encounter Geovani Leonard Med[facility]herence [facility] UNK - Ambulatory Encounter Davey Day [facility] UNK - Ambulatory Encounter Jasperyves Hutchinson Mahfouz LinkLogic [facility] UNK - Ambulatory Encounter Jasperyves Hutchinson Mahfouz LinkLogic [facility] UNK - Ambulatory Encounter Jasper Zuly Hutchinson Mahfouz LinkLogic [facility] UNK - Ambulatory Encounter Jasper Kobifoolga Hutchinson Mahfouz LinkLogic [facility] UNK - Ambulatory Encounter Jasper Zuly Hutchinson Mahfouz LinkLogic [facility] UNK - Ambulatory Encounter Jasper Zuly Hutchinson Mahfouz LinkLogic [facility] UNK - Ambulatory Encounter Jasper Zuly Hutchinson Mahfouz [facility] UNK - Ambulatory Encounter Jasper Zuly Hutchinson Mahfouz [facility] UNK - Ambulatory Encounter Jasper Zuly Hutchinson Mahfouz [facility] UNK - Ambulatory Encounter Geovani Bell Jasper Peacefoolga Rosana Alejandra [facility] Screening for breast cancer - Ambulatory Encounter Naila Le [facility] UNK - Ambulatory Encounter Jasper Zuly Caruso [facility] UNK - Ambulatory Encounter Laura Bell [facility] UNK - Ambulatory Encounter Jasper Zuly Hutchinson Mahfouz [facility] UNK - Ambulatory Encounter Geovani SawantLogjacob [facility] UNK - Ambulatory Encounter Jasper Zuly Peacefouz JeseLogjacob Bell [facility] UNK - Ambulatory Encounter Jasper Zuly [facility] Arline Brandt [facility] UNK - Ambulatory Encounter Alice [facility] LinkLogic [facility] UNK - Ambulatory Encounter Laura Bell [facility] UNK - Ambulatory Encounter Jasperyves [facility] UNK - Ambulatory Encounter Jasperyves Peacefoolga [facility] UNK - Ambulatory Encounter Fax Status [facility] UNK - Ambulatory Encounter Fax Status [facility] UNK - Ambulatory Encounter Fax Status [facility] UNK - Ambulatory Encounter Patito Jindez [facility] UNK - Ambulatory Encounter Jasperyves Hutch[facility] UNK - Ambulatory Encounter Jasperyves Hutchinson [facility] UNK - Ambulatory Encounter Jasper Kobiolga Hutchinson [facility] UNK - Ambulatory Encounter Geovani Raya Jasper [facility] Montez Sahu [facility] Hx of smoking more than 15 pack yearsLung cancer, family hxScreening for cancerDepressed moodStressAnxietyIrritability - Ambulatory Encounter Louisa [facility] UNK - Ambulatory Encounter Jasper Zuly Ngyves Leonard MedAdherence [facility] UNK - Ambulatory Encounter Jasper Zuly Ngar [facility] LinkLogic [facility] UNK - Ambulatory Encounter Josiasemilia Jonny Leonard [facility] UNK - Ambulatory Encounter [facility] UNK - Ambulatory Encounter Jasper [facility] UNK - Ambulatory Encounter Jasper [facility] UNK - Ambulatory Encounter Jasper [facility] UNK - Ambulatory Encounter Jasper Channing [facility] UNK - Ambulatory Encounter Louisa Restrepo Jasper [facility] Magaly Sahu [facility] UNK - Ambulatory Encounter Jasper [facility] UNK - Ambulatory Encounter Jasper Kobiolga Jasper [facility] UNK - Ambulatory Encounter Fax Status [facility] UNK - Ambulatory Encounter Jasper [facility] UNK - Ambulatory Encounter Jasper [facility] UNK - Ambulatory Encounter Jasper [facility] UNK - Ambulatory Encounter Jasper [facility] UNK - Ambulatory Encounter Geovani Rubioras [facility]asper [facility] Hypoglycemia - Ambulatory Encounter Jasper Kobifoolga Jasper Mahfouz LinkLogic [facility] UNK - Ambulatory Encounter Jasper Kobifoolga Jasper Mahfouz LinkLogic [facility] UNK - Ambulatory Encounter Jasper Kobifoolga Jasper Mahfouz [facility] UNK - Ambulatory Encounter Jasper Kobifoolga Jasper Mahfouz [facility] UNK - Ambulatory Encounter Jasper Kobifoolga Jasper Mahfouz [facility] UNK - Ambulatory Encounter Geovani Santiago Oden Jasper Kobifoolga Jasper Mahfouz [facility] HypertensionFlu vaccineObesity - Ambulatory Encounter Jasper Zuly Hutchinson Mahfouz Gigi Cherelle [facility] UNK - Ambulatory Encounter Jasper Kobifoolga Jasper Mahfouz LinkLogic [facility] UNK - Ambulatory Encounter Jasper Kobifoolga Jasper Mahfouz LinkLogic [facility] UNK - Ambulatory Encounter Jasper Zuly Hutchinson Mahfouz LinkLogic [facility] UNK - Ambulatory Encounter Fax Status LinkLogic [facility] UNK - Ambulatory Encounter Fax Status LinkLogic [facility] UNK - Ambulatory Encounter Fax Status Link[facility] UNK - Ambulatory Encounter Jasper Zuly Hutchinson Mahfouz LinkLogic [facility] UNK - Ambulatory Encounter Geovani Villarreal [facility] UNK - Ambulatory Encounter Jasper Mahfouz Jasper [facility] UNK - Ambulatory Encounter [facility] UNK - Ambulatory Encounter Jasper [facility] UNK - Ambulatory Encounter Geovani Sahu Jasper [facility] Naila Le [facility] Upper respiratory infectionCough - Ambulatory Encounter Jasper [facility] LinkLogic [facility] UNK - Ambulatory Encounter Jasper [facility] Jasper [facility] LinkLogic [facility] UNK - Ambulatory Encounter Nayeli Barriga [facility] Services UNK - Ambulatory Encounter Davey Day LinkLogic [facility] UNK - Ambulatory Encounter Glen Oneal [facility] Vision UNK - Ambulatory Encounter Fax Status LinkLogic [facility] UNK - Ambulatory Encounter Fax Status LinkLog[facility] UNK - Ambulatory Encounter Fax Status LinkLogic [facility] UNK - Ambulatory Encounter Glen Oneal LinkLogic C Vision UNK - Ambulatory Encounter [facility]asper [facility] Jasper [facility] UNK - Ambulatory Encounter Jasper [facility]asper [facility] UNK - Ambulatory Encounter [facility] Jasper [facility] UNK - Ambulatory Encounter Jasper [facility] UNK - Ambulatory Encounter Yvonne Guzman Alfreda Caballero [facility] Diabetes mellitus type IIHypertriglyceridemiaHyperlipidemiaBlurred visionBMI 34.0-34.9 - Ambulatory Encounter Cem Denson [facility] UNK - Ambulatory Encounter Louisa Gaston Lauro LinkLogic [facility] UNK - Ambulatory Encounter Louisa Gaston Lauro Alejandra [facility] UNK - Ambulatory Encounter Davey Day LinkLogic [facility] UNK - Ambulatory Encounter Davey Day LinkLogic [facility] UNK - Ambulatory Encounter Davey Day [facility] UNK - Ambulatory Encounter Davey Day [facility] UNK - Ambulatory Encounter Davey Day Link[facility] UNK - Ambulatory Encounter Davey Day LinkLogic [facility] UNK - Ambulatory Encounter Fax [...] UNK - Ambulatory Encounter Fax Status LinkLogic [facility] Services UNK - Ambulatory Encounter Davey Dixon [facility] UNK - Ambulatory Encounter Dave[facility] UNK - Ambulatory Encounter Davey Sandra [facility] Seizure disorderGait disturbance - Ambulatory Encounter Davey [facility] UNK - Ambulatory Encounter Davey [facility] UNK - Ambulatory Encounter Davey Day LinkLogic [facility] UNK - Ambulatory Encounter Davey Day [facility] UNK - Ambulatory Encounter Davey Day Link[facility] UNK - Ambulatory Encounter Davey Day Link[facility] UNK - Ambulatory Encounter Davey Day Link[facility] UNK - Ambulatory Encounter Davey Day [facility] UNK - Ambulatory Encounter Davey Day LinkLogjacob [facility] UNK - Ambulatory Encounter Davey Day Link[facility] UNK - Ambulatory Encounter Davey Day Link[facility] UNK - Ambulatory Encounter Davey Day LinkLog[facility] UNK - Ambulatory Encounter Nya Michael [facility] UNK - Ambulatory Encounter Fax Status LinkLogic [facility] UNK - Ambulatory Encounter Fax Status LinkLogic [facility] UNK - Ambulatory Encounter Fax Status LinkLogic [facility] UNK - Ambulatory Encounter Fax Status LinkLog[facility] UNK - Ambulatory Encounter Fax Status LinkLogic [facility] UNK - Ambulatory Encounter Fax Status LinkLogic [facility] UNK - Ambulatory Encounter Fax Status LinkLogic [facility] UNK - Ambulatory Encounter Davey aDy [facility] UNK - Ambulatory Encounter Davey Cabrera [facility] Upper respiratory infectionCoughAbdominal wall herniaChest pain - Ambulatory Encounter LDC Care Coordination Desktop Shayy Day [facility] Services Contact Center UNK - Ambulatory Encounter Davey Freed [facility] UNK - Ambulatory Encounter Davey Day LinkDarin [facility] UNK - Ambulatory Encounter Davey Day [facility] UNK - Ambulatory Encounter Davey Rodriguez [facility] HypothyroidismFibromyalgia - Ambulatory Encounter Davey Day LinkDarin [facility] UNK - Ambulatory Encounter Davey Mall[facility]counter Davey Malloy Maria Alejandra Freed [facility] UNK - Ambulatory Encounter Davey Malloy [facility]ulatory Encounter Davey Day [facility] - Ambulatory Encounter Davey Rodriguez Maria Alejandra Freed [facility] Frequency, urinary VITAL SIGNS No Information Available ALLERGIES Allergy Name Onset Date Reaction Criticality Status CODEINE severe itchiness High Criticality active PCN rash High Criticality active REASON FOR REFERRAL Start Date - End Date Service - Other Referral - External - Mammogram - Screening RESULTS Date Observation Value Provider Reference Range Interpretation Location urine culture No growth LinkLogic " microalbumin/creatinine ratio, urine 15.0 MG/G CREAT [facility] 0.0-30.0 " microalbumin/total urine volume 12.1 mg/L [facility]Log[facility] Not Estab. " creatinine, random, urine 80.9 mg/dL [facility]Log[facility] Not Estab. specific gravity, urine 1.025 Juan Smith " pH, urine, semiquantitative 5.5 Juan Smith " glucose, urine, semiquantitative negative Jasper Mahfouz " bilirubin, urine negative Jasper Mahfouz " ketones, urine, by test strip negative Jasper Mahfouz " blood in urine (hemoglobin) by dipstick negative Jasper Mahfouz " protein, urine, semiquantitative (dipstick) negative Jasper Mahfouz " urobilinogen, urine, semiquantitative (dipstick) negative Jasper Mahfouz " nitrite, urine, semiquantitative negative Jasper Mahfouz " leukocyte esterase, urine, by dipstick negative Jasper Mahfouz " appearance, urine clear Jasper Mahfouz " urine color yellow Jasper Mahfouz thyroid stimulating hormone, serum 2.250 u[iU]/mL LinkLogic [...] mg/dL Pamela Oden specific gravity, urine 1.025 Silvis Destiny " pH, urine, semiquantitative 6.0 Cici Destiny " glucose, urine, semiquantitative negative Silvis Destiny " bilirubin, urine negative Silvis Destiny " ketones, urine, by test strip trace (5) Silvis Destiny " blood in urine (hemoglobin) by dipstick negative Cici Destiny " protein, urine, semiquantitative (dipstick) 3+ Cici Destiny " urobilinogen, urine, semiquantitative (dipstick) negative Silvis Destiny " nitrite, urine, semiquantitative negative Cici Destiny " leukocyte esterase, urine, by dipstick negative Cici Destiny " appearance, urine clear Cici Destiny " urine color yellow Silvis Destiny HISTORY OF IMMUNIZATIONS No Information Available HISTORY OF MEDICATION USE Medication Instructions Dates Provider Comments BACLOFEN 10 MG ORAL TABLET one tablet by mouth three times a day as needed for muscle spasm - Jasper Caruso ZOLOFT 50 MG ORAL TABLET 1 by mouth nightly at bedtime Jasper Caruso GLIPIZIDE ER 5 MG ORAL TABLET EXTENDED RELEASE 24 HOUR Take one tablet By Mouth Every Day Jasper Caruso METFORMIN HCL ER 500 MG ORAL TABLET EXTENDED RELEASE 24 HOUR 2 tabs by mouth Twice a Day [facility]asper [facility] HUMULIN N 100 UNIT/ML SUBCUTANEOUS SUSPENSION Inject 10 units under skin Three Times a Day - [facility]asper [facility] HUMULIN 70/30 (70-30) 100 UNIT/ML SUBCUTANEOUS SUSPENSION Inject 25 units under skin Twice a Day Jasper Caruso ATORVASTATIN CALCIUM 40 MG TABLET TAKE 1 TABLET BY MOUTH ONCE DAILY IN THE EVENING Fela Leonard [facility] ASPIRIN 81 MG ORAL TABLET DELAYED RELEASE 1 by mouth every day Jasper Caruso FENOFIBRATE 160 MG TABLET TAKE 1 TABLET BY MOUTH ONCE DAILY Fela Leonard MedAdherence CELEBREX 100 MG ORAL CAPSULE One capsule twice a day - Jasper Kobivandanaolga LOSARTAN 50MG TAB TAKE 1 TABLET BY MOUTH ONCE DAILY Fela Leonard Med[facility]herence PROPRANOLOL HCL ER 60 MG CAP SA 24H TAKE 1 CAPSULE BY MOUTH ONCE DAILY Jasper Menonolga CLOPIDOGREL BISULFATE 75 MG ORAL TABLET 1 By Mouth once a day Davey Day MELOXICAM 15 MG ORAL TABLET take one tab by mouth daily with food Davey Day TRAMADOL HCL 50 MG ORAL TABLET take two tabs by mouth three times a day for pain - Jasper Menonolga GABAPENTIN 300 MG ORAL CAPSULE 1 by mouth three times a day - Jasper Peacevandanaolga LEVETIRACETAM 750 MG ORAL TABLET take one tab by mouth twice a day Davey Day ESCITALOPRAM OXALATE 20 MG ORAL TABLET take one tablet by mouth daily - Jasper Kobivandanaolga LEVOTHYROXINE SODIUM 75 MCG TABLET TAKE 1 TABLET BY MOUTH ONCE DAILY Jasper Kobivandanaolga SOCIAL HISTORY Date Observation Value Provider drug use, illicit Never Juan Smith " alcohol use Never Juan Smith " social history E&M . 22 year old daughter Not homeless. Lives with Not employed. Gender identity: Female. Juan Smith " social history reviewed E&M reviewed today Juan Smith " sexual orientation Heterosexual Juan Smith " assessment of health literacy ([facility] 2014 Standards, 3C10) Adequate Juan Smith " is there any chance that you could be ? No Juan Smith " passive cigarette smoke exposure No Juan Smith " smoking status former smoker Juan Smith " Exercise Program Referral T Juan Smith " Weight Management Counseling Provided T Juan Smith " Nutrition intervention Ebony Smith time of call 08/03/2019 12:27 PM Jagdish [...] " social history reviewed E&M reviewed today Laura Bell " assessment of health literacy ([facility] 2014 Standards, 3C10) Adequate Laura Bell " [...] Magaly Sahu " alcohol use Never Magaly Sahu " social history E&M Not homeless. Not employed. Magaly Sahu " social history reviewed E&M reviewed today Magaly Sahu " assessment of health literacy ([facility] 2014 Standards, 3C10) Adequate Magaly Sahu " [...] Magaly Sahu " alcohol use Never Magaly Sahu " social history E&M Not homeless. Not employed. Magaly Sahu " social history reviewed E&M reviewed today Magaly Sahu " assessment of health literacy ([facility] 2014 Standards, 3C10) Adequate Magaly Sahu " passive cigarette smoke exposure No Magaly Luis Alberto " smoking status never smoker Magalydeep Sahu Exercise Program Referral Ebony Berry " Weight Management Counseling Provided Ebony Berry " Nutrition intervention Ebony Berry " social history E&M Not homeless. Not employed. Alfreda Caballero " social history reviewed E&M reviewed today Alfreda Caballero " drug use, illicit Never Alfreda Caballero " alcohol use Never Alfreda Caballero " assessment of health literacy ([facility] 2014 Standards, 3C10) Adequate Alfreda Caballero " passive cigarette smoke exposure No Alfreda Caballero " smoking status former smoker Alfreda Caballero Exercise Program Referral Ebony Berry " Weight Management Counseling Provided Ebony Berry " Nutrition intervention Ebony Berry " drug use, illicit Never Pamela Oden " alcohol use Never Pamela Oden " social history E&M Not homeless. Not employed. Pamela Oden " social history reviewed E&M reviewed today Pamela Oden " assessment of health literacy ([facility] 2014 Standards, 3C10) Adequate Pamela Oden " passive cigarette smoke exposure No Pamela Oden " smoking status former smoker Pamela Oden Exercise Program Referral Ebony Berry " Weight Management Counseling Provided Ebony Berry " Nutrition intervention Ebony Berry " goal regarding exercise goal Exercise Rate Jasper Caruso " social history E&M Not homeless. Not employed. Pamela Oden " social history reviewed E&M reviewed today Pamela Oden " assessment of health literacy ([facility] 2014 Standards, 3C10) Adequate Pamela Oden " passive cigarette smoke exposure No Pamela Oden " smoking status former smoker Pamela Oden time of call 06/30/2018 9:47 AM Nayeli Barriga Exercise Program Referral T Yvonne Fuller " Weight Management Counseling Provided T Yvonne Jonny " Nutrition intervention T Hankmitemilia Jonny " alcohol use Never Alfreda Caballero " drug use, illicit Never Alfreda Caballero " assessment of health literacy ([facility] 2014 Standards, 3C10) Adequate Alfreda Caballero " passive cigarette smoke exposure No Alfreda Caballero " smoking status former smoker Alfreda Caballero " drug use, illicit Never Rosana Alejandra " alcohol use Never Rosana Alejandra " social history E&M Not homeless. Not employed. Rosana Alejandra " social history reviewed E&M reviewed today Rosana Alejandra " assessment of health literacy ([facility] 2014 Standards, 3C10) Adequate Rosana Jack " passive cigarette smoke exposure No Rosanaomero Alejandra " smoking status former smoker Rosana Alejandra " Exercise Program Referral T Rosana Alejandra " Weight Management Counseling Provided T Rosana Alejandra " Nutrition intervention T Rosana Alejandra drug use, illicit Never Silvis Destiny " alcohol use Never Silvis Destiny " social history E&M Not homeless. Not employed. Silvis Destiny " social history reviewed E&M reviewed today Silvis Destiny " is there any chance that you could be ? No Silvis Destiny " assessment of health literacy ([facility] 2014 Standards, 3C10) Adequate Cici Destiny " passive cigarette smoke exposure No Cici Destiny " smoking status former smoker Silvis Destiny " Exercise Program Referral T Cici Destiny " Weight Management Counseling Provided T Silvis Destiny " Nutrition intervention T Silvis Destiny assessment of health literacy ([facility] 2014 Standards, 3C10) Adequate Nya Rodriguez " [...] " smoking status former smoker Nya Rodriguez " social history reviewed E&M reviewed today Nya Rodriguez " social history E&M Not homeless. Not employed. Nya Rodriguez " patient considered to be homeless No Nya Rodriguez " assessment of health literacy ([facility] 2014 Standards, 3C10) Adequate Nya Rodriguez FUNCTIONAL STATUS No Information Available MENTAL STATUS Date Observation Value Provider assessment of judgment and insight [facility] " mental status examination: orientation E&M oriented to time, place, and person [facility] " assessment of mood and affect E&M no depression, anxiety, or agitation Jasperyves Caruso " Generalized Anxiety Disorder Questionnaire - Question 2 0 Juan Smith " Generalized Anxiety Disorder Questionnaire - Question 1 0 Juan Smith assessment of judgment and insight E&M intact [facility] " mental status examination: orientation E&M oriented to time, place, and person [facility] " assessment of mood and affect E&M no depression, anxiety, or agitation Jasper Kobifouz assessment of judgment and insight E&M intact [facility] " mental status examination: orientation [facility] assessment of mood and affect E&M no depression, anxiety, or agitation Jasperyves Caruso " Generalized Anxiety Disorder Questionnaire - Question [...] hygiene, appropriate dress, looks like stated age, gordo Ashton assessment of judgment and insight E&M Questionable pt states stop her meds by herself for a few weeks because she felt ok and then restarted herself Jasper Caruso " mental status examination: orientation E&M oriented to time, place, and person Jasperyves Caruso " assessment of mood and affect [...] Disorder Questionnaire - Question 3 3 Rosana Jack " Generalized Anxiety Disorder Questionnaire - Question 2 3 Rosana Jack " Generalized Anxiety Disorder Questionnaire - Question 1 3 Rosana Alejandra assessment of judgment and insight E&M intact Jasper Caruso " mental status examination: orientation E&M oriented to time, place, and person Jasper Caruso " assessment of mood and affect E&M no depression, anxiety, or agitation Jasper Caruso " Generalized Anxiety Disorder Questionnaire - Question 2 0 Magaly Sahu " Generalized Anxiety Disorder Questionnaire - Question 1 0 Magaly Sahu assessment of judgment and insight E&M intact Jasper Caruso " mental status examination: orientation E&M oriented to time, place, and person [facility] " assessment of mood and affect E&M no depression, anxiety, or agitation Jasper Caruso " Generalized Anxiety Disorder Questionnaire - Question 2 0 Alfreda Caballero " Generalized Anxiety Disorder Questionnaire - Question 1 0 Alfreda Caballero assessment of judgment and insight E&M intact Jasper Caruso " mental status examination: orientation E&M oriented to time, place, and person [facility] " assessment of mood and affect E&M no depression, anxiety, or agitation Jasper Kobifouz " Generalized Anxiety Disorder Questionnaire - Question 2 0 Pamela Oden " Generalized Anxiety Disorder Questionnaire - Question 1 0 Pamela Oden assessment of judgment and insight E&M intact Jasper Caruso " mental status examination: orientation E&M oriented to time, place, and person Jasperyves Caruso " assessment of mood and affect E&M no depression, anxiety, or agitation Jasper Caruso assessment of judgment and insight E&M intact Jasper Caruso " mental status examination: orientation E&M oriented to time, place, and person Jasperyves Caruso " assessment of mood and affect E&M no depression, anxiety, or agitation Jasperyves Caruso " Generalized Anxiety Disorder Questionnaire - Question [...] of judgment and insight E&M intact Davey D Shay " mental status examination: orientation E&M oriented to time, place, and person Davey D Shay " assessment of mood and affect E&M no depression, anxiety, or agitation Davey D Shay " Generalized Anxiety Disorder Questionnaire - Question 2 0 Cici Dixon " Generalized Anxiety Disorder Questionnaire - Question 1 0 Cici Dixon assessment of judgment and insight E&M intact Davey D Shay " mental status examination: orientation E&M oriented to time, place, and person Davey D Shay " assessment of mood and affect E&M no depression, anxiety, or agitation Davey D Shay " Generalized Anxiety Disorder Questionnaire - Question 2 0 Nya Rodriguez " Generalized Anxiety Disorder Questionnaire - Question 1 0 Nya Rodriguez assessment of judgment and insight E&M intact Davey D Shay " mental status examination: orientation E&M oriented to time, place, and person Davey D Shay " assessment of mood and affect E&M no depression, anxiety, or agitation Davey D Shay " Generalized Anxiety Disorder Questionnaire - Question [...] No Information Available TREATMENT PLAN Date Name Microalb/Creat Ratio, Randm Ur Hemoglobin A1c Lipid Panel TSH Comp. Metabolic Panel (14) Urine Culture, Routine TSH Hemoglobin A1c Lipid Panel Comp. Metabolic Panel (14) TSH+Free T4 Hemoglobin A1c Lipid Panel Comp. Metabolic Panel (14) Urine Culture, Routine - - - - - - - Est Patient Exp Problem - 44839 Urinalysis - Dip only - In House Est Patient Exp Problem - 89045 Est Patient Exp Problem - 97550 Integrated Behavioral Health Assessment (IBH) IB Assessment - Fixed Income Analyst Diagnostic evaluation (no medical) - 20152 Est Patient Detailed - 01593 Behavioral Health - Therapy Behavioral Health - Psychiatry Est Patient Exp Problem - 76250 Est Patient Exp Problem - 43554 Endocrinology - Adult - [facility] Est Patient Exp Problem - 52785 INFLUENZA VACCINE QUADRIVALENT 3 YRS PLUS IM Est Patient Exp Problem - 80517 Pneumovax Vaccine [id number] Dental - Internal Est Patient Exp Problem - 81577 Retinal Screening Est Patient Exp Problem - 57167 Est Patient Exp Problem - 87140 INFLUENZA VACCINE QUADRIVALENT 3 YRS PLUS IM Admin of Vaccine - Injection - 1 Est Patient Exp Problem - 18597 Est Patient Exp Problem - 89498 Urinalysis - Dip only - In House New Patient Detailed - 94745 HISTORY OF PROCEDURES Procedure Date Procedure Name Provider Procedure Notes Status Urinalysis - Dip only - In House Geovani Berry completed [facility] Assessment - Fixed Income Analyst Patito Ashton completed Diagnostic evaluation (no medical) - 99168 Patito Ashton completed Urinalysis - Dip only - In House Davey Day completed GO[facility] No Information Available HEALTH CONCERNS No Information Available
--- OUTSIDE RECORDS SUMMARY | 2019-10-01 13:08 | XMS REPORT ---
Author Author Admin, [place] Organization Unknown Address Unknown Phone Unavailable PROBLEMS [...] Encounter Diagnosis - Ambulatory Encounter [facility] UNK - [facility]ulatory Encounter [facility]asper [facility] UNK - Ambulatory Encounter Jasper [facility] LinkLogAsp[facility] Clinic[facility] UNK - Ambulatory Encounter Jasperyves Caruso Lashell Stanley [facility] UNK - Ambulatory Encounter [facility] UNK - Ambulatory Encounter Fax Status [facility] UNK - Ambulatory Encounter Fax Status [facility] UNK - Ambulatory Encounter [facility]ves [facility] UNK - Ambulatory Encounter [facility]asper [facility]K - Ambulatory Encounter Jasperyves [facility] UNK - Ambulatory Encounter Jasperyves Peaceolga [facility] UNK - Ambulatory Encounter Geovani Raya [facility] Jasper [facility] Juan Smith [facility] Obstructive sleep apneaStraining on urinationUrine odorIncreased frequency of urinationFlank pain, right - Ambulatory Encounter [facility]asper [facility] Jasper [facility] UNK - Ambulatory Encounter Jasper [facility] LinkLogNem[facility] Foundation[facility] UNK - Ambulatory Encounter Jasperyves [facility] Hattie Dubon E Jerald Garcia [facility] UNK - Ambulatory Encounter Jasper Zuly Hutchinson [facility] LinkLogic [facility] UNK - Ambulatory Encounter Lina Bautista [facility]Nem[facility] Foundation[facility] UNK - Ambulatory Encounter Laura Bell [facility] UNK - Ambulatory Encounter [facility] Leticia Dubon E Jerald Garcia [facility] Mammographic screening for breast cancer - Ambulatory Encounter Fax Status [facility] - Ambulatory Encounter Fax Status [facility] UNK - Ambulatory Encounter Fax Status [facility] UNK - Ambulatory Encounter [facility]asper [facility] - [facility]ulatory En[facility]K - Ambulatory Encounter [facility] UNK - Ambulatory Encounter [facility] Jasper [facility] CenterGar[facility] UNK - Ambulatory Encounter Geovani Stafford [facility] Rosana Rodriguez [facility] Back painMuscle spasm, back - Ambulatory Encounter Rosana Justyn [facility] UNK - Ambulatory Encounter Jasper Zuly Caruso Fela Leonard MedAdherence Rosana Justyn [facility] UNK - Ambulatory Encounter Geovani Leonard MedAdherence [facility] UNK - Ambulatory Encounter Davey Day [facility] UNK - Ambulatory Encounter Jasper Kobifoolga Hutchinson [facility] LinkLogic [facility] UNK - Ambulatory Encounter Jasper Zuly Hutchinson [place] LinkLogic [facility] UNK - Ambulatory Encounter Jasper Kobifoolga Hutchinson [facility] LinkLogic [facility] UNK - Ambulatory Encounter Jasper Kobifoolga Hutchinson [facility] LinkLogic [facility] UNK - Ambulatory Encounter Jasper Kobifoolga Hutchinson [facility] LinkLogic [facility] UNK - Ambulatory Encounter Jasper Kobifoolga Hutchinson [facility] LinkLogic [facility] UNK - Ambulatory Encounter Jasper Kobifoolga Jasper Mahfouz [facility] UNK - Ambulatory Encounter Jasper Kobifoolga Hutchinson Mah[facility] UNK - Ambulatory Encounter Jasper Kobifoolga Hutchinson Mahf[facility]z [facility] UNK - Ambulatory Encounter Geovani Bell Jasper Kobifoolga Jasper [facility] FuentesRosana Jack [facility] Screening for breast cancer - Ambulatory Encounter Naila [facility] UNK - Ambulatory Encounter Jasper Zuly Martinez Rivera Chip [facility] UNK - Ambulatory Encounter Laura Bell [facility] UNK - Ambulatory Encounter Jasper Zuly Hutchinson [facility] CenterGar[facility] UNK - Ambulatory Encounter Geovani Berry LinkLogic [facility] UNK - Ambulatory Encounter Jasper Zuly Hutchinson [facility] LinkLogic Laura Bell [facility] UNK - Ambulatory Encounter Jasper Zuly Hutchinson [facility] Arline Brandt [facility] UNK - Ambulatory Encounter Alice Sandoval LinkLogjacob [facility] UNK - Ambulatory Encounter Laura Bell [facility] UNK - Ambulatory Encounter Jasper [facility] Jasper [facility]foCarlsbad Medical CenterGar[facility] UNK - Ambulatory Encounter Jasper Zluy Peacefoolga LinkLogic Laura Mathurvez [facility] UNK - Ambulatory Encounter Fax Status LinkLogic [facility] UNK - Ambulatory Encounter Fax Status LinkLogic [facility] UNK - Ambulatory Encounter Fax Status LinkLogic [facility] UNK - Ambulatory Encounter Patito Ashton [facility] UNK - Ambulatory Encounter Jasper Zuly Hutchinson [facility]foCar[facility] CenterGar[facility] UNK - Ambulatory Encounter Jasper Zuly Hutchinson [facility] UNK - Ambulatory Encounter [facility]asper [facility] UNK - Ambulatory Encounter Geovani Raya [facility] Montez Sahu [facility] Hx of smoking more than 15 pack yearsLung cancer, family hxScreening for cancerDepressed moodStressAnxietyIrritability - Ambulatory Encounter Louisa Leonard MedAdherence [facility] UNK - Ambulatory Encounter Jasper Zuly Hutchinson [facility] Leonard MedAdherence [facility] UNK - Ambulatory Encounter Jasper Kobiolga Hutchinson [facility] LinkLogic [facility] UNK - Ambulatory Encounter Yvonne Leonard MedAdherence [facility] UNK - Ambulatory Encounter Fax Status [facility] - Ambulatory Encounter [facility] Jasper [facility] LinkLogic [facility] UNK - Ambulatory Encounter [facility]asper [facility] UNK - Ambulatory Encounter Jasper [facility] Jasper [facility] UNK - Ambulatory Encounter Jasper [facility] UNK - Ambulatory Encounter Louisa Hutchinson Zuly Hutchinson Zuly Sahu [facility] UNK - Ambulatory Encounter Jasper [facility] Jasper [facility]fouz LinkLogic [facility] UNK - Ambulatory Encounter Jasper Kobifoolga Hutchinson [facility] LinkLogic [facility] UNK - Ambulatory Encounter Fax Status [facility] UNK - Ambulatory Encounter Jasper Kobifoolga Jasper [facility] UNK - Ambulatory Encounter Jasper Kobifoolga Jasper [facility]fouz [facility] UNK - Ambulatory Encounter Jasper Kobifoolga Jasper [facility] UNK - Ambulatory Encounter Jasper Kobifoolga Jasper [facility]z [facility] UNK - Ambulatory Encounter Geovani Rubioras Jasper [facility] Jasper [facility] Hypoglycemia - Ambulatory Encounter Jasper Kobifoolga Jasper [facility]fou[facility] LinkLogic [facility] UNK - Ambulatory Encounter Jasper Kobifoolga Jasper [facility] LinkLogic [facility] UNK - Ambulatory Encounter Jasper Kobifoolga Jasper [facility] UNK - Ambulatory Encounter Jasper [facility]foBellflower Medical Centerar [facility]fouz [facility] UNK - Ambulatory Encounter Jasper [facility] Jasper [facility] UNK - Ambulatory Encounter Geovani aHrrisona Jasper [facility] Jasper [facility]z [facility] HypertensionFlu vaccineObesity - Ambulatory Encounter Jasper Kobifoolga Jasper [facility] Villarreal [facility] UNK - Ambulatory Encounter Jasper [facility] Jasper [facility]fou[facility] LinkLogic [facility] UNK - Ambulatory Encounter Jasper Zuly Hutchinson [place] LinkLogic [facility] UNK - Ambulatory Encounter Jasper Kobifoolga Hutchinson Mahfouz LinkLogic [facility] UNK - Ambulatory Encounter Fax Status LinkLogic [facility] UNK - Ambulatory Encounter Fax Status LinkLogic [facility] UNK - Ambulatory Encounter Fax Status LinkLogic [facility]K - Ambulatory Encounter Jasper Zuly Hutchinson Mahfouz LinkLogic [facility] UNK - Ambulatory Encounter Geovani Villarreal [facility] UNK - Ambulatory Encounter Jasper Kobifoolga Hutchinson Mahfouz [facility] UNK - Ambulatory Encounter Jasper Kobifoolga Hutchinson Mahfouz [facility] UNK - Ambulatory Encounter Jasper Mahfoolga Jasper Mahfouz [facility] UNK - Ambulatory Encounter Geovani Sahu Jasper [facility] Jasper [facility]fouz Naila Le [facility] Upper respiratory infectionCough - Ambulatory Encounter Jasper Zuly Hutchinson [place] LinkLogic [facility] UNK - Ambulatory Encounter Jasper Kobifoolga Jasper Mahfouz LinkLogic [facility] UNK - Ambulatory Encounter Nayeli Barriga [facility] UNK - Ambulatory Encounter Davey Day LinkLog[facility] UNK - Ambulatory Encounter Glen Oneal [facility] UNK - Ambulatory Encounter Fax Status LinkLogic [facility] UNK - Ambulatory Encounter Fax Status LinkLogic [facility] UNK - Ambulatory Encounter Fax Status LinkLogic [facility] UNK - Ambulatory Encounter Glen Oneal LinkLogic [facility] UNK - Ambulatory Encounter [facility]asper [facility] UNK - Ambulatory Encounter [facility] UNK - Ambulatory Encounter Jasper [facility] UNK - Ambulatory Encounter Jasper [facility] UNK - Ambulatory Encounter Virgiliohumita Jonny Gant Caballero [facility] Diabetes mellitus type IIHypertriglyceridemiaHyperlipidemiaBlurred visionBMI 34.0-34.9 - Ambulatory Encounter Cem Denson [facility] UNK - Ambulatory Encounter Louisa SawantLogjacob [facility] UNK - Ambulatory Encounter Louisa Alejandra [facility] UNK - Ambulatory Encounter Davey Day LinkLogjacob [facility] UNK - Ambulatory Encounter Davey Day LinkLogjacob [facility] UNK - Ambulatory Encounter Davey Day [facility] UNK - Ambulatory Encounter Davey Day [facility] UNK - Ambulatory Encounter Davey Day LinkLogjacob [facility] UNK - Ambulatory Encounter Davey Day LinkLogjacob [facility] UNK - Ambulatory Encounter Fax Status LinkLogic [facility] UNK - Ambulatory Encounter Fax Status LinkLogic [facility] UNK - Ambulatory Encounter Fax Status LinkLogic [facility] UNK - Ambulatory Encounter Fax Status LinkLogic [facility] UNK - Ambulatory Encounter Fax Status LinkLogic [facility] UNK - Ambulatory Encounter Fax Status LinkLogic [facility] UNK - Ambulatory Encounter Davey Bolanos Destiny [facility] UNK - Ambulatory Encounter [facility] - Ambulatory Encounter Davey Saucedo Sandra [facility] Seizure disorderGait disturbance - Ambulatory Encounter Davey Day [facility] UNK - Ambulatory Encounter Davey Day [facility] UNK - Ambulatory Encounter Davey Day LinkLogjacob [facility] UNK - Ambulatory Encounter Davey Day [facility] UNK - Ambulatory Encounter Davey Day LinkLogjacob [facility] UNK - Ambulatory Encounter Davey Day LinkLogic [facility] UNK - Ambulatory Encounter Davey Day LinkLogic [facility] UNK - Ambulatory Encounter Davey Day [facility] UNK - Ambulatory Encounter Davey Day LinkLogic [facility] UNK - Ambulatory Encounter Davey Day LinkLogic [facility] UNK - Ambulatory Encounter Davey Day LinkLogic [facility] UNK - Ambulatory Encounter Davey Day LinkLogic [facility] UNK - Ambulatory Encounter Nya Rodriguez [facility] UNK - Ambulatory [...] [facility] UNK - Ambulatory Encounter Davey [facility] UNK - Ambulatory Encounter Davey Cabrera [facility] Upper respiratory infectionCoughAbdominal wall herniaChest pain - Ambulatory Encounter LDC Care Coordination Desktop Shayy Day [facility] K - Ambulatory Encounter Davey Bess [facility] En[facility] Davey SawantLogjacob [facility] Encounter Davey Rodriguez [facility] HypothyroidismFibromyalgia - Ambulatory Encounter Davey Malloy [facility]counter Davey SawantLogjacob [facility] - [facility]ulatory Encounter Davey SawantLogjacob Maria Alejandra Rfeed [facility] - [facility]ulatory Encounter Davey SawantLogjacob [facility] - [facility]ulatory Encounter Dave[facility] Day [facility] - [facility]ulatory Encounter Davey Bess Freed [facility] Frequency, urinary VITAL SIGNS No Information Available ALLERGIES Allergy Name Onset Date Reaction Criticality Status CODEINE severe itchiness High Criticality active PCN rash High Criticality active REASON FOR REFERRAL Start Date - End Date Service - Sleep Study - External - Other Referral - External - Mammogram [...] Juan Smith " glucose, urine, semiquantitative negative [facility] " bilirubin, urine negative [facility] " ketones, urine, by test strip negative [facility] " blood in urine (hemoglobin) by dipstick negative [facility] " protein, urine, semiquantitative (dipstick) [facility] " urobilinogen, urine, semiquantitative (dipstick) negative [facility] " nitrite, urine, semiquantitative negative [facility] " leukocyte esterase, urine, by dipstick negative [facility] " appearance, urine clear [facility] " urine color yellow [facility] thyroid stimulating hormone, serum 2.250 u[iU]/mL LinkLogic [...] mg/dL Pamela Oden specific gravity, urine 1.025 [place] [facility] " pH, urine, semiquantitative 6.0 [place] [facility] " glucose, urine, semiquantitative negative [facility] " bilirubin, urine negative [place] [facility] " ketones, urine, by test strip trace (5) [facility] " blood in urine (hemoglobin) by dipstick negative [place] [facility] " protein, urine, semiquantitative (dipstick) 3+ [place] [facility] " urobilinogen, urine, semiquantitative (dipstick) negative [facility] " nitrite, urine, semiquantitative negative [place] [facility] " leukocyte esterase, urine, by dipstick negative [facility] " appearance, urine clear [place] [facility] " urine color yellow [place] [facility] HISTORY OF IMMUNIZATIONS No Information Available [...] BY MOUTH ONCE DAILY IN THE EVENING KOALA.CHAdherence ASPIRIN 81 MG ORAL TABLET DELAYED RELEASE 1 by mouth every day Jasper Caruso FENOFIBRATE 160 MG TABLET TAKE 1 TABLET BY MOUTH ONCE DAILY KOALA.CHAdherence CELEBREX 100 MG ORAL CAPSULE One capsule twice a day - Jasper Caruso LOSARTAN 50MG TAB TAKE 1 TABLET BY MOUTH ONCE DAILY KOALA.CHAdherence PROPRANOLOL HCL ER 60 MG CAP SA 24H TAKE 1 CAPSULE BY MOUTH ONCE DAILY Jasper Caruso CLOPIDOGREL BISULFATE 75 MG ORAL TABLET 1 By Mouth once a day Davey Day MELOXICAM 15 MG ORAL TABLET take one tab by mouth daily with food Davey Day TRAMADOL HCL 50 MG ORAL TABLET take two tabs by mouth three times a day for pain - Jasper Lynseyolga GABAPENTIN 300 MG ORAL CAPSULE 1 by mouth three times a day - Jasper Caruso LEVETIRACETAM 750 MG ORAL TABLET take one tab by mouth twice a day Davey Day ESCITALOPRAM OXALATE 20 MG ORAL TABLET take one tablet by mouth daily - Jasper Caruso LEVOTHYROXINE SODIUM 75 MCG TABLET TAKE 1 TABLET BY MOUTH ONCE DAILY Jasper Caruso SOCIAL HISTORY Date Observation Value Provider time of call 09/02/2019 10:00 AM Janusz Harry Stanley drug use, illicit Never Juan Smith " alcohol use Never Juan Smith " social history E&M . 22 year old daughter Not homeless. Lives with Not employed. Gender identity: Female. Juan Smith " social history reviewed E&M reviewed today Juancharity Tolberta " sexual orientation Heterosexual Juan Smith " assessment of health literacy ([employer] 2014 Standards, 3C10) Adequate Juan Smith " is there any chance that you could be ? No Juan Smith " passive cigarette smoke exposure No Juan Smith " smoking status former smoker Juan Smith " Exercise Program Referral T Juancharity Smith " Weight Management Counseling Provided T Juan Smith " Nutrition intervention T Juan Smith time of call 08/03/2019 12:27 PM Jagdish Garcia drug use, illicit Never Rosana Justyn " alcohol use Never Rosana Justyn " social history E&M . 22 year old daughter Not homeless. Lives with Not employed. Gender identity: Female. Rosana Justyn " social history reviewed E&M reviewed today Rosana Jack " is there any chance that you could be ? No Rosana Justyn " passive cigarette smoke exposure [...] Laura Bell " assessment of health literacy ([employer] 2014 Standards, 3C10) Adequate Laura Bell " [...] Magaly Sahu " assessment of health literacy ([employer] 2014 Standards, 3C10) Adequate Magaly Sahu " passive cigarette smoke exposure No Magaly Sahu " smoking status never smoker Magaly Sahu " Exercise Program Referral Ebony Sahu " Weight Management Counseling Provided Ebony Sahu " Nutrition intervention Ebony Sahu Exercise Program Referral Ebony Sahu " Weight Management Counseling Provided Ebony Sahu " Nutrition intervention T Magaly Sahu " drug use, illicit Never Magaly Sahu " alcohol use Never Magaly Sahu " social history E&M Not homeless. Not employed. Magaly Sahu " social history reviewed E&M reviewed today Magaly Sahu " assessment of health literacy ([employer] 2014 Standards, 3C10) Adequate Magaly Sahu " passive cigarette smoke exposure No Magaly Sahu " smoking status never smoker Magaly Luis Alberto Exercise Program Referral Ebony Berry " Weight Management Counseling Provided Ebony Berry " Nutrition intervention Ebony Berry " social history E&M Not homeless. Not employed. Alfreda Caballero " social history reviewed E&M reviewed today Alfreda Caballero " drug use, illicit Never Alfreda Cablalero " alcohol use Never Alfreda Caballero " assessment of health literacy ([employer] 2014 Standards, 3C10) Adequate Alfreda Caballero " [...] Pamela Oden " assessment of health literacy ([employer] 2014 Standards, 3C10) Adequate Pamela Oden " [...] Pamela Oden " assessment of health literacy ([employer] 2014 Standards, 3C10) Adequate Pamela Oden " passive cigarette smoke exposure No Pamela Oden " smoking status former smoker Pamela Oden time of call 06/30/2018 9:47 AM Nayeli Barriga Exercise Program Referral T Madskylarmita Jonny " Weight Management Counseling Provided T Madhumita Jonny " Nutrition intervention T Madhumita Jonny " alcohol use Never Alfreda Caballero " drug use, illicit Never Alfreda Caballero " assessment of health literacy ([employer] 2014 Standards, 3C10) Adequate Alfreda Caballero " passive cigarette smoke exposure No Alfreda Caballero " smoking status former smoker Alfreda Caballero " drug use, illicit Never Rosana Justyn " alcohol use Never Rosana Justyn " social history E&M Not homeless. Not employed. Rosana Justyn " social history reviewed E&M reviewed today Rosana Justyn " assessment of health literacy ([employer] 2014 Standards, 3C10) Adequate Rosana Justyn " passive cigarette smoke exposure No Rosana Justyn " smoking status former smoker Rosana Justyn " Exercise Program Referral T Rosana Justyn " Weight Management Counseling Provided T Rosana Justyn " Nutrition intervention T Rosana Justyn drug use, illicit Never [place] " alcohol use Never [place] " social history E&M Not homeless. Not employed. Cici Destiny " social history reviewed E&M reviewed today [place] " is there any chance that you could be ? No [place] " assessment of health literacy ([facility] 2014 Standards, 3C10) Adequate [place] " passive cigarette smoke exposure No [place] " smoking status former smoker [place]iny " Exercise Program Referral T Cici Dixon " Weight Management Counseling Provided Ebony Dixon " Nutrition intervention T Cici Dixon assessment of health literacy ([facility] 2014 Standards, 3C10) Adequate Nya Rodriguez " [...] Nya Rodriguez " assessment of health literacy ([facility] 2014 Standards, 3C10) Adequate Nya Rodriguez FUNCTIONAL STATUS No Information Available MENTAL STATUS Date Observation Value Provider assessment of judgment and insight E&M intact [facility] " mental status examination: orientation E&M oriented to time, place, and person [facility] " assessment of mood and affect E&M no depression, anxiety, or agitation [facility] " Generalized Anxiety Disorder Questionnaire - Question 2 0 Juan Smith " Generalized Anxiety Disorder Questionnaire - Question 1 0 Juan Smith assessment of judgment and insight E&M intact [facility] " mental status examination: orientation E&M oriented to time, place, and person [facility] " assessment of mood and affect E&M no depression, anxiety, or agitation [facility] assessment of judgment and insight E&M intact [facility] " mental status examination: orientation E&M oriented to time, place, and person [facility] " assessment of mood and affect E&M no depression, anxiety, or agitation [facility] " Generalized Anxiety Disorder Questionnaire - Question 2 0 Laura Bell " Generalized Anxiety Disorder Questionnaire - Question 1 0 Laura Ray mood (mental status exam) depressed, frustrated Patito [...] Disorder Questionnaire - Question 3 3 Rosana Justyn " Generalized Anxiety Disorder Questionnaire - Question 2 3 Rosana Alejandra " Generalized Anxiety Disorder Questionnaire - Question 1 3 Rosana Alejandra assessment of judgment and insight E[facility] " mental status examination: orientation E&M oriented to time, place, and person [facility] " assessment of mood and affect E&M no depression, anxiety, or agitation [facility] " Generalized Anxiety Disorder Questionnaire - Question 2 0 Magaly Sahu " Generalized Anxiety Disorder Questionnaire - Question 1 0 Magaly Sahu assessment of judgment and insight E&M intact [facility] " mental status examination: orientation E&M oriented to time, place, and person [facility] " assessment of mood and affect E&M no depression, anxiety, or agitation [facility] " Generalized Anxiety Disorder Questionnaire - Question 2 0 Alfreda Caballero " Generalized Anxiety Disorder Questionnaire - Question 1 0 Alfreda Caballero assessment of judgment and insight E&M intact [facility] " mental status examination: orientation E&M oriented to time, place, and person [facility] " assessment of mood and affect E&M no depression, anxiety, or agitation [facility] " Generalized Anxiety Disorder Questionnaire - Question 2 0 Pamela Oden " Generalized Anxiety Disorder Questionnaire - Question 1 0 Pamela Oden assessment of judgment and insight E&M intact [facility] " mental status examination: orientation E&M oriented to time, place, and person [facility] " assessment of mood and affect E&M no depression, anxiety, or agitation [facility] of judgment and insight E&M intact [facility] " mental status examination: orientation E&M oriented to time, place, and person [facility] " assessment of mood and affect E&M no depression, anxiety, or agitation [facility] " Generalized Anxiety Disorder Questionnaire - Question 2 0 Alfreda Caballero " Generalized Anxiety Disorder Questionnaire - Question 1 0 Alfreda Caballero mental status examination: orientation E&M oriented to time, place, and person Louisa M Ehdaie " assessment of mood and affect E&M no depression, anxiety, or agitation Louisa M Ehdaie " Generalized Anxiety Disorder Questionnaire - Question 2 0 Rosanaomero Alejandra " Generalized Anxiety Disorder Questionnaire - [...] E&M no depression, anxiety, or agitation Davey Harry Day " Generalized Anxiety Disorder Questionnaire - Question 2 0 Nya Rodriguez " Generalized Anxiety Disorder Questionnaire - Question 1 0 Nya Rodriguez assessment of judgment and insight E&M intact Davey Day " mental status examination: orientation E&M oriented to time, place, and person Davey Day " assessment of mood and affect E&M no depression, anxiety, or agitation Davey Harry Shay " Generalized Anxiety Disorder Questionnaire - [...] - - - - - - - - Est Patient Exp Problem - 01737 Urinalysis - Dip only - In House Est Patient Exp Problem - 28593 Est Patient Exp Problem - 10820 Integrated Behavioral Health Assessment (IBH) IB Assessment - Drill Presser Diagnostic evaluation (no medical) - 89537 Est Patient Detailed - 37323 Behavioral Health - Therapy Behavioral Health - Psychiatry Est Patient Exp Problem - 78976 Est Patient Exp Problem - 50917 Endocrinology - Adult - [facility] Est Patient Exp Problem - 94471 INFLUENZA VACCINE QUADRIVALENT 3 YRS PLUS IM Est Patient Exp Problem - 85729 Pneumovax Vaccine [id number] Dental - Internal Est Patient Exp Problem - 60135 Retinal Screening Est Patient Exp Problem - 11057 Est Patient Exp Problem - 53474 INFLUENZA VACCINE QUADRIVALENT 3 YRS PLUS IM Admin of Vaccine - Injection - 1 Est Patient Exp Problem - 16104 Est Patient Exp Problem - 94701 Urinalysis - Dip only - In House New Patient Detailed - 14076 HISTORY OF PROCEDURES Procedure Date Procedure Name Provider Procedure Notes Status Urinalysis - Dip only - In House Geovani Berry completed IB Assessment - Drill Presser Patito Ashton completed Diagnostic evaluation (no medical) - 48492 Patito Ashton completed Urinalysis - Dip only - In House Davey Day completed GOALS No Information Available HEALTH CONCERNS No Information Available
--- OUTSIDE RECORDS SUMMARY | 2019-10-01 13:09 | XMS REPORT ---
Author Author Admin, [place] Organization Unknown Address Unknown Phone Unavailable PROBLEMS [...] Provider Location Encounter Diagnosis - Ambulatory Encounter Laura Bell [facility] UNK - Ambulatory Encounter Laura Bell [facility] UNK - Ambulatory Encounter Jasperyves [facility] UNK - Ambulatory Encounter Jasperyves Peacefoolga [facility] UNK - Ambulatory Encounter Jasperyves [facility] LinkLogic [facility] UNK - Ambulatory Encounter Jasper [facility] LinkLogic [facility] UNK - Ambulatory Encounter Laura Bey [facility] Ngyves Menonolga Janusz Stanley [facility] Contact Center UNK - Ambulatory Encounter Fax Status LinkLogic [facility] UNK - Ambulatory Encounter Fax Status LinkLogic [facility] UNK - Ambulatory Encounter Fax Status LinkLogic [facility] UNK - Ambulatory Encounter Jasper [facility] LinkLogic Laura Bell [facility] UNK - Ambulatory Encounter Jasper Kobifoolga [facility]asper [facility] UNK - Ambulatory Encounter Jasper Kobifoolga [facility] - Ambulatory Encounter Jasper Zuly Menonuz [facility] UNK - Ambulatory Encounter Geovani Raya [facility] Juan Smith [facility] Obstructive sleep apneaStraining on urinationUrine odorIncreased frequency of urinationFlank pain, right - Ambulatory Encounter [facility] - Ambulatory Encounter Jasper Zuly [facility]inson [facility] UNK - Ambulatory Encounter Jasper Zuly [facility] Hattie Dubon E Jerald Garcia [facility] UNK - Ambulatory Encounter Jasper Zuly [facility]inson [facility] UNK - Ambulatory Encounter Lina Bautista [facility] UNK - Ambulatory Encounter Laura Bell [facility] UNK - Ambulatory Encounter Jasper [facility]natalie [facility] Leticia Dubon E Jerald Garcia [facility] Mammographic screening for breast cancer - Ambulatory Encounter Fax Status LinkLogic [facility] UNK - Ambulatory Encounter Fax Status [facility] UNK - Ambulatory Encounter Fax Status [facility] UNK - Ambulatory Encounter Jasper [facility] - Ambulatory Encounter [facility] UNK - Ambulatory Encounter Jasper Mahfouz Jasper Mahfouz [facility] UNK - Ambulatory Encounter Jasper Zuly [facility] UNK - Ambulatory Encounter Geovani Stafford Jasper Zuly Peacefoolga FuentesRosanaomero Rodriguez [facility] Back painMuscle spasm, back - Ambulatory Encounter Rosana Alejandra [facility] UNK - Ambulatory Encounter Jasper Zuly [facility]ie Fela Leonard MedAdherence Rosana Alejandra [facility] UNK - Ambulatory Encounter Geovani Leonard MedAdherence [facility] UNK - Ambulatory Encounter Davey Day LinkLogic [facility] UNK - Ambulatory Encounter Jasper Zuly [facility] LinkLogic [facility] UNK - Ambulatory Encounter Jasper Zuly Jasper Mahfouz LinkLogic [facility] UNK - Ambulatory Encounter Jasper Zuly Hutchinson Mahfouz LinkLogic [facility] UNK - Ambulatory Encounter Jasper Zuly Hutchinson Mahfouz LinkLogic [facility] UNK - Ambulatory Encounter Jasper Zuly Jasper Mahfouz LinkLogic [facility] UNK - Ambulatory Encounter Jasper Zuly Hutchinson Mahfouz LinkLogic [facility] UNK - Ambulatory Encounter Jasper Zuly Jasper Mahfouz [facility] UNK - Ambulatory Encounter Jasper Kobifoolga Hutchinson Mahfouz [facility] UNK - Ambulatory Encounter Jasper Zuly [facility] UNK - Ambulatory Encounter Geovani Bell Jasper Caruso Rosana Alejandra [facility] Screening for breast cancer - Ambulatory Encounter Naila Le [facility] UNK - Ambulatory Encounter Jasper Zuly Caruso Michelle Rivera MedAdherlindy [facility] UNK - Ambulatory Encounter Laura Bell [facility] UNK - Ambulatory Encounter Jasper Zuly [facility] UNK - Ambulatory Encounter Geovani Berry LinkLogjacob [facility] UNK - Ambulatory Encounter Jasperyves Hutchinson Kobifoolga LinkLogic Laura Bell [facility] UNK - Ambulatory Encounter Jasperyves [facility] Arline Brandt [facility] UNK - Ambulatory Encounter Alice Sandoval LinkLogjacob [facility] UNK - Ambulatory Encounter Laura Bell [facility] UNK - Ambulatory Encounter Jasper Zluy Peacefoolga [facility] UNK - Ambulatory Encounter Jasper Zuly Hutchinson Kobif[place]ga LinkLogic Laura Bell [facility] UNK - Ambulatory Encounter Fax Status [facility] UNK - Ambulatory Encounter Fax Status [facility] UNK - Ambulatory Encounter Fax Status [facility] UNK - Ambulatory Encounter Patito Ashton [facility] UNK - Ambulatory Encounter [facility] UNK - Ambulatory Encounter Jasper Kobiolga [facility] UNK - Ambulatory Encounter [facility] UNK - Ambulatory Encounter Geovani Raya [facility] Montez Sahu [facility] Hx of smoking more than 15 pack yearsLung cancer, family hxScreening for cancerDepressed moodStressAnxietyIrritability - Ambulatory Encounter Louisa Leonard MedAdherence [facility] UNK - Ambulatory Encounter [facility] Fela Leonard MedAdherence [facility] UNK - Ambulatory Encounter [facility]Log[facility]K - Ambulatory Encounter Yvonne Leonard MedAdherence [facility] UNK - Ambulatory Encounter Fax Status LinkLogic [facility] UNK - Ambulatory Encounter J[facility] - Ambulatory Encounter [facility] UNK - Ambulatory Encounter [facility] UNK - Ambulatory Encounter Jasper Lynseyolga Hutchinson Mahfouz [facility] UNK - Ambulatory Encounter Louisa Restrepo Jasperyves Peaceolga [facility]inson [facility] Magaly Sahu [facility] UNK - Ambulatory Encounter Jasper Zuly [facility] LinkLogic [facility] UNK - Ambulatory Encounter Jasper Kobifoolga Hutchinson [facility] LinkLogic [facility] UNK - Ambulatory Encounter Fax [facility] - Ambulatory Encounter Jasper Kobiolga [facility]asper [facility] UNK - Ambulatory Encounter Jasper Kobiolga [facility]asper [facility] UNK - Ambulatory Encounter Jasper [facility]asper [facility] UNK - Ambulatory Encounter Jasper [facility] Jasper [facility] UNK - Ambulatory Encounter Geovani Rubioras [facility]asper [facility] Hypoglycemia - Ambulatory Encounter Jasper [facility] Jasper [facility] LinkLogic [facility] UNK - Ambulatory Encounter Jasper Kobifoolga Jasper [facility] LinkLogic [facility] UNK - Ambulatory Encounter Jasper [facility]foSal[facility] Centerar [facility] UNK - Ambulatory Encounter Jasper [facility] Jasper [facility] UNK - Ambulatory Encounter Jasper [facility] Jasper [facility] UNK - Ambulatory Encounter Geovani Kristi Oden Jasper Mahfouz Jasper Mahfouz [facility] HypertensionFlu vaccineObesity - Ambulatory Encounter Jasper Mahfouz Jasper Mahfouz Gigi Cherelle [facility] UNK - Ambulatory Encounter Jasper Mahfouz Jasper Mahfouz LinkLogic [facility] UNK - Ambulatory Encounter Jasper Mahfouz Jasper Mahfouz LinkLogic [facility] UNK - Ambulatory Encounter Jasper Mahfouz Jasper Mahfouz LinkLogic [facility] UNK - Ambulatory Encounter Fax Status LinkLog [facility]K - Ambulatory Encounter Fax Status [facility] UNK - Ambulatory Encounter Fax Status LinkLog [facility] UNK - Ambulatory Encounter Jasper Mahfoolga Jasper Mahfouz LinkLogic [facility] UNK - Ambulatory Encounter Geovani Villarreal [facility] UNK - Ambulatory Encounter Jasper Mahfoolga Jasper Mahfouz [facility] UNK - Ambulatory Encounter Jasper Mahfouz Jasper Mahfouz [facility] UNK - Ambulatory Encounter Jasper Mahfouz Jasper Mahfouz [facility] UNK - Ambulatory Encounter Geovani Sahu Jasper Mahfouz Jasper Mahfouz Naila Le [facility] Upper respiratory infectionCough - Ambulatory Encounter Jasper Mahfouz Jasper Mahfouz LinkLogic [facility] UNK - Ambulatory Encounter [facility] UNK - Ambulatory Encounter Nayeli Nithya [facility] Public Health Services UNK - Ambulatory Encounter Davey Day [facility] UNK - Ambulatory Encounter Glen Oneal [facility] Vision UNK - Ambulatory Encounter Fax Status [facility]Log[facility] UNK - Ambulatory Encounter Fax Status [facility]LogCar[facility]Mont [facility] Services UNK - Ambulatory Encounter Fax Status LinkBanner Services UNK - Ambulatory Encounter Glen [facility]Log[facility] Vision UNK - Ambulatory Encounter Jasper [facility] UN[facility] - Ambulatory Encounter [facility] - Ambulatory Encounter [facility] - Ambulatory Encounter [facility] - Ambulatory Encounter Yvonne Guzman Alfreda Caballero [facility] Diabetes mellitus type IIHypertriglyceridemiaHyperlipidemiaBlurred visionBMI 34.0-34.9 - Ambulatory Encounter Cem Denson [facility] UNK - Ambulatory Encounter Louisa SawantLogic [facility] UNK - Ambulatory Encounter Louisa Alejandra [facility] UNK - Ambulatory Encounter Davey Day LinkLogic [facility] UNK - Ambulatory Encounter Davey Day Link[facility] - Ambulatory Encounter [facility]y [facility] - Ambulatory Encounter Davey [facility] UNK - Ambulatory Encounter Davey Day [facility] UNK - Ambulatory Encounter Davey Day [facility] UNK - Ambulatory Encounter Fax Status LinkLogic Legacy Count Includes [facility] UNK - Ambulatory Encounter Fax Status LinkLogic Legacy Count Includes [facility] UNK - Ambulatory Encounter Fax Status [facility] UNK - Ambulatory Encounter Fax Status Link[facility] UNK - Ambulatory Encounter Fax Status LinkLogic [facility] Count Includes [facility] UNK - Ambulatory Encounter Fax Status LinkLogic [facility] Count Includes [facility] UNK - Ambulatory Encounter Davey Dixon [facility] UNK - Ambulatory Encounter Davey Day [facility] UNK - Ambulatory Encounter Davey Sandra [facility] Practice Seizure disorderGait disturbance - Ambulatory Encounter Davey Day [facility] UNK - Ambulatory Encounter Davey Day [facility] UNK - Ambulatory Encounter Davey Day LinkLogjacob [facility] - Ambulatory Encounter Davey Day [facility] UNK - Ambulatory Encounter Davey Day LinkLogic [facility] UNK - Ambulatory Encounter Davey Day Link[facility]ic [facility] UNK - Ambulatory Encounter Davey Day LinkLogjacob [facility] UNK - Ambulatory Encounter Davey Day [facility] UNK - Ambulatory Encounter Davey Day LinkLogic [facility] UNK - Ambulatory Encounter Davey Day LinkLogic [facility] UNK - Ambulatory Encounter Davey Day LinkLogic [facility] UNK - Ambulatory Encounter Davey Day LinkLogic [facility] UNK - Ambulatory Encounter Nya Rodriguez [facility] UNK - Ambulatory Encounter [...] UNK - Ambulatory Encounter Fax Status LinkLogic [facility] UNK - Ambulatory Encounter Davey Day [facility] UNK - Ambulatory Encounter Davey Santiago Cabrera [facility] Upper respiratory infectionCoughAbdominal wall herniaChest pain - Ambulatory Encounter LDC Care Coordination Desktop Shayy Day [facility] Contact Center UNK - Ambulatory Encounter Davey Day Maria Alejandra Freed [facility] UNK - Ambulatory Encounter Davey Day LinkLogjacob [facility] UNK - Ambulatory Encounter Davey Day [facility] UNK - Ambulatory Encounter Davey Rodriguez [facility] HypothyroidismFibromyalgia - Ambulatory Encounter Davey Day LinkLogic [facility] UNK - Ambulatory Encounter Davey Day LinkLogajcob [facility] Practice UNK - Ambulatory Encounter Davey SawantLogjacob Maria Alejandra Freed [facility] UNK - Ambulatory Encounter Davey Day LinkLogjacob [facility] UNK - Ambulatory Encounter Davey Day [facility] UNK - Ambulatory Encounter Davey Fielda [facility] Frequency, urinary VITAL SIGNS No Information Available [...] ketones, urine, by test strip negative Jasper Kobifouz " blood in urine (hemoglobin) by dipstick negative Jasper Mahfouz " protein, urine, semiquantitative (dipstick) negative Jasper Mahfouz " urobilinogen, urine, semiquantitative (dipstick) negative Jasper Mahfouz " nitrite, urine, semiquantitative negative Jasper Mahfouz " leukocyte esterase, urine, by dipstick negative Jasper Mahfouz " appearance, urine clear Jasper Kobifouz " urine color yellow Jasper Kobifoolga thyroid stimulating hormone, serum 2.250 u[iU]/mL LinkLogic [...] % of total hemoglobin 12.9 % Rosana Justyn " blood glucose, random 281 mg/dL Magaly [...] mg/dL Pamela Oden specific gravity, urine 1.025 Cici Destiny " pH, urine, semiquantitative 6.0 Lamar Destiny " glucose, urine, semiquantitative negative Cici Destiny " bilirubin, urine negative Cici Destiny " ketones, urine, by test strip trace (5) Cici Destiny " blood in urine (hemoglobin) by dipstick negative Lamar Destiny " protein, urine, semiquantitative (dipstick) 3+ Lamar Destiny " urobilinogen, urine, semiquantitative (dipstick) negative Cici Destiny " nitrite, urine, semiquantitative negative Lamar Destiny " leukocyte esterase, urine, by dipstick [...] under skin Three Times a Day - Jasperyves Peacevandanaolga HUMULIN 70/30 (70-30) 100 UNIT/ML SUBCUTANEOUS SUSPENSION Inject 25 units under skin Twice a Day Jasper Kobivandanaolga ATORVASTATIN CALCIUM 40 MG TABLET TAKE 1 TABLET BY MOUTH ONCE DAILY IN THE EVENING DataPromAdherence ASPIRIN 81 MG ORAL TABLET DELAYED RELEASE 1 by mouth every day Jasperyves Caruso FENOFIBRATE 160 MG TABLET TAKE 1 TABLET BY MOUTH ONCE DAILY DataPromAdherence CELEBREX 100 MG ORAL CAPSULE One capsule twice a day - Jasperyves Caruso LOSARTAN 50MG TAB TAKE 1 TABLET BY MOUTH ONCE DAILY DataPromAdherence PROPRANOLOL HCL ER 60 MG CAP SA 24H TAKE 1 CAPSULE BY MOUTH ONCE DAILY Jasper Kobivandanaolga CLOPIDOGREL BISULFATE 75 MG ORAL TABLET 1 By Mouth once a day Davey Day MELOXICAM 15 MG ORAL TABLET take one tab by mouth daily with food Davey Day TRAMADOL HCL 50 MG ORAL TABLET take two tabs by mouth three times a day for pain - Jasper Caruso GABAPENTIN 300 MG ORAL CAPSULE 1 by [...] time of call 09/02/2019 10:00 AM Janusz Stanley drug use, illicit Never Juan Smith " alcohol use Never Jaun Smith " social history E&M . 22 year old daughter Not homeless. Lives with Not employed. Gender identity: Female. Juan Smith " social history reviewed E&M reviewed today Juan Smith " sexual orientation Heterosexual Juan Smith " assessment of health literacy ([facility] 2014 Standards, 3C10) Adequate Juan Smith " [...] PM Jagdish Garcia drug use, illicit Never Rosanaomero Alejandra " alcohol use Never Rosana Justyn " social history E&M . 22 year old daughter Not homeless. Lives with Not employed. Gender identity: Female. Rosanaomero Alejandra " social history reviewed E&M reviewed today Rosanaomero Alejandra " is there any chance that you could be ? No Rosana Justyn " passive cigarette smoke exposure No Rosana Justyn " smoking status former smoker Rosana Justny " Exercise Program Referral T Rosana Justyn " Weight Management Counseling Provided T Rosana Justyn " Nutrition intervention T Rosanaomero Alejandra Exercise Program Referral T Laura Bell " Weight Management Counseling Provided T Laura Bell " Nutrition intervention T Laura Bell " social history E&M . 22 year old daughter Not homeless. Lives with Not employed. Gender identity: Female. Laura Bell " social history reviewed E&M reviewed today Laura Bell " assessment of health literacy ([facility] 2014 Standards, 3C10) Adequate Laura Bell " [...] Magaly Sahu " assessment of health literacy ([facility] 2014 Standards, 3C10) Adequate Magaly Sahu " [...] Magaly Sahu " assessment of health literacy ([facility] 2014 Standards, 3C10) Adequate Magaly Sahu " [...] Alfreda Caballero " assessment of health literacy ([facility] 2014 Standards, 3C10) Adequate Alfreda Caballero " passive cigarette smoke exposure No Alfreda Caballero " smoking status former smoker Alfreda Caballero Exercise Program Referral Ebony Berry " Weight Management Counseling Provided Ebony Berry " Nutrition intervention T Geovani Berry " drug use, illicit Never Pamela Oden " alcohol use Never Pamela Oden " social history E&M Not homeless. Not employed. Pamela Oden " social history reviewed E&M reviewed today Pamela Oden " assessment of health literacy ([facility] 2014 Standards, 3C10) Adequate Pamela Oden " [...] Pamela Oden " assessment of health literacy ([facility] 2014 Standards, 3C10) Adequate Pamela Oden " [...] Alfreda Caballero " assessment of health literacy ([facility] 2014 Standards, 3C10) Adequate Alfreda Caballero " passive cigarette smoke exposure No Alfreda Caballero " smoking status former smoker Alfreda Caballero " drug use, illicit Never Rosana Justyn " alcohol use Never Rosana Justyn " social history E&M Not homeless. Not employed. Rosana Justyn " social history reviewed E&M reviewed today Rosana Justyn " assessment of health literacy ([facility] 2014 Standards, 3C10) Adequate Rosana Justyn " passive cigarette smoke exposure No Rosana Justyn " smoking status former smoker Rosana Jusytn " Exercise Program Referral T Rosana Justyn " Weight Management Counseling Provided T Rosana Justyn " Nutrition intervention T Rosana Justyn drug use, illicit Never Lamar Destiny " alcohol use Never Cici Destiny " social history E&M Not homeless. Not employed. Cici Dixon " social history reviewed E&M reviewed today Cici Dixon " is there any chance that you could be ? No Cici Dixon " assessment of health literacy ([facility] 2014 Standards, 3C10) Adequate Cici Dixon " passive cigarette smoke exposure No Cici Dixon " smoking status former smoker Cici Dixon " Exercise Program Referral T Cici Dixon " Weight Management Counseling Provided T Cici Dixon " Nutrition intervention T Cici Dixon assessment of health literacy ([facility] 2014 Standards, 3C10) Adequate Nya Rodriguez " [...] Nya Rodriguez " assessment of health literacy ([facility] 2014 Standards, 3C10) Adequate Nya Rodriguez FUNCTIONAL STATUS No Information Available MENTAL STATUS Date Observation Value Provider assessment of judgment and insight [facility] mental status examination: orientation E&M oriented to time, place, and person [facility] " assessment of mood and affect E&M no depression, anxiety, or agitation [facility] " Generalized Anxiety Disorder Questionnaire - Question 2 0 Juan Smith " Generalized Anxiety Disorder Questionnaire - Question 1 0 Juan Smith assessment of judgment and insight E&M intact [facility] " mental status examination: orientation E&M oriented to time, place, and person [facility] " assessment of mood and affect E&M [...] reality Patito Ashton " hallucinations No Patito Poli " thought content (mental status exam) (E&M) [...] assessment of judgment and insight E&M intact [facility] " mental status examination: orientation E&M oriented to time, place, and person [facility] " assessment of mood and affect E&M no depression, anxiety, or agitation [facility] " Generalized Anxiety Disorder Questionnaire - Question 2 0 Magaly Sahu " Generalized Anxiety Disorder Questionnaire - Question 1 0 Magaly Sahu assessment of judgment and insight E&M intact [facility] " mental status examination: orientation E&M oriented to time, place, and person [facility] " assessment of mood and affect E&M no depression, anxiety, or agitation [facility] " Generalized Anxiety Disorder Questionnaire - Question 2 0 Alfreda Caballero " Generalized Anxiety Disorder Questionnaire - Question 1 0 Alfreda Caballero assessment of judgment and insight E&M intact [facility] " mental status examination: orientation E&M oriented to time, place, and person [facility] " assessment of mood and affect E&M no depression, anxiety, or agitation [facility] " Generalized Anxiety Disorder Questionnaire - Question 2 0 Pamela Oden " Generalized Anxiety Disorder Questionnaire - Question 1 0 Pamela Oden assessment of judgment and insight E&M intact [facility] " mental status examination: orientation E&M oriented to time, place, and person [facility] " assessment of mood and affect E&M no depression, anxiety, or agitation Jasper Mahfouz assessment of judgment and insight E&M intact [facility] " mental status examination: orientation E&M oriented to time, place, and person Jasper Mahfouz " assessment of mood and affect E&M no depression, anxiety, or agitation Jasper Caurso " Generalized Anxiety Disorder Questionnaire - Question 2 0 Alfreda Caballero " Generalized Anxiety Disorder Questionnaire - Question 1 0 Alfreda Caballero mental status examination: orientation E&M oriented to time, place, and person Louisa Restrepo " assessment of mood and affect E&M no depression, anxiety, or agitation Louisa Sheehandaie " Generalized Anxiety Disorder Questionnaire - Question [...] depression, anxiety, or agitation Davey D Shay MEDICAL EQUIPMENT No Information Available FAMILY HISTORY [...] - - Est Patient Exp Problem - 78410 Urinalysis - Dip only - In House Est Patient Exp Problem - 53768 Est Patient Exp Problem - 06083 Integrated Behavioral Health Assessment (IBH) IB Assessment - Operating Room Registered Nurse Diagnostic evaluation (no medical) - 86450 Est Patient Detailed - 05953 Behavioral Health - Therapy Behavioral Health - Psychiatry Est Patient Exp Problem - 42666 Est Patient Exp Problem - 34378 Endocrinology - Adult - [facility] Est Patient Exp Problem - 93846 INFLUENZA VACCINE QUADRIVALENT 3 YRS PLUS IM Est Patient Exp Problem - 24306 Pneumovax Vaccine [id number] Dental - Internal Est Patient Exp Problem - 69706 Retinal Screening Est Patient Exp Problem - 23102 Est Patient Exp Problem - 58114 INFLUENZA VACCINE QUADRIVALENT 3 YRS PLUS IM Admin of Vaccine - Injection - 1 Est Patient Exp Problem - 90780 Est Patient Exp Problem - 43886 Urinalysis - Dip only - In House New Patient Detailed - 90392 HISTORY OF PROCEDURES Procedure Date Procedure Name Provider Procedure Notes Status Urinalysis - Dip only - In House Geovani Berry completed [facility] Assessment - Operating Room Registered Nurse Patito Ashton completed Diagnostic evaluation (no medical) - 01930 Patito Ashton completed Urinalysis - Dip only - In House Davey Day completed [facility] No Information Available HEALTH CONCERNS No Information Available
--- OUTSIDE RECORDS SUMMARY | 2019-10-01 13:09 | XMS REPORT ---
Author Author Admin, [place] Organization Unknown Address Unknown Phone Unavailable PROBLEMS [...] Encounter Diagnosis - Ambulatory Encounter Laura Bell [facility] UNK - Ambulatory En[facility]ves [facility] UNK - Ambulatory Encounter [facility]asperyves [facility] - Ambulatory Encounter Jasperyves [facility] Link[facility] UNK - Ambulatory Encounter [facility] UNK - Ambulatory Encounter Laura Bey [facility] Peacevand[facility]ol[facility] Janusz Stanley [facility] Contact Center UNK - Ambulatory Encounter Fax Status LinkLogic [facility] UNK - Ambulatory Encounter Fax Status LinkLogic [facility] UNK - Ambulatory Encounter Fax Status LinkLogic [facility] UNK - Ambulatory Encounter Jasperyves Caruso [facility] UNK - Ambulatory Encounter [facility] UNK - Ambulatory Encounter Jasperyves Peacef[place]ga [facility] UNK - Ambulatory Encounter Jasperyves Peacef[place]ga [facility] UNK - Ambulatory Encounter Geovani Raya [facility] Juan Smith [facility] Obstructive sleep apneaStraining on urinationUrine odorIncreased frequency of urinationFlank pain, right - Ambulatory Encounter [facility] UNK - Ambulatory Encounter [facility] UNK - Ambulatory Encounter [facility] Hattie Dubon E Jerald Garcia [facility] UNK - Ambulatory Encounter [facility] UNK - Ambulatory Encounter Lina Bautista [facility] UNK - Ambulatory Encounter Laura Bell [facility] UNK - Ambulatory Encounter [facility] Leticia Dubon E Jerald Garcia [facility] Mammographic screening for breast cancer - Ambulatory Encounter F[facility] Status [facility] - Ambulatory Encounter Fax Status [facility] UNK - Ambulatory Encounter Fax Status [facility] UNK - Ambulatory Encounter [facility] UNK - Ambulatory Encounter [facility] UNK - Ambulatory Encounter Jaspre [facility] UNK - Ambulatory Encounter Jasper Zuly Peace[facility] UNK - Ambulatory Encounter Geovani Stafford Jasper Zuly Peace[place] Rosanaemilia Rodriguez [facility] Back painMuscle spasm, back - Ambulatory Encounter Rosana Alejandra [facility] UNK - Ambulatory Encounter Jasper Zuly Caruso Fela Leonard MedAdherence Rosana Alejandra [facility] UNK - Ambulatory Encounter Geovani Leonard MedAdherence [facility] UNK - Ambulatory Encounter Davey Day LinkLogLegacy [facility] UNK - Ambulatory Encounter Jasper Zuly [facility] LinkLogic [facility] UNK - Ambulatory Encounter Jasper Kob[place]ga [facility] Link[facility]ic [facility] UNK - Ambulatory Encounter Jasper Kobif[place]ga [facility] Link[facility]ic [facility] UNK - Ambulatory Encounter Jasper Zuly [facility] Link[facility]ic [facility] UNK - Ambulatory Encounter Jasper Kob[place]ga Jasper Mahfouz LinkLogic [facility] UNK - Ambulatory Encounter Jasper Zuly Jasper [facility] LinkLogic [facility] UNK - Ambulatory Encounter Jasper Kob[place]ga Jasper Mahf[facility]z [facility] UNK - Ambulatory Encounter Jasper Kobif[place]ga Jasper Mahfouz [facility] UNK - Ambulatory Encounter Jasper [facility]if[place]ga [facility] UNK - Ambulatory Encounter Geovani [facility]inson Zuly Caruso Rosana Alejandra [facility] Screening for breast cancer - Ambulatory Encounter Naila Rey [facility] UNK - Ambulatory Encounter Jasper Zuly Caruso Michelle Saunders [facility] UNK - Ambulatory Encounter Laura Mathurvez [facility] UNK - Ambulatory Encounter Jasper [place] [facility] UNK - Ambulatory Encounter Geovani Berry LinkLogjacob [facility] UNK - Ambulatory Encounter Jasper Zuly [facility] [place] LinkLogic Laura Bell [facility] UNK - Ambulatory Encounter Jasper Zuly Caruso Arline Brandt [facility] UNK - Ambulatory Encounter Alice SawantLogjacob [facility] UNK - Ambulatory Encounter Laura Bell [facility] UNK - Ambulatory Encounter Jasper [facility] [facility] UNK - Ambulatory Encounter Jasper Zuly Peacef[place] LinkLogic Laura Bell [facility] UNK - Ambulatory Encounter Fax Status [facility]K - Ambulatory Encounter Fax Status [facility]K - Ambulatory Encounter Fax Status [facility] UNK - Ambulatory Encounter Patito Ashton [facility] UNK - Ambulatory Encounter [facility] UNK - Ambulatory Encounter Jasper Kobiolga [facility] UNK - Ambulatory Encounter Jasper Zuly [facility] UNK - Ambulatory Encounter Geovani Raya [facility] Montez Sahu [facility] Hx of smoking more than 15 pack yearsLung cancer, family hxScreening for cancerDepressed moodStressAnxietyIrritability - Ambulatory Encounter Louisa Leonard MedAdherence [facility] UNK - Ambulatory Encounter Jasper Zuly [facility] Fela Leonard MedAdherence [facility] UNK - Ambulatory Encounter [facility] LinkLogic [facility] UNK - Ambulatory Encounter Yvonne Leonard MedAdherence [facility] UNK - Ambulatory Encounter Fax Status LinkLogic [facility] Services UNK - Ambulatory Encounter [facility] UNK - Ambulatory Encounter [facility] UNK - Ambulatory Encounter Jasper Zuly Jasper [facility] UNK - Ambulatory Encounter [facility] UNK - Ambulatory Encounter Louisa Restrepo [facility] Peaceolga Magaly Sahu [facility] UNK - Ambulatory Encounter [facility] Link[facility] UNK - Ambulatory Encounter Jasper Zuly [facility] Link[facility] UNK - Ambulatory Encounter Fax Status [facility] - [facility]ulatory Encounter [facility] UNK - Ambulatory Encounter Jasper [facility] UNK - Ambulatory Encounter Jasper [facility] UNK - Ambulatory Encounter Jasper Kobiolga [facility] UNK - Ambulatory Encounter Geovani Caballero [facility] Hypoglycemia - Ambulatory Encounter [facility] UNK - Ambulatory Encounter [facility] UNK - Ambulatory Encounter [facility] UNK - Ambulatory Encounter Jasper [facility]foWhite [facility] Medical Centerar [facility] UNK - Ambulatory Encounter [facility] UNK - Ambulatory Encounter Geovani Santiago Oden [facility] HypertensionFlu vaccineObesity - Ambulatory Encounter Jasper Kob[place]ga Peacevandanaolga Gigi Villarreal [facility] UNK - Ambulatory Encounter Jasper Zuly [facility] Link[facility]ic [facility] UNK - Ambulatory Encounter Jasper [place] [facility] Link[facility] UNK - Ambulatory Encounter Jasper [place] [facility] Link[facility] UNK - Ambulatory Encounter Fax Status LinkLogic [facility] UNK - Ambulatory Encounter Fax Status LinkLogic [facility] UNK - Ambulatory Encounter Fax Status [facility] UNK - Ambulatory Encounter Jasper Zuly [facility] UNK - Ambulatory Encounter Geovani Villarreal [facility] UNK - Ambulatory Encounter Jasper Zuly [facility] UNK - Ambulatory Encounter Jasper [place] Jasper Mahfouz [facility] UNK - Ambulatory Encounter [facility] Jasper Mahf[facility] UNK - Ambulatory Encounter Geovani Sahu [facility] Naila Le [facility] Upper respiratory infectionCough - Ambulatory Encounter Jasper Zuly [facility] Link[facility] UNK - Ambulatory Encounter Jasper [place] [facility] UNK - Ambulatory Encounter Nayeli DeckerRodriguez [facility] Public Health Services UNK - Ambulatory Encounter Davey Day [facility] UNK - Ambulatory Encounter Glen Oneal [facility] Vision UNK - Ambulatory Encounter Fax Status [facility] Services UNK - Ambulatory Encounter Fax Status [facility] Services UNK - Ambulatory Encounter Fax Status [facility] Services UNK - Ambulatory Encounter Glen Oenal [facility] Vision UNK - Ambulatory Encounter Jasper [facility] UNK - Ambulatory Encounter [facility] UNK - Ambulatory Encounter [facility] UNK - Ambulatory Encounter [facility] UNK - Ambulatory Encounter Yvonne Guzman Alfreda Caballero [facility] Diabetes mellitus type IIHypertriglyceridemiaHyperlipidemiaBlurred visionBMI 34.0-34.9 - Ambulatory Encounter Cem Denson [facility] UNK - Ambulatory En[facility] - Ambulatory Encounter Louisa Alejandra [facility] UNK - Ambulatory En[facility] - Ambulatory Encounter Davey Day LinkLogic [facility] UNK - Ambulatory Encounter Davey Day [facility] UNK - Ambulatory Encounter Davey Day [facility] UNK - Ambulatory Encounter Davey Day LinkLogic [facility] UNK - Ambulatory Encounter Davey Day LinkLogic [facility] UNK - Ambulatory Encounter Fax Status LinkLogic [facility] UNK - Ambulatory Encounter Fax Status LinkLogic [facility] UNK - Ambulatory Encounter Fax Status LinkLogic [facility] UNK - Ambulatory Encounter Fax Status LinkLogic [facility] UNK - Ambulatory Encounter Fax Status LinkLogic [facility] UNK - Ambulatory Encounter Fax Status LinkLogic [facility] UNK - Ambulatory Encounter Davey Dixon [facility] UNK - Ambulatory Encounter Davey Day [facility] UNK - Ambulatory Encounter Davey Sandra Cici Destiny [facility] Seizure disorderGait disturbance - Ambulatory Encounter Davey Day [facility] UNK - Ambulatory Encounter Davey Day [facility] UNK - Ambulatory Encounter Davey Day LinkLogic [facility] UNK - Ambulatory Encounter Davey Day [facility] UNK - Ambulatory Encounter Davey Day LinkLogic [facility] UNK - Ambulatory Encounter Davey Day LinkLogic [facility] UNK - Ambulatory Encounter Davey Day LinkLogic [facility] UNK - Ambulatory Encounter Davey Day [facility] UNK - Ambulatory Encounter Davey Day LinkLogic [facility] UNK - Ambulatory Encounter Davey Day LinkLogic [facility] UNK - Ambulatory Encounter Davey Day LinkLogic [facility] UNK - Ambulatory Encounter Davey Day LinkLogic [facility] UNK - Ambulatory Encounter Nya Rodriguez [facility] UNK - Ambulatory [...] Services UNK - Ambulatory Encounter Davey Day [facility] UNK - Ambulatory Encounter Davey Cabrera [facility] Upper respiratory infectionCoughAbdominal wall herniaChest pain - Ambulatory Encounter LDC Care Coordination Desktop Shayy Day [facility] K - Ambulatory Encounter Davey Fielda [facility] UNK - Ambulatory Encounter Davey SawantLogjacob [facility] UNK - Ambulatory Encounter Davey Day [facility] - [facility] Encounter Davey Rodriguez [facility] HypothyroidismFibromyalgia - Ambulatory Encounter Davey SawantLogjacob [facility] UNK - Ambulatory Encounter Davey Day LinkLogjacob [facility] UNK - Ambulatory Encounter Davey Bess Freed [facility] - Ambulatory Encounter Davey Malloy [facility] UNK - Ambulatory Encounter Davey Day [facility] - Ambulatory Encounter Davey Freed [facility] Frequency, urinary VITAL SIGNS No Information [...] Jasper Mahfouz " bilirubin, urine negative Jasper Zuly " ketones, urine, by test strip negative Jasperyves Caruso " blood in urine (hemoglobin) by dipstick negative Jasperyves Caruso " protein, urine, semiquantitative (dipstick) negative Jasperyves Peacef[place]ga " urobilinogen, urine, semiquantitative (dipstick) negative Jasper Mahf[place]ga " nitrite, urine, semiquantitative negative Jasper [place] " leukocyte esterase, urine, by dipstick negative Jasperyves Caruso " appearance, urine clear Jasperyves Caruso " urine color yellow Jasper Zuly thyroid stimulating hormone, serum 2.250 u[iU]/mL LinkLogic [...] LinkLogic 0.450-4.500 blood glucose, random 94 mg/dL [facility] specific gravity, urine 1.025 Poneto Destiny " pH, urine, semiquantitative 6.0 Cici Destiny " glucose, urine, semiquantitative negative Cici Destiny " bilirubin, urine negative Cici Destiny " ketones, urine, by test strip trace (5) Poneto Destiny " blood in urine (hemoglobin) by dipstick negative Cici Destiny " protein, urine, semiquantitative (dipstick) 3+ Cici Destiny " urobilinogen, urine, semiquantitative (dipstick) negative Poneto Destiny " nitrite, urine, semiquantitative negative Poneto Destiny " leukocyte esterase, urine, by dipstick negative Cici Destiny " appearance, urine clear Cici Destiny " urine color yellow Cici Destiny HISTORY OF IMMUNIZATIONS No Information Available HISTORY OF MEDICATION USE Medication Instructions Dates Provider Comments BACLOFEN 10 MG ORAL TABLET one tablet by mouth three times a day as needed for muscle spasm - Jasper Menonolga ZOLOFT 50 MG ORAL TABLET 1 by mouth nightly at bedtime Jasper Men[place]ga GLIPIZIDE ER 5 MG ORAL TABLET EXTENDED RELEASE 24 HOUR Take one tablet By Mouth Every Day Jasper Kobivandanaolga METFORMIN HCL ER 500 MG ORAL TABLET EXTENDED RELEASE 24 HOUR 2 tabs by mouth Twice a Day Jasper Kobivandanaolga HUMULIN N 100 UNIT/ML SUBCUTANEOUS SUSPENSION Inject 10 units under skin Three Times a Day - Jasper Kobivandanaolga HUMULIN 70/30 (70-30) 100 UNIT/ML SUBCUTANEOUS SUSPENSION Inject 25 units under skin Twice a Day Jasper Caruso ATORVASTATIN CALCIUM 40 MG TABLET TAKE 1 TABLET BY MOUTH ONCE DAILY IN THE EVENING [facility] Scripps Research InstituteAdherence ASPIRIN 81 MG ORAL TABLET DELAYED RELEASE 1 by mouth every day Jasper Kobivandanaolga FENOFIBRATE 160 MG TABLET TAKE 1 TABLET BY MOUTH ONCE DAILY [facility] Research InstituteAdherence CELEBREX 100 MG ORAL CAPSULE One capsule twice a day - Jasper Caruso LOSARTAN 50MG TAB TAKE 1 TABLET BY MOUTH ONCE DAILY [facility] Scripp[facility] Research InstituteAdherence PROPRANOLOL HCL ER 60 MG CAP SA [...] Smith " assessment of health literacy ([facility] 2014 Standards, 3C10) Adequate Juan Smith " is there any chance that you could be ? No Juan Smith " passive cigarette smoke exposure No Juancharity Tolberta " smoking status former smoker Juan Smith [...] Rosana Justyn " Exercise Program Referral T Rosanaomero Alejandra " Weight Management Counseling Provided T [...] Laura Bell " assessment of health literacy (NCQA [...] " assessment of health literacy ([facility] 2014 Standards, 3C10) Adequate Magaly Sahu " passive cigarette smoke exposure No Magaly Sahu " smoking status never smoker Magaly Sahu " Exercise Program Referral T Magaly Sahu " Weight Management Counseling Provided T Magaly Sauh " Nutrition intervention Ebony Sahu Exercise Program [...] " assessment of health literacy ([facility] 2014 Standards, 3C10) Adequate Magaly Sahu " passive cigarette smoke exposure No Magaly Luis Alberto " smoking status never smoker Magaly Sahu Exercise Program Referral Eboyn Berry " Weight Management Counseling Provided Ebony Berry " Nutrition intervention T Geovani Berry " social history E&M Not homeless. Not employed. Alfreda Caballero " social history reviewed E&M reviewed today Alfreda Caballero " drug use, illicit Never Alfreda Caballero " alcohol use Never Alfreda Caballero " assessment of health literacy ([facility] 2014 Standards, 3C10) Adequate Alfreda Caballero " [...] " assessment of health literacy ([facility] 2014 Standards, 3C10) Adequate Pamela Oden " [...] " assessment of health literacy ([facility] 2014 Standards, 3C10) Adequate Pamela Oden " [...] " assessment of health literacy ([facility] 2014 Standards, 3C10) Adequate Alfreda Caballero " passive cigarette smoke exposure No Alfreda Caballero " smoking status former smoker Alfreda Caballero " drug use, illicit Never Rosana Justyn " alcohol use Never Rosana Justyn " social history E&M Not homeless. Not employed. Rosana Justyn " social history reviewed E&M reviewed today Rosana Justyn " assessment of health literacy ([facility] 2014 Standards, 3C10) Adequate Rosana Justyn " passive cigarette smoke exposure No Rosana Justyn " smoking status former smoker Rosana Justyn " Exercise Program Referral T Rosana Justyn " Weight Management Counseling Provided T Rosana Justyn " Nutrition intervention T Rosana Justyn drug use, illicit Never Cici Destiny " alcohol use Never Poneto Destiny " social history E&M Not homeless. Not employed. Poneto Destiny " social history reviewed E&M reviewed today Cici Destiny " is there any chance that you could be ? No Cici Dixon " assessment of health literacy ([facility] 2014 Standards, 3C10) Adequate Cici Dixon " passive cigarette smoke exposure No Cici Dixon " smoking status former smoker Cici Dixon " Exercise Program Referral T Cici Dixon " Weight Management Counseling Provided T Cici Dixon " Nutrition intervention T Cici Dixon assessment of health literacy ([facility] 2014 Standards, 3C10) Adequate Nya Rodriguez " [...] " assessment of health literacy ([facility] 2014 Standards, 3C10) Adequate Nya Rodriguez FUNCTIONAL STATUS No Information Available MENTAL STATUS Date Observation Value Provider assessment of judgment and insight E&M intact [facility] " mental status examination: orientation E&M oriented to time, place, and person [facility] " assessment of mood and affect E&M no depression, anxiety, or agitation [facility] " Generalized Anxiety Disorder Questionnaire - Question 2 0 Juan Smith " Generalized Anxiety Disorder Questionnaire - Question 1 0 Juan Smith assessment of judgment and insight E&M intact [facility] " mental status examination: orientation E&M oriented to time, place, and person [facility] " assessment of mood and affect E&M no depression, anxiety, or agitation [facility] assessment of judgment and insight E&M intact [...] of judgment and insight E&M intact [facility] " mental status examination: orientation E&M oriented to time, place, and person [facility] " assessment of mood and affect E&M no depression, anxiety, or agitation [facility] " Generalized Anxiety Disorder Questionnaire - Question 2 0 Magaly Sahu " Generalized Anxiety Disorder Questionnaire - Question 1 0 Magaly Sahu assessment of judgment and insight E&M intact [facility] " mental status examination: orientation E&M oriented to time, place, and person [facility] " assessment of mood and affect E&M no depression, anxiety, or agitation [facility] " Generalized Anxiety Disorder Questionnaire - Question 2 0 Alfreda Caballero " Generalized Anxiety Disorder Questionnaire - Question 1 0 Alfreda Caballero assessment of judgment and insight E&M intact [facility] " mental status examination: orientation E&M oriented to time, place, and person [facility] " assessment of mood and affect E&M no depression, anxiety, or agitation [facility] " Generalized Anxiety Disorder Questionnaire - Question 2 0 Pamela Oden " Generalized Anxiety Disorder Questionnaire - Question 1 0 Pamela Oden assessment of judgment and insight [facility] " mental status examination: orientation E&M oriented to time, place, and person [facility] " assessment of mood and affect E&M no depression, anxiety, or agitation [facility] of judgment and insight [facility] " mental status examination: orientation E[facility]M [facility] to time, [facility], and [facility] " assessment of mood and affect E&M no depression, anxiety, or agitation [facility] " Generalized Anxiety Disorder Questionnaire - Question 2 0 Alfreda Caballero " Generalized Anxiety Disorder Questionnaire - Question 1 0 Alfreda Caballero mental status examination: orientation E&M oriented to time, place, and person Louisa Restrepo " assessment of mood and affect E&M no depression, anxiety, or agitation Louisa Restrepo " Generalized Anxiety Disorder Questionnaire - Question 2 0 Rosana Justyn " Generalized Anxiety Disorder Questionnaire [...] - - Est Patient Exp Problem - 14455 Urinalysis - Dip only - In House Est Patient Exp Problem - 06444 Est Patient Exp Problem - 00561 Integrated Behavioral Health Assessment (IBH) IBH Assessment - Computed Tomography Technician Diagnostic evaluation (no medical) - 57461 Est Patient Detailed - 70107 Behavioral Health - Therapy Behavioral Health - Psychiatry Est Patient Exp Problem - 17949 Est Patient Exp Problem - 27308 Endocrinology - Adult - [facility] Est Patient Exp Problem - 46363 INFLUENZA VACCINE QUADRIVALENT 3 YRS PLUS IM Est Patient Exp Problem - 94163 Pneumovax Vaccine [id number] Dental - Internal Est Patient Exp Problem - 63622 Retinal Screening Est Patient Exp Problem - 25821 Est Patient Exp Problem - 24234 INFLUENZA VACCINE QUADRIVALENT 3 YRS PLUS IM Admin of Vaccine - Injection - 1 Est Patient Exp Problem - 27800 Est Patient Exp Problem - 98600 Urinalysis - Dip only - In House New Patient Detailed - 85101 HISTORY OF PROCEDURES Procedure Date Procedure Name Provider Procedure Notes Status Urinalysis - Dip only - In House Geovani Berry completed [facility] Assessment - Computed Tomography Technician Patito Ashton completed Diagnostic evaluation (no medical) - 43421 Patito Ashton completed Urinalysis - Dip only - In House Davey Day completed [facility] No Information Available [facility] No Information Available
== END | disposition home or self-care (01) ==
LOC: OR 06:48
PROVIDERS: ATTEND Internal Medicine Gastroenterology
DX: D12.0 Benign neoplasm of cecum (principal); D12.4 Benign neoplasm of descending colon; K21.0 Gastro-esophageal reflux disease with esophagitis; K29.70 Gastritis, unspecified, without bleeding; K57.30 Diverticulosis of large intestine without perforation or abscess without bleeding; K59.00 Constipation, unspecified; I10 Essential (primary) hypertension; E03.9 Hypothyroidism, unspecified; E11.9 Type 2 diabetes mellitus without complications; M06.9 Rheumatoid arthritis, unspecified; Z88.6 Allergy status to analgesic agent; Z88.0 Allergy status to penicillin; Z79.82 Long term (current) use of aspirin; Z79.4 Long term (current) use of insulin; Z79.84 Long term (current) use of oral hypoglycemic drugs; Z79.02 Long term (current) use of antithrombotics/antiplatelets; Z68.41 Body mass index [BMI] 40.0-44.9, adult
CPT/HCPCS: 36415; 45385; 82948; 85025; 88305; J2001; J2250; J2704; 45378